=== PATIENT | female | born 1935 | race Caucasian/White ===

== ENCOUNTER 2022-10-08 07:22 | Outpatient (OUT) | payer MEDICARE, BC, SELFPAY ==
[2022-10-08 07:54] LABS: Basophils Percent Auto 0.4 % (0.2-2.0); Eosinophils Absolute Auto 0.5 10^3/uL (0.0-0.7); Eosinophils Percent Auto 7.1 % (0.9-7.0); Hematocrit 40.1 % (36.0-48.0); Hemoglobin 12.8 g/dL (12.0-16.0); Immature Granulocytes Abs Auto 0.02 10^3/uL (0.00-0.03); Immature Granulocytes Pct Auto 0.3 % (0.0-0.5); Lymphocytes Absolute Auto 2.4 10^3/uL (1.2-3.8); Lymphocytes Percent Auto 33.1 % (20.5-60.0); Mean Corpuscular HGB Conc 31.9 g/dL (29.9-35.2); Mean Corpuscular Hemoglobin 30.2 pg (26.7-34.0); Mean Corpuscular Volume 94.6 fL (81.0-99.0); Mean Platelet Volume 9.8 fL (9.5-13.5); Monocytes Absolute Auto 0.8 10^3/uL (0.3-0.8); Monocytes Percent Auto 11.6 % (1.7-12.0); Neutrophils Absolute Auto 3.4 10^3/uL (1.4-6.5); Neutrophils Percent Auto 47.5 % (43.0-75.0); Platelet Count 267 10^3/uL (150-450); Red Blood Count 4.24 10^6/uL (4.20-5.40); Red Cell Distribution Width 12.6 % (11.0-15.0); White Blood Count 7.2 10^3/uL (4.0-11.0)
[2022-10-08 14:42] LABS: Alanine Aminotransferase 30 U/L (14-59); Anion Gap 10.7; BUN Creatinine Ratio 19.5; Carbon Dioxide 27.3 mmol/L (21.0-32.0); Chloride 108 mmol/L (98-107); Chol HDL Ratio 2.3; Cholesterol 125 mg/dL (<=200); Estimated GFR (African America >60 (>=60); Estimated GFR (Non-African Ame >60 (>=60); Glucose 92 mg/dL (74-106); HDL Cholesterol 55 mg/dL (40-60); Sodium 142 mmol/L (136-145); Thyroid Stimulating Hormone 1.617 uIU/mL (0.358-3.740); Triglycerides 80 mg/dL (<=150)
== END 2022-10-08 07:23 | disposition home or self-care (01) ==
LOC: LAB 07:29
PROVIDERS: Family Provider Internal Medicine; PCP Internal Medicine; Visit Provider Internal Medicine
DX: E78.00 Pure hypercholesterolemia, unspecified (principal); I10 Essential (primary) hypertension; Z79.899 Other long term (current) drug therapy; E55.9 Vitamin D deficiency, unspecified; R53.83 Other fatigue
CPT/HCPCS: 36415; 80048; 80061; 82306; 84443; 84460; 85025

== ENCOUNTER 2023-03-22 09:54 | Outpatient (OUT) | payer MEDICARE, BC, SELFPAY ==
--- NOTE | 2023-03-22 10:03 | XR_ITS ---
The [address] [address] Patient Name: FRANSISCO CONTE MRN: [id number] date: 1935 Sex: F Assigned Patient Location: RAD Current Patient Location: RAD Accession/Order Number: [id number] Exam Date: 03/22/2023 10:10 Report Date: 03/22/2023 10:35 At the request of: DUSTY VELASQUEZ Procedure: XR chest 2V EXAM: XR chest 2V HISTORY: Acute Cough R05.1 COMPARISON: Chest study dated 02/28/2019 TECHNIQUE: PA and lateral views of the chest were obtained. FINDINGS: Heart and mediastinal contours are unremarkable in appearance. Mild to moderate patchy density in the right mid and lower lung field regions compatible with infiltrate. Mild prominence of the right hilar region most likely vascular, mild adenopathy or mass not entirely excluded. Artifact versus soft tissue mass in the right mid/lower lung field laterally on PA view measuring 1.2 cm. There may be a small right pleural effusion inferiorly. Small calcified granuloma in the right upper lung field similar to the prior exam. Small linear density left lower lung field on PA view likely representing atelectatic change. Mild degenerative change in the dorsal spine with slight convexity of the mid dorsal spine to the right and lower dorsal spine to the left. Moderate kyphosis. No obvious pneumothorax. XR/XR chest 2V IMPRESSION: Infiltrative changes on the right. Mild prominence of the right hilar region may be vascular in nature, mild adenopathy or mass not entirely excluded. Faint round density in the right mid/lower lung field laterally on PA view may be artifactually created, small mass is not excluded. Follow-up as needed. Electronically authenticated by: NADIR ANDREW Date: 03/22/2023 10:35
== END 2023-03-22 09:55 | disposition home or self-care (01) ==
LOC: RAD 09:57
PROVIDERS: Family Provider Internal Medicine; PCP Internal Medicine; Visit Provider Internal Medicine
DX: R05.1 Acute cough (principal)
CPT/HCPCS: 71046

== ENCOUNTER 2025-02-27 09:25 | Outpatient (OUT) | payer MEDICARE, BC, SELFPAY ==
--- OUTSIDE RECORDS SUMMARY | 2025-02-26 12:05 | XMS_ITS | Continuity of Care Document ---
Author Organization [facility] Address [address] [place] [address] Phone Care Team Providers Care Line Builder Name Role Phone Rj Lowery DO Primary Care Provider [phone] Pawan Herrera DO Attending Provider Rj Lowery DO Attending Provider Care Teams Patient Care Team Team Status: Active Member Role/Relationship Status Dates Rj Lowery DO Primary Care Provider Active Visit Care Team Team Status: Inactive Member Role/Relationship Status Dates Rj Lowery DO Primary Care Provider Active Start: February 05, 2025 End: February 05robert Herrera DOAttkellee ProviderActiveStart: February 05, 2025 End: February 05, 2025 Patient Care Team Team Status: Inactive Member Role/Relationship Status Dates Rj Lowery DO Primary Care Provider Active Start: February 26, 2025 End: February 26enBrittney Linares ProviderActiveStart: February 26, 2025 End: February 26, 2025 Chief Complaint and Reason for Visit Chief Complaint Admit Date SB BASIM February 05, 2025 1 :29pm wellness, 6 mo f/u February 26, 2025 3:21pm Reason for Visit Admit Date Myasthenia gravis February 05, 2025 1 :29pm Cerebral atherosclerosis February 26, 2025 3:21pm GERD (gastroesophageal reflux disease) N ovember 2024 3:21pm Hypercholesterolemia February 26, 2025 3:21pm Lung nodule February 26, 2025 3:21pm Medicare annual wellness visit, subseque nt February 26, 2025 3:21pm Myasthenia gravis February 26, 2025 3:21pm Paroxysmal atrial fibrillation February 26, 2025 3:21pm Primary hypertension February 26, 2025 3:21pm Allergies, Adverse Reactions, Alerts Allergen Type Severity Reaction Last Updated Verified Status No Known Allergies Allergy Unknown February 26, 2025 3:43pmYesActive Social History Smoking Status Unknown if ever smoked Observation Status Observation Response Date of Response Legal Sex Female (finding) Sex Assigned At BirthFemaleFebruary 1935 Problems Active Problems Problem Diagnosis/Recorded Date Onset Date Status C omments Medicare annual wellness vis it, subsequent January 30, 2024 6:39am Unknown Active Swelling of right lower extremityJune 2024 10:17amUnknownActiveTraumatic hematoma of right kneeJune 2024 10:17amUnknownActiveCerebral atherosclerosisMay 2023 9:29amUnknownActiveHypercholesterolemiaJune 2023 1:35pmUnknownActiveMyasthenia gravisJune 2023 1:34pmUnknownActiveLung noduleJune 2023 1:34pmUnknownActiveCXR: 2cm right hilar and 8mm RUL nodule - 09/2023,CT chest: granulomatous disease, emphysema, RUL, RLL granuloma and scarring, LLL scarring - 10/2023,CT chest w/ granulomas, scarring RUL, RLL, LLL - 10/2024 (consider repeat in year)Restless leg syndromeMay 2023 9:29am UnknownActivePrimary hypertensionMay 2023 9:29amUnknownActiveMuscle weaknessMay 2023 12:17pmUnknownActiveParoxysmal atrial fibrillationMay 2023 9:29amUnknownActiveGERD (gastroesophageal reflux disease)August 26, 2023 10:10amUnknownActiveAllergic rhinitisMay 2023 10:10amUnknownActive Contusion of right kneeJune 2024 10:16amUnknownActivePrepatellar bursitis of right kneeJuly 2024 8:55amUnknownActive Medications Medication Status Dose Units Route Directions Qty Days Refills S tart Date Stop Date End Date Reason(s) Instructions Adherence Ropinirole 1 mg tablet Discontinued 0 .ROUTE.QMIWFVE308Gutmr 2023 1:09pmJanuary 2024 7:14amTAKE 1 TABLET BY MOUTH ONCE DAILY IN THE EVENINGAtenolol 25 mg tabletDiscontinued0.ROUTE.COMPLEX 90pril 2023 2:54pmMar2024 4:04pmTAKE 1 TABLET BY MOUTH DAILY Lisinopril 30 mg tabletDiscontinued0.ROUTE.DOGKZTJ399Nsgla 2023 2:54pm June 23, 2024 4:04pmTAKE 1 TABLET BY MOUTH DAILYAmlodipine 5 mg tablet Discontinued0.ROUTE.PAHHHES866Hajfe 2023 2:54pmMarch 2024 4:04pmTAKE 1 TABLET BY MOUTH DAILYApixaban (Eliquis) 5 mg ardbqjCxglxbhhyuqr2NAISCxnlm dailyJun2023 11:00pmDecember 2023 6:48amAspirin (Adult Aspirin Regimen) 81 mg tablet,delayed release (DR/EC)Qxyebr64VWOKBrlorBrqa 2023 11:00pmComplies with drug therapyCitalopram 20 mg cmwsbtHmdbztfegvwc14SPLQIskhk October 12, 2023 11:00pmJun2023 4:53pmCitalopram 20 mg tabletDiscontinued 0.ROUTE.SHYPXIE432Vkrg 27th, 2024 4:52pmNov2023 7:29amTAKE 1 TABLET BY MOUTH ONCE DAILYPyridostigmine Greene (Mestinon) 60 mg lbvawpEvtdxqewpnvw40 MGPOThree times dailyJun2023 11:00pmJune 2023 12:16pm Pyridostigmine Greene (Mestinon) 60 mg hxnfzaVaqycsyiieto28HPEXKpvut times tkmix55627Ivvb 2023 12:16pmJuly 2023 9:59amBuspirone 5 mg tablet Vjvdkticsefe6YJUGVefpc efbvk706407Ympp 2023 10:15amOctober 2023 2:18pmOmeprazole 40 mg capsule,delayed release(DR/EC)Discontinued0.ROUTE.COMPLEX 301ly 2023 6:21amApril 2024 2:01pmTAKE 1 CAPSULE BY MOUTH EVERY DAYPyridostigmine Greene (Mestinon) 60 mg txikqdMvpdjbegobtl03QGTKIwsek times ddysi576901Kadb 2023 9:58amMarch 2024 6:47amCitalopram 20 mg tablet Active0.ROUTE.PHIIFWD924Shkzhcbr 20th, 2024 7:29amTAKE 1 TABLET BY MOUTH ONCE DAILYComplies with drug therapyAtorvastatin 40 mg tabletActive0.ROUTE.SSOHTUU408 March 30, 2024 6:48amTAKE 1 TABLET BY MOUTH DAILY IN THE EVENINGComplies with drug therapyApixaban (Eliquis) 5 mg tabletActive0.ROUTE.OPCLZOF4716Vdkhdcae 2023 6:48amTAKE 1 TABLET BY MOUTH TWICE DAILYComplies with drug therapy Ropinirole 1 mg tabletActive0.ROUTE.BTSMCRI767Ppsabll 9th, 2025 7:14amTAKE 1 TABLET BY MOUTH ONCE DAILY IN THE EVENINGComplies with drug therapyAmlodipine 5 mg tabletActive0.ROUTE.QTASAAC556Pzbap 2024 4:04pmTAKE 1 TABLET BY MOUTH DAILYComplies with drug therapyLisinopril 30 mg tabletActive0.ROUTE.NTXRLRK603 June 23, 2024 4:04pmTAKE 1 TABLET BY MOUTH DAILYComplies with drug therapy Atenolol 25 mg tabletActive0.ROUTE.QUXWRID064Zddic 2024 4:04pmTAKE 1 TABLET BY MOUTH DAILYComplies with drug therapyPyridostigmine Greene 60 mg tablet Active0.ROUTE.IYDNTLE5164Uvjyy 2024 6:47amTAKE 1 TABLET BY MOUTH 3 TIMES DAILYComplies with drug therapyRopinirole 1 mg weugfqUntszrgnhvjg5BVUGJcfyvQefpl 2023 12:00amMarch 2023 1:09pmAtenolol 25 mg ilharjImkpxytlvdry61XHSS DailyApril 2023 11:00pmApril 2023 2:55pmLisinopril 30 mg tablet Yjmqjvnbooui02GSAVUapsxVpbmk 2023 11:00pmApril 2023 2:55pmAmlodipine 5 mg pukvqnJjavumchbzds8MYJIKoligSbzdt 2023 11:00pmApril 2023 2:55pm Atorvastatin 40 mg sgtynpXruhamdvzocz36COQRWicmwQqp 2023 11:00pmDecember 2023 6:48amBuspirone 5 mg yoxqbgOspoggvbhihn2GCLRVzsdw dailyAugust 25, 2023 11:00pmJuly 2023 10:16amBenzonatate 100 mg bewtzdrDzpcuzmvqriw822AQHAOicer times dailyAugust 25, 2023 11:00pmJune 2023 3:31pmCitalopram 20 mg tablet Ckgdtrbnwhgb00PYVOSynzaZnz 9th, 2024 11:00pmJune 2023 3:31pmOmeprazole 40 mg capsule,delayed release(DR/EC)Pwfllpqixjen78YDMPPkybr90363Zvp 9th, 2024 11:00pmJuly 2023 6:21amFluticasone Propionate 50 mcg/actuation spray,wfoellkhlzPdvtisdsvsbc7FLLCPGDMBMBLVRXMwfzp03314Pct 9th, 2024 11:00pmApril 2024 2:00pmadminister into each nostrilFexofenadine (Allergy Relief (Fexofenadine)) 180 mg nvczieCjdnydhvrbxv025CBWPBfmwf42967Uyu 9th, 2024 11:00pm March 08, 2024 9:09amCephalexin 500 mg kmxqzawJpocskjmpodl149IIKDUiyyu jcycd69143Jeas 2024 11:00pmJuly 2024 11:08amMupirocin 2 % ointment Osvamd2DJKHZMGIPNHUGKhtuo jcywv60045Xner2024 11:00pmComplies with drug therapyCiprofloxacin Hcl 500 mg coaerkAbebbfnkcnms392UPDCXvlcb whtqw88364Ihih2024 11:00pmOctober 2024 12:49pmPrednisone 5 mg pidjtlUxqfof5GQGF Esyyr857Dofdrnm2024 11:00pmComplies with drug therapy Immunizations Immunization Event Date Not Given Reason Dose Number Slab Lifting Engineer Lot Number Reason(s) Given Vaccine Information Statement (VIS) Detail Administration Location COVID-19 mRNA-1273 ([facility]) June 05, 2020 COVID-19 mRNA-1273 (Moderna)July 01OVID-19 mRNA-1273 (Moderna)February 19Tap, unspecifiedMay 2016Fluzone TIV High-Dose 65YR+February 01, [address] [facility] CenterFluzone QIV High-Dose 65YR+February 18, 2025 influenza, unspecified formulationFebruary 25, 2023 Vital Signs Vital Reading Result Reference Range Collection Date/Time Weight 66.45 kg February 05, 2025 12:44pmHeart Rate70 /bsq26-615Ukapipr 2024 12:44pm Oxygen saturation by Pulse emqlrwxz35 %95-100[facility] 2024 12:44pmBP Uwiboeee416 mm[Hg]100-140October 2024 12:44pmBP Jtbetrxos91 mm[Hg]60-100 February 05, 2025 12:78mrLjtmmp95 [in_i]February 26, 2025 3:89ppNuwkwd30.77 [facility] 2024 3:43pmHeart Rate58 /num24-521Vrjahqtu 2024 3:43pm Respiratory rate12 /dmt40-05Jmugqryr 2024 3:43pmOxygen saturation by Pulse eezuzvcd31 %95-100[facility] 2024 3:43pmBP Zualxuwv325 mm[Hg]100-140 February 26, 2025 3:43pmBP Mhhcihsyv99 mm[Hg]60-100Noven[facility] 2024 3:43pm BMI (Body Mass Index)26.5 kg/r4Zzpzjjee 2024 3:43pm Advance Directives Advance Directive Response Recorded Date/ Time Advance Directives No August 15 025 3:04pm Insurance Providers Guarantor Genesis Olguin Address [address] [facility] [address]Thmybfo Info.Home Phone: Payer Group Member ID Coverage Type Subscriber Relationship to Subscriber Effective Date Expiration Date Patricia ANTHONY Retired Id: [id number] Ann Hay Id: [id number] [address] [facility] [address] Home Phone: SelfMedicare [id number] Ann Hay Id: [id number] [address] [place] [address] Home Phone: selb Encounters Encounter Location(s) Arrival/Admit Date Discharge/Departure Date Discharge/Departure Disposition Provider(s) Departed Physician/ Provider Office Visit -Counts Include [facility] Neurology February 05, 2025 1:29pm February 05, 2025 2:23pm Discharged to home care or self care (routine discharge) Mack Tolliver DO Departed Physician/ Provider Office Visit -[facility] February 26, 2025 3:21pm February 26, 2025 5:04pm Discharged to home care or self care (routine discharge) Rj Lowery DO Recent Diagnosis Onset Date Admit Date Myasthenia gravis Unknown February 05, 2025 1:29pm Cerebral atherosclerosis Unknown Novembe r 2024 3:21pm GERD (gastroesophageal reflux disease) Unknown February 26, 2025 3:21pm Hypercholesterolemia Unknown February 262024 3:21pm Lung nodule Unknown February 26, 2 025 3:21pm Medicare annual wellness visit, subsequent Unkno wn February 26, 2025 3:21pm Myasthenia gravis Unknown February 26, 2025 3:21pm Paroxysmal atrial fibrillation Unknown N ovember 2024 3:21pm Primary hypertension Unknown February 262024 3:21pm Assessments Diagnosis Onset Date Resolution Status Admit Date Myasthenia gravis acuteOctober 2024 1:29pmCerebral atherosclerosisacuteNovember 2024 3:21pmGERD (gastroesophageal reflux disease)acuteNovember 2024 3:21pm HypercholesterolemiaacuteNovember 2024 3:21pmLung noduleacuteNovember 2024 3:21pmMedicare annual wellness visit, subsequentacuteNov2024 3:21pmMyasthenia gravisacuteNovember 2024 3:21pmParoxysmal atrial fibrillationacuteNovember 2024 3:21pmPrimary hypertensionacuteNovember 2024 3:21pm Plan of Treatment Author Rj Lowery [facility] ShawAuthoredNovember 2024 5:34pmNo s/s of acute, focal neurologic deficits. I have reviewed stroke symptoms and instructed them to go to the ER for any suspicious symptoms. They have been instructed to continue secondary preventive measures. Continue ASA and Eliquis without interruption. Monitor for any bleeding complications: she denies epistaxis, hematemesis, melena, hematochezia or hematuria. This patient is rhythm controlled. I instructed them to continue anticoagulation to prevent thromboembolic events. I instructed them to monitor their BP, HR and daily weights. I also instructed them to monitor for bleeding complications, including epistaxis, hematuria, melena and hematochezia. Continue Eliquis and Atenolol without interruption I have instructed this patient to consume a healthy, low-fat, low-salt diet. I have also encouraged them to continue exercise with weight loss to achieve/maintain a BMI < 30. I have instructed this patient on the correct procedure for obtaining home BP measurements:? - rest for 5 minutes w/o talking. - positioned w/ feet on floor and arms supported. - average best 2/3 readings w/ goal < 135/85. - update office w/ home readings in 2 weeks. Continue Lisinopril, Amlodipine and Atenolol without interruption Incidental finding on evaluation during her hospital stay. - CXR: 2cm right hilar and 8mm RUL nodule - 09/2023 - CT chest: granulomatous disease, emphysema, RUL, RLL granuloma and scarring, LLL scarring - 10/2023 - CT chest w/ granulomas, scarring RUL, RLL, LLL - 10/2024 (consider repeat in year) Continue Mestinon and f/u with Neurology. PEG can be removed and she has been instructed to contact the trauma surgeon for removal. Her ptosis and oral secretions have improved. She denies choking or dysphagia. Continue Mestinon without interruption I have instructed this patient on a low fat, high fiber diet and exercise. I have discussed the primary and secondary prevention benefits attributed to lowering LDL cholesterol. I have also discussed the medical treatment of elevated cholesterol, which is based on the 10 year ASCVD risk. Continue Atorvastatin without interruption I have instructed this patient to avoid lying flat after eating.?? I have also recommended to avoid eating 2 hours prior to bedtime.?? They were also informed that smaller, frequent meals may be better tolerated. I have discussed additional treatment options for persistent symptoms, which includes: weight loss, H2 blockers and PPI. I have also instructed them to notify the office with any pain or difficulty swallowing. I have instructed this patient on the recommended lifestyle changes, which includes a low fat, high fiber diet along with a regular exercise routine. I have also reviewed the recommended age-appropriate preventive testing for this patient. I have also reviewed the recommended vaccines for their age and risk factors. Author Pawan Herrera [facility] ShawAuthoredPromedica [facility] 2024 1:20pmPatient was seen at [facility] 09/06/2023 with symptoms of slurred speech, left sided facial droop, dysarthria, and shortness of breath. Brain MRI was nonacute. She was found to have positive labs for myasthenia gravis with positive antibody testing. CT of the chest is negative for thymoma.. She received IVIG September 08, 2023. She is doing well on mestinon. The patient states that she has been noticing some worsening of ptosis especially in the evening. She is concerned that her disease is becoming somewhat less well-controlled indicating a worsening of a chronic condition. PLAN: Start prednisone 5 mg p.o. daily for disease-modifying therapy for myasthenia gravis Continue Mestinon 60mg PO TID for Myasthenia Gravis. Continue with fall precautions Red flag signs and symptoms discussed. She understands to proceed to the emergency department right away with any evidence of shortness of breath, severe ptosis or proximal extremity weakness. The patient was accompanied by her daughter today who provided additional history and was understanding and agreeable to the plan. Future Tests Future scheduled test information is unavailable Pending Tests Pending diagnostic test information is unavailable Future Visits Future appointment information is unavailable Future Procedures Future procedure information is unavailable Future Medications Future medication information is unavailable Patient Instructions Patient instructions are unavailable
--- OUTSIDE RECORDS SUMMARY | 2025-02-27 09:32 | XMS_ITS | Clinical Summary ---
Author Organization [facility] Address [address] [place] [address] Care Team Providers Care Financial Professional Name Role Phone Rj Lowery DO Primary Care Provider [phone] Misti Berger Unavailable Allergies No known active allergies Medications MedicationSigDispense QuantityRefillsLast FilledStart DateEnd DateStatus amLODIPine (Norvasc) 5 MG tablet Take 5 mg by mouth DailyActive aspirin 81 MG EC tablet Take 81 mg by mouth DailyActive atenolol (Tenormin) 25 MG tablet Take 25 mg by mouth DailyActive atorvastatin (Lipitor) 40 MG tablet Take 40 mg by mouth DailyActive busPIRone (Buspar) 5 MG tablet Take 5 mg by mouth in the morning and 5 mg before bedtime.Active citalopram (CeleXA) 20 MG tablet Take 20 mg by mouth DailyActive apixaban (Eliquis) 5 MG tablet Take 5 mg by mouth in the morning and 5 mg before bedtime.Active famotidine (Pepcid) 40 MG/5ML suspension Take 40 mg by mouth DailyActive fexofenadine (Ame) 180 MG tablet Take 180 mg by mouth DailyActive fluticasone (Flonase) 50 MCG/ACT nasal spray Administer 1 spray into each nostril Daily Shake gently. Before first use, prime pump. After use, clean tip and replace cap.Active lisinopril 30 MG tablet Take 30 mg by mouth DailyActive pyridostigmine (Mestinon) 60 MG tablet Take 60 mg by mouth in the morning and 60 mg in the evening and 60 mg before bedtime.Active rOPINIRole (Requip) 1 MG tablet Take 1 mg by mouth at bedtimeActive tuberculin (Aplisol) 5 UNIT/0.1ML injection Inject 5 Units into the skin 1 (one) timeActive omeprazole (PriLOSEC) [address] capsule Take 40 mg by mouth in the morning. Take before meals. Do not crush or chew.. Active Social History Tobacco UseTypesPacks/DayYears UsedDateSmoking Tobacco: Never Assessed CommentsUnknownSex and Gender InformationValueDate RecordedSex Assigned at Not on fileLegal EdbZssobw52/15/2023 7:21 PM EDTGender IdentityNot on fileSexual OrientationNot on file Last Filed Vital Signs Vital SignReadingTime TakenCommentsBlood Jkdwqgwf440/70007/05/2024 12:55 PM EDT Yjqee3161/20/2025 12:55 PM EDTTemperature--Respiratory Ssay752507/05/2024 12:55 PM EDTOxygen Ijunahjxqo97%07/05/2024 12:55 PM EDTInhaled Oxygen Concentration-- Slqmhd68.1 kg (148 lb)07/05/2024 12:55 PM XZQDwmexy770.5 cm (5' 2 )07/05/2024 12:55 PM EDTBody Mass Index27.0707/05/2024 12:55 PM EDT Plan of Treatment Not on file Insurance Care Teams Team MemberRelationshipSpecialtyStart DateEnd Date Rj Lowery DO PCP - GeneralInternal Medicine10/06/23 Misti Berger PA Physician AssistantNeurology07/05/24
--- OUTSIDE RECORDS SUMMARY | 2025-02-27 09:32 | XMS_ITS | Clinical Summary ---
Author Organization [facility] Address [address] [place] [address] Care Team Providers Care Hog Cooler Name Role Phone Unavailable Primary Care Provider Unavailabl e Social History Tobacco UseTypesPacks/DayYears UsedDateSmoking Tobacco: Never Assessed CommentsUnknownSex and Gender InformationValueDate RecordedSex Assigned at Not on fileLegal YqfPgfxcy41/30/2022 12:14 AM EDTGender IdentityNot on file Sexual OrientationNot on file Plan of Treatment Not on file
--- OUTSIDE RECORDS SUMMARY | 2025-02-27 09:52 | XMS_ITS | CCD ---
Author Organization [facility] Care Team Providers Care Floor Assembler Name Role Phone PHYSICIAN, DEFAULT Admitting Unavailable PHYSICIAN, DEFAULT Attending Unavailable Gordy Aldana Unavailable Jose Cleveland Unavailable Rj Velasquez Unavailable VIMAL ., WALDO Admitting Unavailable VIMAL ., WALDO Attending Unavailable RON, DR DE LA ROSA Primary Care Unavailable VIMAL ., WALDO Consulting Unavailable VIMAL ., WALDO Admitting Unavailable VIMAL ., WALDO Attending Unavailable RON, DR DE LA ROSA Primary Care Unavailable VIMAL ., WALDO Consulting Unavailable VIMAL ., WALDO Admitting Unavailable VIMAL ., WALDO Attending Unavailable RON, DR DE LA ROSA Primary Care Unavailable VIMAL ., WALDO Consulting Unavailable LITTLE ., DR NO Rust Admitting Unavailable LITTLE ., DR NO Rust Attending Unavailable RON, DR DE LA ROSA Primary Care Unavailable LITTLE ., DR NO Rust Consulting Unavailable LITTLE ., DR NO Rust Admitting Unavailable LITTLE ., DR NO Rust Attending Unavailable RON, DR DE LA ROSA Primary Care Unavailable LITTLE ., DR NO Rust Consulting Unavailable LITTLE ., DR NO Rust Admitting Unavailable LITTLE ., DR NO Ruts Attending Unavailable RON, DR DE LA ROSA Primary Care Unavailable URIBE ., FARIHA Consulting Unavailable LITTLE ., DR NO Rust Admitting Unavailable LITTLE ., DR NO Rust Attending Unavailable RON, DR DE LA ROSA Primary Care Unavailable URIBE ., FARIHA Consulting Unavailable RON, DR DE LA ROSA Primary Care Unavailable RON, DR DE LA ROSA Consulting Unavailable LAKSHMIPATHY ., NARENDRANATH Admitting Zeina vailable LAKSHMIPATHY ., NARENDIKEATH Attending Zeina vailable Chnio [place] Attending Unavailable DO Jass Amaya Attending Unavailable Billy BRAVO Admitting Unavailable Billy BRAVO Attending Unavailable Billy BRAVO Admitting Unavailable Carl Mariee Consulting Unavailable MarieeCarl Consulting Unavailable Carl Mariee Consulting Unavailable Rickey Moore Consulting Unavailable MD Rickey Moore Consulting Unavailable [place], Rickey Consulting Unavailable [place], Rickey Consulting Unavailable [place], Rickey Consulting Unavailable [place], Rickey Consulting Unavailable [place], Rickey Consulting Unavailable [place], Rickey Consulting Unavailable [place], Rickey Consulting Unavailable [place], Rickey Consulting Unavailable MD Carl Mariee Consulting Breanne Spring Consulting UnavailMD Breanne Denson Consulting Breanne Pulliam Consulting Breanne Gusman Consulting RJ Ortiz Primary Care Physician DO Rj Velasquez Primary Care Provider DO Rj Velasquez Attending Provider Rj Velasquez Admitting Unavailable Rj Velasquez Attending Unavailable Rj Velasquez Primary Care Unavailable Breanne Zuleta Attending UnavailBreanne Denson Referring UnavailRJ Casiano Admitting Unavailable RJ VELASQUEZ Attending Unavailable RJ VELASQUEZ Referring Unavailable Billy BRAVO Admitting Unavailable [place], Rickey Consulting Unavailable Eliel Carvajal Attending Unavailable MD Rickey Moore Consulting Unavailable [place], Rickey Consulting Unavailable [place], Rickey Consulting Unavailable [place], Rickey Consulting Unavailable [place], Rickey Consulting Unavailable [place], Rickey Consulting Unavailable [place], Rickey Consulting Unavailable [place], Rickey Consulting Unavailable Rj Velasquez MD Primary Care Provider Misti De Luna Unavailable MISTI BERGER Attending Unavailable MISTI BERGER Attending Unavailable MISTI BERGER Attending Unavailable MISTI BERGER Attending Rj Jasso DO Primary Care Provider Rj Velasquez DO Attending Provider [phone] Rj Velasquez DO Primary Care Provider Pawan Herrera DO Attending Provider [phone] Allergies Allergy ClassificationReported Allergen(s)Allergy TypeDate of OnsetReaction(s) FacilityCephalosporins (antibiotic) (1 source)cefTRIAXone; Translations: [cefTRIAXone][facility] ([facility] source)patient allergy list reviewed by nurse or physiciaPropensity to adverse tvetnzaoa92-05-1625Htcsfax:[employer] Other (12 sources)No Known Medication Allergies; Translations: [No Known Medication Allergies]Propensity to adverse reactions (disorder)[facility] Repository (14 sources)cefTRIAXone; Translations: [cefTRIAXone]Drug AllergyPharyngeal swelling (finding)[facility] Repository Medications Current Medications MedicationDrug Class(es)DatesSig (Normalized)Sig (Original)amLODIPine 5 mg oral tablet (20 sources)Dihydropyridine Calcium Channel BlockerStart: 96-02-0677Pwytdlf 5 mg Tab 5 mg = 1 tab(s), PEG, Daily, Refills(s) 0 Start Date: 09/06/23 Status: OrderedStart: 08-11-2023 End: 26-06-9733fxyx 1 tablet by mouth once dailyAmlodipine 5 mg tablet Active 0 .ROUTE .COMPLEX 90 3 June 23, 2024 5:04pm TAKE 1 TABLET BY MOUTH DAILY Complies with drug therapyStart: 58-96-7656xbsj 1 tablet by mouth once daily Amlodipine Active 0 .ROUTE .COMPLEX 90 August 11, 2023 3:54pm TAKE 1 TABLET BY MOUTH DAILYStart: 08-11-2023 End: 71-49-6846hsts 1 tablet by mouth once dailyAmlodipine 5 mg tablet Discontinued 5 MG PO Daily August 11, 2023 12:00am August 11, 2023 3:55pm apixaban 5 mg oral tablet (20 sources)Factor Xa InhibitorStart: 05-97-2743zpmk 1 tablet by mouth twice dailyApixaban (Eliquis) 5 mg tablet Active 0 .ROUTE .COMPLEX 180 March 30, 2024 7:48am TAKE 1 TABLET BY MOUTH TWICE DAILY Complies with drug therapy Start: 09-06-2023 End: 08-49-2102hpwd 1 tablet by mouth twice dailyApixaban (Eliquis) 5 mg tablet Discontinued 5 MG PO Twice daily September 22, 2023 12:00am March 30, 2024 7:48amaspirin 81 mg delayed release oral tablet (19 sources)Platelet Aggregation Inhibitor, Nonsteroidal Anti-inflammatory Drug Start: 14-71-5582nkoq 1 tablet by mouth once dailyAspirin (Adult Aspirin Regimen) 81 mg tablet,delayed release (DR/EC) Active 81 MG PO Daily September 22, 2023 12:00am Complies with drug therapyStart: 00-83-9344hxtf 1 capsule by mouth once dailyaspirin 81 mg oral capsule 81 mg = 1 cap(s), PEG, Daily, Refills(s) 0 Start Date: 09/07/23 Status: Orderedatenolol 25 mg oral tablet (20 sources)beta-Adrenergic BlockerStart: 00-47-7411aruncqri 25 mg Tab 25 mg = 1 tab(s), PEG, Daily, Refills(s) 0 Start Date: 09/06/23 Status: OrderedStart: 08-11-2023 End: 88-28-9269amax 1 tablet by mouth once dailyAtenolol 25 mg tablet Active 0 .ROUTE .COMPLEX 90 3 June 23, 2024 5:04pm TAKE 1 TABLET BY MOUTH DAILY Complies with drug therapyStart: 08-11-2023 End: 04-97-8029fxka 1 tablet by mouth once dailyAtenolol 25 mg tablet Discontinued 25 MG PO Daily August 11, 2023 12:00am August 11, 2023 3:55pm atorvastatin 40 mg oral tablet (20 sources)HMG-CoA Reductase InhibitorStart: 42-80-9276wwpv 1 tablet by mouth once daily in the eveningAtorvastatin 40 mg tablet Active 0 .ROUTE .COMPLEX 90 3 March 30, 2024 7:48am TAKE 1 TABLET BYMOUTH DAILY IN THE EVENING Complies with drug therapyStart: 08-26-2023 End: 27-89-6435dlqv 1 tablet by mouth once dailyAtorvastatin 40 mg tablet Discontinued 40 MG PO Daily August 26, 2023 12:00am March 30, 2024 7:48am citalopram 20 mg oral tablet (20 sources)Serotonin Reuptake InhibitorStart: 10-13-2023 End: 07-97-9418irzr 1 tablet by mouth once dailyCitalopram 20 mg tablet Active 0 .ROUTE .COMPLEX 90 3 March 07, 2024 8:29am TAKE 1 TABLET BY MOUTH ONCE DAILY Complies with drug therapyStart: 10-13-2023 End: 47-17-7753rkrk 1 tablet by mouth once dailyCitalopram 20 mg tablet Discontinued 20 MG PO Daily October 13, 2023 12:00am October 13, 2023 5:53pmStart: 08-26-2023 End: 95-54-1445emej 1 tablet by mouth once dailyCitalopram 20 mg tablet Discontinued 20 MG PO Daily August 26, 2023 12:00am September 22, 2023 4:31pm famotidine 8 mg/ml oral suspension (8 sources)Histamine-2 Receptor Antagonisttake 40 mg by mouth once daily famotidine (Pepcid) 40 MG/5ML suspension Take 40 mg by mouth Daily Active fluticasone (20 sources)CorticosteroidStart: 78-62-5548ghya 50 ug by inhalation once daily fluticasone propionate 50 mcg, Inhalation, Daily, Refills(s) 0 Start Date: 09/06/23 Status: OrderedStart: 08-26-2023 End: 81-39-2804fbmd 1 spray(s) nasal route once dailyFluticasone Propionate 50 mcg/actuation spray,suspension Discontinued 1 SPRAY INTRANASAL Daily August 26, 2023 12:00am August 15, 2024 3:00pm administer into each nostriltake 1 spray(s) nasal route once dailyfluticasone (Flonase) 50 MCG/ACT nasal spray Administer 1 spray into each nostril Daily Shake gently. Before first use, prime pump. After use, clean tip and replace cap. ActiveJevity 1.5 [place] (Continuous) (4 sources)Start: 30-99-0733Jrtapx 1.5 [place] (Continuous) See Instructions, 1 EA, 0, other reason (Rx), 45 mL/hour via PEG with 25 cc water flushes every hour Start Date: 09/16/23 Status: OrderedlevoFLOXacin 750 mg oral tablet (1 source)Quinolone AntimicrobialStart: 64-83-7195xqhf 1 tablet by mouth every twenty-four hourslevoFLOXacin 750 MG 1 tablet Orally Once a day for 5 days Mar, Activelisinopril 30 mg oral tablet (20 sources)Angiotensin Converting Enzyme InhibitorStart: 70-58-9838kbkoiuyoxc 30 mg Tab 30 mg = 1 tab(s), PEG, Daily, Refills(s) 0 Start Date: 09/06/23 Status: OrderedStart: 08-11-2023 End: 06-57-7388oacd 1 tablet by mouth once dailyLisinopril 30 mg tablet Active 0 .ROUTE .COMPLEX 90 3 June 23, 2024 5:04pm TAKE 1 TABLET BY MOUTHDAILY Complies with drug therapyStart: 08-11-2023 End: 19-90-4941ieux 1 tablet by mouth once dailyLisinopril 30 mg tablet Discontinued 30 MG PO Daily August 11, 2023 12:00am August 11, 2023 3:55pm mupirocin 0.02 mg/mg topical ointment (3 sources)RNA Synthetase Inhibitor AntibacterialStart: 89-78-6909Jlyrlbqnm 2 % ointment Active 1 APPLIC TOPICAL Twice daily 22 10 0 October 18, 2024 12:00am Complies with drug therapypredniSONE 5 mg oral tablet (5 sources)Start: 07-79-2286carz 1 tablet by mouth once dailyPrednisone 5 mg tablet Active 5 MG PO Daily 90 February 05, 2025 12:00am Complies with drug therapyStart: 99-55-2632zazlvgst protein derivative of tuberculin 50 unt/ml injectable solution (8 sources)Tuberculosis Skin Test, Skin Test Antigentuberculin (Aplisol) 5 UNIT/0.1ML injection Inject 5 Units into the skin 1 (one) time Active pyridostigmine bromide 60 mg oral tablet (20 sources)Start: 35-31-6324fhzq 1 tablet by mouth three times daily Pyridostigmine [place] 60 mg tablet Active 0 .ROUTE .COMPLEX 300 3 July 06, 2024 7:47am TAKE 1 TABLET BY MOUTH 3 TIMES DAILY Complies with drug therapy Start: 10-14-2023 End: 13-25-1695idtb 1 tablet by mouth three times dailyPyridostigmine [place] (Mestinon) 60 mg tablet Discontinued 60 MG PO Three times daily 270 90 November 07, 2023 10:58am July 06, 2024 7:47amStart: 86-75-1901aofchivrotjixe 60 mg Tab 30 mg = 0.5 tab(s), PEG, TID, Refills(s) 0 Start Date: 09/16/23 Status: Orde redrOPINIRole 1 mg oral tablet (20 sources)Nonergot Dopamine AgonistStart: 29-60-1889Wzhojo 1 mg, PEG, Daily, Refills(s) 0 Start Date: 09/07/23 Status: OrderedStart: 06-20-2023 End: 47-78-2427wcpr 1 tablet by mouth once daily in the eveningRopinirole 1 mg tablet Active 0 .ROUTE .COMPLEX 90 April 26, 2024 8:14am TAKE 1 TABLET BY MOUTH ONCE DAILY IN THE EVENING Complies with drug therapyStart: 06-20-2023 End: 35-04-6589xyvp 1 tablet by mouth once dailyRopinirole 1 mg tablet Discontinued 1 MG PO Daily June 20, 2023 1:00am June 20, 2023 2:09pm Completed/Discontinued Medications MedicationDrug Class(es)DatesSig (Normalized)Sig (Original)azithromycin 250 mg oral tablet (4 sources)Macrolide AntimicrobialStart: 26-37-3762Lmnnoazdyfwm 250 MG as directed Orally daily for 5 days Mar, Not-Taking/PRNbenzonatate 100 mg oral capsule (12 sources)Non-narcotic AntitussiveStart: 08-26-2023 End: 43-36-5432cynn 1 capsule by mouth three times dailyBenzonatate 100 mg capsule Discontinued 100 MG PO Three times daily August 26, 2023 12:00am September 22, 2023 4:31pmStart: 20-50-4737witn 1 capsule by mouth every eight hours Benzonatate 100 MG 1 capsule as needed Orally Three times a day Mar, ActivebusPIRone hydrochloride 5 mg oral tablet (20 sources)Start: 08-26-2023 End: 69-77-7252ekye 1 tablet by mouth twice dailyBuspirone 5 mg tablet Discontinued 5 MG PO Twice daily 180 90 October 31, 2023 11:15am February 01, 2024 3:18pmcephalexin 500 mg oral capsule (5 sources)Cephalosporin AntibacterialStart: 10-12-2024 End: 80-76-4927rimk 1 capsule by mouth twice dailyCephalexin 500 mg capsule Discontinued 500 MG PO Twice daily 20 10 0 October 12, 2024 12:00am October 18, 2024 12:08pmciprofloxacin 500 mg oral tablet (3 sources)Quinolone AntimicrobialStart: 10-18-2024 End: 47-92-0298imqm 1 tablet by mouth twice dailyCiprofloxacin Hcl 500 mg tablet Discontinued 500 MG PO Twice daily 10 October 18, 2024 12:00am February 05, 2025 1:49pmfexofenadine hydrochloride 180 mg oral tablet (20 sources)Histamine-1 Receptor AntagonistStart: 08-26-2023 End: 26-35-5991hlrw 1 tablet by mouth once dailyFexofenadine (Allergy Relief (Fexofenadine)) 180 mg tablet Discontinued 180 MG PO Daily 2023 12:00am March 08, 2024 10:09amomeprazole 40 mg delayed release oral capsule (20 sources)Proton Pump InhibitorStart: 11-07-2023 End: 15-17-1682ajqn 1 capsule by mouth once dailyOmeprazole 40 mg capsule,delayed release(DR/EC) Discontinued 0 .ROUTE .COMPLEX 30 November 07, 2023 7:21am August 15, 2024 3:01pm TAKE 1 CAPSULE BY MOUTH EVERY DAYStart: 08-26-2023 End: 78-08-4184sjlh 1 capsule by mouth once dailyOmeprazole 40 mg capsule,delayed release(DR/EC) Discontinued 40 MG PO Daily August 26, 2023 12:00am November 07, 2023 7:21am Problems Active Problems Problem ClassificationProblemDateDocumented DateEpisodic/ChronicAcute bronchitis (2 sources)Acute bronchitis due to other specified organismsEpisodicAcute cerebrovascular disease (1 source)Cerebral infarction due to embolism of cerebral arteries; Translations: [Cerebral infarction due toembolism of left middle cerebral artery]Onset: 44-50-8246MzcgwruLogkewx disorders (11 sources)Generalized anxiety disorder; Translations: [Generalized anxiety disorder]ChronicCardiac dysrhythmias (20 sources)Paroxysmal supraventricular tachycardia; Translations: [Supraventricular tachycardia]Onset: 03-28-2015 Resolved: 16-89-4923BupnfhfCmezvmghv of lipid metabolism (20 sources)Pure hypercholesterolemia; Translations: [Pure hypercholesterolemia, unspecified]Onset: 09-07-2018 Resolved: 08-86-3529VnhzxqfScruirmpxy disorders (20 sources)Gastroesophageal reflux disease; Translations: [Gastro-esophageal reflux disease without esophagitis]Onset: 698607-72-6188YskqezvZgwihnnec hypertension (20 sources)Essential hypertension; Translations: [Essential (primary) hypertension]Onset: 65-62-5548DeuduenCyibkngiqur (1 source)Residual hemorrhoidal skin tags; Translations: [Residual hemorrhoidal skin tags]EpisodicLate effects of cerebrovascular disease (11 sources)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; Translations: [Hemiplegia and hemiparesis following cerebral infarction affecting right dominant side]Onset: 08-07-2018 Resolved: 45-87-4042SkaidhtAdtk disorders (5 sources)Depressive disorder; Translations: [Depression, unspecified]Onset: 64-91-7292ZtmwluxGawurhltmnw deficiencies (9 sources)Vitamin D deficiency; Translations: [Vitamin D deficiency, unspecified]ChronicOther aftercare (1 source)Other correction (current) drug therapyEpisodicOther aftercare (1 source)Long-term current use of drug therapy; Translations: [Other correction (current) drug therapy]EpisodicOther and ill-defined cerebrovascular disease (18 sources)Cerebral atherosclerosis; Translations: [Cerebral atherosclerosis] 49-51-2134QeyvsxhMcsfr and ill-defined cerebrovascular disease (4 sources)Cerebral atherosclerosis; Translations: [Cerebral atherosclerosis] ChronicOther bone disease and musculoskeletal deformities (1 source)Other specified disorders of bone density and structure, other site EpisodicOther bone disease and musculoskeletal deformities (1 source)Bone density finding; Translations: [Other specified disorders of bone density and structure, unspecified site]EpisodicOther circulatory disease (1 source)History of cerebrovascular accident without residual deficits; Translations: [Personal history of transient ischemic attack (TIA), and cerebral infarction without residual deficits]EpisodicOther circulatory disease (1 source)History of transient ischemic attack; Translations: [Personal history of transient ischemic attack (TIA), and cerebral infarction without residual deficits]Onset: 06-15-8724ChyfqrwhTzkjp circulatory disease (4 sources)History of cerebrovascular jmlztnox45-40-2655UqfewgocDqbkr congenital anomalies (1 source)Congenital laryngomalacia; 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] Onset: 16-90-0884AtelyexVazkj connective tissue disease (1 source)Other muscle spasm; Translations: [OTHER MUSCLE SPASM]Onset: 66-69-1304SfjvpjcyDipjt connective tissue disease (1 source)Enthesopathy of knee; Translations: [Other bursitis of knee, unspecified knee]EpisodicOther connective tissue disease (7 sources)Muscle weakness; Translations: [Muscle weakness (generalized)] 46-64-3548RlpoifctBpzkz connective tissue disease (11 sources)Swelling of right lower limb; Translations: [Other specified soft tissue disorders]33-38-2800XboqocyzJwvzg connective tissue disease (4 sources)Prepatellar bursitis of right knee; Translations: [Prepatellar bursitis, right knee]32-64-4555MsgpbrnaJesgn hereditary and degenerative nervous system conditions (2 sources)Restless legs syndrome; Translations: [RESTLESS LEGS SYNDROME]Onset: 37-07-8514TekyzlbDdanr hereditary and degenerative nervous system conditions (18 sources)Restless legs; Translations: [Restless legs syndrome]Onset: 90-49-7152DhhvlqkYabic inflammatory condition of skin (1 source)Seborrheic dermatitis; Translations: [Seborrheic dermatitis, unspecified]EpisodicOther injuries and conditions due to external causes (1 source)History of fall; Translations: [History of falling]EpisodicOther injuries and conditions due to external causes (1 source)Food in respiratory tract, part unspecified causing other injury, initial encounter; Translations: [Food in respiratory tract, part unspecified causing other injury, initial encounter]Onset: 94-16-0247MrhufyfiXvdpi lower respiratory disease (1 source)Solitary nodule of lung; Translations: [Solitary pulmonary nodule] Onset: 02-55-1117XtkflcomFpmeq lower respiratory disease (11 sources)Nodule of lung; Translations: [Solitary pulmonary nodule]09-19-2023 EpisodicComment on above:CXR: 2cm right hilum density, 8mm RUL nodule - 08/2023Needs CT or PET/CTOther lower respiratory disease (1 source)Solitary pulmonary nodule; Translations: [Solitary pulmonary nodule] 27-75-9124BepannmnNdyls nervous system disorders (4 sources)Other chronic pain; Translations: [OTHER CHRONIC PAIN]Onset: 96-29-7093ElqvrpjHbbkv nervous system disorders (5 sources)Hereditary disorder of nervous system; Translations: [Hereditary and idiopathic neuropathy, unspecified] Resolved: 89-62-8908VrbhagoOxair nervous system disorders (1 source)Myasthenia gravis with exacerbation; Translations: [Myasthenia gravis with (acute) exacerbation]Onset: 57-95-7303VspkxsfPphdw nervous system disorders (18 sources)Myasthenia gravis; Translations: [Myasthenia gravis without (acute) exacerbation]40-30-3992UnhswvjYwrmf nervous system disorders (2 sources)Myasthenia gravis without (acute) exacerbation; Translations: [Myasthenia gravis without (acute) exacerbation]Onset: ChronicOther nervous system disorders (1 source)Dyslexia AND/OR speech dysfunction; Translations: [Dysarthria and anarthria]Onset: 14-92-7398EaxijjjuBrcgp nutritional; endocrine; and metabolic disorders (4 sources)Dlbkjxe40-01-0300IgdieofBaefs upper respiratory disease (8 sources)Allergic rhinitis; Translations: [Allergic rhinitis, unspecified] 07-02-6493UlnkobiQlkaj upper respiratory disease (2 sources)Allergic rhinitis, unspecified; Translations: [Allergic rhinitis, cause unspecified]91-70-1376YjjtrhkNekaendrv; thrombophlebitis and thromboembolism (5 sources)History of thromboembolism of vein; Translations: [Personal history of other venous thrombosis and embolism]Onset: 96-45-2234EakuivafRhvwbevjj (except that caused by tuberculosis or sexually transmitted disease) (2 sources)Pneumonia, unspecified organismEpisodicResidual codes; unclassified (1 source)Procedure and treatment not carried out because of patient's decision for unspecified reasonsEpisodicResidual codes; unclassified (1 source)Procedure not done; Translations: [Procedure and treatment not carried out because of patient's decision for unspecified reasons]EpisodicRespiratory failure; insufficiency; arrest (adult) (1 source)Acute respiratory failure; Translations: [Acute respiratory failure with hypoxia]Onset: 59-93-0493ShdjdslkJtrnzxpzflb; intervertebral disc disorders; other back problems (17 sources)Other spondylosis with radiculopathy, lumbar region; Translations: [Other intervertebral disc displacement, lumbar region]Onset: 16-35-5885Sbrwsns Spondylosis; intervertebral disc disorders; other back problems (13 sources)Spinal stenosis, lumbar region without neurogenic claudication; Translations: [Radiculopathy, lumbar region]Onset: 08-06-2021 Resolved: 06-94-2649RazsdpxfEusniup and strains (1 source)Strain of muscle and/or tendon of thigh; Translations: [Strain of muscle, fascia and tendon of the posterior muscle group at thigh level, left thigh, initial encounter]EpisodicSuperficial injury; contusion (20 sources)Hematoma of right knee region; Translations: [Contusion of right knee, initial encounter]59-31-3603AzrypzbwAygompjzoiwu (4 sources)LOW BACK PAIN, UNSPECIFIED; Translations: [LOW BACK PAIN, UNSPECIFIED]Onset: 00-73-9455Rykbickxalth (1 source)Food entering into or through a natural orifice, initial encounter; Translations: [Food entering into or through a natural orifice, initial encounter]Onset: 09-29-2023 Past or Other Problems Problem ClassificationProblemDateDocumented DateEpisodic/ChronicMalaise and fatigue (2 sources)Other fatigue; Translations: [Malaise and fatigue]Onset: 06-01-2018 Resolved: 16-92-0023JxctrzzbUtdrv aftercare (1 source)senior care (current) use of anticoagulants; Translations: [LABORER VINEYARD CURRNT USE ANTICOAGULANTS]Onset: 35-80-7934HphvkbqyLsysm aftercare (1 source)Long-term current use of anticoagulant; Translations: [Long-term (current) use of anticoagulants]Onset: 08-13-2018 Resolved: 26-51-4362UboveynqIxoqk circulatory disease (1 source)Elevated blood-pressure reading without diagnosis of hypertension; Translations: [Elevated blood-pressure reading, without diagnosis of hypertension]Onset: 07-17-2018 Resolved: 84-13-1710IvyihdosSfwis connective tissue disease (4 sources)Pain in left leg; Translations: [PAIN IN LEFT LEG]Onset: 01-12-2022 EpisodicOther ear and sense organ disorders (1 source)Impacted cerumen; Translations: [Impacted cerumen]Onset: 08-26-2015 Resolved: 82-69-7954LmhbrlbxNcwqi nervous system disorders (1 source)Paresthesia; Translations: [Paresthesia of skin]Onset: 06-01-2018 Resolved: 63-93-1541LqsnxuksGxoeq nutritional; endocrine; and metabolic disorders (1 source)Overweight; Translations: [Overweight]Onset: 86-90-2307Rcnxkepw Unclassified (1 source)LOW BACK PAIN, UNSPECIFIED; Translations: [LOW BACK PAIN, UNSPECIFIED] Onset: 00-48-2741Qiuhjlqjjksu (1 source)Suspected COVID-19 virus infection Z20.822Unclassified (1 source)Acute cough R05.1 Results Test NameValueInterpretationReference RangeFacilityTrauma Office/Clinic Noteon 63-95-1331Zrthof Office/Clinic NoteTrauma Office/Clinic Note Chief Complaint PEG tube removal discussion HPI Staff Genesis is an 88 y.o. female here for Peg tube discussion Patient admitted to [facility] 09/06/23 for Myasthenia gravis in crisis, dysarthria, laryngeal stridor, potential stroke Hx of CVA and DVT in adulthood. She had a failed swallow eval during admission. s/p PEG tube placement done 09/15/23 She is accompanied by daughter today She states she has passed a recent swallow study and no longer is using the PEG tube Denies having complications with tubing Today patient is doing well. She is anticoagulated with Eliquis. She has not held the Eliquis priorto today's appointment History of Present Illness 88 y/o female with PEG tube placed on 09/15/2023. She states it was used for about 2 weeks post placement while she was at the SNF, then she was able to eat and swallow by mouth again. She had an additional swallow eval and passed, and no longer has to go to speech therapy. She has been home since the beginning of October. She states she flushes and cleans the tube twice a day and has had no issues with it. Was seen and evaluated by neurology and speech therapy and it was deemed that she no longer requires gastric tube feedings and is able to swallow without issue. Patient is here today for G-tube removal. Patient states that this is the same G tube that was placed in August of this year. Review of Systems All organ systems are reviewed. Pertinent positive and negative findings as mentioned in the HPI. Physical Exam Vitals & Measurements HR: 74(Peripheral) BP: 131/65 HT: 62 in HT: 157 cm WT: 65.9 kg WT: 144.98 lb BMI: 26.74 GENERAL: alert, pleasant, conversational. HEENT: normocephalic. oral mucosa moist. CARDIOVASCULAR: RRR. PULMONARY: CTAB. breathing comfortably on room air ABDOMINAL: abdomen is nontender., nondistended. G tube RUQ healed appropriately, no skin erythema, no discharge. EXTREMITIES: moves all extremities with equal strength NEUROLOGICAL: AxO x3 Assessment/Plan 88 yo F here for G tube removal - G tube was removed at bedside, pt tolerated well. Pressure was held at the site for 5 minutes as there was a small amount of bleeding and the patient does take eliquis for hx of CVA - Dressing was placed and the patient was given instructions for wound care and strict return precautions including BRBPR, melena, dizziness or sign of persistent bleeding - overall patient tolerated procedure well - follow with EGS clinic on a prn basis Yesi Rodriguez PA-C Trauma Surgery/Surgical Critical Care/Emergency General Surgery Problem List/Past Medical History Ongoing Chronic GERD Depression History of CVA in adulthood History of DVT in adulthood Hyperlipidemia Hypertension Obesity Restless leg syndrome Historical No qualifying data Procedure/Surgical History PEG - Percutaneous endoscopic gastrostomy (09/15/2023). Medications aspirin 81 mg oral capsule, 81 mg= 1 cap(s), PEG, Daily atenolol 25 mg Tab, 25 mg= 1 tab(s), PEG, Daily busPIRone 5 mg Tab, 5 mg= 1 tab(s), PEG, BID CeleXA 20 mg Tab, 20 mg= 1 tab(s), PEG, Daily Eliquis 5 mg oral tablet, 5 mg= 1 tab(s), PEG, BID fexofenadine 180 mg Tab, 180 mg= 1 tab(s), PEG, Daily fluticasone propionate, 50 mcg, Inhalation, Daily Jevity 1.5 Landon (Continuous), See Instructions Lipitor 40 mg Tab, 40 mg= 1 tab(s), PEG, Daily lisinopril 30 mg Tab, 30 mg= 1 tab(s), PEG, Daily Norvasc 5 mg Tab, 5 mg= 1 tab(s), PEG, Daily omeprazole 40 mg Cap-DR, 40 mg= 1 cap(s), PEG, Daily pyridostigmine 60 mg Tab, 30 mg= 0.5 tab(s), PEG, TID Requip, 1 mg, PEG, Daily Allergies cefTRIAXone (Throat swelling) Social History Tobacco Never (less than 100 in lifetime) Tobacco Use:. Ready to change: No. Household tobacco concerns: No. Yes, 12/28/2023 Immunizations Vaccine Date Status Comments SARS-CoV-2 (COVID-19) mRNA-1273 vaccine 02/19/2021 Recorded 2023-10-31: [id number] SARS-CoV-2 (COVID-19) mRNA-1273 vaccine 07/01/2020 Recorded SARS-CoV-2 (COVID-19) mRNA-1273 vaccine 06/05/[address] RecordedSt[facility] HospitalComment on above:Result Comment: Electronically Signed By: Yesi Rodriguez PA-C\.br\Date and Time Signed: 12/28/23 11:02 EDT\.br\Electronically Co-Signed By: Armen YOU, Og Kraft\.br\Date and Time Co-Signed: 12/29/23 09:31 EDTTrauma Office/Clinic Noteon [id number] Office/Clinic NoteTrauma Office/Clinic Note Chief Complaint Surgical consult HPI Staff Genesis is an 88 y.o. female here for PEG tub removal discussion Patient admitted to [facility] 09/06/23 for Myasthenia gravis in crisis, dysarthria, laryngeal stridor, potential stroke Hx of CVA and DVT in adulthood. She had a failed swallow eval during admission. s/p PEG tube placement done 09/15/23 She is accompanied by daughter today She states she has passed a recent swallow study and no longer is using the PEG tube Denies having complications with tubing History of Present Illness 88 y/o female with PEG tube placed on 09/15/2023. She states it was used for about 2 weeks post placement while she was at the SNF, then she was able to eat and swallow by mouth again. She had an additional swallow eval and passed, and no longer has to go to speech therapy. She has been home since the beginning of October. She states she flushes and cleans the tube twice a day and has had no issues with it. She and her daughter who is present with her state that she has been stable on her current medication regimen. No choking, dysarthria, new admissions, cough, or shortness of breath. Denies abdominal pain or rash around the tube. Review of Systems PHQ Score Initial Depression Screen Score: 0 SCORE Constitutional: no fever, no chills, no sweats, no weakness Respiratory: no shortness of breath, no cough, no orthopnea, no wheezing Cardiovascular: no chest pain, no palpitations, no edema Additional ROS info: Except as noted in the above Review of Systems and in the History of Present Illness all other systems have been reviewed and are negative or noncontributory. Physical Exam Vitals & Measurements HR: 70(Peripheral) BP: 133/73 HT: 62 in HT: 157 cm WT: 66.8 kg WT: 146.96 lb BMI: 27.1 Gen: Awake, alert, interactive Pulm: respirations even and unlabored on room air Abdomen: soft, nondistended, nontender, PEG tube in place at around 6 cm, spins easily. no drainageor erythema surrounding the tube, no skin maceration or breakdown Neuro: A&O x 3 Assessment/Plan 88 y/o female who presents with existing PEG tube. - Discussed that given her original reason for placement had been related to her myasthenia crisis,there is no guarantee that it may not need replaced if removed. Discussed that at 6 weeks, it is reasonable to safely remove the tube from a healing perspective, but it has been a rather short time since she was discharged from the hospital and nursing facility - We discussed that if a tube is placed because of a condition like a surgery or facial injury and that heals, that is a more concrete recovery than a chronic neurologic illness in a patient who alsohas a history of stroke - She has a neurology appointment for follow up in early december - discussed that she and her daughter should ask about prognosis (if known, if it is not known, that is also information to have) and if she is currently stable on her medication regimen - If she remains stable through december and doing well at her follow up neurology appointment, itmay be reasonable to remove her PEG at the end of december. Scheduled for clinic on 01/10 - she will also need to hold her eliquis for at least 24 hours prior - Patient and her daughter are also not eager to immediately remove tube - they state the pressure had primarily been from the detention, but she is home now. She states she is not having problemstaking care of it, and the skin around her tube looks very healthy. She states it does not inhibit her quality of life. She and her daughter are also nervous that it might be too soon to remove Follow-up No qualifying data available Problem List/Past Medical History Ongoing Chronic GERD Depression History of CVA in adulthood History of DVT in adulthood Hyperlipidemia Hypertension Obesity Restless leg syndrome Historical No qualifying data Procedure/Surgical History PEG - Percutaneous endoscopic gastrostomy (09/15/2023). Medications aspirin 81 mg oral capsule, 81 mg= 1 cap(s), PEG, Daily atenolol 25 mg Tab, 25 mg= 1 tab(s), PEG, Daily busPIRone 5 mg Tab, 5 mg= 1 tab(s), PEG, BID CeleXA 20 mg Tab, 20 mg= 1 tab(s), PEG, Daily Eliquis 5 mg oral tablet, 5 mg= 1 tab(s), PEG, BID fexofenadine 180 mg Tab, 180 mg= 1 tab(s), PEG, Daily fluticasone propionate, 50 mcg, Inhalation, Daily Jevity 1.5 Landon (Continuous), See Instructions Lipitor 40 mg Tab, 40 mg= 1 tab(s), PEG, Daily lisinopril 30 mg Tab, 30 mg= 1 tab(s), PEG, Daily Norvasc 5 mg Tab, 5 mg= 1 tab(s), PEG, Daily omeprazole 40 mg Cap-DR, 40 mg= 1 cap(s), PEG, Daily pyridostigmine 60 mg Tab, 30 mg= 0.5 tab(s), PEG, TID Requip, 1 mg, PEG, Daily Allergies cefTRIAXone (Throat swelling) Social History Tobacco Never (less than 100 in lifetime) Tobacco Use:. Ready to change: No. Household tobacco concerns: No. Yes, 11/02/2023 Immunizations Vaccine Date Status Comments SARS-CoV-2 (COVID-19) mRNA-1273 vaccine (more content not included)... [facility] HospitalComment on above:Result Comment: Electronically Signed By: Merlyn YOU, Breanne Galan\.rafia\Date and Time Signed: 11/02/23 12:34 EDTCT Chest w/o Contraston [id number] Chest w/o ContrastExam Date/Time: 10/19/2023 13:33 EDT Reason for Exam: R91.1 Report IMPRESSION: OLD GRANULOMATOUS DISEASE. EMPHYSEMA. SINCE EMPHYSEMA IS AN INDEPENDENT RISK FACTOR FOR LUNG CANCER, RECOMMEND PATIENT BE EVALUATED FOR CT LUNG SURVEILLANCE PROGRAM . CT IMAGING OF THE CHEST WITHOUT INTRAVENOUS CONTRAST MEDIUM. HISTORY: Lung nodule TECHNICAL FACTORS: CT imaging of the chest was obtained and formatted as 2 mm contiguous axial images from the thoracic inlet through the adrenal glands. Sagittal and coronal reconstructions obtained during postprocessing. Intravenous contrast medium: None. Comparison: Chest radiographs, September 06, 2023, September 13, 2023 FINDINGS: Right lung: Calcified granuloma right upper lobe. No consolidation, pleural effusion, pneumothorax. Scarring, right upper lobe and right lung base. Emphysema. Left lung: No nodules, masses, consolidation, pleural effusion, pneumothorax. Scarring left lower lobe. Emphysema Lymph nodes: No hilar, mediastinal, or axillary lymph node enlargement. Calcified lymph nodes right hilar, and precarinal regions. Thoracic aorta: Normal in course and caliber. Cardiac: Size normal. No pericardial effusion. Coronary artery calcification identified. Upper abdomen:Limited imaging upper abdomen shows multiple punctate calcifications in spleen. Nasogastric tube with tip in proximal gastric body. Musculoskeletal:No osteoblastic, and no osteolytic lesions. All CT scans at this facility use dose modulation, iterative reconstruction, and/or weight based dosing when appropriate to reduce radiation dose to as low as reasonably achievable. Report Ordering Provider: RJ VELASQUEZ FINAL REPORT Dictated: 10/21/2023 11:25 am Rj Toro MD Signed (Electronic Signature): 10/21/2023 11:25 am Signed by: Rj Toro MD Transcribed by: JOVNAI Technologist: LouiseElyria Memorial HospitalPhysician Orderon [id number] Order [id number]#1.00TIFFTeaParkview Health Bryan HospitalMedication Listson [id number] Lists [id number]#1.00TIFFTeaParkview Health Bryan HospitalConsent for Blood Transfusionon [id number] for Blood Transfusion [id number]#1.00DonnaNovant Health, Encompass Healthyahaira Mercy Medical CenterDischarge Instructionson [id number] Instructions [id number]#1.00[facility] HOSPITALAdryanNovant Health, Encompass Healthyahaira Mercy Medical CenterIntraOperative Documentson [id number] Documents [id number]#1.00[facility] ONTARIO HOSPITALYueAtrium Health Mercyyahaira Mercy Medical CenterMedication Listson [id number] Lists [id number]#1.00TIFGeraldineParkview Health Bryan HospitalTransfer Documentson [id number] Documents [id number]#1.00Memorial HospitalTransfer [id number]#1.00TAYLORSVILLETeanatalia Elyria Memorial HospitalEMS Documentationon [id number] DocumentationPlease click on link to see reportSt. Vincent HospitalComment on above: Result Comment: Missing Attachment - total size limit for all attachments exceeded ekgattachments.pdf Can be viewed in source systemConsultation Noteon [id number] Note ACUTE CARE SURGERY CONSULT / H&P Patient Name: GENESIS CONTE Admission Date: 09/06/2023 16:59:12 Chief Complaint: PEG Placement Patient seen and examined on 09/13/2023 18:05:58 HISTORY OF PRESENT ILLNESS GENESIS CONTE is a 88 Years-old Female with a PMHx of CVA, HTN, HLD, Afib (eliquis), GERD who presented to the ED with chief complaint of shortness of breath, slurring and dysphasia. Pt was admitted [facility] on medicine service for further work up. Pt was diagnosed with Myasthenia Gravis. EGS was consulted for possible PEG placement due to dysphagia. Pt reports she has been having difficulty with swallowing for the past few months. She has been having unintentional weight loss. Pt reports she had a MBS earlier in her admission that showed she wasaspirating. She was placed on PPN. She had another MBS today that continued to show silent aspiration. Pt denies being in any pain. Past surgical history includes open appy and cholecystectomy. Pt does not think she has ever had an EGD before. PAST MEDICAL HISTORY: CVA, HTN, HLD, Afib (eliquis), GERD PAST SURGICAL HISTORY: Open Cholecystectomy and appendectomy PRE-ADMISSION MEDICATIONS: amlodipine: 5 mg = 1 tab(s), Oral, Daily apixaban: 5 mg = 1 tab(s), Oral, BID aspirin: 81 mg = 1 cap(s), Oral, Daily atenolol: 25 mg = 1 tab(s), Oral, Daily atorvastatin: 40 mg = 1 tab(s), Oral, Daily busPIRone: 5 mg = 1 tab(s), Oral, BID citalopram: 20 mg = 1 tab(s), Oral, Daily fexofenadine: 180 mg = 1 tab(s), Oral, Daily fluticasone: 50 mcg, Inhalation, Daily lisinopril: 30 mg = 1 tab(s), Oral, Daily omeprazole: 40 mg = 1 cap(s), Oral, Daily ropinirole: 1 mg, Oral, Daily ALLERGIES: Allergies (1) Active Severity Reaction cefTRIAXone Throat swelling SOCIAL HISTORY: Denies tobacco, alcohol and drug use FAMILY HISTORY: No family history recorded. REVIEW OF SYSTEMS Constitutional: no? fever, no? chills, no? sweats, no? weakness. Skin: no? Jaundice, no? rash, no? lesions, no? petechiae. ENMT: no? ear pain, no? sore throat, no? congestion, no? hoarseness. Respiratory: no? shortness of breath, no? cough, no? orthopnea, no? wheezing. Cardiovascular: no? chest pain, no? palpitations, no? edema. Gastrointestinal: no? nausea, no? vomiting, no? diarrhea, no? GI bleeding. +dysphagia Genitourinary: no? dysuria, no? hematuria, no? discharge, no? pain. Musculoskeletal: no? back pain, no? trauma. Neurologic: no? headache, no? dizziness, no? numbness, no? weakness. Psychiatric: no? sleeping problems, no? irritability, no? mood swings/depression. Heme/Lymph: no? bleeding tendency, no? bruising tendency, no? petechiae, no? swollen lymph nodes Allergy/Immunologic: Seasonal allergies, no? food allergies, no? recurrent infections, no? impairedimmunity PHYSICAL EXAM Constitutional: Sitting up in bedside chair. No acute distress. HEENT: Atraumatic, normocephalic Cardiovascular: RRR Pulmonary/Chest: Breathing comfortably on RA ABD: Soft, non distended, non tender. Well healed scar to RUQ Musculoskeletal: Moves all extremities spontaneously. No lower extremity edema Neurological: Pt is alert and oriented to person, place, and time. Motor and sensory grossly intact Skin: Warm, dry BASIC LABS WBC: 5.4 E9/L (09/13/23 06:18:00) RBC: 4 E12/L Low (09/13/23 06:18:00) HGB: 11.7 gm/dL Low (09/13/23 06:18:00) Hct: 35 % (09/13/23 06:18:00) MCV: 86.9 fL (09/13/23 06:18:00) MCH: 29 pg (09/13/23 06:18:00) MCHC: 33.4 gm/dL (09/13/23 06:18:00) RDW: 13.1 % (09/13/23 06:18:00) Platelet: 220 E9/L (09/13/23 06:18:00) MPV: 8.3 fL (09/13/23 06:18:00) RBC Morph: NORMAL (09/13/23 06:18:00) Glucose Lvl: 97 mg/dL (09/13/23 06:18:00) BUN: 20 mg/dL (09/13/23 06:18:00) Creatinine: 0.7 mg/dL (09/13/23 06:18:00) eGFR: 83 mL/min/1.73 m2 (09/13/23 06:18:00) BUN/Creat Ratio: 29 High (09/13/23 06:18:00) Sodium Lvl: 137 mmol/L (09/13/23 06:18:00) Potassium Lvl: 3.5 mmol/L (09/13/23 06:18:00) Chloride: 105 mmol/L (09/13/23 06:18:00) CO2: 27 mmol/L (09/13/23 06:18:00) AGAP: 9 mEq/L (09/13/23 06:18:00) Calcium Lvl: 8.6 mg/dL Low (09/13/23 06:18:00) Magnesium: 2.1 mg/dL (09/13/23 06:18:00) Glucose Cap: 103 mg/dL High (09/13/23 17:47:00) POC Device SN: [id number] (09/13/23 17:47:00) POC User ID: [id number] (09/13/23 17:47:00) POC Username: CORKY SOLARES (09/13/23 17:47:00) RADIOLOGY -- CT Head or Brain w/o Contrast 09/06/23 17:13:07 ADD TEXT: CT Brain: NO evidence of Acute Hemorrhage or cortical infarct. (more content not included)...[facility] HospitalComment on above:Result Comment: Electronically Signed By: Lorenzo BAIRD, Michael Blackwood\.br\Date and Time Signed: 09/13/23 18:18 EDT\.br\Electronically Co-Signed By: Merlyn YOU, Breanne Galan\.br\Date and Time Co-Signed: 09/18/23 13:18 EDTProgress Note-Physicianon [id number] Note-Physician GENERAL INFORMATION ACUTE CARE SURGERY - STAFF PROGRESS NOTE Patient Name: GENESIS CONTE Admission Date: 09/06/2023 16:59:12 Chief Complaint: Peg Placement Patient seen and examined on 09/14/2023 12:56:21 INTERVAL HISTORY/EVENTS Background: GENESIS CONTE is a 88 Years-old Female with a PMHx of CVA, HTN, HLD, Afib (eliquis), GERD who presented to the ED with chief complaint of shortness of breath, slurring and dysphasia. Pt was admitted [facility] medicine service for further work up. Pt was diagnosed with Myasthenia Gravis. EGS was consulted for possible PEG placement due to dysphagia. 24 Hour Events: No acute events overnight per patient or nursing. Lengthy discussion with patient, her daughter, and Dr. Zuleta regarding risks and benefits of PEG placement. Patient and daughter would like to move forward with PEG placement tomorrow. This visit (24 hour periods starting at 07:00 EDT) 09/14/23 * 09/13/23 09/12/23 Total Summary Intake mL 10 677.72 839.38 Output mL -- -- -- Fluid Balance 10 677.72 839.38 Intake (3) Amino Acids 4.25% with 5% Dextrose and Electrolytes (Clinimix E Sulfite-Free) 1,000 mL mL -- 588.34 824.36 Generic Diluent, fat emulsion, intravenous mL -- 79.38 5.02 pantoprazole mL 10 10 10 Total 10 677.72 839.38 Output (0) Counts (2) Stool Count -- -- 1 Urine Count -- -- 2 * This column has not completed the indicated time period. PHYSICAL EXAM Vital Signs: Vital Signs (last 24 hrs) Last Charted Temp Oral 36.7 DegC (SEPTEMBER 13:) Heart Rate Monitored 73 bpm (SEPTEMBER 13:) SBP H 150 mmHg (SEPTEMBER 13:) DBP 71 mmHg (SEPTEMBER 13:) Weight 61.4 kg (SEPTEMBER 13:) GENERAL: Sitting up in bed, no acute distress HEENT: Atraumatic, corpak in place CARDIOVASCULAR: RRR PULMONARY: Breathing comfortably on RA ABDOMINAL: Soft, non distended, non tender EXTREMITIES: Moves all extremities spontaneously NEUROLOGICAL: A&O x 3. No focal neuro deficits. LABORATORY RESULTS (LAST 24 HOURS) Glucose Cap: 112 mg/dL High (09/14/23 11:33:00) POC Device SN: [id number] (09/14/23 11:33:00) POC User ID: [id number] (09/14/23 11:33:00) POC Username: POC Username (09/14/23 11:33:00) IMAGING RESULTS (PERSONALLY REVIEWED) All admit imaging and follow up imaging reviewed. No new imaging ASSESSMENT & PLAN Diagnoses: 1. Myasthenia Gravis 2. Dysphagia PMHx: CVA, HTN, HLD, Afib (eliquis), GERD Plan: - Discussion held with patient and daughter regarding options for enteral nutrition. Discussed risks and benefits of PEG placement. - Start tube feeds JOANNA to make sure patient tolerates tube feeds prior to PEG placement - Pt consented for PEG placement today at bedside. Start to wean PPN today. - Plan for PEG placement tomorrow afternoon. - Surgery will continue to follow. Michael Ventura PA-C Trauma Surgery/Surgical Critical Care/Acute Care Surgery This patient was examined with and plan of care discussed with attending ACS/Trauma surgeon, Dr. Zuleta.[facility] HospitalComment on above:Result Comment: Electronically Signed By: Lorenzo BAIRD, Michael Blackwood\.br\Date and Time Signed: 09/14/23 13:02 EDT\.br\Electronically Co-Signed By: Breanne Zuleta MD\.br\Date and Time Co-Signed: 09/18/23 13:18 EDT Progress Note-PhysicianBasic Information GENESIS CONTE is a 88 Years-old Female with a PMHx of CVA, HTN, HLD, Afib (eliquis), GERD who presented to the ED with chief complaint of shortness of breath, slurring and dysphasia. [facility]. Pt was diagnosed with Myasthenia Gravis. EGS was consulted for possible PEG placement due to dysphagia. Subjective No acute events overnight. PEG easily rotates and sitting appropriately in the skin. Functioning appropriately, tube feed actually running. Review of Systems All organ systems are reviewed. Pertinent positive and negative findings as mentioned in the HPI. Objective Vitals & Measurements T: 36.6 ?C(Axillary) TMIN: 36.2 ?C(Temporal Artery) TMAX: 37 ?C(Axillary) HR: 101(Monitored) RR: 20BP: 126/72 SpO2: 98% HT: 157 cm WT: 65.6 kg Intake & Output This visit (24 hour periods starting at 07:00 EDT) 09/16/23 * 09/15/23 09/14/23 Total Summary Intake mL 10 260 10 Output mL -- -- -- Fluid Balance 10 260 10 Intake (4) Dextrose 5% in Water, clindamycin mL -- 50 -- Enteral Tube Intake mL -- -- -- Lactated Ringers Injection 1,000 mL mL -- 200 -- pantoprazole mL 10 10 10 Total 10 260 10 Output (0) Counts (1) Urine Count -- 1 5 * This column has not completed the indicated time period. Physical Exam GENERAL: alert, pleasant, conversational. HEENT: normocephalic. oral mucosa moist. CARDIOVASCULAR: RRR. PULMONARY: CTAB. breathing comfortably on room air ABDOMINAL: abdomen is nontender, nondistended. PEG tube in appropriate placement, for the skin 5 atthe flange, easily rotates. EXTREMITIES: moves all extremities with equal strength NEUROLOGICAL: AxO x3 Lab Results Glucose Cap: 86 mg/dL (09/15/23 17:23:00) POC Device SN: [id number] (09/15/23 17:23:00) POC User ID: [id number] (09/15/23 17:23:00) POC Username: KATHY GEORGES (09/15/23 17:23:00) Assessment/Plan 1. Myasthenia gravis in crisis (G70.01: Myasthenia gravis with (acute) exacerbation) 2. Dysarthria (R47.1: Dysarthria and anarthria) 3. 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 Acute hypoxic respiratory failure (J96.01: Acute respiratory failure with hypoxia) 5. Lung nodule (R91.1: Solitary pulmonary nodule) 6. Hypertension (I10: Essential (primary) hypertension) 7. Hyperlipidemia (E78.5: Hyperlipidemia, unspecified) 8. Chronic GERD (K21.9: Gastro-esophageal reflux disease without esophagitis) 9. History of CVA in adulthood (Z86.73: Personal history of transient ischemic attack (TIA), and cerebral infarction without residual deficits) 10. History of DVT in adulthood (Z86.718: Personal history of other venous thrombosis and embolism) 11. Depression (F32.A: Depression, unspecified) 12. Restless leg syndrome (G25.81: Restless legs syndrome) 88-year-old female postop day 1 PEG placement -PEG functioning appropriately -Patient educated on PEG care and wound care prevention. Rotate flange daily, tubing for the skin 5at the flange, check numbers daily -No further surgical intervention needed, surgery to sign off Yesi Rodriguez PA-C Trauma Surgery/Surgical Critical Care/Emergency General Surgery *For urgent issues arising after 4PM during the week or on weekends/holiday, please page the trauma/EGS attending rental salesperson. This patient's plan of care was discussed with Trauma/Emergency General Surgery attending, Dr. Zuleta Physician Note: I have personally performed a face to face diagnostic evaluation on this patient. I have reviewed and agree with the care plan. Instructed patient on cleaning around tube and rotating daily. Tube is at 4 cm at the skin, 5 cm visible at top of flange. Breanne Zuleta MD Trauma Sludge Filtration Operator /[facility] Trauma and Emergency General Surgery Problem List/Past Medical History Ongoing Chronic GERD Depression History of CVA in adulthood History of DVT in adulthood Hyperlipidemia Hypertension Obesity Restless leg syndrome Historical No qualifying data Medications Inpatient hydrALAZINE 20 mg/mL Inj, 10 mg= 0.5 mL, IV Push, q6hr, PRN Jevity 1 Landon with Fiber Continuous 1,000 mL, 1000 mL, NG-Tube Lactated Ringers IV Mary Ann 1000 mL 1,000 mL, 1000 mL, IV Lovenox 60 mg/0.6 mL SC Mary Ann, 60 mg= 0.6 mL, SubCutaneous, BID Mestinon 60 mg Tab, 30 mg= 0.5 tab(s), Oral, TID pantoprazole 40 mg IV Inj, 40 mg= 10 mL, IV Push, Daily Sodium Chloride 0.9% IV Mary Ann 500 mL 500 mL, 500 mL, IV Home aspirin 81 mg oral capsule, 81 mg= 1 cap(s), PEG, Daily atenolol 25 mg Tab, 25 mg= 1 tab(s), PEG, Daily busPIRone 5 mg Tab, 5 mg= 1 tab(s), PEG, BID CeleXA 20 mg Tab, 20 mg= 1 tab(s), PEG, Daily Eliquis 5 mg oral tablet, 5 mg= 1 tab(s), PEG, BID fexofenadine 180 mg Tab, 180 mg= 1 tab(s), PEG, Daily fluticasone propionate, 50 mcg, Inhalation, Daily Lipitor 40 mg Tab, 40 mg= 1 tab(s), PEG, Daily lisinopril 30 mg Tab, 30 mg= 1 tab(s (more content not included)...[facility] HospitalComment on above:Result Comment: Electronically Signed By: Yesi Rodriguez PA-C\.br\Date and Time Signed: 09/16/23 11:48 EDT\.br\Electronically Co-Signed By: Merlyn YOU, Breanne Galan\.br\Date and Time Co-Signed: 09/18/23 12:17 EDTCHEMISTRYOrdered By: Lizbeth Gilliland on 09-16-2023 Glucose [Mass/Vol]130 mg/pVXhiz17 - 99 mg/dLNORMAN SPECIALTY H[facility] POC SubsectionComment on above: Result Comment: Notified RN/DENA Device [id number] 1Invalid Interpretation CodeNORMAN [facility]TY [facility] POC SubsectionPOC User [id number] 1Invalid Interpretation CodeNORMAN SPECIALTY H[facility] POC SubsectionPOC UsernameESerenity FARR Interpretation CodeNORMAN [facility]TY [facility] POC SubsectionCapillary Glucose POCon [id number] [Mass/Vol]130 mg/lBNfby41-92 [facility] HospitalComment on above:Result Comment: Notified RN/MD Performed By: #### [id number] ####[facility] [address] [place], [place] [address]Xdljrpj for Anesthesiaon [id number] for [id number]#1.00Memorial HospitalDischarge Note-Nursingon [id number] Note-NursingPt d/[facility]'d [facility] GENESIS CONTE :1935 Visit Date:09/06/2023 Inpatient Discharge Instructions Your Care Team Admitting Physician - Billy BRAVO DO Consulting Physician - Oscar YOU, Rickey Zuleta MD, Breanne Galan Reason for Your Visit pt states that she has had an increase in slurred speech in the past couple of days. family member states left sided facial droop is baseline. pt states that she does have post nasal drip and has a cough. Your Diagnosis Myasthenia gravis in crisis Dysarthria Laryngeal stridor Acute hypoxic respiratory failure Lung nodule Hypertension Hyperlipidemia Chronic GERD History of CVA in adulthood History of DVT in adulthood Depression Restless leg syndrome Cough Facial droop Potential stroke Tests Performed CT Head or Brain w/o Contrast MRI Brain w/ + w/o Contrast XR Abdomen 1 View XR Adult Swallowing Function w/ Video: Evaluate Pt, Develop a Plan of Care & Implement Plan XR Chest Single View This Is Your Medications List amlodipine (Norvasc 5 mg Tab) apixaban (Eliquis 5 mg oral tablet) aspirin (aspirin 81 mg oral capsule) atenolol (atenolol 25 mg Tab) atorvastatin (Lipitor 40 mg Tab) busPIRone (busPIRone 5 mg Tab) citalopram (CeleXA 20 mg Tab) fexofenadine (fexofenadine 180 mg Tab) fluticasone (fluticasone propionate) lisinopril (lisinopril 30 mg Tab) omeprazole (omeprazole 40 mg Cap-DR) pyridostigmine (pyridostigmine 60 mg Tab) ropinirole (Requip) Procedure History PEG - Percutaneous endoscopic gastrostomy (09/15/2023). Discharge Vitals Temperature (Axillary) 36.8 ?C Heart Rate (Monitored) 94 Respiratory Rate 20 Blood Pressure 127/69 Height 157 cm Weight 65.6 kg What to do next Instructions From Your Doctor Event Name Event Result Discharge Activity Ambulate as tolerated Discharge Restrictions No restrictions Discharge Diet(s) Other: Jevity 1.0 goal rate 60 ml/hr. Would require an additional 600 cc free water to meet estimated needs. Provide 25 cc hourly rate New Follow Up Appointments after Discharge Follow Up with RJ VELASQUEZ When: In 3 days 09/19/2023 EDT Comments: Appointment has already been scheduled Keep scheduled appointment Where: [address] [place] [address]- Business (1) Follow Up with trauma clinic When: Only if needed Comments: Please call to make follow up appointment if you have questions or concerns regarding your PEG tube. Please rotate/splint the PEG tube daily to ensure no wounds develop. Check the location of the PEG tube daily, the PEG tube should be around #4 at the skin and #5 at the cusp of the flange. Where: [address] [place], [place] [address] second floor, [address] [place] [address]- [phone] Follow Up with Oscar YOU, CLARI Lang When: Within 2 to 4 weeks Comments: This office is closed on Fridays. Please call on Tuesday for a follow up appointment. Thank you. Where: [facility] [address] [place] [address]- Medications What How Much When Instructions Next Dose New pyridostigmine (pyridostigmine 60 mg Tab) 0.5 Tablets PEG Tube 3 times a day Changed amlodipine (Norvasc 5 mg Tab) 1 Tablets PEG Tube Every day Changed apixaban (Eliquis 5 mg oral tablet) 1 Tablets PEG Tube 2 times a day Changed aspirin (aspirin 81 mg oral capsule) 1 Capsules PEG Tube Every day Changed atenolol (atenolol 25 mg Tab) 1 Tablets PEG Tube Every day Changed atorvastatin (Lipitor 40 mg Tab) 1 Tablets PEG Tube Every day Changed busPIRone (busPIRone 5 mg Tab) 1 Tablets PEG Tube 2 times a day Changed citalopram (CeleXA 20 mg Tab) 1 Tablets PEG Tube Every day Changed fexofenadine (fexofenadine 180 mg Tab) 1 Tablets PEG Tube Every day Changed lisinopril (lisinopril 30 mg Tab) 1 Tablets PEG Tube Every day Changed omeprazole (omeprazole 40 mg Cap-DR) 1 Capsules PEG Tube Every day Changed ropinirole (Requip) 1 Milligram PEG Tube Every day Unchanged fluticasone (fluticasone propionate) 50 Microgram Inhalation Every day Test Results CBC BMP WBC: 5.4 E9/L (09/13/23 06:18:00) Glucose Lvl: 97 mg/dL (09/13/23 06:18:00) RBC: 4 E12/L Low (09/13/23 06:18:00) BUN: 20 mg/dL (09/13/23 06:18:00) HGB: 11.7 gm/dL Low (09/13/23 06:18:00) Creatinine: 0.7 mg/dL (09/13/23 06:18:00) Hct: 35 % (09/13/23 06:18:00) BUN/Creat Ratio: 29 High (09/13/23 06:18:00) MCV: 86.9 fL (09/13/23 06:18:00) Sodium Lvl: 137 mmol/L (09/13/23 06:18:00) MCH: 29 pg (09/13/23 06:18:00) Potassium Lvl: 3.5 mmol/L (09/13/23 06:18:00) MCHC: 33.4 gm/dL (09/13/23 06:18:00) Chloride: 105 mmol/L (09/13/23 06:18:00) RDW: 13.1 % (09/13/23 06:18:00) CO2: 27 mmol/L (09/13/23 06:18:00) Platelet: 220 E9/L (09/13/23 06:18:00) AGAP: 9 mEq/L (09/13/23 06:18:00) MPV: 8.3 fL (09/13/23 06:18:00) Calcium Lvl: 8.6 mg/dL Low (09/13/23 06:18:00) Allergies cefTRIAXone (Throat swelling) Problems (more content not included)...[facility] Inpatient Clinical Summaryon 09-05-0097Wwiehyade Clinical Summary [address] [address] Clinical Summary Person Information: Name: GENESIS CONTE Age: 88 Years : 1935 Sex: Female PCP: RJ VELASQUEZ DO Marital Status: Phone: Race: White Ethnicity: Non- or Language: Venezuelan Visit Id: Visit Reason: Cough; Facial droop; Potential stroke; RR STROKE Speciality: Acuity: Enc Type: Inpatient Med Service: Medical Arrival: 09/06/2023 16:59:12 Discharge: Dispo Type: Admitted as IP to this Hosp Address: [address] [place] [phone] Provider Notes: Addendum by Eliel Carvajal DO on September 16, 2023 12:02:13 EDT Diagnosis: 1:Myasthenia gravis in crisis; 2:Dysarthria; 3:Laryngeal stridor; 4:Acute hypoxic respiratory failure; 5:Lung nodule; 6:Hypertension; 7:Hyperlipidemia; 8:Chronic GERD; 9:History of CVA in adulthood; 10:History of DVT in adulthood; 11:Depression; 12:Restless leg syndrome Problems Active Obesity Restless leg syndrome Depression History of DVT in adulthood History of CVA in adulthood Hyperlipidemia Hypertension Chronic GERD Smoking Status: Never Smoker Functional Status: Sensory Deficits: History of Falls: Within last three months Mobility Assistance Prior to Admission: Partial assistance ADLs: Minimal assistance Current Level of Assistance for Self-Care/Mobility: Cognitive Status: Oriented x 3 Allergies cefTRIAXone (Throat swelling) Measurements: Height: 157 cm Weight: 65.6 kg Blood Pressure: 123 mmHg / 71 mmHg BMI: 27.14 kg/m2 Procedures PEG - Percutaneous endoscopic gastrostomy (09/15/2023) Immunizations No Immunizations Documented This Visit Final Med List: amlodipine (Norvasc 5 mg Tab) 1 Tablets PEG Tube every day. apixaban (Eliquis 5 mg oral tablet) 1 Tablets PEG Tube 2 times a day. aspirin (aspirin 81 mg oral capsule) 1 Capsules PEG Tube every day. atenolol (atenolol 25 mg Tab) 1 Tablets PEG Tube every day. atorvastatin (Lipitor 40 mg Tab) 1 Tablets PEG Tube every day. busPIRone (busPIRone 5 mg Tab) 1 Tablets PEG Tube 2 times a day. citalopram (CeleXA 20 mg Tab) 1 Tablets PEG Tube every day. fexofenadine (fexofenadine 180 mg Tab) 1 Tablets PEG Tube every day. fluticasone (fluticasone propionate) 50 Microgram Inhalation every day. Jevity 1.5 Landon (Jevity 1.5 Landon (Continuous)) 45 mL/hour via PEG with 25 cc water flushes every hour. Refills: 0. lisinopril (lisinopril 30 mg Tab) 1 Tablets PEG Tube every day. omeprazole (omeprazole 40 mg Cap-DR) 1 Capsules PEG Tube every day. pyridostigmine (pyridostigmine 60 mg Tab) 0.5 Tablets PEG Tube 3 times a day. ropinirole (Requip) 1 Milligram PEG Tube every day. Care Team Members: Attending Physician: Billy BRAVO DO Consulting Physician: Rickey Moore MD Referring Physician: Follow up: With: Address: When: trauma clinic [address] [place] [address] 3, second floor, [address] [place] [address] , only if needed Comments: Please call to make follow up appointment if you have questions or concerns regarding your PEG tube. Please rotate/splint the PEG tube daily to ensure no wounds develop. Check the location of the PEG tube daily, the PEG tube should be around #4 at the skin and #5 at the cusp of the flange. With: Address: When: RJ VELASQUEZ [address] [place] [address] [facility] (1) In 3 days 09/19/2023 Comments: Appointment has already been scheduled Keep scheduled appointment With: Address: When: Oscar YOU, Rickey [facility] [address] [place] [address] Within 2 to 4 weeks Comments: This office is closed on Fridays. Please call on Tuesday for a follow up appointment. Thank you. Patient Education Information: Salam - Post Op PEG Tube Care(CUSTOM); How to Care for a Feeding Tube; PEG Tube Home Guide; Core Measures: Stroke (Cerebrovascular Accident) [facility], (Custom) [facility] [address] [address] Clinical Summary Person Information: Name: GENESIS CONTE Age: 88 Years : 1935 Sex: Female PCP: RJ VELASQUEZ DO Marital Status: Phone: Race: White Ethnicity: Non- or Language: Venezuelan Visit Id: Visit Reason: Cough; Facial droop; Potential stroke; RR STROKE Speciality: Acuity: Enc Type: Inpatient Med Service: Medical Arrival: 09/06/2023 16:59:12 Discharge: Dispo Type: Admitted as IP to this Hosp Address: [address] [place] [phone] Provider Notes: Diagnosis: 1:Myasthenia gravis in crisis; 2:Dysarthria; 3:Laryngeal stridor; 4:Acute hypoxic respiratory failure; 5:Lung nodule; 6:Hypertension; 7:Hyperlipidemia; 8:Chronic GERD; 9:History of CVA in adulthood; 10:History of DVT in adulthood; 11:Depression; 12:Restless leg syndrome Problems Active Obesity Restless leg syndrome Depression History of DVT in adulthood History of CVA in adulthood Hyperlipidemia Hypertension Chronic GERD Smoking Status: Never Smoker Functional Status: Sensory Deficits: History of Falls: Within last three months Mobility Assistance Prior to Admission: Partial assistance ADLs: Minimal assistance Current Level of Assistance for Self-Care/Mobility: Cognitive Status: Oriented x 3 Allergies cefTRIAXone (Throat swelling) Measurements: Height: 157 cm Weight: 65.6 kg Blood Pressure: 126 mmHg / 72 mmHg BMI: 27.14 kg/m2 Procedures PEG - Percutaneous endoscopic gastrostomy (09/15/2023) Immunizations No Immunizations Documented This Visit Final Med List: amlodipine (Norvasc 5 mg Tab) 1 Tablets PEG Tube every day. apixaban (Eliquis 5 mg oral tablet) 1 Tablets PEG Tube 2 times a day. aspirin (aspirin 81 mg oral capsule) 1 Capsules PEG Tube every day. atenolol (atenolol 25 mg Tab) 1 Tablets PEG Tube every day. atorvastatin (Lipitor 40 mg Tab) 1 Tablets PEG Tube every day. busPIRone (busPIRone 5 mg Tab) 1 Tablets PEG Tube 2 times a day. citalopram (CeleXA 20 mg Tab) 1 Tablets PEG Tube every day. fexofenadine (fexofenadine 180 mg Tab) 1 Tablets PEG Tube every day. fluticasone (fluticasone propionate) 50 Microgram Inhalation every day. lisinopril (lisinopril 30 mg Tab) 1 Tablets PEG Tube every day. omeprazole (omeprazole 40 mg Cap-DR) 1 Capsules PEG Tube every day. pyridostigmine (pyridostigmine 60 mg Tab) 0.5 Tablets PEG Tube 3 times a day. ropinirole (Requip) 1 Milligram PEG Tube every day. Care Team Members: Attending Physician: Billy BRAVO DO Consulting Physician: Breanne Zuleta MD; Rickey Moore MD Referring Physician: Follow up: With: Address: When: RJ VELASQUEZ [address] [place] [address] [facility] (1) In 3 days 09/19/2023 Comments: Appointment has already been scheduled Keep scheduled appointment With: Address: When: Rickey Moore MD[address] [address] Within 2 to 4 weeks Comments: This office is closed on Fridays. Please call on Tuesday for a follow up appointment. Thank you. Patient Education Information: Core Measures: Stroke (Cerebrovascular Accident) [facility], (Custom)[facility] Patient Summaryon [id number] Patient Summary [address] [address] Patient Discharge Instructions PERSON INFORMATION Name: GENESIS CONTE Date of : 1935 Current Date: 09/16/2023 16:30:17 PHYSICIANS Admitting Physician: Billy BRAVO DO Primary Care Physician: RJ VELASQUEZ DO PCP Comment: Discharge Diagnosis: 1:Myasthenia gravis in crisis; 2:Dysarthria; 3:Laryngeal stridor; 4:Acute hypoxic respiratory failure; 5:Lung nodule; 6:Hypertension; 7:Hyperlipidemia; 8:Chronic GERD; 9:History of CVA in adulthood; 10:History of DVT in adulthood; 11:Depression; 12:Restless leg syndrome Condition at Discharge: Stable GENESIS CONTE has been given the following list of follow-up instructions, prescriptions, and patienteducation materials: PATIENT FOLLOW-UP INFORMATION Diet: Other: Jevity 1.5 at 45 mL/hour with free water flushes at 25 cc an hour Discharge Activity: Ambulate as tolerated Discharge Restrictions: No restrictions Wound Care Instructions: Remove Your Dressing In Days Call Your Doctor For: IF UNABLE TO CONTACT YOUR PHYSICIAN AND YOU FEEL IT IS AN EMERGENCY, GO TO THE NEAREST EMERGENCY ROOM OR CALL 911 Home Treatment: Devices/Equipment: None Special Services: Additional Instructions: Need dietitian follow-up at [facility] Primary Care Physician to provide the following pending test results: Follow up: With: Address: When: trauma clinic [address] [facility] 3, second floor, [address] [place] [id number] , only if needed Comments: Please call to make follow up appointment if you have questions or concerns regarding your PEG tube. Please rotate/splint the PEG tube daily to ensure no wounds develop. Check the location of the PEG tube daily, the PEG tube should be around #4 at the skin and #5 at the cusp of the flange. With: Address: When: RJ VELASQUEZ [address] [place] [address] [facility] (1) In 3 days 09/19/2023 Comments: Appointment has already been scheduled Keep scheduled appointment With: Address: When: [facility] MD[facility] [address] [place] [address] Within 2 to 4 weeks Comments: This office is closed on Fridays. Please call on Tuesday for a follow up appointment. Thank you. In the event that this physician does not participate in your insurance network, please consult with your insurance company to find a nearby participating provider. Comment: DG Day RUTH A, have received the attached patient education materials/instructions and have verbalized understanding: Patient Signature Date Clinican/Nurse Signature Date HERE ARE THE MEDICATION CHANGES THAT OCCURRED DURING YOUR HOSPITAL STAY New Medications Other Medications Jevity 1.5 Landon (Jevity 1.5 Landon (Continuous)) 45 mL/hour via PEG with 25 cc water flushes every hour. Refills: 0. Last Dose: Next Dose: pyridostigmine (pyridostigmine 60 mg Tab) 0.5 Tablets PEG Tube 3 times a day. Last Dose: Next Dose: Medications to Continue Taking That Have Changed Other Medications START: amlodipine (Norvasc 5 mg Tab) 1 Tablets PEG Tube every day. Last Dose: Next Dose: STOP: amlodipine (Norvasc 5 mg Tab) 1 Tablets By Mouth every day. START: apixaban (Eliquis 5 mg oral tablet) 1 Tablets PEG Tube 2 times a day. Last Dose: Next Dose: STOP: apixaban (Eliquis 5 mg oral tablet) 1 Tablets By Mouth 2 times a day. START: aspirin (aspirin 81 mg oral capsule) 1 Capsules PEG Tube every day. Last Dose: Next Dose: STOP: aspirin (aspirin 81 mg oral capsule) 1 Capsules By Mouth every day. START: atenolol (atenolol 25 mg Tab) 1 Tablets PEG Tube every day. Last Dose: Next Dose: STOP: atenolol (atenolol 25 mg Tab) 1 Tablets By Mouth every day. START: atorvastatin (Lipitor 40 mg Tab) 1 Tablets PEG Tube every day. Last Dose: Next Dose: STOP: atorvastatin (Lipitor 40 mg Tab) 1 Tablets By Mouth every day. START: busPIRone (busPIRone 5 mg Tab) 1 Tablets PEG Tube 2 times a day. Last Dose: Next Dose: STOP: busPIRone (busPIRone 5 mg Tab) 1 Tablets By Mouth 2 times a day. START: citalopram (CeleXA 20 mg Tab) 1 Tablets PEG Tube every day. Last Dose: Next Dose: STOP: citalopram (CeleXA 20 mg Tab) 1 Tablets By Mouth every day. START: fexofenadine (fexofenadine 180 mg Tab) 1 Tablets PEG Tube every day. Last Dose: Next Dose: STOP: fexofenadine (fexofenadine 1 (more content not included)...[facility] HospitalIn[facility] Patient Summary [address] [address] Patient Discharge Instructions PERSON INFORMATION Name: GENESIS CONTE Date of : 1935 Current Date: 09/16/2023 10:58:58 PHYSICIANS Admitting Physician: Billy BRAVO DO Primary Care Physician: RJ VELASQUEZ DO PCP Comment: Discharge Diagnosis: 1:Myasthenia gravis in crisis; 2:Dysarthria; 3:Laryngeal stridor; 4:Acute hypoxic respiratory failure; 5:Lung nodule; 6:Hypertension; 7:Hyperlipidemia; 8:Chronic GERD; 9:History of CVA in adulthood; 10:History of DVT in adulthood; 11:Depression; 12:Restless leg syndrome Condition at Discharge: Stable GENESIS CONTE has been given the following list of follow-up instructions, prescriptions, and patienteducation materials: PATIENT FOLLOW-UP INFORMATION Diet: Other: Jevity 1.0 goal rate 60 ml/hr. Would require an additional 600 cc free water to meet estimated needs. Provide 25 cc hourly rate Discharge Activity: Ambulate as tolerated Discharge Restrictions: No restrictions Wound Care Instructions: Remove Your Dressing In Days Call Your Doctor For: IF UNABLE TO CONTACT YOUR PHYSICIAN AND YOU FEEL IT IS AN EMERGENCY, GO TO THE NEAREST EMERGENCY ROOM OR CALL 911 Home Treatment: Devices/Equipment: None Special Services: Additional Instructions: Primary Care Physician to provide the following pending test results: Follow up: With: Address: When: RJ VELASQUEZ [address] [place] [address] Business (1) In 3 days 09/19/2023 Comments: Appointment has already been scheduled Keep scheduled appointment With: Address: When: Rickey Moore MD, NEU [address] [address] Within 2 to 4 weeks Comments: This office is closed on Fridays. Please call on Tuesday for a follow up appointment. Thank you. In the event that this physician does not participate in your insurance network, please consult with your insurance company to find a nearby participating provider. Comment: DG Day RUTH A, have received the attached patient education materials/instructions and have verbalized understanding: Patient Signature Date Clinican/Nurse Signature Date HERE ARE THE MEDICATION CHANGES THAT OCCURRED DURING YOUR HOSPITAL STAY New Medications Other Medications pyridostigmine (pyridostigmine 60 mg Tab) 0.5 Tablets PEG Tube 3 times a day. Last Dose: Next Dose: Medications to Continue Taking That Have Changed Other Medications START: amlodipine (Norvasc 5 mg Tab) 1 Tablets PEG Tube every day. Last Dose: Next Dose: STOP: amlodipine (Norvasc 5 mg Tab) 1 Tablets By Mouth every day. START: apixaban (Eliquis 5 mg oral tablet) 1 Tablets PEG Tube 2 times a day. Last Dose: Next Dose: STOP: apixaban (Eliquis 5 mg oral tablet) 1 Tablets By Mouth 2 times a day. START: aspirin (aspirin 81 mg oral capsule) 1 Capsules PEG Tube every day. Last Dose: Next Dose: STOP: aspirin (aspirin 81 mg oral capsule) 1 Capsules By Mouth every day. START: atenolol (atenolol 25 mg Tab) 1 Tablets PEG Tube every day. Last Dose: Next Dose: STOP: atenolol (atenolol 25 mg Tab) 1 Tablets By Mouth every day. START: atorvastatin (Lipitor 40 mg Tab) 1 Tablets PEG Tube every day. Last Dose: Next Dose: STOP: atorvastatin (Lipitor 40 mg Tab) 1 Tablets By Mouth every day. START: busPIRone (busPIRone 5 mg Tab) 1 Tablets PEG Tube 2 times a day. Last Dose: Next Dose: STOP: busPIRone (busPIRone 5 mg Tab) 1 Tablets By Mouth 2 times a day. START: citalopram (CeleXA 20 mg Tab) 1 Tablets PEG Tube every day. Last Dose: Next Dose: STOP: citalopram (CeleXA 20 mg Tab) 1 Tablets By Mouth every day. START: fexofenadine (fexofenadine 180 mg Tab) 1 Tablets PEG Tube every day. Last Dose: Next Dose: STOP: fexofenadine (fexofenadine 180 mg Tab) 1 Tablets By Mouth every day. START: lisinopril (lisinopril 30 mg Tab) 1 Tablets PEG Tube every day. Last Dose: Next Dose: STOP: lisinopril (lisinopril 30 mg Tab) 1 Tablets By Mouth every day. START: omeprazole (omeprazole 40 mg Cap-DR) 1 Capsules PEG Tube every day. Last Dose: Next Dose: STOP: omeprazole (omeprazole 40 mg Cap-DR) 1 Capsules By Mouth every day. START: ropinirole (Requip) 1 Milligram PEG Tube every day. Last Dose: Next Dose: STOP: ropini (more content not included)...[facility] Interdisciplinary Note - Case Manageron [id number] Note - Case ManagerCRM spoke with patient in room. Patient is alert and oriented and participates in discharge planning. No family in room. Patient white board updated, and CRM contact information provided. Patient states Dr Carvajal saw patient earlier today and she can dc to [facility] today. Daughter will transport. Patient is tolerating tube feed via PEG tube. Patient denies any other questions or needs. Reviewed Medicare rights, she denies any questions. Gave her a copy of signed form.[facility] HospitalComment on above:Result Comment: Electronically Signed By: Patel VAN, Barbara\.br\Date and Time Signed: 09/16/23 09:43 EDTIntraOperative Documentson [id number] Documents [id number]#1.00TIFFSt. Vincent HospitalMonitor Recordon [id number] Record [id number]#1.00TIFFirelands Regional Medical Centeritor [id number] Lady of Mercy HospitalMonitor Record [id number]#1.00TIFKnox Community HospitalMonitor [id number]#1.00TIFNoSouthview Medical CenterCHEMISTRYOrdered By: Lizbeth DILLARDUser on [id number] [Mass/Vol]86 mg/vPRomsoy83 - 99 mg/dLNORMAN [facility]TY [facility] POC SubsectionComment on above:Result Comment: Notified RN/VIVIANOC Device [id number] 1Invalid Interpretation Code FT POC SubsectionPOC User [id number] 1Invalid Interpretation CodeFT POC SubsectionPOC UsernameKIRBY, KIRANInvalid Interpretation CodeNOR[facility]TY [facility] POC Subsection Glucose [Mass/Vol]125 mg/dTWhto94 - 99 mg/dLNORMAN SPECIALTY H[facility] POC SubsectionComment on above: Result Comment: Notified RN/DENA Device [id number] 1Invalid Interpretation CodeFT POC SubsectionPOC User [id number] 1Invalid Interpretation CodeNOR[facility] – [facility] POC SubsectionPOC UsernamLUIS RamirezTLINInvalid Interpretation CodeNORMAN SPECIALTY HOSPITAL – [facility] POC SubsectionCapillary Glucose POCon [id number] [Mass/Vol]86 mg/dLNormal 55-99[facility] HospitalComment on above:Result Comment: Notified RN/ Performed By: #### [id number] #### [facility] [address] [place], [place] [address]Nsmseex [Mass/Vol]125 mg/sJHvqi75-56MjsgnaElyria Memorial Hospital Comment on above:Result Comment: Notified RN/VIVIANerformed By: #### [id number] #### [facility] [address] [place], [place] [address]Eobbvki for Procedure/Surgeryon [id number] for Procedure/[id number]#1.00Memorial HospitalInterdisciplinary Note - Case Manageron 09-15-2023 Interdisciplinary Note - Case ManagerPatient off unit for Peg Tube placement. No family ion room. CRM did talk to Dr Carvajal who saw her earlier today. Anticipated if tolerated PEG tube and tube feed to dc tomorrow to [facility]. 1250- Patient back in room and had Peg tube placed. Discussed anticipated to dc tomorrow to [facility]. She denies any questions.[facility] Comment on above:Result Comment: Electronically Signed By: Patel VAN, Barbara\.br\Date and Time Signed: 09/15/23 13:30 EDTMain OR Intraoperative Record on [id number] OR Intraoperative RecordIntraOp Document Type FT Summary Primary Physician: Breanne Zuleta MD Finalized Date/Time: 09/15/23 14:03:38 Pt. Name: GENESIS CONTE/Sex: 1935 Female Med Rec #: [id number] Physician: Billy BRAVO DO Financial #: [id number] Pt. Type: I Room/Bed: [place] [address] Admit/Disch: 09/06/23 16:59:12 - Institution: Case Times FT Entry 1 Patient Times In Room 09/15/23 10:43:00 Out Room 09/15/23 11:42:00 Procedure Times Start 09/15/23 11:10:00 Stop 09/15/23 11:38:00 Anesthesia Times Start 09/15/23 10:43:00 Stop 09/15/23 11:42:00 Last Modified By: Paige Palomo RN 09/15/23 11:42:14 General Comments: 09/15/23 Chart opened to review and send charges LRoth CSFA Case Attendance FT Entry 1 Entry 2 Entry 3 Case Attendee Merlyn YOU, Breanne Gilbert DNP, CONTROLS PROJECT ENGINEER, Queen Dewey VAN, Paige Brown CFrancisco NFrancisco Role Performed Surgeon - Primary CONTROLS PROJECT ENGINEER Try Out Person - Primary Time In 09/15/23 10:58:00 09/15/23 10:43:00 09/15/23 10:43:00 Time Out 09/15/23 11:42:00 09/15/23 11:42:00 09/15/23 11:42:00 Procedure PEG TUBE INSERTION(.) PEG TUBE INSERTION(.) PEG TUBE INSERTION(.) Comments dr garland supervising Last Modified By: Dewey VAN, Paige Palomo RN, Paige Palomo RN, Paige Brown 09/15/23 11:42:14 09/15/23 11:42:14 09/15/23 11:42:14 Entry 4 Entry 5 Entry 6 Case Attendee Olivia Dean PA-C, Kristen N Dent CST, Beau Role Performed Scrub - Primary PA/ASSEMBLER TRACTOR Scrub - Relief Time In 09/15/23 10:43:00 09/15/23 10:58:00 09/15/23 11:00:00 Time Out 09/15/23 11:05:00 09/15/23 11:42:00 09/15/23 11:42:00 Procedure PEG TUBE INSERTION(.) PEG TUBE INSERTION(.) PEG TUBE INSERTION(.) Comments Last Modified By: Dewey VAN, Paige Palomo RN, Paige Palomo RN, Paige Brown 09/15/23 11:42:14 09/15/23 11:42:14 09/15/23 11:42:14 Perioperative Protocols FT Pre-Care Text: Implements protective measures prior to operative or invasive procedure, confirms identity before the operative or invasive procedure, verifies operative procedure, surgical site, and laterality Entry 1 Procedure(s) PEG TUBE INSERTION(.) Patient Identity Birthday, ID Band Verified (select at Check, Patient least 2): Participation Consents / H and P Anesthesia Consent, Operative Site N/A Verified HandP, Surgery/Procedure Marking Verified Consent Surgical Site Yes Laterality Verified n/a Verified Procedure Verified Yes Correct Patient Yes Position Verified Availability Equipment, Implant, Prep Dry n/a Verified (If Medication Applicable) PreOp Antibiotic Yes Time Out Breanne Zuleta MD, Vladimir HONEYCUTT, CONTROLS PROJECT ENGINEER, Dorsey NFrancisco, Dewey VAN, Aleksandra Hogan CST, Beau, Yesi Rodriguez PA-C Time Out Complete 09/15/23 11:09:00 Outcomes Met? Yes Last Modified By: Paige Palomo RN 09/15/23 11:30:22 Post-Care Text: The patient is free from signs and symptoms of injury caused by extraneous objects Allergy Information FT Pre-Care Text: Verifies allergies Entry 1 Allergies Reviewed? Yes Allergies Reviewed Self/Patient With Outcomes Met? Yes Last Modified By: Paige Palomo RN 09/15/23 10:55:27 Post-Care Text: The patient received appropriate medication(s) safely administered during the perioperative period Surgical Procedures FT Entry 1 Procedure Description Procedure PEG TUBE INSERTION Modifiers . Surgeon Description PERCUTANEOUS FEEDING TUBE PLACEMENT Primary Procedure Yes Primary Surgeon Breanne Zuleta MD Start 09/15/23 11:10:00 Stop 09/15/23 11:38:00 Anesthesia Type General Surgical Service General Wound Class 2 - Clean-Contaminated Last Modified By: Paige Palomo RN 09/15/23 12:57:51 General Case Data FT Pre-Care Text: Classifies surgical wound, implements aseptic technique, initiates traffic control Entry 1 Case Information OR OR 6 FT Case Level Level 2 Wound Class 2 - Clean-Contaminated Specialty General ASA Class 3 Preop Diagnosis MYASTHENIA GRAVIS, Postop Same As Preop Yes DYSPHAGIA Postop Diagnosis MYASTHENIA GRAVIS, Outcomes Met? Yes DYSPHAGIA Last Modified By: Paige Palomo RN 09/15/23 11:28:51 Post-Care Text: The patient is free from signs and symptoms of infection Skin Assessment (Pre Procedure) FT Pre-Care Text: Implements protective measures to prevent skin/ tissue injury due to thermal or mechanical sources Evaluates for signs and symptoms of physical injury to skin and tissue Entry 1 Skin Integrity Intact, Russell, Warm, and Skin Abnormality Yes Dry, Bruised Abnormality Location bruising, bilateral arms Outcomes Met? Yes Last Modified By: Paige Palomo RN 09/15/23 11:25:29 Post-Care Text: The patient is free from signs and symptoms of injury caused by extraneous objects Patient Positioning FT Pre-Care Text: Identifies physical alterations that require additional precautions for procedure-specific positioning, verifies presence of prosthetics or corrective devices, positions the patient, evaluates the patient for signs (more content not included)...[facility] Recordon [id number] OR PACU I RecordPACU Phase I Document Type FT Summary Primary Physician: Breanne Zuleta MD Finalized Date/Time: 09/15/23 13:06:48 Pt. Name: GENESIS CONTE D.O.B./Sex: 1935 Female Med Rec #: [id number] Physician: Billy BRAVO DO Financial #: [id number] Pt. Type: I Room/Bed: N213[facility] Admit/Disch: 09/06/23 16:59:12 - Institution: Case Times PACU I FT Pre-Care Text: Identifies barriers to communication and implements measures to provide psychological support Develops individualized plan of care, and ensures continuity of care Maintains patient's dignity and privacy, and maintains patient confidentiality Identifies and reports philosophical, cultural, and spiritual beliefs and values Identifies individual values and wishes concerning care Implements aseptic technique, and administers prescribed antibiotic therapy and immunizing agents as ordered Evaluates postoperative tissue perfusion Implements thermoregulation measures, and monitors body temperature Evaluates postoperative respiratory status Evaluates postoperative cardiac status Evaluates postoperative neurological status Assesses pain control, collaborated in initiating patient-controlled analgesia and implements alternative methods of pain control Verifies allergies, administers prescribed medications and solutions, evaluates response to medications Entry 1 In PACU I 09/15/23 11:43:00 Discharge from PACU 09/15/23 12:25:00 I Outcomes Met? Yes Last Modified By: Lizeth Rose RN 09/15/23 13:06:10 Post-Care Text: The patient demonstrates knowledge of the expected response to the operative or invasive procedure The patient's care is consistent with the individualized perioperative plan of care The patient's rightto privacy is maintained The patient's value system, lifestyle, ethnicity, and culture are considered, respected, and incorporated into the perioperative plan of care The patient participates in decisions affecting his or her perioperative plan of care The patient is free from signs and symptoms of infection The patient has wound/tissue perfusion consistent with or improved from baseline levels established preoperatively The patient is at or returning to normothermia at the conclusion of the immediate postoperative period The patient's respiratory function is consistent with or improved from baseline levels established preoperativelyThe patient's cardiovascular status is consistent with or improved from baseline levels established preoperatively The patient's cardiovascular status is consistent with or improved from baseline levels established preoperatively The patient demonstrates and/or reports adequate pain control throughout the perioperative period The patient received appropriate medication(s), safely administered during the perioperativeperiod Acuity Level PACU I FT Entry 1 Start Time 09/15/23 11:43:00 Stop Time 09/15/23 12:25:00 Acuity Level Acuity Level I Last Modified By: Lizeth Rose RN 09/15/23 13:06:44 Finalized By: Lizeth Rose RN Document Signatures Signed By: Lizeth Rose RN 09/15/23 13:06NormalNov[facility] Health, [facility] Recordon [id number] [id number]#1.00TIFF [facility] Record [id number]#1.00TIFFNormalOhio State [facility] Hospital [id number]#1.00TIFFNormal [place] [facility] Record [id number]#1.00TIFFNormnataliaNovant Health, [facility]compass Healthyahaira [facility] [id number]#1.00TIFFNoal [facility] HospitalProgress Note-Physicianon [id number] Note-PhysicianSubjective Patient seen and examined this morning. Tolerating Corpak feeds. No complaints overnight or this morning. Review of Systems Constitutional: no fever, no chills, no sweats, no weakness Respiratory: no shortness of breath, no cough, no orthopnea, no wheezing Cardiovascular: no chest pain, no palpitations, no edema Additional ROS info: Except as noted in the above Review of Systems and in the History of Present Illness all other systems have been reviewed and are negative or noncontributory. Objective Vitals & Measurements T: 36.2 ?C(Temporal Artery) TMIN: 36.2 ?C(Temporal Artery) TMAX: 36.7 ?C(Axillary) HR: 61(Monitored) RR: 10 BP: 129/66 SpO2: 99% HT: 157 cm WT: 63.3 kg Intake & Output This visit (24 hour periods starting at 07:00 EDT) 09/15/23 * 09/14/23 09/13/23 Total Summary Intake mL 260 10 677.72 Output mL -- -- -- Fluid Balance 260 10 677.72 Intake (5) Amino Acids 4.25% with 5% Dextrose and Electrolytes (Clinimix E Sulfite-Free) 1,000 mL mL -- -- 588.34 Dextrose 5% in Water, clindamycin mL 50 -- -- Generic Diluent, fat emulsion, intravenous mL -- -- 79.38 Lactated Ringers Injection 1,000 mL mL 200 -- -- pantoprazole mL 10 10 10 Total 260 10 677.72 Output (0) Counts (1) Urine Count 1 5 -- * This column has not completed the indicated time period. Physical Exam Constitutional: Awake and alert; oriented x 3 with no apparent distress or respiratory distress Head/neck: Neck supple with no palpable lymphadenopathy, bruits or masses; trachea midline Chest/lungs: Clear to auscultation bilaterally no wheezes or rhonchi noted bilaterally Cardiovascular: Regular rate and rhythm; normal S1-S2 with no murmur; no pitting edema and 2+ pulses bilaterally Gastrointestinal: Soft, nontender, nondistended, positive bowel sounds Neurological: Nonfocal; cranial nerves II through XII appear intact Psychological: Pleasant affect Lab Results Glucose Cap: 125 mg/dL High (09/15/23 06:04:00) POC Device SN: [id number] (09/15/23 06:04:00) POC User ID: [id number] (09/15/23 06:04:00) POC Username: POC Username (09/15/23 06:04:00) Assessment/Plan 88-year-old female admitted for myasthenia gravis exacerbation. She was having dysarthria and left laryngeal stridor secondary to the myasthenia. Comorbidities include myasthenia gravis, hypertension, hyperlipidemia, CVA in the past, history of DVT on Eliquis, GERD, restless leg syndrome and depression. 1. Myasthenia gravis in crisis (G70.01: Myasthenia gravis with (acute) exacerbation) - Patient is seropositive for myasthenia gravis; acetylcholine receptor binding antibodies at 12.6;blocking antibody 79%; modulating antibody 75%; muscle specific kinase negative; PQ type voltage-gated calcium channel antibodies negative -Maintain Mestinon 30 mg 3 times daily started on September 06 - Corpak placed due to aspiration noted on modified barium swallow tolerating tube feeds - PEG tube scheduled for placement today by surgery - She did receive 3 days of IVIG September 07 stopping on May 26 2. Dysarthria (R47.1: Dysarthria and anarthria) Stable/resolved 3. 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 Acute hypoxic respiratory failure (J96.01: Acute respiratory failure with hypoxia) On room air 5. Lung nodule (R91.1: Solitary pulmonary nodule) Stable; follow-up in the outpatient setting 6. Hypertension (I10: Essential (primary) hypertension) No antihypertensives; IV hydralazine with BP parameters 7. Hyperlipidemia (E78.5: Hyperlipidemia, unspecified) Stable 8. Chronic GERD (K21.9: Gastro-esophageal reflux disease without esophagitis) Continue IV Protonix 40 mg daily 9. History of CVA in adulthood (Z86.73: Personal history of transient ischemic attack (TIA), and cerebral infarction without residual deficits) Currently on Lovenox subcu twice daily; at discharge monitor to see if her baseline can be placed through the PEG 10. History of DVT in adulthood (Z86.718: Personal history of other venous thrombosis and embolism) Continue Lovenox and SCDs 11. Depression (F32.A: Depression, unspecified) stable 12. Restless leg syndrome (G25.81: Restless legs syndrome) stable Orders: Communication Order Physician to Nursing PLAN: 1. Getting a PEG tube placed this afternoon per trauma surgery 2. Continue Mestinon Will adjust feeds once the PEG tube is in place 3. Continue PT and OT 4. DVT prophylaxis with SCDs and subcu enoxaparin 5. Full CODE STATUS 6. IV PPI for ulcer prophylaxis 7. Discharge planning to the [facility] Problem List/Past Medical History Ongoing Chronic GERD Depression History of CVA in adulthood History of DVT in adulthood Hyperlipidemia Hypertension Obesity Restless leg syndrome Historical No qualifying data Medications Inpatient hydrALAZINE 20 mg/mL Inj, 10 mg= 0.5 mL, IV Push, q6hr, PRN Jevit (more content not included)...[facility] on above:Result Comment: Electronically Signed By: Eliel Carvajal DO\.br\Date and Time Signed: 09/15/23 14:23 EDTProgress Note-PhysicianPatient: DGGENESIS [place] Age: 88 years Sex: Female : 1935 Associated Diagnoses: None Author: Tk Garland Jr., DO Postoperative Information Postoperative disposition: Postoperative disposition: Home. Optimetrix number: Optimetrix number [id number]. Anesthetic utilized: General. Physical Examination Vital Signs 09/15/2023 12:20 EDT Temperature Temporal Artery 36.2 DegC LOW Heart Rate Monitored 61 bpm Respiratory Rate Monitored 10 br/min Systolic Blood Pressure 129 mmHg Diastolic Blood Pressure 66 mmHg Blood Pressure Location Right arm Mean Arterial Pressure, Cuff 87 mmHg SpO2 99 % Pain Assessment: Controlled. General: Awake, Alert, Appropriate. Respiratory: Adequate air exchange, Non-labored. Cardiovascular: Stable, Normal peripheral perfusion. Neurological: Neurologic exam at baseline. No changes.. Assessment Anesthetic outcome No anesthetic complications noted. No nausea/vomiting. Review / Management Condition: Stable. Plan Transfer/Discharge: Transfer/Discharge Discharge when meets criteria ( From PACU to Ambulatory Surgery Unit, and To home ).[facility] Comment on above:Result Comment: Electronically Signed By: Tk Garland Jr., DO\.br\Date and Time Signed: 09/15/23 13:15 EDTProgress Note-PhysicianPatient: GENESIS CONTE Age: 88 years Sex: Female : 1935 Associated Diagnoses: None Author: Tk Garland Jr., DO Preoperative Information Anesthesia history: Patient history: No prior anesthetic problems. Informed consent: Signed by patient. Re-evaluation prior to induction: Initial evaluation reviewed: No significant change. Review of Systems Respiratory: Negative except as documented in history of present illness. Cardiovascular: Negative except as documented in history of present illness. Health Status Allergies: Allergic Reactions (Selected) Severity Not Documented CefTRIAXone- Throat swelling., Allergies (1) Active Severity Reaction cefTRIAXone Throat swelling Current medications: (Selected) Inpatient Medications Ordered Jevity 1 Landon with Fiber Continuous 1,000 mL: 1,000 mL, NG-Tube, 30 mL/hr, Routine, Start date 09/14/23 9:47:00 EDT, 33.3 hour(s), Total volume (mL): 1,000, 66.9 kg, 1.71, m2 Lactated Ringers IV Mary Ann 1000 mL 1,000 mL: 1,000 mL, IV, 100 mL/hr, Routine, Start date 09/15/23 10:16:00 EDT, 10 hour(s), Total volume (mL): 1,000, 66.9 kg, 1.71, m2 Lactated Ringers IV Mary Ann 1000 mL 1,000 mL: 1,000 mL, IV, 150 mL/hr, Routine, Start date 09/15/23 7:54:00 EDT, 6.7 hour(s), Total volume (mL): 1,000, 66.9 kg, 1.71, m2 Lovenox 60 mg/0.6 mL SC Mary Ann: 60 mg = 0.6 mL, Injection, SubCutaneous, BID for 30 day(s), Stop date 10/08/23 20:59:00 EDT, Routine, Start date 09/08/23 21:00:00 EDT Mestinon 60 mg Tab: 30 mg = 0.5 tab(s), Tab, Oral, TID, Routine, Start date 09/07/23 14:15:00 EDT, crush with small amount of puree Sodium Chloride 0.9% IV Mary Ann 500 mL 500 mL: 500 mL, IV, 20 mL/hr, STAT, Start date 09/06/23 19:30:00EDT, 25 hour(s), Total volume (mL): 500, 66.9 kg, 1.71, m2 hydrALAZINE 20 mg/mL Inj: 10 mg = 0.5 mL, Injection, IV Push, q6hr PRN Other (see comment), Routine, Start date 09/09/23 8:03:00 EDT, for SBP greater than 180 pantoprazole 40 mg IV Inj: 40 mg = 10 mL, Injection, IV Push, Daily, Routine, Start date 09/07/23 9:00:00 EDT Documented Medications Documented CeleXA 20 mg Tab: 20 mg = 1 tab(s), Oral, Daily, Refills(s) 0 Eliquis 5 mg oral tablet: 5 mg = 1 tab(s), Oral, BID, Refills(s) 0 Lipitor 40 mg Tab: 40 mg = 1 tab(s), Oral, Daily, Refills(s) 0 Norvasc 5 mg Tab: 5 mg = 1 tab(s), Oral, Daily, Refills(s) 0 Requip: 1 mg, Oral, Daily, Refills(s) 0 aspirin 81 mg oral capsule: 81 mg = 1 cap(s), Oral, Daily, Refills(s) 0 atenolol 25 mg Tab: 25 mg = 1 tab(s), Oral, Daily, Refills(s) 0 busPIRone 5 mg Tab: 5 mg = 1 tab(s), Oral, BID, Refills(s) 0 fexofenadine 180 mg Tab: 180 mg = 1 tab(s), Oral, Daily, Refills(s) 0 fluticasone propionate: 50 mcg, Inhalation, Daily, Refills(s) 0 lisinopril 30 mg Tab: 30 mg = 1 tab(s), Oral, Daily, Refills(s) 0 omeprazole 40 mg Cap-DR: 40 mg = 1 cap(s), Oral, Daily, Refills(s) 0, Home Medications (12) Active aspirin 81 mg oral capsule 81 mg = 1 cap(s), Oral, Daily atenolol 25 mg Tab 25 mg = 1 tab(s), Oral, Daily busPIRone 5 mg Tab 5 mg = 1 tab(s), Oral, BID CeleXA 20 mg Tab 20 mg = 1 tab(s), Oral, Daily Eliquis 5 mg oral tablet 5 mg = 1 tab(s), Oral, BID fexofenadine 180 mg Tab 180 mg = 1 tab(s), Oral, Daily fluticasone propionate 50 mcg, Inhalation, Daily Lipitor 40 mg Tab 40 mg = 1 tab(s), Oral, Daily lisinopril 30 mg Tab 30 mg = 1 tab(s), Oral, Daily Norvasc 5 mg Tab 5 mg = 1 tab(s), Oral, Daily omeprazole 40 mg Cap-DR 40 mg = 1 cap(s), Oral, Daily Requip 1 mg, Oral, Daily , Medications (8) Active Scheduled: (3) enoxaparin 60 mg/0.6 mL SC Mary Ann [F] 60 mg 0.6 mL, SubCutaneous, BID pantoprazole 40 mg IV Inj [F] 40 mg 10 mL, IV Push, Daily pyRIDostigmine 60 mg Tab [F] 30 mg 0.5 tab(s), Oral, TID Continuous: (4) Jevity 1,000 mL 1,000 mL, NG-Tube, 30 mL/hr Lactated Ringers 1,000 mL 1,000 mL, IV, 150 mL/hr Lactated Ringers 1,000 mL 1,000 mL, IV, 100 mL/hr Sodium Chloride 0.9% 500 mL 500 mL, IV, 20 mL/hr PRN: (1) hydrALAZINE 20 mg/mL Inj [F] 10 mg 0.5 mL, IV Push, q6hr Problem list: All Problems At risk for falls / SNOMED CT 889477021 / Possible Problem added when Risk for Falls Careplan was initiated. Chronic GERD / SNOMED CT 549644314 / Confirmed Depression / SNOMED CT 00446527 / Confirmed History of CVA in adulthood / SNOMED CT 4345774222 / Confirmed History of DVT in adulthood / SNOMED CT 4535562936 / Confirmed Hyperlipidemia / SNOMED CT 73151645 / Confirmed Hypertension / SNOMED CT 1346349542 / Confirmed Obesity / SNOMED CT 5378611928 / Confirmed Restless leg syndrome / SNOMED CT 28717795 / Confirmed Histories Past Medical History: No active or resolved past medical history items have been selected or recorded. Procedure history: No active procedure history items have been selected or recorded. Social History Social & Psychosocial Habits Tobacco 09/07/2023 Tobacco Use: Never (less than 100 in l . Physical Examination Vital Signs 09/15/2023 10:06 (more content not included)...[facility] Comment on above:Result Comment: Electronically Signed By: Tk Garland Jr., DO.rafia\Date and Time Signed: 09/15/23 10:18 EDTProgress Note-Physician Assessment/Plan ASSESSMENT: Seropositive myasthenia gravis. Acetylcholine receptor binding antibodies 12.6, blocking antibodies 39%, modulating antibody 75%. Muscle specific kinase negative. P/Q type voltage-gated calcium channel antibody negative. Has persistent dysarthria that is currently requiring nasogastric tube and will require PEG. Her respiratory status has been stable. Status post 1.2 g/kg of IVIG total. PLAN: Continue the pyridostigmine 30 mg 3 times daily, which she is tolerating without sialorrhea. In heroutpatient follow-up this dosage can likely be doubled. I no longer think repetitive nerve stimulation and single-fiber EMG will be necessary, given the antibody positivity and confirm diagnosis. No other recommendation at this time. Outpatient neurology follow-up. 1. Myasthenia gravis in crisis (G70.01: Myasthenia gravis with (acute) exacerbation) 2. Dysarthria (R47.1: Dysarthria and anarthria) 3. 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 Acute hypoxic respiratory failure (J96.01: Acute respiratory failure with hypoxia) 5. Lung nodule (R91.1: Solitary pulmonary nodule) 6. Hypertension (I10: Essential (primary) hypertension) 7. Hyperlipidemia (E78.5: Hyperlipidemia, unspecified) 8. Chronic GERD (K21.9: Gastro-esophageal reflux disease without esophagitis) 9. History of CVA in adulthood (Z86.73: Personal history of transient ischemic attack (TIA), and cerebral infarction without residual deficits) 10. History of DVT in adulthood (Z86.718: Personal history of other venous thrombosis and embolism) 11. Depression (F32.A: Depression, unspecified) 12. Restless leg syndrome (G25.81: Restless legs syndrome) Subjective She has the nasogastric tube and she feels it more in her throat and her nose but it is only mildlyirritating or bothersome or annoying. No eyelid drooping. No diplopia. Breathing okay. Feeling likeshe has less saliva production. Review of Systems GEN: No fevers or chills. CV/PULM: No chest pain. No current shortness of breath. No palpitations. NEURO: No headaches. No loss of vision. No current double vision. Objective Vitals & Measurements T: 36.5 ?C(Oral) TMIN: 36.4 ?C(Oral) TMAX: 36.7 ?C(Oral) HR: 86(Peripheral) RR: 17 BP: 134/66 SpO2:98% WT: 63.3 kg Intake & Output This visit (24 hour periods starting at 07:00 EDT) 09/15/23 * 09/14/23 09/13/23 Total Summary Intake mL -- 10 677.72 Output mL -- -- -- Fluid Balance -- 10 677.72 Intake (3) Amino Acids 4.25% with 5% Dextrose and Electrolytes (Clinimix E Sulfite-Free) 1,000 mL mL -- -- 588.34 Generic Diluent, fat emulsion, intravenous mL -- -- 79.38 pantoprazole mL -- 10 10 Total -- 10 677.72 Output (0) Counts (1) Urine Count -- 5 -- * This column has not completed the indicated time period. Physical Exam GEN: General appearance normal. Well-kempt. No distress. No visualized deformities or trauma. CARDIO/VASC: Limbs without significant edema and appear well-perfused. PULM: Normal work of breathing. SKIN: Visualized skin is intact and without lesions aside from age-related findings. MS: Affect is normal. Patient is alert and generally oriented. Normal attention. LANG: Speech is fluent and at times mildly dysarthric. No aphasia. EYES: Pupils equal/reactive/consensual. Gaze appears conjugate. Ocular motility full. No pathologicnystagmus. CN: Facial sensation normal. Hearing acuity normal. No significant facial weakness. MOTOR: Muscle bulk normal. Muscle tone normal. Muscle strength normal. No tremors. REFLEXES: No pathologic reflexes. SENSORY: Light touch normal. CEREBELLAR: No limb ataxia. Lab Results Glucose Cap: 125 mg/dL High (09/15/23 06:04:00) POC Device SN: [id number] (09/15/23 06:04:00) POC User ID: [id number] (09/15/23 06:04:00) POC Username: POC Username (09/15/23 06:04:00) Diagnostic Results (09/06/2023 17:[address] Head or Brain w/o Contrast) * Final Report * Reason For Exam Slurred speech POWERSCRIBE REPORT IMPRESSION: NO ACUTE INTRACRANIAL HEMORRHAGE OR CORTICAL INFARCT IDENTIFIED. SMALL AGE INDETERMINATE LEFT BASAL GANGLIA LACUNAR INFARCTS, AGE-RELATED ATROPHIC AND INVOLUTIONAL CHANGES. EXAM: CT Head or Brain w/o Contrast DATE: 09/06/2023 5:05 PM CLINICAL HISTORY: Slurred speech. COMPARISON: None available. TECHNIQUE: Routine. All CT scans at this facility use dose modulation, iterative reconstruction, and/or weight based dosing when appropriate to reduce radiation dose to as low as reasonably achievable. FINDINGS: There is no intracranial hemorrhage, mass effect, midline shift, extra-axial collection, evidence of hydrocephalus, skull fracture, or a recent ischemic cortical infarct identified. Small hypodensities within the left basal ganglia are probably lacunar infarcts. Mild generalized cerebral volume loss is present, with mild patchy supratentorial w (more content not included)...NormalElyria Memorial HospitalComment on above: Result Comment: Electronically Signed By: Mago Ennis RN\.br\Date and Time Signed: 09/15/23 09:11 EDT\.br\Electronically Co-Signed By: Shon Blackwell DO\.br\Date and Time Co-Signed: 09/15/23 10:09 EDTCapillary Glucose POCon 38-11-4521Bddoaga [Mass/Vol]111 mg/cXVclq18-55ZxseamElyria Memorial HospitalComment on above:Result Comment: Notified RN/MDPerformed By: #### [id number] #### [facility] [address] [place], [place] [address]Lbqzrnv [Mass/Vol]112 mg/cHKyjh33-17FroosxElyria Memorial Hospital Comment on above:Result Comment: Notified RN/MDPerformed By: #### [id number] #### [facility] [address] [facility], [place] [address]Vrdilyh [Mass/Vol]88 mg/eQTqfvyj20-46EcclxoElyria Memorial HospitalComment on above:Result Comment: Notified RN/MDPerformed By: #### [id number] #### [facility] [address] [place], [place] [address]Pjfuokx [Mass/Vol]101 mg/uLInpk40-10HpartsElyria Memorial Hospital Comment on above:Result Comment: Notified RN/MDPerformed By: #### [id number] #### [facility] [address] [place], [place] [address]Vzxtclj [Mass/Vol]96 mg/tBOxbvqi26-12IjuebeElyria Memorial HospitalComment on above:Result Comment: Notified RN/MDPerformed By: #### [id number] #### [facility] [address] [place], [place] [address]Kiiquuhuaolvedfbi Note - Case Manageron 09-14-2023 Interdisciplinary Note - Case ManagerCRM spoke with patient and daughter Cayla in room. Patient is alert and oriented and participates in discharge planning. Patient white board updated, and CRM contact information provided. Discussed Dr Carvajal saw patient earlier today. Patient has a corepak in and getting tube feeding at this time.Patient and daughter confirm plan is to have PEG tube placed. They are asking when surgery will be for PRG tube placement, will need to wait gen sx to round today for that answer. Patient will dc to [facility] when medically ready, anticipated to be ready by weekend. Daughter wants to talk to Dr Carvajal, has questions on max dosage on Mestinon and to discuss home meds if unable to swallow pills. Daughter wants to know who will be following Dr at [facility] and who will be managing tube feeding goals at SNF. Reviewed Medicare rights, patient and daughter denies any questions.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 Discussed with Dr. Carvajal briefly. Pt had corepak placed 5-28 and ready to have feeding initiated. Recommend use of Jevity 1.0 with goalrate 60 ml/hr. This provides 1573 kcal with 63 gm protein and 1200 cc free water and meets 100% estimated calorie and protein needs. Would require an additional 600 cc free water to meet estimated needs. Will provide 25 cc hourly rate. Once feeding initiated, can d/c PPN. Continue POC.[facility] HospitalComment on above:Result Comment: Electronically Signed By: Taye JERONIMO, ROXANNA.Yady\.br\Date and Time Signed: 09/14/23 09:45 EDTLab Miscellaneous-LCon 70-54-7782Obv MiscellaneousCOMMENT Invalid Interpretation [facility] CenterComment on above:Order Comment: myasthenia gravis profileResult Comment: Test Ordered: [id number] Myasthenia Gravis Profile AChR Binding Abs, Serum 12.60 [H ] nmol/L BN Reference Range: 0.00-0.24 Results verified by repeat testing Negative: 0.00 - 0.24 Borderline: 0.25 - 0.40 Positive: >0.40 AChR Blocking Abs, Serum 39 [H ] % BN Reference Range: 0-25 This test was developed and its performance characteristics determined by [employer]. It has not been cleared or approved by the Food and Drug Administration. Negative: 0 - 25 Borderline: 26 - 30 Positive: >30 AChR-modulating Ab 75 [H ] % BN Reference Range: 0-45 This test was developed and its performance characteristics determined by [employer]. It has not been cleared or approved by the Food and Drug Administration. Interpretive Information: Negative: 0 - 45% Positive: > 45% No single value for AChR-modulating antibody should be used as a sole basis for diagnosis or response to therapy. Striation Abs, Serum 1:1000 [H ] BN Reference Range: Neg:<1:100 This test was developed and its performance characteristics determined by [employer]. It has not been cleared or approved by the Food and Drug Administration. Reflex Information Comment BN Reflex test not indicated. Performed at: [address] [id number] PhD Malik RichardsonPerformed By: #### [id number] #### [facility] [address] [place], [place] [address]Fus MiscellaneousCOMMENTInvalid Interpretation CodeElyria Memorial HospitalComment on above:Result Comment: Test Ordered: [id number] MuSK Abs, Serum MuSK Abs, Serum <1.0 U/mL ES Reference Range: Negative: <1.0 Positive: 1.0 or higher A positive result, in the context of congruent clinical findings, confirms the diagnosis of autoimmune MuSK myasthenia gravis. COMMENTS: - Myasthenia gravis (MG) is caused by auto-antibodies against proteins of the neuromuscular junction. Most cases (about 90%) of generalized MG are anti- acetylcholine receptor (AChR) antibody-positive.(1) - Of generalized MG patients who lack anti-AChR antibodies (AChR-seronegative), about 40% are positive for Muscle- Specific Kinase (MuSK) antibody.(1,2) - Though a positive MuSK result is specific for the diagnosis of MuSK MG, a negative MuSK result does not rule out a MG diagnosis. - MuSK antibody levels have been shown to correlate with disease severity.(3) Serial measurements may be useful to follow treatment. References: 1. Jessicaih-Tramainen S et al. J Autoimmunity 2014;52:90-100. 2. Ramez MG et al. PNAS 2013;110(20);16422-97608. 3. Golden Licea al. Neurology 2006;67:505-507. This test was developed and its performance characteristics determined by [employer]. It has not been cleared or approved by the Food and Drug Administration. Performed at: [address] [id number] PhD Malik RichardsonPerformed By: #### [id number] #### [facility] [address] [place] [address]Otwmdpi Recordon 69-86-9235Ckjzskt Record [id number] Memorial HospitalMonitor [id number] Elyria Memorial HospitalProgress Note-Physicianon 54-41-9236Mrrocvmg Note-PhysicianSubjective Patient seen and examined this morning with daughter at the bedside. She is doing fine voicing no complaints overnight. Objective Vitals & Measurements T: 36.3 ?C(Oral) TMIN: 36.3 ?C(Oral) TMAX: 36.8 ?C(Axillary) HR: 72(Peripheral) RR: 19 BP: 153/69 SpO2: 97% WT: 61.4 kg Intake & Output This visit (24 hour periods starting at 07:00 EDT) 09/14/23 * 09/13/23 09/12/23 Total Summary Intake mL 10 677.72 839.38 Output mL -- -- -- Fluid Balance 10 677.72 839.38 Intake (3) Amino Acids 4.25% with 5% Dextrose and Electrolytes (Clinimix E Sulfite-Free) 1,000 mL mL -- 588.34 824.36 Generic Diluent, fat emulsion, intravenous mL -- 79.38 5.02 pantoprazole mL 10 10 10 Total 10 677.72 839.38 Output (0) Counts (2) Stool Count -- -- 1 Urine Count -- -- 2 * This column has not completed the indicated time period. Physical Exam Constitutional: Awake and alert; oriented x 3 with no apparent distress or respiratory distress Head/neck: Neck supple with no palpable lymphadenopathy, bruits or masses; trachea midline Chest/lungs: Clear to auscultation bilaterally no wheezes or rhonchi noted bilaterally Cardiovascular: Regular rate and rhythm; normal S1-S2 with no murmur; no pitting edema and 2+ pulses bilaterally Gastrointestinal: Soft, nontender, nondistended, positive bowel sounds Neurological: Nonfocal; cranial nerves II through XII appear intact Psychological: Pleasant affect Lab Results Glucose Cap: 112 mg/dL High (09/14/23 11:33:00) POC Device SN: [id number] (09/14/23 11:33:00) POC User ID: [id number] (09/14/23 11:33:00) POC Username: POC Username (09/14/23 11:33:00) Assessment/Plan 88-year-old female admitted for myasthenia gravis exacerbation. She was having dysarthria and left laryngeal stridor secondary to the myasthenia. Comorbidities include myasthenia gravis, hypertension, hyperlipidemia, CVA in the past, history of DVT on Eliquis, GERD, restless leg syndrome and depression. 1. Myasthenia gravis in crisis (G70.01: Myasthenia gravis with (acute) exacerbation) Maintain Mestinon 30 mg 3 times daily started September 06 She did have aspiration on modified barium swallow Corpak placed and will start tube feeds; if she tolerates the tube feeds surgery will place a PEG tube She did receive 3 days of IVIG September 07 stopping on September 10 Ordered: [facility] Hospital Care/Day Moderate 35 Minutes 04190 2. Dysarthria (R47.1: Dysarthria and anarthria) Stable/resolved Ordered: [facility] Hospital Care/Day Moderate 35 Minutes 10180 3. 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 Acute hypoxic respiratory failure (J96.01: Acute respiratory failure with hypoxia) Ordered: [facility] Hospital Care/Day Moderate 35 Minutes 13850 5. Lung nodule (R91.1: Solitary pulmonary nodule) Stable; followed in the outpatient setting Ordered: [facility] Hospital Care/Day Moderate 35 Minutes 51822 6. Hypertension (I10: Essential (primary) hypertension) No p.o. antihypertensives at this time; she does have a hydralazine with BP parameters Ordered: [facility] Hospital Care/Day Moderate 35 Minutes 41430 7. Hyperlipidemia (E78.5: Hyperlipidemia, unspecified) On appearance but stable Ordered: [facility] Hospital Care/Day Moderate 35 Minutes 31145 8. Chronic GERD (K21.9: Gastro-esophageal reflux disease without esophagitis) IV PPI with Protonix milligrams daily Ordered: [facility] Hospital Care/Day Moderate 35 Minutes 02350 9. History of CVA in adulthood (Z86.73: Personal history of transient ischemic attack (TIA), and cerebral infarction without residual deficits) Continue Lovenox subcu twice daily Ordered: [facility] Hospital Care/Day Moderate 35 Minutes 95593 10. History of DVT in adulthood (Z86.718: Personal history of other venous thrombosis and embolism) Continue Lovenox subcu twice daily; SCDs as well Ordered: [facility] Hospital Care/Day Moderate 35 Minutes 13073 11. Depression (F32.A: Depression, unspecified) Stable Ordered: [facility] Hospital Care/Day Moderate 35 Minutes 43823 12. Restless leg syndrome (G25.81: Restless legs syndrome) Stable Ordered: [facility] Hospital Care/Day Moderate 35 Minutes 42235 Orders: Jevity 1,000 mL, 1,000 mL, NG-Tube, 30 mL/hr, Routine, Start date 09/14/23 9:47:00 EDT, 33.3 hour(s), Total volume (mL): 1,000, 66.9 kg, 1.71, m2 Communication Order Physician to Nursing Communication Order Physician to Nursing Communication Order Physician to Nursing Communication Order Physician to Nursing Free Water via NGT/OGT/GT/Feeding Tube Precautions XR Chest Single View PLAN: 1. Maintain Mestinon 2. Tube feeds through Corpak 3. If she tolerates the tube feeds for 24 hours we will plan for PEG tube placement per surgery 4. Maintain PT and OT 5. DVT prophylax (more content not included)...[facility] Comment on above:Result Comment: Electronically Signed By: Eliel Carvajal DO\.br\Date and Time Signed: 09/14/23 12:32 EDTProgress Note-PhysicianAfter discussion with surgery, the plan was to try Corpak first and if she tolerates tube feeds for24 hours they [address] place a PEG tube. I did talk with the daughter and the patient and with their permission we placed a Corpak without incident. Placement confirmed by portable chest x-ray and KUB. Dietary notified.[facility] HospitalComment on above:Result Comment: Electronically Signed By: Eliel Carvajal DO\.br\Date and Time Signed: 09/14/23 10:57 EDTBMPon 41-99-9284Mfhnl gap [Moles/Vol]9 mmol/LNormal 6-16E[facility]ria Memorial HospitalComment on above:Performed By: #### [id number] #### [facility] [address] [place], [place] [address]Yptrtba [Mass/Vol]8.6 mg/dLLow8.9-11.1FKettering Health MiamisburgComment on above:Performed By: #### [id number] #### [facility] [address], [place] [address]Hbacikks [Moles/Vol]105 mmol/HHewies275-499QmwzkxElyria Memorial HospitalComment on above:Performed By: #### [id number] #### [facility] [address], [place] [address]FW6 [Moles/Vol]27 mmol/SSphayy44-88OqaswhElyria Memorial Hospital Comment on above:Performed By: #### [id number] #### [facility] [address] [place], [place] [address]Qnezvvcxmy [Mass/Vol]0.7 mg/dLNormal0.5-1.3FKettering Health MiamisburgComment on above:Performed By: #### [id number] #### [facility] [address], [place] [address]Hmtbyja [Mass/Vol]97 mg/tJEusqzv79-687HogwplElyria Memorial HospitalComment on above:Performed By: #### [id number] #### [facility] [address], [place] [address]Tbafvvymf [Moles/Vol]3.5 mmol/LNormal3.5-5.3FKettering Health MiamisburgComment on above:Performed By: #### [id number] #### [facility] [address], [place] [address]Eojkdu [Moles/Vol]137 mmol/ROjsdoi691-088OlhxhdElyria Memorial HospitalComment on above:Performed By: #### [id number] #### [facility] [address], [place] [address]Lepf nitrogen [Mass/Vol]20 mg/dLNormal5-21E[facility] Memorial HospitalComment on above:Performed By: #### [id number] #### [facility] [address], [place] [address]Dilw nitrogen/Creatinine [Mass ratio]29 No TiirrAngw81-09RspytoElyria Memorial HospitalComment on above:Performed By: #### [id number] #### [facility] [address], [place] [address]PTB w/Indiceson 74-37-4845Ksqcslshbzq distribution width (RBC) [Ratio]13.1 %Eecipw40.9-14.2FKettering Health MiamisburgComment on above: Performed By: #### [id number] #### [facility] [address], [place] [address]Rnjfzeqawk (Bld) [Volume fraction]35.0 %Ksqfor93.0-46.0E[facility] Memorial HospitalComment on above:Performed By: #### [id number] #### [facility] [address], [place] [address]Epxcyurhqb (Bld) [Mass/Vol]11.7 g/dLLow12.0-16.0E[facility]ria Memorial HospitalComment on above:Performed By: #### [id number] #### [facility] [address], [place] [address]EGE (RBC) [Entitic mass]29.0 jlKwjbcy80.0-34.0E[facility] Memorial HospitalComment on above:Performed By: #### [id number] #### [facility] [address] [place] [address]UABS (RBC) [Mass/Vol]33.4 g/uHCebogv08.4-36.0E[facility] HospitalComment on above:Performed By: #### [id number] #### [facility] [address] [place] [address]ZQN (RBC) [Entitic vol]86.9 vWGvslku48.0-100.0E[facility] Memorial HospitalComment on above:Performed By: #### [id number] #### [facility] [address] [place] [address]Ltifckrj mean volume (Bld) [Entitic vol]8.3 fLNormal6.4-10.8 [facility] HospitalComment on above:Performed By: #### [id number] #### [facility] [address] [place] [address]Diqejackl (Bld) [#/Vol]220.0 E9/IFsxtns672.0-500.0E[facility] Memorial HospitalComment on above:Performed By: #### [id number] #### [facility] [address] [place] [address]IMX (Bld) [#/Vol]4.0 E12/LLow4.3-5.9[facility] Comment on above:Performed By: #### [id number] #### [facility] [address] [place] [address]LAF size Nom (Bld)NORMALInvalid Interpretation CodeElyria Memorial HospitalComment on above:Performed By: #### [id number] #### [facility] [address] [place] [address]GHJ corrected for nucl RBC Auto (Bld) [#/Vol]5.4 E9/LNormal 4.0-11.0[facility] HospitalComment on above:Performed By: #### [id number] #### [facility] [address], [place] [address]ZEPLSOGEETdrrhtz By: SYSTEM SYSTEM on 04-16-5341Osasv gap [Moles/Vol]9 mmol/LNormal6 - 16 mEq/LRemisol ChemCalcium [Mass/Vol]8.6 mg/dLLow 8.9 - 11.1 mg/dLRemisol ChemChloride [Moles/Vol]105 mmol/APzkyrw965 - 111 mmol/L Remisol ChemCO2 [Moles/Vol]27 mmol/QRvypdu80 - 31 mmol/LRemisol ChemCreatinine [Mass/Vol]0.7 mg/dLNormal0.5 - 1.3 mg/dLRemisol MaydsIFI88 mL/min/1.73 h2Vojpnt >=59mL/min/1.73 j7Pppcvjz ChemGlucose [Mass/Vol]97 mg/xKPswnnr20 - 199 mg/dL Remisol ChemMagnesium [Mass/Vol]2.1 mg/dLNormal1.3 - 2.4 mg/dLRemisol Chem Potassium [Moles/Vol]3.5 mmol/LNormal3.5 - 5.3 mmol/LRemisol ChemSodium [Moles/Vol]137 mmol/JXzxwpi753 - 145 mmol/LRemisol ChemUrea nitrogen [Mass/Vol] 20 mg/dLNormal5 - 21 mg/dLRemisol ChemUrea nitrogen/Creatinine [Mass ratio]29 mg/jfMyqv33 - 20Remisol ChemCapillary Glucose POCon 87-77-4082Cydhnim [Mass/Vol] 103 mg/kGBqcr96-15FvjhelElyria Memorial HospitalComment on above:Result Comment: Notified RN/MDPerformed By: #### [id number] #### [facility] [address], [place] [address]Qxtmfcp [Mass/Vol]106 mg/nDIygl51-21JanxuuElyria Memorial Hospital Comment on above:Performed By: #### [id number] #### [facility] [address], [place] [address]Jwajmpr [Mass/Vol]94 mg/cIAldrzv25-89AktilvElyria Memorial HospitalComment on above:Result Comment: Notified RN/MDPerformed By: #### [id number] #### [facility] [address], [place] [address]Kxhezyt [Mass/Vol]110 mg/zUUfow38-83VfjmueElyria Memorial Hospital Comment on above:Result Comment: Notified RN/MDPerformed By: #### [id number] #### [facility] [address], [place] [address]VFHOKVUCTSBblkkcl By: SYSTEM SYSTEM on 97-98-9897Duxpexzjmth distribution width (RBC) [Ratio]13.1 %Egziea86.9 - 14.2 %Remisol HemeHematocrit (Bld) [Volume fraction]35.0 %Sdwlhz91.0 - 46.0 %Remisol HemeHemoglobin (Bld) [Mass/Vol]11.7 g/dLLow12.0 - 16.0 gm/dLRemisol HemeMCH (RBC) [Entitic mass]29.0 gqBkxist43.0 - 34.0 pgRemisol HemeMCHC (RBC) [Mass/Vol]33.4 g/fAYtdlsy94.4 - 36.0 gm/dLRemisol HemeMCV (RBC) [Entitic vol]86.9 vFPihiwb49.0 - 100.0 fLRemisol HemePlatelet mean volume (Bld) [Entitic vol]8.3 fLNormal6.4 - 10.8 fLRemisol HemePlatelets (Bld) [#/Vol]220.0 E9/EPfblvo070.0 - 500.0 E9/LRemisol HemeRBC (Bld) [#/Vol]4.0 E12/LLow4.3 - 5.9 E12/LRemisol HemeRBC size Nom (Bld)NORMAL *NA* (09/13/23 6:18 AM)Invalid Interpretation CodeRemisol HemeWBC corrected for nucl RBC Auto (Bld) [#/Vol]5.4 E9/LNormal4.0 - 11.0 E9/LRemisol HemeInterdisciplinary Note - Case Manageron 07-97-4251Haeeanwfjfbnchcad Note - Case ManagerPatient is off unit for MBS at this time. No family in room. Patient has been accepted to [facility] at [place]. Anticipated dc in a few days. patient is on PPN at this time yet per Dr Carvajal. CRM spoke with patient in room. Patient is alert and oriented and participates in discharge planning. No family in room. Patient white board updated, and CRM contact information provided. Discussed CRM spoke with Dr Carvajal who saw patient earlier today ans was waiting MBS results. Patient states itdid not go well and she and family will have to decide on an NG tube or Peg tube for nutrition. Patient states she will have a decision tomorrow. Plan to dc to [facility] when ready. She deniesany other needs. Reviewed Medicare rights, she denies any questions.[facility] HospitalComment on above:Result Comment: Electronically Signed By: Barbara Sweeney RN\.br\Date and Time Signed: 09/13/23 13:08 EDTInterdisciplinary Note - Case ManagerPatient is off unit for MBS at this time. No family in room. Patient has been accepted to [facility] at [place]. Anticipated dc in a few days. patient is on PPN at this time yet per Dr Carvajal.[facility]. [facility] HospitalComment on above:Result Comment: Electronically Signed By: Barbara Sweeney RN\.br\Date and Time Signed: 09/13/23 10:28 EDTInterdisciplinary Note - Speech Languageon 02-45-4492Ygzjzjtiwzjekjatq Note - Speech LanguageST 09/13/23 1352pm: A repeat MBS was completed this date. Pt was recently admitted to [facility] due to slurred speech, myasthenia gravis diagnosis. Previous BSSE, pt stated that she has been coughing at home with solids and liquids for about a month. Prior MBS (09/07/23) showed pt had mild oral dysphagia and severe pharyngeal dysphagia. Repeat MBS was ordered to see if pt has had any improvement after starting medication and completing therapy. Pt noted to have improved vocal quality this date. Per oral motor exam, pt has left sided facial droop that tends to get worse as the day goes on at baseline, decreased labial retraction, and decreased labial seal. All other structures and functions appeared to be WFL. Pt agreeable to trials of puree, soft solid, thin, and mildly thick liquids. Pt continues to have mild oral dysphagia and severe pharyngeal dysphagia. Pt consumed 1/2 tsp x1 of puree, 1/2 tsp x4 of soft and bit sized, 2oz of thin by cup sip/drink, and one sip of mildly thick liquid. Across all consistencies pt notedto have mild BOT residue, adequate oral clearance, and no anterior loss. Pharyngeally pt with minimal decreased laryngeal elevation and excursion, minimal epiglottic inversion, moderate to severe vallecular residue, and moderate pharyngeal residue which required multiple additional swallows to clear majority of substance. One instance of penetration noted with liquid from fruit. Pt initially did well with small sips of thin liquid by cup, however as the evaluation progressed she began to silently aspirate as muscles fatigued. Pt with silent aspiration episodes, instructed to cough but unable to clear substance from airway. Mildly thick liquids were also trialed but increased vallecular residuals were noted which would increase risk for aspiration. ST recommending continued NPO diet at this time, pertinent oral medications only can be given crushed in minimal amount of puree. Also discussed free water protocol with pt/dtr/nursing. Recommending correction alternative means of nutrition and hydration at this time - discussed with pt/dtr/physician/nursing. ST also recommending daily therapy services to address dysphagia.NormalElyria Memorial HospitalLab Miscellaneous-LCon 11-41-0790Wft MiscellaneousCOMMENT Invalid Interpretation [facility] CenterComment on above:Result Comment: Test Ordered: [id number] VGCC Antibody VGCC Antibody <1.0 pmol/L BN Reference Range: 0.0-30.0 Performed at: [facility] [address] [id number] PhD Malik RichardsonPerformed By: #### [id number] #### [facility] [address] [place] [address]Eoanmgluamh 75-77-1776Qmkxhrrwu [Mass/Vol]2.1 mg/dLNormal 1.3-2.4Fisher [facility]cy Medical CenterComment on above:Performed By: #### [id number] #### [facility] [address] [place], [place] [address]Trimdjt Recordon 90-07-1321Fsiyrcp Record [id number]#1.00TIFNonataliaNovant Health, Encompass Healthyahaira Mercy Medical CenterMonitor [id number]#1.00TIFFNormal [facility] HospitalMonitor Record [id number]#1.00Memorial HospitalProgress Note-Physicianon 97-46-5903Ozyxqqjn Note-PhysicianSubjective Patient seen and examined earlier this morning voicing no complaints overnight. She is scheduled for modified barium swallow today. Review of Systems Constitutional: no fever, no chills, no sweats, no weakness Respiratory: no shortness of breath, no cough, no orthopnea, no wheezing Cardiovascular: no chest pain, no palpitations, no edema Additional ROS info: Except as noted in the above Review of Systems and in the History of Present Illness all other systems have been reviewed and are negative or noncontributory. Objective Vitals & Measurements T: 36.3 ?C(Axillary) TMIN: 36.3 ?C(Axillary) TMAX: 36.7 ?C(Oral) HR: 104(Monitored) RR: 18 BP: 145/76 SpO2: 97% WT: 64.4 kg Intake & Output This visit (24 hour periods starting at 07:00 EDT) 09/13/23 * 09/12/23 09/11/23 Total Summary Intake mL 10 839.38 950.11 Output mL -- -- -- Fluid Balance 10 839.38 950.11 Intake (3) Amino Acids 4.25% with 5% Dextrose and Electrolytes (Clinimix E Sulfite-Free) 1,000 mL mL -- 824.36 889.36 Generic Diluent, fat emulsion, intravenous mL -- 5.02 50.75 pantoprazole mL 10 10 10 Total 10 839.38 950.11 Output (0) Counts (2) Stool Count -- 1 -- Urine Count -- 2 1 * This column has not completed the indicated time period. Physical Exam Constitutional: Awake and alert; oriented x 3 with no apparent distress or respiratory distress Head/neck: Neck supple with no palpable lymphadenopathy, bruits or masses; trachea midline Chest/lungs: Clear to auscultation bilaterally no wheezes or rhonchi noted bilaterally Cardiovascular: Regular rate and rhythm; normal S1-S2 with no murmur; no pitting edema and 2+ pulses bilaterally Gastrointestinal: Soft, nontender, nondistended, positive bowel sounds Neurological: Nonfocal; cranial nerves II through XII appear intact Psychological: Pleasant affect Lab Results WBC: 5.4 E9/L (09/13/23 06:18:00) RBC: 4 E12/L Low (09/13/23 06:18:00) HGB: 11.7 gm/dL Low (09/13/23 06:18:00) Hct: 35 % (09/13/23 06:18:00) MCV: 86.9 fL (09/13/23 06:18:00) MCH: 29 pg (09/13/23 06:18:00) MCHC: 33.4 gm/dL (09/13/23 06:18:00) RDW: 13.1 % (09/13/23 06:18:00) Platelet: 220 E9/L (09/13/23 06:18:00) MPV: 8.3 fL (09/13/23 06:18:00) RBC Morph: NORMAL (09/13/23 06:18:00) Glucose Lvl: 97 mg/dL (09/13/23 06:18:00) BUN: 20 mg/dL (09/13/23 06:18:00) Creatinine: 0.7 mg/dL (09/13/23 06:18:00) eGFR: 83 mL/min/1.73 m2 (09/13/23 06:18:00) BUN/Creat Ratio: 29 High (09/13/23 06:18:00) Sodium Lvl: 137 mmol/L (09/13/23 06:18:00) Potassium Lvl: 3.5 mmol/L (09/13/23 06:18:00) Chloride: 105 mmol/L (09/13/23 06:18:00) CO2: 27 mmol/L (09/13/23 06:18:00) AGAP: 9 mEq/L (09/13/23 06:18:00) Calcium Lvl: 8.6 mg/dL Low (09/13/23 06:18:00) Magnesium: 2.1 mg/dL (09/13/23 06:18:00) Glucose Cap: 106 mg/dL High (09/13/23 11:37:00) POC Device SN: [id number] (09/13/23 11:37:00) POC User ID: [id number] (09/13/23 11:37:00) POC Username: CORKY SOLARES (09/13/23 11:37:00) Assessment/Plan 88-year-old female admitted for myasthenia gravis exacerbation. She was having dysarthria and left laryngeal stridor secondary to the myasthenia. Comorbidities include myasthenia gravis, hypertension, hyperlipidemia, CVA in the past, history of DVT on Eliquis, GERD, restless leg syndrome and depression. 1. Myasthenia gravis in crisis (G70.01: Myasthenia gravis with (acute) exacerbation) Continue the Mestinon 30 g 3 times daily; started on September 06 She did have some aspiration on modified barium swallow; I did consult trauma surgery regarding possible PEG tube or Corpak Patient did receive 3 days of IVIG September 07 topping on September 10 Will continue PPN for nutrition 2. Dysarthria (R47.1: Dysarthria and anarthria) Stable/resolved 3. 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 Acute hypoxic respiratory failure (J96.01: Acute respiratory failure with hypoxia) Secondary to her myasthenia gravis crisis On room air satting well 5. Lung nodule (R91.1: Solitary pulmonary nodule) Stable; being seen in the outpatient setting 6. Hypertension (I10: Essential (primary) hypertension) On no p.o. antihypertensives; she does have IV hydralazine with BP parameters 7. Hyperlipidemia (E78.5: Hyperlipidemia, unspecified) Stable on no meds p.o. right now 8. Chronic GERD (K21.9: Gastro-esophageal reflux disease without esophagitis) IV PPI with Protonix 40 mg every 24 hours 9. History of CVA in adulthood (Z86.73: Personal history of transient ischemic attack (TIA), and cerebral infarction without residual deficits) Continue Lovenox SQ twice daily 10. History of DVT in adulthood (Z86.718: Personal history of other venous thrombosis and embolism) Lovenox SQ twice daily phylaxis and SCDs 11. Depression (F32.A: Depression, unspecified) Able 12. Restless leg syndrome (G25.81: Restless legs syndrome) Stable on no meds Orders: Basic Metabolic Panel (more content not included)...[facility] HospitalComment on above:Result Comment: Electronically Signed By: Eliel Carvajal DO.br\Date and Time Signed: 09/13/23 13:27 EDTXR Abdomen 1 Viewon [id number] Abdomen 1 ViewExam Date/Time: 09/13/2023 15:24 EDT Reason for Exam: Other (please specify) Report IMPRESSION: CORPAK TERMINATES WITHIN THE MID/DISTAL STOMACH EXAMINATION: XR Abdomen 1 View HISTORY: Corpak placement TECHNIQUE: Frontal view of the abdomen COMPARISON: Chest radiograph performed earlier on the same date FINDINGS: Corpak has been progressed and now terminates over the midline of the abdomen estimated within the mid/distal stomach. Nonobstructive bowel gas pattern. No evidence of free air. Contrast is present within the colon from recent modified swallow study. No acute osseous abnormality. Ordering Provider: Freddie Valles FINAL REPORT Dictated: 09/13/2023 3:38 pm Cristhian Malloy DO Signed (Electronic Signature): 09/13/2023 3:38 pm Signed by: Cristhian Malloy DO Transcribed by: JOVANI Technologist: ESTEPHANIA Technical Comments Radiation Dose: Ka,r in mGy = na [facility]XR Adult Swallowing Function w/ Videoon [id number] Adult Swallowing Function w/ VideoExam Date/Time: 09/13/2023 10:45 EDT Reason for Exam: Dysphagia Report IMPRESSION: Modified barium swallow performed by Speech Pathology. Please refer to the report by the Speech Pathologist in the medical record. XR Adult Swallowing Function w/ Video HISTORY: Dysphagia TECHNIQUE: Fluoroscopy was provided for an oropharyngeal phase swallowing examination performed by Speech Pathology with the patient swallowing multiple consistencies. Air Kerma (Ka,r): 10.3 mGy Comparison: 09/07/2023. RESULT: Oral phase: Grossly unremarkable mastication and bolus formation with early spillage prior to transfer to the oropharynx. Pharyngeal phase: Decreased pharyngeal elevation and epiglottic excursion with aspiration with thin liquids. Esophageal phase: No diverticulum, stricture, or fistula in the visualized upper esophagus. Residual: Moderate vallecular and piriform sinus residue. Ordering Provider: Brian Gonzalez FINAL REPORT Dictated: 09/13/2023 11:46 am Darrell Ceballos MD Signed (Electronic Signature): 09/13/2023 11:46 am Signed by: Darrell Ceballos MD Transcribed by: JOVANI Technologist: MARIMAR Technical Comments Radiation Dose: Ka,r in mGy = 10.30 DAP = 240.83NoParkview Health Bryan HospitalXR Chest Single Viewon [id number] Chest Single ViewExam Date/Time: 09/13/2023 15:24 EDT Reason for Exam: Other (please specify) Report IMPRESSION: NO RADIOGRAPHIC EVIDENCE OF ACUTE INTRATHORACIC PROCESS. EXAM: XR Chest Single View History: Corpak placement Technique: Portable AP view of the chest. Comparison: Chest radiograph 09/06/2023 Findings: Corpak is present and traverses the diaphragm coiling within the proximal aspect of the stomach to terminate near the gastroesophageal junction. Atherosclerotic calcification of the thoracic aorta. The cardiomediastinal silhouette is within normal limits. No pneumothorax, pleural effusion, or consolidation. No acute osseous abnormality. Ordering Provider: Eliel Carvajal FINAL REPORT Dictated: 09/13/2023 3:37 pm Cristhian Malloy DO Signed (Electronic Signature): 09/13/2023 3:37 pm Signed by: Cristhian Malloy DO Transcribed by: JOVANI Technologist: ESTEPHANIA Technical Comments Radiation Dose: Ka,r in mGy = na DAP = naNorSycamore Medical CentereGFRon 44-03-2425cGSL90 mL/min/1.73 m2 Normal>=[address] [place], [place] [address]Comment on above:Order Comment: Order added by Discern Expert.Performed By: #### [id number] #### [facility] [address] [place], [place] [address]GFWSnejadi By: SYSTEM SYSTEM on 74-04-3031Zkytp gap [Moles/Vol] 9 mmol/LNormal6 - 16 mEq/LRemisol ChemComment on above:Performed By: #### [id number] #### [facility] [address], [place] [address]Pkbatxh [Mass/Vol]8.5 mg/dLLow8.9 - 11.1 mg/dLRemisol Chem Comment on above:Performed By: #### [id number] #### [facility] [address], [place] [address]Hdavnhev [Moles/Vol]106 mmol/LTqcccx508 - 111 mmol/LRemisol ChemComment on above:Performed By: #### [id number] #### [facility] [address], [place] [address]IZ9 [Moles/Vol]26 mmol/VDjwrkk57 - 31 mmol/LRemisol ChemComment on above:Performed By: #### [id number] #### [facility] [address], [place] [address]Goaglapgox [Mass/Vol]0.6 mg/dLNormal0.5 - 1.3 mg/dLRemisol Chem Comment on above:Performed By: #### [id number] #### [facility] [address], [place] [address]Aridxxi [Mass/Vol]100 mg/bWHeikvx24 - 199 mg/dLRemisol Chem Comment on above:Performed By: #### [id number] #### [facility] [address], [place] [address]Bkvbqgxys [Moles/Vol]3.3 mmol/LLow3.5 - 5.3 mmol/LRemisol Chem Comment on above:Performed By: #### [id number] #### [facility] [address], [place] [address]Ikmela [Moles/Vol]138 mmol/EPlunes320 - 145 mmol/LRemisol Chem Comment on above:Performed By: #### [id number] #### [facility] [address] [place], [place] [address]Owum nitrogen [Mass/Vol]16 mg/dLNormal5 - 21 mg/dLRemisol Chem Comment on above:Performed By: #### [id number] #### [facility] [address] [place], [place] [address]EXLgr 51-97-5957Olir nitrogen/Creatinine [Mass ratio]27 No LsxvnXmen53-99UxpksbElyria Memorial HospitalComment on above:Performed By: #### [id number] #### [facility] [address] [place], [place] [address]PLZGANFAIEqidlmt By: SYSTEM SYSTEM on 36-25-6216Jmeu nitrogen/Creatinine [Mass ratio]27 mg/liRvmj10 - 20Remisol ChemCapillary Glucose POCon 23-38-6127Elvejnv [Mass/Vol]86 mg/vSJocjbj16-71IkrpxwElyria Memorial Hospital Comment on above:Result Comment: Notified RN/MDPerformed By: #### [id number] #### [facility] [address] [place], [place] [address]Oxqpaum [Mass/Vol]104 mg/nEJwyh67-25NvephhElyria Memorial Hospital Comment on above:Performed By: #### [id number] #### [facility] [address] [place], [place] [address]Yqtfbts [Mass/Vol]119 mg/gDFclb53-63YcqkmaElyria Memorial Hospital Comment on above:Result Comment: Notified RN/MDPerformed By: #### [id number] #### [facility] [address], [place] [address]Mlivbscvl Clinical Summaryon 76-67-3154Jujhgswxy Clinical Summary [address] [address] Clinical Summary Person Information: Name: GENESIS CONTE Age: 88 Years : 1935 Sex: Female PCP: RJ VELASQUEZ DO Marital Status: Phone: Race: White Ethnicity: Non- or Language: Venezuelan Visit Id: Visit Reason: Cough; Facial droop; Potential stroke; RR STROKE Speciality: Acuity: Enc Type: Inpatient Med Service: Medical Arrival: 09/06/2023 16:59:12 Discharge: Dispo Type: Admitted as IP to this Hosp Address: [facility] [id number] Provider Notes: Diagnosis: 1:Myasthenia gravis in crisis; 2:Dysarthria; 3:Laryngeal stridor; 4:Acute hypoxic respiratory failure; 5:Lung nodule; 6:Hypertension; 7:Hyperlipidemia; 8:Chronic GERD; 9:History of CVA in adulthood; 10:History of DVT in adulthood; 11:Depression; 12:Restless leg syndrome; 13:Obesity Problems Active Obesity Restless leg syndrome Depression History of DVT in adulthood History of CVA in adulthood Hyperlipidemia Hypertension Chronic GERD Smoking Status: Never Smoker Functional Status: Sensory Deficits: History of Falls: Within last three months Mobility Assistance Prior to Admission: Partial assistance ADLs: Minimal assistance Current Level of Assistance for Self-Care/Mobility: Cognitive Status: Oriented x 3 Allergies cefTRIAXone (Throat swelling) Measurements: Height: 157 cm Weight: 62.5 kg Blood Pressure: 181 mmHg / 77 mmHg BMI: 27.14 kg/m2 Procedures No Procedures Documented Immunizations No Immunizations Documented This Visit Final Med List: amlodipine (Norvasc 5 mg Tab) 1 Tablets By Mouth every day. apixaban (Eliquis 5 mg oral tablet) 1 Tablets By Mouth 2 times a day. aspirin (aspirin 81 mg oral capsule) 1 Capsules By Mouth every day. atenolol (atenolol 25 mg Tab) 1 Tablets By Mouth every day. atorvastatin (Lipitor 40 mg Tab) 1 Tablets By Mouth every day. busPIRone (busPIRone 5 mg Tab) 1 Tablets By Mouth 2 times a day. citalopram (CeleXA 20 mg Tab) 1 Tablets By Mouth every day. fexofenadine (fexofenadine 180 mg Tab) 1 Tablets By Mouth every day. fluticasone (fluticasone propionate) 50 Microgram Inhalation every day. lisinopril (lisinopril 30 mg Tab) 1 Tablets By Mouth every day. omeprazole (omeprazole 40 mg Cap-DR) 1 Capsules By Mouth every day. ropinirole (Requip) 1 Milligram By Mouth every day. Care Team Members: Attending Physician: Billy BRAVO DO Consulting Physician: Carl Mariee MD; Rickey Moore MD Referring Physician: Follow up: With: Address: When: Rickey Moore MD, NEU [address] [address] Within 2 to 4 weeks Patient Education Information: Core Measures: Stroke (Cerebrovascular Accident) [facility] [place], (Custom)[facility] HospitalInpatient Patient Summaryon [id number] Patient Summary [address] [address] Patient Discharge Instructions PERSON INFORMATION Name: GENESIS CONTE Date of : 1935 Current Date: 09/12/2023 00:51:44 PHYSICIANS Admitting Physician: Billy BRAVO DO Primary Care Physician: RJ VELASQUEZ DO PCP Comment: Discharge Diagnosis: 1:Myasthenia gravis in crisis; 2:Dysarthria; 3:Laryngeal stridor; 4:Acute hypoxic respiratory failure; 5:Lung nodule; 6:Hypertension; 7:Hyperlipidemia; 8:Chronic GERD; 9:History of CVA in adulthood; 10:History of DVT in adulthood; 11:Depression; 12:Restless leg syndrome; 13:Obesity Condition at Discharge: GENESIS CONTE has been given the following list of follow-up instructions, prescriptions, and patienteducation materials: PATIENT FOLLOW-UP INFORMATION Diet: Discharge Activity: Discharge Restrictions: Wound Care Instructions: Remove Your Dressing In Days Call Your Doctor For: IF UNABLE TO CONTACT YOUR PHYSICIAN AND YOU FEEL IT IS AN EMERGENCY, GO TO THE NEAREST EMERGENCY ROOM OR CALL 911 Home Treatment: Devices/Equipment: None Special Services: Additional Instructions: Primary Care Physician to provide the following pending test results: Follow up: With: Address: When: Rickey Moore MD, NEU [address] [address] Within 2 to 4 weeks In the event that this physician does not participate in your insurance network, please consult with your insurance company to find a nearby participating provider. Comment: DG Day RUTH A, have received the attached patient education materials/instructions and have verbalized understanding: Patient Signature Date Clinican/Nurse Signature Date HERE ARE THE MEDICATION CHANGES THAT OCCURRED DURING YOUR HOSPITAL STAY Medications to Continue with No Changes Other Medications amlodipine (Norvasc 5 mg Tab) 1 Tablets By Mouth every day. Last Dose: Next Dose: apixaban (Eliquis 5 mg oral tablet) 1 Tablets By Mouth 2 times a day. Last Dose: Next Dose: aspirin (aspirin 81 mg oral capsule) 1 Capsules By Mouth every day. Last Dose: Next Dose: atenolol (atenolol 25 mg Tab) 1 Tablets By Mouth every day. Last Dose: Next Dose: atorvastatin (Lipitor 40 mg Tab) 1 Tablets By Mouth every day. Last Dose: Next Dose: busPIRone (busPIRone 5 mg Tab) 1 Tablets By Mouth 2 times a day. Last Dose: Next Dose: citalopram (CeleXA 20 mg Tab) 1 Tablets By Mouth every day. Last Dose: Next Dose: fexofenadine (fexofenadine 180 mg Tab) 1 Tablets By Mouth every day. Last Dose: Next Dose: fluticasone (fluticasone propionate) 50 Microgram Inhalation every day. Last Dose: Next Dose: lisinopril (lisinopril 30 mg Tab) 1 Tablets By Mouth every day. Last Dose: Next Dose: omeprazole (omeprazole 40 mg Cap-DR) 1 Capsules By Mouth every day. Last Dose: Next Dose: ropinirole (Requip) 1 Milligram By Mouth every day. Last Dose: Next Dose: Comment: MEDICATION LIST PROVIDED FOR YOU IS A LIST OF YOUR CURRENT MEDICATIONS. PLEASE CARRY THIS WITH YOU AT ALL TIMES. amlodipine (Norvasc 5 mg Tab) 1 Tablets By Mouth every day. apixaban (Eliquis 5 mg oral tablet) 1 Tablets By Mouth 2 times a day. aspirin (aspirin 81 mg oral capsule) 1 Capsules By Mouth every day. atenolol (atenolol 25 mg Tab) 1 Tablets By Mouth every day. atorvastatin (Lipitor 40 mg Tab) 1 Tablets By Mouth every day. busPIRone (busPIRone 5 mg Tab) 1 Tablets By Mouth 2 times a day. citalopram (CeleXA 20 mg Tab) 1 Tablets By Mouth every day. fexofenadine (fexofenadine 180 mg Tab) 1 Tablets By Mouth every day. fluticasone (fluticasone propionate) 50 Microgram Inhalation every day. lisinopril (lisinopril 30 mg Tab) 1 Tablets By Mouth every day. omeprazole (omeprazole 40 mg Cap-DR) 1 Capsules By Mouth every day. ropinirole (Requip) 1 Milligram By Mouth every day. Pharmacy Information: Comment: PATIENT EDUCATION INFORMATION Instructions: Stroke (Cerebrovascular Accident) A stroke is acute of brain tissue, and it is a neurologicemergency. A stroke can cause permanent loss of function of the central nervous system (brain). If the symptoms of a stroke end without complications in 24 hours, it is diagnosed as a transient ischemic attack (TIA). If th (more content not included)...NormalFisher [facility] Recordon 29-80-2023Luisnyv Record [id number]#1.00TIFFNormalOhio State Harding Hospital [id number]#1.00TIFFNoal [facility] Record [id number]#1.00TIFFNoMarion Hospital [id number]#1.00TIFFNoSouthview Medical CenterProgress Note-Physicianon 23-31-8824Mkfkaaty Note-PhysicianSubjective Patient seen and examined this morning. She voices no complaints overnight or this morning. Review of Systems Constitutional: no fever, no chills, no sweats, no weakness Respiratory: no shortness of breath, no cough, no orthopnea, no wheezing Cardiovascular: no chest pain, no palpitations, no edema Additional ROS info: Except as noted in the above Review of Systems and in the History of Present Illness all other systems have been reviewed and are negative or noncontributory. Objective Vitals & Measurements T: 36.5 ?C(Axillary) TMIN: 36.4 ?C(Axillary) TMAX: 36.7 ?C(Oral) HR: 72(Monitored) RR: 16 BP: 162/69 SpO2: 96% WT: 65.2 kg Intake & Output This visit (24 hour periods starting at 07:00 EDT) 09/12/23 * 09/11/23 09/10/23 Total Summary Intake mL 10 950.11 10 Output mL -- -- -- Fluid Balance 10 950.11 10 Intake (3) Amino Acids 4.25% with 5% Dextrose and Electrolytes (Clinimix E Sulfite-Free) 1,000 mL mL -- 889.36 -- Generic Diluent, fat emulsion, intravenous mL -- 50.75 -- pantoprazole mL 10 10 10 Total 10 950.11 10 Output (0) Counts (1) Urine Count -- 1 3 * This column has not completed the indicated time period. Physical Exam Constitutional: Awake and alert; oriented x 3 with no apparent distress or respiratory distress Head/neck: Neck supple with no palpable lymphadenopathy, bruits or masses; trachea midline Chest/lungs: Clear to auscultation bilaterally no wheezes or rhonchi noted bilaterally Cardiovascular: Regular rate and rhythm; normal S1-S2 with no murmur; no pitting edema and 2+ pulses bilaterally Gastrointestinal: Soft, nontender, nondistended, positive bowel sounds Neurological: Nonfocal; cranial nerves II through XII appear intact Psychological: Pleasant affect Lab Results Glucose Lvl: 100 mg/dL (09/12/23 06:00:00) BUN: 16 mg/dL (09/12/23 06:00:00) Creatinine: 0.6 mg/dL (09/12/23 06:00:00) eGFR: 87 mL/min/1.73 m2 (09/12/23 06:00:00) BUN/Creat Ratio: 27 High (09/12/23 06:00:00) Sodium Lvl: 138 mmol/L (09/12/23 06:00:00) Potassium Lvl: 3.3 mmol/L Low (09/12/23 06:00:00) Chloride: 106 mmol/L (09/12/23 06:00:00) CO2: 26 mmol/L (09/12/23 06:00:00) AGAP: 9 mEq/L (09/12/23 06:00:00) Calcium Lvl: 8.5 mg/dL Low (09/12/23 06:00:00) Glucose Cap: 104 mg/dL High (09/12/23 05:06:00) POC Device SN: [id number] (09/12/23 05:06:00) POC User ID: [id number] (09/12/23 05:06:00) POC Username: JOSE SIERRA (09/12/23 05:06:00) Assessment/Plan 88-year-old female admitted for myasthenia gravis exacerbation. She was having dysarthria and left laryngeal stridor secondary to the myasthenia. Comorbidities include myasthenia gravis, hypertension, hyperlipidemia, CVA in the past, history of DVT on Eliquis, GERD, restless leg syndrome and depression. 1. Myasthenia gravis in crisis (G70.01: Myasthenia gravis with (acute) exacerbation) Maintain Mestinon 30 mg 3 times daily started on September 06 NIF every 8 hours She failed barium swallow and she is scheduled for speech and repeat barium swallow tomorrow Tuesday, September 12 She received a dose of IVIG September 07 and stopped after 3 doses on the She was started on PPN September 06 for nutrition 2. Dysarthria (R47.1: Dysarthria and anarthria) Stable/resolved 3. 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 Acute hypoxic respiratory failure (J96.01: Acute respiratory failure with hypoxia) Secondary to myasthenia gravis crisis On room air satting well Continue watching NIFs 5. Lung nodule (R91.1: Solitary pulmonary nodule) Stable; can follow in the outpatient setting 6. Hypertension (I10: Essential (primary) hypertension) On no p.o. meds IV hydralazine as needed 7. Hyperlipidemia (E78.5: Hyperlipidemia, unspecified) Stable 8. Chronic GERD (K21.9: Gastro-esophageal reflux disease without esophagitis) IV PPI 9. History of CVA in adulthood (Z86.73: Personal history of transient ischemic attack (TIA), and cerebral infarction without residual deficits) Is on Lovenox twice daily subcu 10. History of DVT in adulthood (Z86.718: Personal history of other venous thrombosis and embolism) Is on Lovenox twice daily subcu currently while inpatient She does have Eliquis in the outpatient setting 11. Depression (F32.A: Depression, unspecified) Stable 12. Restless leg syndrome (G25.81: Restless legs syndrome) Stable 13. Obesity (E66.9: Obesity, unspecified) PLAN: 1. Continue Mestinon 30 mg p.o. twice daily 2. Continue PT and OT 3. Speech therapy to see tomorrow with repeat barium swallow 4. Continue PPN 5. Continue IV PPI for ulcer prophylaxis 6. DVT prophylaxis with SCDs and subcu enoxaparin; she also history of DVT and CVA in the past 7. Full CODE STATUS 8. Labs for a.m. 9. Discharge planning Problem List/Past Medical History Ongoing Chronic GERD Depression History of CVA in adulthood History of DVT in adulthood Hyperlipid (more content not included)...[facility] Comment on above:Result Comment: Electronically Signed By: Eliel Carvajal DO\.br\Date and Time Signed: 09/12/23 11:19 EDTProgress Note-Physician Assessment/Plan ASSESSMENT: Fatigable and fluctuating weakness involving the eyelids and the cervical musculature, and the dysarthria, dysphagia, and some of the respiratory issues are probably also related. 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 Cannot completely rule out Lambert-Eaton myasthenic syndrome; she does have a (stable) lung nodule. She presented with myasthenic crisis. Her respiratory status seems stable at this time - no increased work of breathing and respiratory parameters look stroke. The severe dysphagia remains her biggest issue. Pyridostigmine has been marginally helpful. PLAN: 1. Lab work pending: Serum P/Q type voltage-gated calcium channel antibody, acetylcholine receptor antibodies, muscle specific kinase antibodies 2. Status post IVIG 0.4g/kg x 3 days (1.2g/kg total) 3. Continue the pyridostigmine 30 mg 3 times daily; she is tolerating it without sialorrhea 4. Outpatient repetitive nerve stim and single-fiber EMG 5. Continue checking respiratory parameters 6. Dysphagia does not seem to be improving in a timely manner. Consider alternate means of gastric access. Ongoing speech therapy evaluation. [1] 1. Myasthenia gravis in crisis (G70.01: Myasthenia gravis with (acute) exacerbation) 2. Dysarthria (R47.1: Dysarthria and anarthria) 3. 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 Acute hypoxic respiratory failure (J96.01: Acute respiratory failure with hypoxia) 5. Lung nodule (R91.1: Solitary pulmonary nodule) 6. Hypertension (I10: Essential (primary) hypertension) 7. Hyperlipidemia (E78.5: Hyperlipidemia, unspecified) 8. Chronic GERD (K21.9: Gastro-esophageal reflux disease without esophagitis) 9. History of CVA in adulthood (Z86.73: Personal history of transient ischemic attack (TIA), and cerebral infarction without residual deficits) 10. History of DVT in adulthood (Z86.718: Personal history of other venous thrombosis and embolism) 11. Depression (F32.A: Depression, unspecified) 12. Restless leg syndrome (G25.81: Restless legs syndrome) 13. Obesity (E66.9: Obesity, unspecified) Subjective She feels well and wishes she could swallow better. Has not been having double vision or droopy eyelids or droopy neck. Arms and legs feel good. Speech is pretty much normal, still a bit nasal. No dyspnea. [2] Review of Systems GEN: No fevers or chills. CV/PULM: No chest pain. No current shortness of breath. No palpitations. NEURO: No headaches. No loss of vision. No current double vision. Yes severe dysphagia. Fluctuatingdysarthric speech changes. No focal weakness in arms or legs. [3] Objective Vitals & Measurements T: 36.4 ?C(Axillary) TMIN: 36.4 ?C(Axillary) TMAX: 36.7 ?C(Axillary) HR: 71(Peripheral) RR: 16 BP: 158/78 SpO2: 95% WT: 65.2 kg Intake & Output This visit (24 hour periods starting at 07:00 EDT) 09/12/23 * 09/11/23 09/10/23 Total Summary Intake mL -- 950.11 10 Output mL -- -- -- Fluid Balance -- 950.11 10 Intake (3) Amino Acids 4.25% with 5% Dextrose and Electrolytes (Clinimix E Sulfite-Free) 1,000 mL mL -- 889.36 -- Generic Diluent, fat emulsion, intravenous mL -- 50.75 -- pantoprazole mL -- 10 10 Total -- 950.11 10 Output (0) Counts (1) Urine Count -- 1 3 * This column has not completed the indicated time period. Physical Exam GEN: General appearance normal. Well-kempt. No distress. No visualized deformities or trauma. CARDIO/VASC: Limbs without significant edema and appear well-perfused. PULM: Normal work of breathing. SKIN: Visualized skin is intact and without lesions aside from age-related findings. MS: Affect is normal. Patient is alert and generally oriented. Normal attention. LANG: Speech is fluent and at times mildly dysarthric. No aphasia. EYES: Pupils equal/reactive/consensual. Gaze appears conjugate. Ocular motility full. No pathologicnystagmus. CN: Facial sensation normal. Hearing acuity normal. No significant facial weakness. MOTOR: Muscle bulk normal. Muscle tone normal. Muscle strength normal. No tremors. REFLEXES: No pathologic reflexes. SENSORY: Light touch normal. CEREBELLAR: No limb ataxia. [4] Lab Results Glucose Cap: 119 mg/dL High (09/12/23 00:16:00) POC Device SN: [id number] (09/12/23 00:16:00) POC User ID: [id number] (09/12/23 00:16:00) POC Username: [email or web address] TEJAS (09/12/23 00:16:00) Diagnostic Results (09/06/2023 17:[address] Head or Brain w/o Contrast) * Final Report * Reason For Exam Slurred speech POWERSCRIBE REPORT IMPRESSION: NO ACUTE INTRACRANIAL HEMORRHAGE OR CORTICAL INFARCT IDENTIFIED. SMALL AGE INDETERMINATE LEFT BASAL GANGLIA LACUNAR INFARCTS, AGE-RELATED ATROPHIC AND INVOLUTIONAL CHANGES. EXAM: CT Head or Brain w/o Contrast DATE: 09/06/2023 5:05 PM CLINICAL HISTORY: Slurred speech. COMPARISON: None available. TECHNIQUE: Routine. All CT scans at this facility (more content not included)...NormalElyria Memorial HospitalComment on above:Result Comment: Electronically Signed By: Mikey VAN, Martha Golden\.br\Date and Time Signed: 09/12/23 07:13 EDT\.br\Electronically Co-Signed By: Rishi GODFREY, Shon MOther Comment: did not see pt todayeGFROrdered By: SYSTEM SYSTEM on [id number] mL/min/1.73 m9Xubfyj >=59mL/min/1.73 i7Ummxxun ChemComment on above:Order Comment: Order added by Discern Expert.Performed By: #### [id number] #### [facility] [address], [place] [address]QPWmv 13-35-8577Ikteo gap [Moles/Vol]9 mmol/LNormal6-16E[facility] HospitalComment on above:Performed By: #### [id number] #### [facility] [address], [place] [address]Stimgrf [Mass/Vol]8.8 mg/dLLow8.9-11.1FKettering Health MiamisburgComment on above:Performed By: #### [id number] #### [facility] [address], [place] [address]Jfyfzuag [Moles/Vol]105 mmol/RAjgjst070-602NpbmplElyria Memorial HospitalComment on above:Performed By: #### [id number] #### [facility] [address], [place] [address]CK6 [Moles/Vol]26 mmol/SWevppz02-66GvepskElyria Memorial Hospital Comment on above:Performed By: #### [id number] #### [facility] [address], [place] [address]Vrxnqukbmo [Mass/Vol]0.5 mg/dLNormal0.5-1.3FKettering Health MiamisburgComment on above:Performed By: #### [id number] #### [facility] [address], [place] [address]Czlmcoi [Mass/Vol]115 mg/zZAvzxfb71-390WmrgdrElyria Memorial HospitalComment on above:Performed By: #### [id number] #### [facility] [address], [place] [address]Djrepzyrw [Moles/Vol]3.5 mmol/LNormal3.5-5.3FKettering Health MiamisburgComment on above:Performed By: #### [id number] #### [facility] [address], [place] [address]Wnvpbd [Moles/Vol]136 mmol/YZkqfxz320-723EtbgqwElyria Memorial HospitalComment on above:Performed By: #### [id number] #### [facility] [address], [place] [address]Jcei nitrogen [Mass/Vol]12 mg/dLNormal5-21E[facility] HospitalComment on above:Performed By: #### [id number] #### [facility] [address], [place] [address]Oiqu nitrogen/Creatinine [Mass ratio]24 No VirvgDgec68-42XucgsxElyria Memorial HospitalComment on above:Performed By: #### [id number] #### [facility] [address], [place] [address]JDEKHISGMIngjrek By: SYSTEM SYSTEM on 19-71-8008Tqxdk gap [Moles/Vol]9 mmol/LNormal6 - 16 mEq/LRemisol ChemCalcium [Mass/Vol]8.8 mg/dLLow 8.9 - 11.1 mg/dLRemisol ChemChloride [Moles/Vol]105 mmol/UTwkhlb147 - 111 mmol/L Remisol ChemCO2 [Moles/Vol]26 mmol/OZsgras05 - 31 mmol/LRemisol ChemCreatinine [Mass/Vol]0.5 mg/dLNormal0.5 - 1.3 mg/dLRemisol HcjixJHY17 mL/min/1.73 v7Ypfoxp >=59mL/min/1.73 u9Zdmltpb ChemGlucose [Mass/Vol]115 mg/hQHzukmu87 - 199 mg/dL Remisol ChemMagnesium [Mass/Vol]2.0 mg/dLNormal1.3 - 2.4 mg/dLRemisol Chem Phosphate [Mass/Vol]3.9 mg/dLNormal1.9 - 4.6 mg/dLRemisol ChemPotassium [Moles/Vol]3.5 mmol/LNormal3.5 - 5.3 mmol/LRemisol ChemSodium [Moles/Vol]136 mmol/JKwtyzs891 - 145 mmol/LRemisol ChemUrea nitrogen [Mass/Vol]12 mg/dLNormal5 - 21 mg/dLRemisol ChemUrea nitrogen/Creatinine [Mass ratio]24 mg/ouEdex77 - 20 Remisol ChemCapillary Glucose POCon 97-76-9465Usymize [Mass/Vol]122 mg/dLHigh 55-99E[facility] HospitalComment on above:Result Comment: Notified RN/ Performed By: #### [id number] #### [facility] [address], [place] [address]Pjjostt [Mass/Vol]145 mg/bRLtps19-54OvzxvuElyria Memorial Hospital Comment on above:Result Comment: Notified RN/MDPerformed By: #### [id number] #### [facility] [address], [place] [address]Qtwabwi [Mass/Vol]115 mg/mXZpgr39-18ZphkdrElyria Memorial Hospital Comment on above:Result Comment: Notified RN/MDPerformed By: #### [id number] #### [facility] [address], [place] [address]Awbzthvnstl 44-23-4517Kgavszadk [Mass/Vol]2.0 mg/dLNormal 1.3-2.4FKettering Health MiamisburgComment on above:Performed By: #### [id number] #### [facility] [address], [place] [address]Vouuiul Recordon 60-53-2887Xfgbyym Record [id number]#1.00TIFFNoParkview Health Bryan HospitalMonitor [id number]#1.00TIFFNormal [facility] Medical Centeritor Record [id number]#1.00TIFFirelands Regional Medical Centeritor [id number]#1.00TIFFNormal [facility] HospitalMonitor Record [id number]#1.00Memorial HospitalPhosphoruson 65-33-7469Hcgceyfjh [Mass/Vol]3.9 mg/dLNormal1.9-4.6[facility] Medical CenterComment on above:Performed By: #### [id number] #### [facility] [address], [place] [address]Tuharpxb Note-Physicianon 35-31-1935Drjrwryy Note-Physician Assessment/Plan 1. Myasthenia gravis in crisis (G70.01: Myasthenia gravis with (acute) exacerbation) Mestinon 30mg TID started 09/06 MRI negative Neurology consulted and following NIF every 8 hours, appear stable Failed barium swallow, daily speech therapy and monitor swallowing If swallowing does not improve will need to discuss secondary options -IVIG started 09/07 decision was made with neurology due to patient's severe dysphagia as well as high quality of life prior to symptoms and attempt to prevent patient from needing prolonged enteral nutrition -IVIG stopped, did complete 3 days -Speech saw patient and recommended repeat barium swallow on Tuesday ? Patient started on PPN 09/09 for nutrition, monitor electrolytes, nutrition consult Or[facility]: [facility]Day High 50 Minutes [address]30 2. Dysarthria (R47.1: Dysarthria and anarthria) 2/2 above 3. 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 Acute hypoxic respiratory failure (J96.01: Acute respiratory failure with hypoxia) improved 2/2 MG crisis will continue to watch NIFs 5. Lung nodule (R91.1: Solitary pulmonary nodule) stable f/u outpatient 6. Hypertension (I10: Essential (primary) hypertension) monitor no PO meds IV hydralazine if needed 7. Hyperlipidemia (E78.5: Hyperlipidemia, unspecified) holding statin due to august myasthenia crisis 8. Chronic GERD (K21.9: Gastro-esophageal reflux disease without esophagitis) PPI IV 9. History of CVA in adulthood (Z86.73: Personal history of transient ischemic attack (TIA), and cerebral infarction without residual deficits) lovenox BID due to pt NPO and can not take eliquis 10. History of DVT in adulthood (Z86.718: Personal history of other venous thrombosis and embolism) lovenox BID due to pt NPO and can not take eliquis 11. Depression (F32.A: Depression, unspecified) Normally on Celexa 20 mg daily, buspirone twice daily Holding at this time 12. Restless leg syndrome (G25.81: Restless legs syndrome) Normally on ropinirole Holding at this time 13. Obesity (E66.9: Obesity, unspecified) Due to comorbidities patient would benefit from weight loss Orders: Basic Metabolic Panel Basic Metabolic Panel eGFR Extra Lav Tube Magnesium Level Phosphorus Level Subjective Patient seen and examined. Resting in chair. Afebrile. Still unable to take nutrition by mouth. Patient was started on PPN yesterday. Objective Vitals & Measurements T: 36.7 ?C(Axillary) TMIN: 36.4 ?C(Axillary) TMAX: 36.8 ?C(Axillary) HR: 72(Monitored) RR: 19 BP: 177/77 SpO2: 98% WT: 62.5 kg Intake & Output This visit (24 hour periods starting at 07:00 EDT) 09/11/23 * 09/10/23 09/09/23 Total Summary Intake mL 10 10 10 Output mL -- -- -- Fluid Balance 10 10 10 Intake (1) pantoprazole mL 10 10 10 Total 10 10 10 Output (0) Counts (2) Stool Count -- -- 1 Urine Count -- 3 5 * This column has not completed the indicated time period. Physical Exam General: No acute distress, resting in chair Skin: Warm, dry Head: No trauma, normocephalic Neck: Trachea midline, supple, negative for JVD Eye: Conjunctive are clear, clear sclera , EOMI ENMT: oral mucosa moist, no lesions or edema nose or external ears Cardiovascular: Regular rate and rhythm, S1-S2 present, negative for murmurs rubs or gallops Respiratory: Clear to auscultate bilaterally, nonlabored breathing, no wheezes rales or rhonchi Chest wall: no deformity. Gastrointestinal: Abdomen soft, nontender to palpation, bowel sounds present Back: No tenderness Extremities: Range of motion intact, no edema Neurological: awake, alert, speech normal, cranial nerves II through XII intact, no sensory defects, alert and oriented x3 Psychiatric: cooperative, affect appropriate for age, pleasant Lab Results Glucose Lvl: 115 mg/dL (09/11/23 06::00) BUN: 12 mg/dL (09/11/23::00) Creatinine: 0.5 mg/dL (09/11/23::00) eGFR: 91 mL/min/1.73 m2 (09/11/23::00) BUN/Creat Ratio: 24 High (09/11/23::00) Sodium Lvl: 136 mmol/L (09/11/23 06::00) Potassium Lvl: 3.5 mmol/L (09/11/23 06::00) Chloride: 105 mmol/L (09/11/23::00) CO2: 26 mmol/L (09/11/23 06::00) AGAP: 9 mEq/L (09/11/23 06:01:00) Calcium Lvl: 8.8 mg/dL Low (09/11/23 06::00) Phosphorus: 3.9 mg/dL (09/11/23 06::00) Magnesium: 2 mg/dL (09/11/23 06:01:00) Glucose Cap: 115 mg/dL High (09/11/23:35:00) POC Device SN: [id number] (09/11/23:35:00) POC User ID: [id number] (09/11/23:35:00) POC Username: POC Username (09/11/23:35:00) Problem List/Past Medical History Ongoing Chronic GERD Depression History of CVA in adulthood History of DVT in adulthood Hyperlipidemia Hypertension Obesity Restless leg syndrome Historical No qualifying data Medications Inpatient Amino Acids 4.25% with 5% Dextrose and Electrolyt (more content not included)... [facility]Result Comment: Electronically Signed By: Brian Gonzalez DO\Date and Time Signed: 09/11/23 11:43 EDT Progress Note-PhysicianAssessment/Plan ASSESSMENT: Fatigable and fluctuating weakness involving the eyelids and the cervical musculature, and the dysarthria, dysphagia, and some of the respiratory issues are probably also related. 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 Cannot completely rule out Lambert-Eaton myasthenic syndrome; she does have a stable lung nodule. Presumed myasthenic crisis. Her fatigable motorsymptoms have been going on to a lesser extent for several months but had been unrecognized as such. Symptoms continue to fluctuate. Pyridostigmine has been marginally helpful but she still has severedysphagia. Respiratory status has been stable in the past 24 hours. Dysarthria fluctuates. Eyelid ptosis fluctuating. Weak neck extension at times. PLAN: 1. Checking serum P/Q type voltage-gated calcium channel antibody 2. Start IVIG 0.4 g/kg daily for 4 to 5 days 3. Continue the pyridostigmine 30 mg 3 times daily; she is tolerating it without sialorrhea 4. Outpatient repetitive nerve stim and single-fiber EMG 5. Continue checking respiratory parameters 6. I called and discussed everything with her daughter, Cayla 7. Ongoing speech pathology evaluations; might need to consider alternate means of access 1. Myasthenia gravis in crisis (G70.01: Myasthenia gravis with (acute) exacerbation) 2. Dysarthria (R47.1: Dysarthria and anarthria) 3. 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 Acute hypoxic respiratory failure (J96.01: Acute respiratory failure with hypoxia) 5. Lung nodule (R91.1: Solitary pulmonary nodule) 6. Hypertension (I10: Essential (primary) hypertension) 7. Hyperlipidemia (E78.5: Hyperlipidemia, unspecified) 8. Chronic GERD (K21.9: Gastro-esophageal reflux disease without esophagitis) 9. History of CVA in adulthood (Z86.73: Personal history of transient ischemic attack (TIA), and cerebral infarction without residual deficits) 10. History of DVT in adulthood (Z86.718: Personal history of other venous thrombosis and embolism) 11. Depression (F32.A: Depression, unspecified) 12. Restless leg syndrome (G25.81: Restless legs syndrome) 13. Obesity (E66.9: Obesity, unspecified) Subjective She still thinks her voice sounds nasal. Still having very significant issues with swallowing. Eyelids can be weak. Neck can be droopy. Respiratory status seems better. She wants to go home as soonas is safe. Respiratory parameters have generally checked out okay. She remains in the ICU. Review of Systems GEN: No fevers or chills. CV/PULM: No chest pain. No current shortness of breath. No palpitations. NEURO: No headaches. No loss of vision. No double vision. Yes severe dysphagia. Fluctuating dysarthric speech changes. No focal weakness in arms or legs. Objective Vitals & Measurements T: 36.4 ?C(Oral) TMIN: 36.4 ?C(Oral) TMAX: 36.7 ?C(Oral) HR: 54(Monitored) RR: 18 BP: 149/61 SpO2: 100% WT: 62.9 kg Intake & Output This visit (24 hour periods starting at 07:00 EDT) 09/08/23 * 09/07/23 09/06/23 Total Summary Intake mL -- 1,483.3 824.45 Output mL -- 200 200 Fluid Balance -- 1,283.3 624.45 Intake (9) Oral Intake mL -- -- -- Sodium Chloride 0.45% intravenous solution 1,000 mL mL -- 1,473.3 238.85 Sodium Chloride 0.9% intravenous solution 500 mL mL -- -- 21.1 Sodium Chloride 0.9%, azithromycin mL -- -- 500 Sodium Chloride 0.9%, ceftriaxone mL -- -- 50 diphenhydrAMINE mL -- -- 0.5 famotidine mL -- -- 2 methylPREDNISolone mL -- -- 2 pantoprazole mL -- 10 10 Total -- 1,483.3 824.45 Output (1) Urine Voided mL -- 200 200 Total -- 200 200 Counts (2) Stool Count -- 1 -- Urine Count -- 9 -- * This column has not completed the indicated time period. Physical Exam GEN: General appearance normal. Well-kempt. No distress. No visualized deformities or trauma. CARDIO/VASC: Limbs without significant edema and appear well-perfused. PULM: Normal work of breathing. SKIN: Visualized skin is intact and without lesions aside from age-related findings. MS: Affect is normal. Patient is alert and generally oriented. Normal attention. LANG: Speech is fluent and at times mildly dysarthric. No aphasia. EYES: Pupils equal/reactive/consensual. Gaze appears conjugate. Ocular motility full. No pathologicnystagmus. Upper eyelids partially cover pupillary aperture with upgaze. CN: Facial sensation normal. Hearing acuity normal. No significant or overt focal facial weakness aside from the eyelids. MOTOR: Muscle bulk normal. Muscle tone normal. Muscle strength normal. No tremors. REFLEXES: No pathologic reflexes. SENSORY: Light touch normal. CEREBELLAR: No limb ataxia. Lab Results WBC: 11.8 E9/L High (09/08/23 06:06:00) RBC: 4.1 E12/L Low (09/08/23 06:06:00) HGB: 11.8 gm/dL Low (09/08/23 06:06:00) Hct: 35.9 % (09/08/23 06:06:00) MCV: 87.1 fL (09/08/23 06:06:0 (more content not included)...[facility]Comment [facility]:Result Comment: Electronically Signed By: Shon Blackwell DO\.br\Date and Time Signed: 09/11/23 09:28 EDT\.br\Electronically Co- Signed By: Martha Jensen RN AProgress Note-PhysicianAssessment/Plan ASSESSMENT: Fatigable and fluctuating weakness involving the eyelids and the cervical musculature, and the dysarthria, dysphagia, and some of the respiratory issues are probably also related. 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 Cannot completely rule out Lambert-Eaton myasthenic syndrome; she does have a (stable) lung nodule. She presented with myasthenic crisis. Her respiratory status seems stable at this time - no increased work of breathing and respiratory parameters look stroke. The severe dysphagia is her biggest issue. Pyridostigmine has been marginally helpful. Ongoing fatigable and fluctuating but mild dysarthria, bilateral upper eyelid ptosis, neck extension weakness. PLAN: 1. Lab work pending: Serum P/Q type voltage-gated calcium channel antibody, acetylcholine receptor antibodies, muscle specific kinase antibodies 2. Continue the IVIG 0.4 g/kg daily. Today will be day 2. If her respiratory status remains as stable as it has been the past few days, we might discontinue the IVIG after day 3 unless it is felt to be medically improving her dysphagia by then. 3. Continue the pyridostigmine 30 mg 3 times daily; she is tolerating it without sialorrhea 4. Outpatient repetitive nerve stim and single-fiber EMG 5. Continue checking respiratory parameters 6. Dysphagia does not seem to be improving in a timely manner. Consider alternate means of gastric access. Ongoing speech therapy evaluation. 1. Myasthenia gravis in crisis (G70.01: Myasthenia gravis with (acute) exacerbation) 2. Dysarthria (R47.1: Dysarthria and anarthria) 3. 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 Acute hypoxic respiratory failure (J96.01: Acute respiratory failure with hypoxia) 5. Lung nodule (R91.1: Solitary pulmonary nodule) 6. Hypertension (I10: Essential (primary) hypertension) 7. Hyperlipidemia (E78.5: Hyperlipidemia, unspecified) 8. Chronic GERD (K21.9: Gastro-esophageal reflux disease without esophagitis) 9. History of CVA in adulthood (Z86.73: Personal history of transient ischemic attack (TIA), and cerebral infarction without residual deficits) 10. History of DVT in adulthood (Z86.718: Personal history of other venous thrombosis and embolism) 11. Depression (F32.A: Depression, unspecified) 12. Restless leg syndrome (G25.81: Restless legs syndrome) 13. Obesity (E66.9: Obesity, unspecified) Subjective Does not feel like she has current increased work of breathing. Her swallowing is still poor. She does not feel like she is salivating excessively. Not drooling. Her daughter is in the room and has concerns about her lack of fluid intake and oral intake. Eyelids are more open at the moment. She hasexperienced diplopia at times but not here recently. Review of Systems GEN: No fevers or chills. CV/PULM: No chest pain. No current shortness of breath. No palpitations. NEURO: No headaches. No loss of vision. No current double vision. Yes severe dysphagia. Fluctuatingdysarthric speech changes. No focal weakness in arms or legs. Objective Vitals & Measurements T: 36.1 ?C(Axillary) TMIN: 36.1 ?C(Axillary) TMAX: 36.7 ?C(Oral) HR: 71(Monitored) RR: 16 RR: 16 BP: 169/70 SpO2: 98% WT: 62.1 kg Intake & Output This visit (24 hour periods starting at 07:00 EDT) 09/09/23 * 09/08/23 09/07/23 Total Summary Intake mL -- 1,640.37 1,483.3 Output mL -- -- 200 Fluid Balance -- 1,640.37 1,283.3 Intake (2) Sodium Chloride 0.45% intravenous solution 1,000 mL mL -- 1,630.37 1,473.3 pantoprazole mL -- 10 10 Total -- 1,640.37 1,483.3 Output (1) Urine Voided mL -- -- 200 Total -- -- 200 Counts (2) Stool Count 1 4 1 Urine Count 1 11 9 * This column has not completed the indicated time period. Physical Exam GEN: General appearance normal. Well-kempt. No distress. No visualized deformities or trauma. CARDIO/VASC: Limbs without significant edema and appear well-perfused. PULM: Normal work of breathing. SKIN: Visualized skin is intact and without lesions aside from age-related findings. MS: Affect is normal. Patient is alert and generally oriented. Normal attention. LANG: Speech is fluent and at times mildly dysarthric. No aphasia. EYES: Pupils equal/reactive/consensual. Gaze appears conjugate. Ocular motility full. No pathologicnystagmus. CN: Facial sensation normal. Hearing acuity normal. No significant or overt focal facial weakness aside from the eyelids. MOTOR: Muscle bulk normal. Muscle tone normal. Muscle strength normal. No tremors. REFLEXES: No pathologic reflexes. SENSORY: Light touch normal. CEREBELLAR: No limb ataxia. Lab Results WBC: 8.8 E9/L (09/09/23 04:55:00) RBC: 4.1 E12/L Low (09/09/23 04:55:00) HGB: 12 gm/dL (09/09/23 04:55:00) Hct: 35.4 % (09/09/23 04:55:00) MCV: 86.8 fL (09/09/23 04:55:00) MCH: 29.5 pg (09/09/23 04:55:00) MCHC: 33.9 gm/dL (09/09/23 04:55:00) R (more content not included)...[facility] HospitalComment on above:Result Comment: Electronically Signed By: Shon Blackwell DO\Date and Time Signed: 09/11/23 09:28 EDTProgress Note-PhysicianAssessment/Plan ASSESSMENT: Fatigable and fluctuating weakness involving the eyelids and the cervical musculature, and the dysarthria, dysphagia, and some of the respiratory issues are probably also related. 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 Cannot completely rule out Lambert-Eaton myasthenic syndrome; she does have a (stable) lung nodule. She presented with myasthenic crisis. Her respiratory status seems stable at this time - no increased work of breathing and respiratory parameters look stroke. The severe dysphagia is her biggest issue. Pyridostigmine has been marginally helpful. Ongoing fatigable and fluctuating but mild dysarthria, bilateral upper eyelid ptosis, neck extension weakness. PLAN: 1. Lab work pending: Serum P/Q type voltage-gated calcium channel antibody, acetylcholine receptor antibodies, muscle specific kinase antibodies 2. Regarding the IVIG 0.4 g/kg daily, today will be day 3. Since it looks like her respiratory status has been good, we will discontinue the IVIG after today. 3. Continue the pyridostigmine 30 mg 3 times daily; she is tolerating it without sialorrhea 4. Outpatient repetitive nerve stim and single-fiber EMG 5. Continue checking respiratory parameters 6. Dysphagia does not seem to be improving in a timely manner. Consider alternate means of gastric access. Ongoing speech therapy evaluation. 1. Myasthenia gravis in crisis (G70.01: Myasthenia gravis with (acute) exacerbation) 2. Dysarthria (R47.1: Dysarthria and anarthria) 3. 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 Acute hypoxic respiratory failure (J96.01: Acute respiratory failure with hypoxia) 5. Lung nodule (R91.1: Solitary pulmonary nodule) 6. Hypertension (I10: Essential (primary) hypertension) 7. Hyperlipidemia (E78.5: Hyperlipidemia, unspecified) 8. Chronic GERD (K21.9: Gastro-esophageal reflux disease without esophagitis) 9. History of CVA in adulthood (Z86.73: Personal history of transient ischemic attack (TIA), and cerebral infarction without residual deficits) 10. History of DVT in adulthood (Z86.718: Personal history of other venous thrombosis and embolism) 11. Depression (F32.A: Depression, unspecified) 12. Restless leg syndrome (G25.81: Restless legs syndrome) 13. Obesity (E66.9: Obesity, unspecified) Subjective She is breathing okay. Negative inspiratory force was 40 and then dropped to 33 on her most recent 1. Swallow is still the issue. She has been ambulatory without significant issues. Has not had any major eyelid drooping. No diplopia. Review of Systems GEN: No fevers or chills. CV/PULM: No chest pain. No current shortness of breath. No palpitations. NEURO: No headaches. No loss of vision. No current double vision. Yes severe dysphagia. Fluctuatingdysarthric speech changes. No focal weakness in arms or legs. Objective Vitals & Measurements T: 36.3 ?C(Axillary) TMIN: 36.3 ?C(Axillary) TMAX: 36.8 ?C(Oral) HR: 74(Monitored) RR: 19 BP: 168/76 SpO2: 98% WT: 62.3 kg Intake & Output This visit (24 hour periods starting at 07:00 EDT) 09/10/23 * 09/09/23 09/08/23 Total Summary Intake mL -- 10 ,640.37 Output mL -- -- -- Fluid Balance -- 10 ,640.37 Intake (2) Sodium Chloride 0.45% intravenous solution 1,000 mL mL -- -- 1,630.37 pantoprazole mL -- 10 10 Total -- 10 ,640.37 Output (0) Counts (2) Stool Count -- 1 4 Urine Count -- 5 11 * This column has not completed the indicated time period. Physical Exam GEN: General appearance normal. Well-kempt. No distress. No visualized deformities or trauma. CARDIO/VASC: Limbs without significant edema and appear well-perfused. PULM: Normal work of breathing. SKIN: Visualized skin is intact and without lesions aside from age-related findings. MS: Affect is normal. Patient is alert and generally oriented. Normal attention. LANG: Speech is fluent and at times mildly dysarthric. No aphasia. EYES: Pupils equal/reactive/consensual. Gaze appears conjugate. Ocular motility full. No pathologicnystagmus. CN: Facial sensation normal. Hearing acuity normal. No significant or overt focal facial weakness aside from the eyelids. MOTOR: Muscle bulk normal. Muscle tone normal. Muscle strength normal. No tremors. REFLEXES: No pathologic reflexes. SENSORY: Light touch normal. CEREBELLAR: No limb ataxia. Lab Results WBC: 5.6 E9/L (09/10/23 05:17:00) RBC: 4.1 E12/L Low (09/10/23 05:17:00) HGB: 11.8 gm/dL Low (09/10/23 05:17:00) Hct: 35.2 % (09/10/23 05:17:00) MCV: 86.9 fL (09/10/23 05:17:00) MCH: 29.1 pg (09/10/23 05:17:00) MCHC: 33.5 gm/dL (09/10/23 05:17:00) RDW: 13.4 % (09/10/23 05:17:00) Platelet: 248 E9/L (09/10/23 05:17:00) MPV: 8.5 fL (09/10/23 05:17:00) Neutro Auto: 52.9 % (09/10/23 05:17:00) Lymph Auto: 29.5 % (09/10/23 05:17:00) Mclennan Auto: 15.7 % High (09/10/23 05:17:00) Eos Auto: 1.3 % (09/10/23 05:17:00) Basophil (more content not included)...[facility] HospitalComment on above:Result Comment: Electronically Signed By: Shon Blackwell DO\Date and Time Signed: 09/11/23 09:28 EDTProgress Note-PhysicianAssessment/Plan ASSESSMENT: Fatigable and fluctuating weakness involving the eyelids and the cervical musculature, and the dysarthria, dysphagia, and some of the respiratory issues are probably also related. 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 Cannot completely rule out Lambert-Eaton myasthenic syndrome; she does have a (stable) lung nodule. She presented with myasthenic crisis. Her respiratory status seems stable at this time - no increased work of breathing and respiratory parameters look stroke. The severe dysphagia remains her biggest issue. Pyridostigmine has been marginally helpful. PLAN: 1. Lab work pending: Serum P/Q type voltage-gated calcium channel antibody, acetylcholine receptor antibodies, muscle specific kinase antibodies 2. Status post IVIG 0.4g/kg x 3 days (1.2g/kg total) 3. Continue the pyridostigmine 30 mg 3 times daily; she is tolerating it without sialorrhea 4. Outpatient repetitive nerve stim and single-fiber EMG 5. Continue checking respiratory parameters 6. Dysphagia does not seem to be improving in a timely manner. Consider alternate means of gastric access. Ongoing speech therapy evaluation. 1. Myasthenia gravis in crisis (G70.01: Myasthenia gravis with (acute) exacerbation) 2. Dysarthria (R47.1: Dysarthria and anarthria) 3. 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 Acute hypoxic respiratory failure (J96.01: Acute respiratory failure with hypoxia) 5. Lung nodule (R91.1: Solitary pulmonary nodule) 6. Hypertension (I10: Essential (primary) hypertension) 7. Hyperlipidemia (E78.5: Hyperlipidemia, unspecified) 8. Chronic GERD (K21.9: Gastro-esophageal reflux disease without esophagitis) 9. History of CVA in adulthood (Z86.73: Personal history of transient ischemic attack (TIA), and cerebral infarction without residual deficits) 10. History of DVT in adulthood (Z86.718: Personal history of other venous thrombosis and embolism) 11. Depression (F32.A: Depression, unspecified) 12. Restless leg syndrome (G25.81: Restless legs syndrome) 13. Obesity (E66.9: Obesity, unspecified) Subjective She feels well and wishes she could swallow better. Has not been having double vision or droopy eyelids or droopy neck. Arms and legs feel good. Speech is pretty much normal, still a bit nasal. No dyspnea. Review of Systems GEN: No fevers or chills. CV/PULM: No chest pain. No current shortness of breath. No palpitations. NEURO: No headaches. No loss of vision. No current double vision. Yes severe dysphagia. Fluctuatingdysarthric speech changes. No focal weakness in arms or legs. [1] Objective Vitals & Measurements T: 36.7 ?C(Axillary) TMIN: 36.4 ?C(Axillary) TMAX: 36.8 ?C(Axillary) HR: 103(Monitored) RR: 19 BP: 163/84 SpO2: 97% WT: 62.5 kg Intake & Output This visit (24 hour periods starting at 07:00 EDT) 09/11/23 * 09/10/23 09/09/23 Total Summary Intake mL -- 10 10 Output mL -- -- -- Fluid Balance -- 10 10 Intake (1) pantoprazole mL -- 10 10 Total -- 10 10 Output (0) Counts (2) Stool Count -- -- 1 Urine Count -- 3 5 * This column has not completed the indicated time period. Physical Exam GEN: General appearance normal. Well-kempt. No distress. No visualized deformities or trauma. CARDIO/VASC: Limbs without significant edema and appear well-perfused. PULM: Normal work of breathing. SKIN: Visualized skin is intact and without lesions aside from age-related findings. MS: Affect is normal. Patient is alert and generally oriented. Normal attention. LANG: Speech is fluent and at times mildly dysarthric. No aphasia. EYES: Pupils equal/reactive/consensual. Gaze appears conjugate. Ocular motility full. No pathologicnystagmus. CN: Facial sensation normal. Hearing acuity normal. No significant facial weakness. MOTOR: Muscle bulk normal. Muscle tone normal. Muscle strength normal. No tremors. REFLEXES: No pathologic reflexes. SENSORY: Light touch normal. CEREBELLAR: No limb ataxia. Lab Results Glucose Lvl: 115 mg/dL (09/11/23 06:01:00) BUN: 12 mg/dL (09/11/23 06:01:00) Creatinine: 0.5 mg/dL (09/11/23 06:01:00) eGFR: 91 mL/min/1.73 m2 (09/11/23 06:01:00) BUN/Creat Ratio: 24 High (09/11/23 06:01:00) Sodium Lvl: 136 mmol/L (09/11/23 06:01:00) Potassium Lvl: 3.5 mmol/L (09/11/23 06:01:00) Chloride: 105 mmol/L (09/11/23 06:01:00) CO2: 26 mmol/L (09/11/23 06:01:00) AGAP: 9 mEq/L (09/11/23 06:01:00) Calcium Lvl: 8.8 mg/dL Low (09/11/23 06:01:00) Phosphorus: 3.9 mg/dL (09/11/23 06:01:00) Magnesium: 2 mg/dL (09/11/23 06:01:00) Glucose Cap: 115 mg/dL High (09/11/23 06:35:00) POC Device SN: [id number] (09/11/23 06:35:00) POC User ID: [id number] (09/11/23 06:35:00) POC Username: POC Username (09/11/23 06:35:00) Diagnostic Results (09/06/2023 17:[address] Head or Brain w/o Contrast) * Final Report * Reason For Exam Slurred speech POWERSCRIBE REPORT (more content not included)...[facility] HospitalComment on above: Result Comment: Electronically Signed By: Mago Ennis RN\.br\Date and Time Signed: 09/11/23 08:55 EDT\.br\Electronically Co-Signed By: Shon Blackwell DO\.br\Date and Time Co-Signed: 09/11/23 09:25 EDTProgress Note-Physician Assessment/Plan ASSESSMENT: Fatigable and fluctuating weakness involving the eyelids and the cervical musculature, and the dysarthria, dysphagia, and some of the respiratory issues are probably also related. 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 Cannot completely rule out Lambert-Eaton myasthenic syndrome; she does have a stable lung nodule. Presumed myasthenic crisis. Her fatigable motorsymptoms have been going on to a lesser extent for several months but had been unrecognized as such. Symptoms continue to fluctuate. Pyridostigmine has been marginally helpful but she still has severedysphagia. Respiratory status has been stable in the past 24 hours. Dysarthria fluctuates. Eyelid ptosis fluctuating. Weak neck extension at times. PLAN: 1. Checking serum P/Q type voltage-gated calcium channel antibody 2. Start IVIG 0.4 g/kg daily for 4 to 5 days 3. Continue the pyridostigmine 30 mg 3 times daily; she is tolerating it without sialorrhea 4. Outpatient repetitive nerve stim and single-fiber EMG 5. Continue checking respiratory parameters 6. I called and discussed everything with her daughter, Cayla 7. Ongoing speech pathology evaluations; might need to consider alternate means of access 1. Myasthenia gravis in crisis (G70.01: Myasthenia gravis with (acute) exacerbation) 2. Dysarthria (R47.1: Dysarthria and anarthria) 3. 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 Acute hypoxic respiratory failure (J96.01: Acute respiratory failure with hypoxia) 5. Lung nodule (R91.1: Solitary pulmonary nodule) 6. Hypertension (I10: Essential (primary) hypertension) 7. Hyperlipidemia (E78.5: Hyperlipidemia, unspecified) 8. Chronic GERD (K21.9: Gastro-esophageal reflux disease without esophagitis) 9. History of CVA in adulthood (Z86.73: Personal history of transient ischemic attack (TIA), and cerebral infarction without residual deficits) 10. History of DVT in adulthood (Z86.718: Personal history of other venous thrombosis and embolism) 11. Depression (F32.A: Depression, unspecified) 12. Restless leg syndrome (G25.81: Restless legs syndrome) 13. Obesity (E66.9: Obesity, unspecified) Subjective She still thinks her voice sounds nasal. Still having very significant issues with swallowing. Eyelids can be weak. Neck can be droopy. Respiratory status seems better. She wants to go home as soonas is safe. Respiratory parameters have generally checked out okay. She remains in the ICU. Review of Systems GEN: No fevers or chills. CV/PULM: No chest pain. No current shortness of breath. No palpitations. NEURO: No headaches. No loss of vision. No double vision. Yes severe dysphagia. Fluctuating dysarthric speech changes. No focal weakness in arms or legs. Objective Vitals & Measurements T: 36.4 ?C(Oral) TMIN: 36.4 ?C(Oral) TMAX: 36.7 ?C(Oral) HR: 54(Monitored) RR: 18 BP: 149/61 SpO2: 100% WT: 62.9 kg Intake & Output This visit (24 hour periods starting at 07:00 EDT) 09/08/23 * 09/07/23 09/06/23 Total Summary Intake mL -- 1,483.3 824.45 Output mL -- 200 200 Fluid Balance -- 1,283.3 624.45 Intake (9) Oral Intake mL -- -- -- Sodium Chloride 0.45% intravenous solution 1,000 mL mL -- 1,473.3 238.85 Sodium Chloride 0.9% intravenous solution 500 mL mL -- -- 21.1 Sodium Chloride 0.9%, azithromycin mL -- -- 500 Sodium Chloride 0.9%, ceftriaxone mL -- -- 50 diphenhydrAMINE mL -- -- 0.5 famotidine mL -- -- 2 methylPREDNISolone mL -- -- 2 pantoprazole mL -- 10 10 Total -- 1,483.3 824.45 Output (1) Urine Voided mL -- 200 200 Total -- 200 200 Counts (2) Stool Count -- 1 -- Urine Count -- 9 -- * This column has not completed the indicated time period. Physical Exam GEN: General appearance normal. Well-kempt. No distress. No visualized deformities or trauma. CARDIO/VASC: Limbs without significant edema and appear well-perfused. PULM: Normal work of breathing. SKIN: Visualized skin is intact and without lesions aside from age-related findings. MS: Affect is normal. Patient is alert and generally oriented. Normal attention. LANG: Speech is fluent and at times mildly dysarthric. No aphasia. EYES: Pupils equal/reactive/consensual. Gaze appears conjugate. Ocular motility full. No pathologicnystagmus. Upper eyelids partially cover pupillary aperture with upgaze. CN: Facial sensation normal. Hearing acuity normal. No significant or overt focal facial weakness aside from the eyelids. MOTOR: Muscle bulk normal. Muscle tone normal. Muscle strength normal. No tremors. REFLEXES: No pathologic reflexes. SENSORY: Light touch normal. CEREBELLAR: No limb ataxia. Lab Results WBC: 11.8 E9/L High (09/08/23 06:06:00) RBC: 4.1 E12/L Low (09/08/23 06:06:00) HGB: 11.8 gm/dL Low (09/08/23 06:06:00) Hct: 35.9 % (09/08/23 06:06:00) MCV: 87.1 fL (09/08/23 06:06:0 (more content not included)...NormalElyria Memorial HospitalComment on above:Result Comment: Electronically Signed By: Martha Jensen RN\.br\Date and Time Signed: 09/08/23 07:32 EDT\.br\Electronically Co-Signed By: Shon Blackwell DO\.br\Date and Time Co- Signed: 09/08/23 10:38 EDT\.br\Electronically Co-Signed By: Shon Blackwell DO\.br\Date and Time Co-Signed: 09/11/23 09:28 EDTeGFRon 15-81-5379qPYT59 mL/min/1.73 a8Lrjyzj>=59E[facility] HospitalComment on above:Order Comment: Order added by Discern Expert.Performed By: #### [id number] #### [facility] [address], [place] [address]KEDog 71-84-7948Dzium gap [Moles/Vol]9 mmol/LNormal6-16[facility] HospitalComment on above:Performed By: #### [id number] #### [facility] [address], [place] [address]Hxrpoyo [Mass/Vol]8.5 mg/dLLow8.9-11.1[facility] CenterComment on above:Performed By: #### [id number] #### [facility] [address], [place] [address]Zkaylobr [Moles/Vol]107 mmol/LWjjbwk846-085SumelvElyria Memorial HospitalComment on above:Performed By: #### [id number] #### [facility] [address], [place] [address]FD6 [Moles/Vol]25 mmol/JVslzcp58-53OunkhhElyria Memorial Hospital Comment on above:Performed By: #### [id number] #### [facility] [address], [place] [address]Ohujeqdiqc [Mass/Vol]0.6 mg/dLNormal0.5-1.3FKettering Health MiamisburgComment on above:Performed By: #### [id number] #### [facility] [address], [place] [address]Zvdjhxa [Mass/Vol]98 mg/qUQzrehg20-259HqeojdElyria Memorial HospitalComment on above:Performed By: #### [id number] #### [facility] [address], [place] [address]Proemwxxw [Moles/Vol]3.0 mmol/LLow3.5-5.3FKettering Health MiamisburgComment on above:Performed By: #### [id number] #### [facility] [address], [place] [address]Okxupl [Moles/Vol]138 mmol/NEngcqw620-607DebznxElyria Memorial HospitalComment on above:Performed By: #### [id number] #### [facility] [address], [place] [address]Taby nitrogen [Mass/Vol]9 mg/dLNormal5-21[facility] HospitalComment on above:Performed By: #### [id number] #### [facility] [address], [place] [address]Xthh nitrogen/Creatinine [Mass ratio]15 No MadpoSxckfr78-31 [facility] HospitalComment on above:Performed By: #### [id number] #### [facility] [address] [place] [address]VQU w/ Auto Diffon 06-44-5916Iqedczlgc/100 WBC (Bld)0.6 %Normal 0.0-2.0[facility] HospitalComment on above:Performed By: #### [id number] #### [facility] [address] [place] [address]Selhgcxmo/Leukocytes Auto (Bld) [Pure # fraction]0.0 E9/LNormal 0.0-0.2FKettering Health MiamisburgComment on above:Performed By: #### [id number] #### [facility] [address] [place] [address]Yraglmctket (Bld) [#/Vol]0.1 E9/LNormal0.0-0.5FKettering Health MiamisburgComment on above:Performed By: #### [id number] #### [facility] [address] [place] [address]Ftxubbkcamf/100 WBC (Bld)1.3 %Normal0.0-8.0[facility] HospitalComment on above:Performed By: #### [id number] #### [facility] [address] [place] [address]Rabzqlpdcxx distribution width (RBC) [Ratio]13.4 %Normal 10.9-14.2FKettering Health MiamisburgComment on above:Performed By: #### [id number] #### [facility] [address] [place] [address]Iomhiclgbl (Bld) [Volume fraction]35.2 %Mfnoao46.0-46.0[facility] HospitalComment on above:Performed By: #### [id number] #### [facility] [address] [place] [address]Fbqipclwch (Bld) [Mass/Vol]11.8 g/dLLow12.0-16.0[facility] HospitalComment on above:Performed By: #### [id number] #### [facility] [address] [place] [address]Kvrvndmgooe (Bld) [#/Vol]1.7 E9/LNormal1.0-4.0[facility] HospitalComment on above:Performed By: #### [id number] #### [facility] [address], [place] [address]Jogtdxuxghi/100 WBC (Bld)29.5 %Jqrcow94.0-50.0[facility] HospitalComment on above:Performed By: #### [id number] #### [facility] [address] [place] [address]GAV (RBC) [Entitic mass]29.1 hlVegvjv47.0-34.0[facility] HospitalComment on above:Performed By: #### [id number] #### [facility] [address] [place] [address]ASRJ (RBC) [Mass/Vol]33.5 g/gZLuqixl76.4-36.0[facility] HospitalComment on above:Performed By: #### [id number] #### [facility] [address] [place] [address]YGA (RBC) [Entitic vol]86.9 xYAizzal76.0-100.0[facility] HospitalComment on above:Performed By: #### [id number] #### [facility] [address] [place] [address]Zupciygqw (Bld) [#/Vol]0.9 E9/LNormal0.2-1.0[facility] HospitalComment on above:Performed By: #### [id number] #### [facility] [address] [place] [address]Ssmqalmakgp (Bld) [#/Vol]3.0 E9/LNormal2.0-7.5FKettering Health MiamisburgComment on above:Performed By: #### [id number] #### [facility] [address] [place] [address]Dtxwjexfhoy/100 WBC (Bld)52.9 %Lkqmfx45.0-75.0[facility] HospitalComment on above:Performed By: #### [id number] #### [facility] [address] [place] [address]Dkudczww mean volume (Bld) [Entitic vol]8.5 fLNormal6.4-10.8 [facility] HospitalComment on above:Performed By: #### [id number] #### [facility] [address] [place] [address]Ncqbrcsyq (Bld) [#/Vol]248.0 E9/RWwtetd269.0-500.0[facility] HospitalComment on above:Performed By: #### [id number] #### [facility] [address] [place] [address]GCP (Bld) [#/Vol]4.1 E12/LLow4.3-5.9[facility] Comment on above:Performed By: #### [id number] #### [facility] [address] [place] [address]BCT corrected for nucl RBC Auto (Bld) [#/Vol]5.6 E9/LNormal 4.0-11.0[facility] HospitalComment on above:Result Comment: Slide review performedPerformed By: #### [id number] #### [facility] [address] [place] [address]Ygwxxjpnh Glucose POCon 06-63-9282Swqbaxa [Mass/Vol]108 mg/dL Jgtl89-38WgyticElyria Memorial HospitalComment on above:Result Comment: Notified RN/MDPerformed By: #### [id number] #### [facility] [address] [place] [address]QNOFVPCSISYsfkxnb By: SYSTEM SYSTEM on 60-45-6007Fmwxgjuob/100 WBC (Bld)0.6 %Normal0.0 - 2.0 %Remisol HemeBasophils/Leukocytes Auto (Bld) [Pure # fraction]0.0 E9/LNormal0.0 - 0.2 E9/LRemisol HemeEosinophils (Bld) [#/Vol]0.1 E9/LNormal0.0 - 0.5 E9/LRemisol HemeEosinophils/100 WBC (Bld)1.3 %Normal0.0 - 8.0 %Remisol HemeErythrocyte distribution width (RBC) [Ratio]13.4 %Sksjvk05.9 - 14.2 %Remisol HemeHematocrit (Bld) [Volume fraction]35.2 %Cqtolc03.0 - 46.0 % Remisol HemeHemoglobin (Bld) [Mass/Vol]11.8 g/dLLow12.0 - 16.0 gm/dLRemisol Heme Lymphocytes (Bld) [#/Vol]1.7 E9/LNormal1.0 - 4.0 E9/LRemisol HemeLymphocytes/100 WBC (Bld)29.5 %Fzbkjw47.0 - 50.0 %Remisol HemeMCH (RBC) [Entitic mass]29.1 pg Eeceug93.0 - 34.0 pgRemisol HemeMCHC (RBC) [Mass/Vol]33.5 g/gEPlfnua84.4 - 36.0 gm/dLRemisol HemeMCV (RBC) [Entitic vol]86.9 nEHtsxgk10.0 - 100.0 fLRemisol Heme Monocytes (Bld) [#/Vol]0.9 E9/LNormal0.2 - 1.0 E9/LRemisol HemeMonocytes/100 WBC (Bld)15.7 %High4.0 - 14.0 %Remisol HemeNeutrophils (Bld) [#/Vol]3.0 E9/LNormal 2.0 - 7.5 E9/LRemisol HemeNeutrophils/100 WBC (Bld)52.9 %Mathwj43.0 - 75.0 % Remisol HemePlatelet mean volume (Bld) [Entitic vol]8.5 fLNormal6.4 - 10.8 fL Remisol HemePlatelets (Bld) [#/Vol]248.0 E9/NWnvvyi366.0 - 500.0 E9/LRemisol HemeRBC (Bld) [#/Vol]4.1 E12/LLow4.3 - 5.9 E12/LRemisol HemeWBC corrected for nucl RBC Auto (Bld) [#/Vol]5.6 E9/LNormal4.0 - 11.0 E9/LRemisol HemeComment on above:Result Comment: Slide review performedInterdisciplinary Note - Nutritionon 50-09-2471Apmoxfmbtwkkzinic Note - NutritionPt has been NPO for [address] recommends alternate nutrition/hydration. Discussed earlier x 2 with physician. If EN route established, recommend use of Jevity 1.0 with goal rate 60 ml/hr. This provides 1573 kcal with 63 gm protein and 1200 cc free water. Would require an additional 600 cc freewater to meet est needs. If parenteral route, recommend standard PPN at 75 cc/hr to replace currentIVF. This provides 600 kcal with 77 gm protein. Recommend daily 20% lipids to bring total kcal delivery to 1600. This would meet 100% estimated calorie and protein needs. Initial assessment in progress. Will remain NPO. Decision made to convert current IV to PPN until repeat modified on 09-12 . POC established.[facility] HospitalComment on above:Result Comment: Electronically Signed By: Taye JERONIMO, ROXANNA., Yady\.br\Date and Time Signed: 09/10/23 09:31 EDTMonitor Recordon 09-10-2023 Monitor [id number]#1.00TIFFirelands Regional Medical Centeritor Record [id number]#1.00[facility]itor [id number]#1.00[facility]ITALFC[facility] Hospitalitor Record [id number]#1.00[facility] HospitalProgress Note-Physicianon 22-50-6445Cnahzswy Note-PhysicianAssessment/Plan Acute hypoxemic respiratory failure Likely secondary to atelectasis with questionable aspiration Her hypoxia was transient and has no significant respiratory symptoms Plan: - Pt has been stable on RA - Offer supplemental O2 to maintain sats 92-96% - Her hypoxia was transient and has no significant respiratory symptoms. - Her chest x-ray was reviewed and appears unremarkable. - Her exam today also appears unremarkable. - Hold off on antibiotics or further investigation and monitor respiratory status and saturation closely. 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 - Eventually the patient will need a CT scan of the chest and perhaps a PET scan to further evaluate this pulmonary nodule. Subjective Pt is an 88y F with past medical history significant for prior CVA and hypertension, presented to the hospital with complaints of both shortness of breath as well as some slurred speech. She states over the last 2 to 3 days she has developed more dysarthria and this is unusual for her. She denies any aphasia denies any numbness or weakness into the upper or lower extremities. Also, the patient has been having some generalized weakness into the face specifically drooping eyelids on both sides and she is not sure if this is related to her chief complaint or not. Apparently the patient was having some stridor and shortness of breath on presentation and yesterday night she developed hypoxia requiring oxygen supplementation at 10 L via humidified oxygen flow and hence a pulmonary consultation was requested. Overnight apparently the patient felt better with improvement in her shortness of breath and no significant cough or sputum production. Now off oxygen and no more stridor. 09/07: Pt apparently had some apnea o/n and was placed on 2L NC. She was weaned off this AM. Pt denies any SOB or cough. NIF was -40 this AM. Pt denies any new complaints. 09/08: Feels better with improvement in her shortness of breath and cough without significant sputumproduction. 09/09: No acute events o/n. Pt has been stable on RA. She has been able to tolerate her meds in applesauce. She does report that she feels some eye drooping and some slurred speech. But otherwise, she denies any new complaints. Objective Vitals & Measurements T: 36.4 ?C(Axillary) TMIN: 36.3 ?C(Axillary) TMAX: 36.8 ?C(Oral) HR: 68(Monitored) RR: 19 BP: 170/67 SpO2: 97% WT: 62.3 kg Intake & Output This visit (24 hour periods starting at 07:00 EDT) 09/10/23 * 09/09/23 09/08/23 Total Summary Intake mL 10 10 1,640.37 Output mL -- -- -- Fluid Balance 10 10 1,640.37 Intake (2) Sodium Chloride 0.45% intravenous solution 1,000 mL mL -- -- 1,630.37 pantoprazole mL 10 10 10 Total 10 10 1,640.37 Output (0) Counts (2) Stool Count -- 1 4 Urine Count -- 5 11 * This column has not completed the indicated time period. Physical Exam General: No acute distress Skin: Warm, dry Neck: Trachea midline Eye: Sclera anicteric ENMT: Moist mucous membranes Cardiovascular: Regular rate and rhythm. No murmurs, rubs, or gallops. No BLE edema. Respiratory: CTA. No wheezing, rhonchi, or crackles. No stridor. No accessory muscle use. Gastrointestinal: Soft, non-tender, non-distended Extremities: No deformity Neurological: Awake and alert. Following commands. No focal deficit appreciated. Lab Results WBC: 5.6 E9/L (09/10/23 05:17:00) RBC: 4.1 E12/L Low (09/10/23 05:17:00) HGB: 11.8 gm/dL Low (09/10/23 05:17:00) Hct: 35.2 % (09/10/23 05:17:00) MCV: 86.9 fL (09/10/23 05:17:00) MCH: 29.1 pg (09/10/23 05:17:00) MCHC: 33.5 gm/dL (09/10/23 05:17:00) RDW: 13.4 % (09/10/23 05:17:00) Platelet: 248 E9/L (09/10/23 05:17:00) MPV: 8.5 fL (09/10/23 05:17:00) Neutro Auto: 52.9 % (09/10/23 05:17:00) Lymph Auto: 29.5 % (09/10/23 05:17:00) Mclennan Auto: 15.7 % High (09/10/23 05:17:00) Eos Auto: 1.3 % (09/10/23 05:17:00) Basophil Auto: 0.6 % (09/10/23 05:17:00) Neutro Absolute: 3 E9/L (09/10/23 05:17:00) Lymph Absolute: 1.7 E9/L (09/10/23 05:17:00) Mclennan Absolute: 0.9 E9/L (09/10/23 05:17:00) Eos Absolute: 0.1 E9/L (09/10/23 05:17:00) Basophil Absolute: 0 E9/L (09/10/23 05:17:00) Glucose Lvl: 98 mg/dL (09/10/23 05:17:00) BUN: 9 mg/dL (09/10/23 05:17:00) Creatinine: 0.6 mg/dL (09/10/23 05:17:00) eGFR: 87 mL/min/1.73 m2 (09/10/23 05:17:00) BUN/Creat Ratio: 15 (09/10/23 05:17:00) Sodium Lvl: 138 mmol/L (09/10/23 05:17:00) Potassium Lvl: 3 mmol/L Low (09/10/23 05:17:00) Chloride: 107 mmol/L (09/10/23 05:17:00) CO2: 25 mmol/L (09/10/23 05:17:00) AGAP: 9 mEq/L (09/10/23 05:17:00) Calcium Lvl: 8.5 mg/dL Low (09/10/23 05:17:00) Problem List/Past Medical History Ongoing Chronic GERD Depression History of CVA in adulthood History o (more content not included)...[facility] HospitalComment on above:Result Comment: Electronically Signed By: Noemi Church PA-C, Cristhian Rosenbaum\jose\Date and Time Signed: 09/10/23 13:26 EDTProgress Note-Physician Assessment/Plan ASSESSMENT: Fatigable and fluctuating weakness involving the eyelids and the cervical musculature, and the dysarthria, dysphagia, and some of the respiratory issues are probably also related. 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 Cannot completely rule out Lambert-Eaton myasthenic syndrome; she does have a (stable) lung nodule. She presented with myasthenic crisis. Her respiratory status seems stable at this time - no increased work of breathing and respiratory parameters look stroke. The severe dysphagia is her biggest issue. Pyridostigmine has been marginally helpful. Ongoing fatigable and fluctuating but mild dysarthria, bilateral upper eyelid ptosis, neck extension weakness. PLAN: 1. Lab work pending: Serum P/Q type voltage-gated calcium channel antibody, acetylcholine receptor antibodies, muscle specific kinase antibodies 2. Regarding the IVIG 0.4 mg/kg daily, today will be day 3. Since it looks like her respiratory status has been good, we will discontinue the IVIG after today. 3. Continue the pyridostigmine 30 mg 3 times daily; she is tolerating it without sialorrhea 4. Outpatient repetitive nerve stim and single-fiber EMG 5. Continue checking respiratory parameters 6. Dysphagia does not seem to be improving in a timely manner. Consider alternate means of gastric access. Ongoing speech therapy evaluation. 1. Myasthenia gravis in crisis (G70.01: Myasthenia gravis with (acute) exacerbation) 2. Dysarthria (R47.1: Dysarthria and anarthria) 3. 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 Acute hypoxic respiratory failure (J96.01: Acute respiratory failure with hypoxia) 5. Lung nodule (R91.1: Solitary pulmonary nodule) 6. Hypertension (I10: Essential (primary) hypertension) 7. Hyperlipidemia (E78.5: Hyperlipidemia, unspecified) 8. Chronic GERD (K21.9: Gastro-esophageal reflux disease without esophagitis) 9. History of CVA in adulthood (Z86.73: Personal history of transient ischemic attack (TIA), and cerebral infarction without residual deficits) 10. History of DVT in adulthood (Z86.718: Personal history of other venous thrombosis and embolism) 11. Depression (F32.A: Depression, unspecified) 12. Restless leg syndrome (G25.81: Restless legs syndrome) 13. Obesity (E66.9: Obesity, unspecified) Subjective She is breathing okay. Negative inspiratory force was 40 and then dropped to 33 on her most recent 1. Swallow is still the issue. She has been ambulatory without significant issues. Has not had any major eyelid drooping. No diplopia. Review of Systems GEN: No fevers or chills. CV/PULM: No chest pain. No current shortness of breath. No palpitations. NEURO: No headaches. No loss of vision. No current double vision. Yes severe dysphagia. Fluctuatingdysarthric speech changes. No focal weakness in arms or legs. Objective Vitals & Measurements T: 36.3 ?C(Axillary) TMIN: 36.3 ?C(Axillary) TMAX: 36.8 ?C(Oral) HR: 74(Monitored) RR: 19 BP: 168/76 SpO2: 98% WT: 62.3 kg Intake & Output This visit (24 hour periods starting at 07:00 EDT) 09/10/23 * 09/09/23 09/08/23 Total Summary Intake mL -- 10 1,640.37 Output mL -- -- -- Fluid Balance -- 10 1,640.37 Intake (2) Sodium Chloride 0.45% intravenous solution 1,000 mL mL -- -- 1,630.37 pantoprazole mL -- 10 10 Total -- 10 1,640.37 Output (0) Counts (2) Stool Count -- 1 4 Urine Count -- 5 11 * This column has not completed the indicated time period. Physical Exam GEN: General appearance normal. Well-kempt. No distress. No visualized deformities or trauma. CARDIO/VASC: Limbs without significant edema and appear well-perfused. PULM: Normal work of breathing. SKIN: Visualized skin is intact and without lesions aside from age-related findings. MS: Affect is normal. Patient is alert and generally oriented. Normal attention. LANG: Speech is fluent and at times mildly dysarthric. No aphasia. EYES: Pupils equal/reactive/consensual. Gaze appears conjugate. Ocular motility full. No pathologicnystagmus. CN: Facial sensation normal. Hearing acuity normal. No significant or overt focal facial weakness aside from the eyelids. MOTOR: Muscle bulk normal. Muscle tone normal. Muscle strength normal. No tremors. REFLEXES: No pathologic reflexes. SENSORY: Light touch normal. CEREBELLAR: No limb ataxia. Lab Results WBC: 5.6 E9/L (09/10/23 05:17:00) RBC: 4.1 E12/L Low (09/10/23 05:17:00) HGB: 11.8 gm/dL Low (09/10/23 05:17:00) Hct: 35.2 % (09/10/23 05:17:00) MCV: 86.9 fL (09/10/23 05:17:00) MCH: 29.1 pg (09/10/23 05:17:00) MCHC: 33.5 gm/dL (09/10/23 05:17:00) RDW: 13.4 % (09/10/23 05:17:00) Platelet: 248 E9/L (09/10/23 05:17:00) MPV: 8.5 fL (09/10/23 05:17:00) Neutro Auto: 52.9 % (09/10/23 05:17:00) Lymph Auto: 29.5 % (09/10/23 05:17:00) Mclennan Auto: 15.7 % High (09/10/23 05:17:00) Eos Auto: 1.3 % (09/10/23 05:17:00) Basophil (more content not included)...[facility] HospitalComment on above:Result Comment: Electronically Signed By: Mago Ennis RN\.br\Date and Time Signed: 09/10/23 09:19 EDT\.br\Electronically Co-Signed By: Shon Blackwell DO\.br\Date and Time Co-Signed: 09/10/23 10:07 EDTProgress Note-Physician Assessment/Plan 1. Myasthenia gravis in crisis (G70.01: Myasthenia gravis with (acute) exacerbation) Mestinon 30mg TID started 09/06 MRI negative Neurology consulted and following NIF every 8 hours Failed barium swallow, daily speech therapy and monitor swallowing If swallowing does not improve will need to discuss secondary options -IVIG started 09/07 decision was made with neurology due to patient's severe dysphagia as well as high quality of life prior to symptoms and attempt to prevent patient from needing prolonged enteral nutrition -Speech saw patient today and recommended repeat barium swallow on Tuesday Ordered: Sbsq Hospital Care/Day High 50 Minutes 12625 2. Dysarthria (R47.1: Dysarthria and anarthria) 2/2 above 3. 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 Acute hypoxic respiratory failure (J96.01: Acute respiratory failure with hypoxia) Improved Due to severity of myasthenia gravis crisis will continue to watch NIFs 5. Lung nodule (R91.1: Solitary pulmonary nodule) stable f/u outpatient 6. Hypertension (I10: Essential (primary) hypertension) monitor no PO medications IV hydralazine if needed 7. Hyperlipidemia (E78.5: Hyperlipidemia, unspecified) holding statin due to august myasthenia crisis 8. Chronic GERD (K21.9: Gastro-esophageal reflux disease without esophagitis) PPI IV 9. History of CVA in adulthood (Z86.73: Personal history of transient ischemic attack (TIA), and cerebral infarction without residual deficits) lovenox BID due to pt NPO and can not take eliquis 10. History of DVT in adulthood (Z86.718: Personal history of other venous thrombosis and embolism) lovenox BID due to pt NPO and can not take eliquis 11. Depression (F32.A: Depression, unspecified) Normally on Celexa 20 mg daily, buspirone twice daily Holding at this time 12. Restless leg syndrome (G25.81: Restless legs syndrome) Normally on ropinirole Holding at this time 13. Obesity (E66.9: Obesity, unspecified) Due to comorbidities patient would benefit from weight loss Orders: Dextrose 5% in Lactated Ringers intravenous solution 1,000 mL, 1,000 mL, IV, 75 mL/hr, Routine, Start date 09/09/23 14:42:00 EDT, 13.3 hour(s), Total volume (mL): 1,000, 66.9 kg, 1.71, m2 Basic Metabolic Panel Basic Metabolic Panel CBC w/ Auto Diff eGFR Magnesium Level Phosphorus Level XR Adult Swallowing Function w/ Video: Evaluate Pt, Develop a Plan of Care & Implement Plan Subjective Patient seen and examined. Patient sitting up in chair. No overt episodes overnight. Patient scheduled to get next round of IVIG today. Patient states coughing is improved. Objective Vitals & Measurements T: 36.3 ?C(Axillary) TMIN: 36.3 ?C(Axillary) TMAX: 36.8 ?C(Oral) HR: 74(Monitored) RR: 19 BP: 168/76 SpO2: 98% WT: 62.3 kg Intake & Output This visit (24 hour periods starting at 07:00 EDT) 09/10/23 * 09/09/23 09/08/23 Total Summary Intake mL -- 10 1,640.37 Output mL -- -- -- Fluid Balance -- 10 1,640.37 Intake (2) Sodium Chloride 0.45% intravenous solution 1,000 mL mL -- -- 1,630.37 pantoprazole mL -- 10 10 Total -- 10 1,640.37 Output (0) Counts (2) Stool Count -- 1 4 Urine Count -- 5 11 * This column has not completed the indicated time period. Physical Exam General: No acute distress, resting in chair Skin: Warm, dry Head: No trauma, normocephalic Neck: Trachea midline, supple, negative for JVD Eye: Conjunctive are clear, clear sclera , EOMI ENMT: oral mucosa moist, no lesions or edema nose or external ears Cardiovascular: Regular rate and rhythm, S1-S2 present, negative for murmurs rubs or gallops Respiratory: Clear to auscultate bilaterally, nonlabored breathing, no wheezes rales or rhonchi Chest wall: no deformity. Gastrointestinal: Abdomen soft, nontender to palpation, bowel sounds present Back: No tenderness Extremities: Range of motion intact, no edema Neurological: awake, alert, speech normal, cranial nerves II through XII intact, no sensory defects, alert and oriented x3 Psychiatric: cooperative, affect appropriate for age, pleasant Lab Results WBC: 5.6 E9/L (09/10/23 05:17:00) RBC: 4.1 E12/L Low (09/10/23 05:17:00) HGB: 11.8 gm/dL Low (09/10/23 05:17:00) Hct: 35.2 % (09/10/23 05:17:00) MCV: 86.9 fL (09/10/23 05:17:00) MCH: 29.1 pg (09/10/23 05:17:00) MCHC: 33.5 gm/dL (09/10/23 05:17:00) RDW: 13.4 % (09/10/23 05:17:00) Platelet: 248 E9/L (09/10/23 05:17:00) MPV: 8.5 fL (09/10/23 05:17:00) Neutro Auto: 52.9 % (09/10/23 05:17:00) Lymph Auto: 29.5 % (09/10/23 05:17:00) Mclennan Auto: 15.7 % High (09/10/23 05:17:00) Eos Auto: 1.3 % (09/10/23 05:17:00) Basophil Auto: 0.6 % (09/10/23 05:17:00) Neutro Absolute: 3 E9/L (09/10/23 05:17:00) Lymph Absolute: 1.7 E9/L (09/10/23 05:17:00) Mclennan Absolute: 0.9 E9/L (09/10/23 05:17:00) Eos Absolute: 0.1 E9/L ( (more content not included)...NormalElyria Memorial HospitalComment on above:Result Comment: Electronically Signed By: Brian Gonzalez DO\.br\Date and Time Signed: 09/10/23 09:00 EDTeGFRon 44-33-6631sPTU 87 mL/min/1.73 k4Gzqqgr>=59E[facility] HospitalComment on above:Order Comment: Order added by Discern Expert.Performed By: #### [id number] #### [facility] [address], [place] [address]JUTbu 11-12-5775Dgkkk gap [Moles/Vol]10 mmol/LNormal6-16[facility] HospitalComment on above:Performed By: #### [id number] #### [facility] [address], [place] [address]Mqamaos [Mass/Vol]8.6 mg/dLLow8.9-11.1FKettering Health MiamisburgComment on above:Performed By: #### [id number] #### [facility] [address], [place] [address]Sgojwelj [Moles/Vol]107 mmol/GIbhfvz720-574BfinqvElyria Memorial HospitalComment on above:Performed By: #### [id number] #### [facility] [address], [place] [address]IG3 [Moles/Vol]24 mmol/PWoavwx93-87WzpuzbElyria Memorial Hospital Comment on above:Performed By: #### [id number] #### [facility] [address], [place] [address]Cslkdfjlvz [Mass/Vol]0.6 mg/dLNormal0.5-1.3FKettering Health MiamisburgComment on above:Performed By: #### [id number] #### [facility] [address], [place] [address]Ynzrhrt [Mass/Vol]86 mg/pQJmqimn87-089WqoyrsElyria Memorial HospitalComment on above:Performed By: #### [id number] #### [facility] [address], [place] [address]Vibdbomev [Moles/Vol]3.2 mmol/LLow3.5-5.3FKettering Health MiamisburgComment on above:Performed By: #### [id number] #### [facility] [address], [place] [address]Ybrbfz [Moles/Vol]138 mmol/XPgiuvx013-204LoqzmwElyria Memorial HospitalComment on above:Performed By: #### [id number] #### [facility] [address], [place] [address]Crqo nitrogen [Mass/Vol]13 mg/dLNormal5-21[facility] HospitalComment on above:Performed By: #### [id number] #### [facility] [address], [place] [address]Nycs nitrogen/Creatinine [Mass ratio]22 No OsvgrJatc47-11SvyflwElyria Memorial HospitalComment on above:Performed By: #### [id number] #### [facility] [address], [place] [address]XIR w/ Auto Diffon 68-68-0616Kkzqwtaao/100 WBC (Bld)0.4 %Normal 0.0-2.0[facility] HospitalComment on above:Performed By: #### [id number] #### [facility] [address] [place] [address]Sllqojcsx/Leukocytes Auto (Bld) [Pure # fraction]0.0 E9/LNormal 0.0-0.2FKettering Health MiamisburgComment on above:Performed By: #### [id number] #### [facility] [address] [place] [address]Rjierlrkaum (Bld) [#/Vol]0.0 E9/LNormal0.0-0.5FKettering Health MiamisburgComment on above:Performed By: #### [id number] #### [facility] [address] [place] [address]Hponxyxaglc/100 WBC (Bld)0.5 %Normal0.0-8.0[facility] HospitalComment on above:Performed By: #### [id number] #### [facility] [address] [place] [address]Hwkfijecxzq distribution width (RBC) [Ratio]13.4 %Normal 10.9-14.2FKettering Health MiamisburgComment on above:Performed By: #### [id number] #### [facility] [address] [place] [address]Rsptbjqzsb (Bld) [Volume fraction]35.4 %Eyvtyp65.0-46.0[facility] HospitalComment on above:Performed By: #### [id number] #### [facility] [address] [place] [address]Oeetdpcfjv (Bld) [Mass/Vol]12.0 g/aRCuniqg29.0-16.0[facility] HospitalComment on above:Performed By: #### [id number] #### [facility] [address] [place] [address]Msedaihfsrl (Bld) [#/Vol]1.7 E9/LNormal1.0-4.0[facility] HospitalComment on above:Performed By: #### [id number] #### [facility] [address] [place] [address]Padoeodrced/100 WBC (Bld)19.4 %Yhayxn19.0-50.0[facility] HospitalComment on above:Performed By: #### [id number] #### [facility] [address] [place] [address]FEU (RBC) [Entitic mass]29.5 suRenvns03.0-34.0[facility] HospitalComment on above:Performed By: #### [id number] #### [facility] [address] [place] [address]OMNT (RBC) [Mass/Vol]33.9 g/vIXkaoeb73.4-36.0[facility] HospitalComment on above:Performed By: #### [id number] #### [facility] [address] [place] [address]MGZ (RBC) [Entitic vol]86.8 vVJtulbh66.0-100.0[facility] HospitalComment on above:Performed By: #### [id number] #### [facility] [address] [place] [address]Utbgfnwas (Bld) [#/Vol]1.0 E9/LNormal0.2-1.0[facility] HospitalComment on above:Performed By: #### [id number] #### [facility] [address] [place] [address]Wdakifjschb (Bld) [#/Vol]6.0 E9/LNormal2.0-7.5FKettering Health MiamisburgComment on above:Performed By: #### [id number] #### [facility] [address] [place] [address]Phtigboelbw/100 WBC (Bld)68.2 %Whpaal17.0-75.0[facility] HospitalComment on above:Performed By: #### [id number] #### [facility] [address] [place] [address]Tkoytkiq mean volume (Bld) [Entitic vol]8.2 fLNormal6.4-10.8 [facility] HospitalComment on above:Performed By: #### [id number] #### [facility] [address], [place] [address]Rttnvwnlc (Bld) [#/Vol]262.0 E9/UFrkkyw056.0-500.0[facility] HospitalComment on above:Performed By: #### [id number] #### [facility] [address], [place] [address]QFP (Bld) [#/Vol]4.1 E12/LLow4.3-5.9[facility] Comment on above:Performed By: #### [id number] #### [facility] [address] [place] [address]ZKQ corrected for nucl RBC Auto (Bld) [#/Vol]8.8 E9/LNormal 4.0-11.0[facility] HospitalComment on above:Performed By: #### [id number] #### [facility] [address], [place] [address]FCYCWXNYCFEnffyin By: SYSTEM SYSTEM on 95-14-9091Josgztgfe/100 WBC (Bld)0.4 %Normal0.0 - 2.0 %Remisol HemeBasophils/Leukocytes Auto (Bld) [Pure # fraction]0.0 E9/LNormal0.0 - 0.2 E9/LRemisol HemeEosinophils (Bld) [#/Vol]0.0 E9/LNormal0.0 - 0.5 E9/LRemisol HemeEosinophils/100 WBC (Bld)0.5 %Normal0.0 - 8.0 %Remisol HemeErythrocyte distribution width (RBC) [Ratio]13.4 %Pxlccu96.9 - 14.2 %Remisol HemeHematocrit (Bld) [Volume fraction]35.4 %Dqeanv48.0 - 46.0 % Remisol HemeHemoglobin (Bld) [Mass/Vol]12.0 g/nIKomuna20.0 - 16.0 gm/dLRemisol HemeLymphocytes (Bld) [#/Vol]1.7 E9/LNormal1.0 - 4.0 E9/LRemisol Heme Lymphocytes/100 WBC (Bld)19.4 %Vvqndy46.0 - 50.0 %Remisol HemeMCH (RBC) [Entitic mass]29.5 ahOdfzif31.0 - 34.0 pgRemisol HemeMCHC (RBC) [Mass/Vol]33.9 g/dL Otxkuh59.4 - 36.0 gm/dLRemisol HemeMCV (RBC) [Entitic vol]86.8 mLFqlpmx10.0 - 100.0 fLRemisol HemeMonocytes (Bld) [#/Vol]1.0 E9/LNormal0.2 - 1.0 E9/LRemisol HemeMonocytes/100 WBC (Bld)11.5 %Normal4.0 - 14.0 %Remisol HemeNeutrophils (Bld) [#/Vol]6.0 E9/LNormal2.0 - 7.5 E9/LRemisol HemeNeutrophils/100 WBC (Bld)68.2 % Scycev79.0 - 75.0 %Remisol HemePlatelet mean volume (Bld) [Entitic vol]8.2 fL Normal6.4 - 10.8 fLRemisol HemePlatelets (Bld) [#/Vol]262.0 E9/ARemgrz579.0 - 500.0 E9/LRemisol HemeRBC (Bld) [#/Vol]4.1 E12/LLow4.3 - 5.9 E12/LRemisol Heme WBC corrected for nucl RBC Auto (Bld) [#/Vol]8.8 E9/LNormal4.0 - 11.0 E9/L Remisol HemeInpatient Clinical Summaryon 27-40-4479Lkoegyswz Clinical Summary [address] [address] Clinical Summary Person Information: Name: GENESIS CONTE Age: 88 Years : 1935 Sex: Female PCP: RJ VELASQUEZ DO Marital Status: Phone: Race: White Ethnicity: Non- or Language: Venezuelan Visit Id: Visit Reason: Cough; Facial droop; Potential stroke; RR STROKE Speciality: Acuity: Enc Type: Inpatient Med Service: Medical Arrival: 09/06/2023 16:59:12 Discharge: Dispo Type: Admitted as IP to this Hosp Address: [facility] [id number] Provider Notes: Diagnosis: 1:Myasthenia gravis in crisis; 2:Dysarthria; 3:Laryngeal stridor; 4:Acute hypoxic respiratory failure; 5:Lung nodule; 6:Hypertension; 7:Hyperlipidemia; 8:Chronic GERD; 9:History of CVA in adulthood; 10:History of DVT in adulthood; 11:Depression; 12:Restless leg syndrome; 13:Obesity Problems Active Obesity Restless leg syndrome Depression History of DVT in adulthood History of CVA in adulthood Hyperlipidemia Hypertension Chronic GERD Smoking Status: Never Smoker Functional Status: Sensory Deficits: History of Falls: Within last three months Mobility Assistance Prior to Admission: Partial assistance ADLs: Moderate assistance Current Level of Assistance for Self-Care/Mobility: Cognitive Status: Oriented x 3 Allergies cefTRIAXone (Throat swelling) Measurements: Height: 157 cm Weight: 62.9 kg Blood Pressure: 147 mmHg / 77 mmHg BMI: 27.14 kg/m2 Procedures No Procedures Documented Immunizations No Immunizations Documented This Visit Final Med List: amlodipine (Norvasc 5 mg Tab) 1 Tablets By Mouth every day. apixaban (Eliquis 5 mg oral tablet) 1 Tablets By Mouth 2 times a day. aspirin (aspirin 81 mg oral capsule) 1 Capsules By Mouth every day. atenolol (atenolol 25 mg Tab) 1 Tablets By Mouth every day. atorvastatin (Lipitor 40 mg Tab) 1 Tablets By Mouth every day. busPIRone (busPIRone 5 mg Tab) 1 Tablets By Mouth 2 times a day. citalopram (CeleXA 20 mg Tab) 1 Tablets By Mouth every day. fexofenadine (fexofenadine 180 mg Tab) 1 Tablets By Mouth every day. fluticasone (fluticasone propionate) 50 Microgram Inhalation every day. lisinopril (lisinopril 30 mg Tab) 1 Tablets By Mouth every day. omeprazole (omeprazole 40 mg Cap-DR) 1 Capsules By Mouth every day. ropinirole (Requip) 1 Milligram By Mouth every day. Care Team Members: Attending Physician: Billy BRAVO DO Consulting Physician: Carl Mariee MD; Rickey Moore MD Referring Physician: Follow up: With: Address: When: Rickey Moore MD, NEU [address] [address] Within 2 to 4 weeks Patient Education Information: Core Measures: Stroke (Cerebrovascular Accident) [facility] [place], ([facility] Patient Summaryon [id number] Patient Summary [address] [address] Patient Discharge Instructions PERSON INFORMATION Name: GENESIS CONTE Date of : 1935 Current Date: 09/08/2023 23:16:53 PHYSICIANS Admitting Physician: Billy BRAVO DO Primary Care Physician: RJ VELASQUEZ DO PCP Comment: Discharge Diagnosis: 1:Myasthenia gravis in crisis; 2:Dysarthria; 3:Laryngeal stridor; 4:Acute hypoxic respiratory failure; 5:Lung nodule; 6:Hypertension; 7:Hyperlipidemia; 8:Chronic GERD; 9:History of CVA in adulthood; 10:History of DVT in adulthood; 11:Depression; 12:Restless leg syndrome; 13:Obesity Condition at Discharge: GENESIS CONTE has been given the following list of follow-up instructions, prescriptions, and patienteducation materials: PATIENT FOLLOW-UP INFORMATION Diet: Discharge Activity: Discharge Restrictions: Wound Care Instructions: Remove Your Dressing In Days Call Your Doctor For: IF UNABLE TO CONTACT YOUR PHYSICIAN AND YOU FEEL IT IS AN EMERGENCY, GO TO THE NEAREST EMERGENCY ROOM OR CALL 911 Home Treatment: Devices/Equipment: None Special Services: Additional Instructions: Primary Care Physician to provide the following pending test results: Follow up: With: Address: When: Rickey Moore MD, NEU [address] [address] Within 2 to 4 weeks In the event that this physician does not participate in your insurance network, please consult with your insurance company to find a nearby participating provider. Comment: DG Day RUTH A, have received the attached patient education materials/instructions and have verbalized understanding: Patient Signature Date Clinican/Nurse Signature Date HERE ARE THE MEDICATION CHANGES THAT OCCURRED DURING YOUR HOSPITAL STAY Medications to Continue with No Changes Other Medications amlodipine (Norvasc 5 mg Tab) 1 Tablets By Mouth every day. Last Dose: Next Dose: apixaban (Eliquis 5 mg oral tablet) 1 Tablets By Mouth 2 times a day. Last Dose: Next Dose: aspirin (aspirin 81 mg oral capsule) 1 Capsules By Mouth every day. Last Dose: Next Dose: atenolol (atenolol 25 mg Tab) 1 Tablets By Mouth every day. Last Dose: Next Dose: atorvastatin (Lipitor 40 mg Tab) 1 Tablets By Mouth every day. Last Dose: Next Dose: busPIRone (busPIRone 5 mg Tab) 1 Tablets By Mouth 2 times a day. Last Dose: Next Dose: citalopram (CeleXA 20 mg Tab) 1 Tablets By Mouth every day. Last Dose: Next Dose: fexofenadine (fexofenadine 180 mg Tab) 1 Tablets By Mouth every day. Last Dose: Next Dose: fluticasone (fluticasone propionate) 50 Microgram Inhalation every day. Last Dose: Next Dose: lisinopril (lisinopril 30 mg Tab) 1 Tablets By Mouth every day. Last Dose: Next Dose: omeprazole (omeprazole 40 mg Cap-DR) 1 Capsules By Mouth every day. Last Dose: Next Dose: ropinirole (Requip) 1 Milligram By Mouth every day. Last Dose: Next Dose: Comment: MEDICATION LIST PROVIDED FOR YOU IS A LIST OF YOUR CURRENT MEDICATIONS. PLEASE CARRY THIS WITH YOU AT ALL TIMES. amlodipine (Norvasc 5 mg Tab) 1 Tablets By Mouth every day. apixaban (Eliquis 5 mg oral tablet) 1 Tablets By Mouth 2 times a day. aspirin (aspirin 81 mg oral capsule) 1 Capsules By Mouth every day. atenolol (atenolol 25 mg Tab) 1 Tablets By Mouth every day. atorvastatin (Lipitor 40 mg Tab) 1 Tablets By Mouth every day. busPIRone (busPIRone 5 mg Tab) 1 Tablets By Mouth 2 times a day. citalopram (CeleXA 20 mg Tab) 1 Tablets By Mouth every day. fexofenadine (fexofenadine 180 mg Tab) 1 Tablets By Mouth every day. fluticasone (fluticasone propionate) 50 Microgram Inhalation every day. lisinopril (lisinopril 30 mg Tab) 1 Tablets By Mouth every day. omeprazole (omeprazole 40 mg Cap-DR) 1 Capsules By Mouth every day. ropinirole (Requip) 1 Milligram By Mouth every day. Pharmacy Information: Comment: PATIENT EDUCATION INFORMATION Instructions: Stroke (Cerebrovascular Accident) A stroke is acute of brain tissue, and it is a neurologicemergency. A stroke can cause permanent loss of function of the central nervous system (brain). If the symptoms of a stroke end without complications in 24 hours, it is diagnosed as a transient ischemic attack (TIA). If th (more content not included)...[facility] Interdisciplinary Note - Case Manageron [id number] Note - Case ManagerCRM to room to discuss DC planning. Patient is awake, alert and oriented. Patient is from home alone. Her Family is present in room. Patient verified PCP, DME and insurance. Patient is here with R/O CVA. Patient is assigned to Dr Gonzalez, see notes. Patient has pulm and neuro on case. Patient evaluations ST= NPO, PT= HH and OT no needs. Patient was referred to [facility] and they have accepted, she has met her 3 M stay and can DC when medically ready. Patient may need repeated MBS. She did start her IVIG treatments. DX Myasthenia Gravis. Patient had CT and MRI this stay, see results. Patient doeshave quad cane at home. Patient was provided CRM contact, white board updated. CRM following Patient is not a DC today, DC date TBD. [facility]Comment on above:Result Comment: Electronically Signed By: Meenu Reid\.br\Date and Time Signed: 09/09/23 13:35 EDTInterdisciplinary Note - Nutritionon 09-09-2023 Interdisciplinary Note - NutritionPt has been NPO for [address] recommends alternate nutrition/hydration. Discussed earlier x 2 with physician. If EN route established, recommend use of Jevity 1.0 with goal rate 60 ml/hr. This provides 1573 kcal with 63 gm protein and 1200 cc free water. Would require an additional 600 cc freewater to meet est needs. If parenteral route, recommend standard PPN at 75 cc/hr to replace currentIVF. This provides 600 kcal with 77 gm protein. Recommend daily 20% lipids to bring total kcal delivery to 1600. This would meet 100% estimated calorie and protein needs. Initial assessment in progress.[facility] HospitalComment on above:Result Comment: Electronically Signed By: LD. Kothari RD., Michelle\.br\Date and Time Signed: 09/09/23 14:10 EDTMonitor Recordon [id number] Record [id number]#1.00TIFKnox Community HospitalMonitor [id number]#1.00TIFOur Lady of Mercy HospitalMonitor Record [id number]#1.00Memorial HospitalProgress Note-Physicianon [id number] Note-PhysicianSubjective Feels better with improvement in her shortness of breath and cough without significant sputum production. Review of Systems Constitutional: no fever, no chills, no sweats Respiratory: as per HPI Cardiovascular: no chest pain, no palpitations, no edema Gastrointestinal: no nausea, no vomiting, no diarrhea, no GI bleeding Genitourinary: no dysuria, no hematuria, no discharge, no pain Musculoskeletal: no back pain, no trauma Neurologic: Improving weakness Heme/Lymph: no bleeding tendency, no bruising tendency, no petechiae, no swollen nodes Additional ROS info: Except as noted in the above Review of Systems and in the History of Present Illness all other systems have been reviewed and are negative or noncontributory. Objective Vitals & Measurements T: 36.7 ?C(Oral) TMIN: 36.1 ?C(Axillary) TMAX: 36.8 ?C(Oral) HR: 69(Monitored) RR: 18 BP: 147/76 SpO2: 97% WT: 62.1 kg Intake & Output This visit (24 hour periods starting at 07:00 EDT) 09/09/23 * 09/08/23 09/07/23 Total Summary Intake mL 10 1,640.37 1,483.3 Output mL -- -- 200 Fluid Balance 10 1,640.37 1,283.3 Intake (2) Sodium Chloride 0.45% intravenous solution 1,000 mL mL -- 1,630.37 1,473.3 pantoprazole mL 10 10 10 Total 10 1,640.37 1,483.3 Output (1) Urine Voided mL -- -- 200 Total -- -- 200 Counts (2) Stool Count 1 4 1 Urine Count 3 11 9 * This column has not completed the indicated time period. Physical Exam General: Awake and alert in no acute distress HEENT: NC, AT Neck: Supple no JVD Respiratory: Good breath sounds to both lung montero without wheezing or crackles Cardiovascular: regular rate and rhythm, no murmurs Extremities: No edema. Lab Results WBC: 8.8 E9/L (09/09/23 04:55:00) RBC: 4.1 E12/L Low (09/09/23 04:55:00) HGB: 12 gm/dL (09/09/23 04:55:00) Hct: 35.4 % (09/09/23 04:55:00) MCV: 86.8 fL (09/09/23 04:55:00) MCH: 29.5 pg (09/09/23 04:55:00) MCHC: 33.9 gm/dL (09/09/23 04:55:00) RDW: 13.4 % (09/09/23 04:55:00) Platelet: 262 E9/L (09/09/23 04:55:00) MPV: 8.2 fL (09/09/23 04:55:00) Neutro Auto: 68.2 % (09/09/23 04:55:00) Lymph Auto: 19.4 % (09/09/23 04:55:00) Mclennan Auto: 11.5 % (09/09/23 04:55:00) Eos Auto: 0.5 % (09/09/23 04:55:00) Basophil Auto: 0.4 % (09/09/23 04:55:00) Neutro Absolute: 6 E9/L (09/09/23 04:55:00) Lymph Absolute: 1.7 E9/L (09/09/23 04:55:00) Mclennan Absolute: 1 E9/L (09/09/23 04:55:00) Eos Absolute: 0 E9/L (09/09/23 04:55:00) Basophil Absolute: 0 E9/L (09/09/23 04:55:00) Glucose Lvl: 86 mg/dL (09/09/23 04:55:00) BUN: 13 mg/dL (09/09/23 04:55:00) Creatinine: 0.6 mg/dL (09/09/23 04:55:00) eGFR: 87 mL/min/1.73 m2 (09/09/23 04:55:00) BUN/Creat Ratio: 22 High (09/09/23 04:55:00) Sodium Lvl: 138 mmol/L (09/09/23 04:55:00) Potassium Lvl: 3.2 mmol/L Low (09/09/23 04:55:00) Chloride: 107 mmol/L (09/09/23 04:55:00) CO2: 24 mmol/L (09/09/23 04:55:00) AGAP: 10 mEq/L (09/09/23 04:55:00) Calcium Lvl: 8.6 mg/dL Low (09/09/23 04:55:00) Images Assessment and plan: Acute hypoxic respiratory failure: Likely secondary to atelectasis with questionable aspiration. Her hypoxia was transient and has no significant respiratory symptoms. Prior barium swallow with evidence of aspiration the patient is NPO. Now with good saturation on room air. Her chest x-ray was reviewed and appears unremarkable. I will hold off on antibiotics and monitor respiratory status and saturation closely. Lung nodule: Unclear significance and appears unchanged based on chest x-ray. Eventually the patient will need a CT scan of the chest and perhaps a PET scan to further evaluate this pulmonary nodule. Generalized weakness: Likely secondary to myasthenia gravis. Neurology is on board. Discussed with the patient and her family at bedside. Problem List/Past Medical History Ongoing Chronic GERD Depression History of CVA in adulthood History of DVT in adulthood Hyperlipidemia Hypertension Obesity Restless leg syndrome Historical No qualifying data Medications Inpatient D5LR 1000 mL Soln-IV 1,000 mL, 1000 mL, IV hydrALAZINE 20 mg/mL Inj, 10 mg= 0.5 mL, IV Push, q6hr, PRN immune globulin intravenous and subcutaneous 25,000 mg [0.8 mg/kg/min] + Generic Diluent 250 mL immune globulin intravenous and subcutaneous 25,000 mg [0.8 mg/kg/min] + Generic Diluent 250 mL immune globulin intravenous and subcutaneous 25,000 mg [0.8 mg/kg/min] + Generic Diluent 250 mL immune globulin intravenous and subcutaneous 25,000 mg [0.8 mg/kg/min] + Generic Diluent 250 mL Lovenox 60 mg/0.6 mL SC Mary Ann, 60 mg= 0.6 mL, SubCutaneous, BID Mestinon 60 mg Tab, 30 mg= 0.5 tab(s), Oral, TID pantoprazole 40 mg IV Inj, 40 mg= 10 mL, IV Push, Daily Sodium Chloride 0.9% IV Mary Ann 500 mL 500 mL, 500 mL, IV Home aspirin 81 mg oral capsule, 81 mg= 1 cap(s), Oral, Daily atenolol 25 mg Tab, 25 mg= 1 tab(s), Oral, Daily busPIRone 5 mg (more content not included)...[facility] Comment on above:Result Comment: Electronically Signed By: Jaylene YOU, Carl Rosenbaum\.br\Date and Time Signed: 09/09/23 15:17 EDTProgress Note-Physician Assessment/Plan 1. Myasthenia gravis in crisis (G70.01: Myasthenia gravis with (acute) exacerbation) Mestinon 30mg TID started 09/06 MRI negative Neurology consulted and following NIF every 6 hours Failed barium swallow, daily speech therapy and monitor swallowing If swallowing does not improve will need to discuss secondary options -IVIG started 09/07 decision was made with neurology due to patient's severe dysphagia as well as high quality of life prior to symptoms and attempt to prevent patient from needing prolonged enteral nutrition -Speech saw patient today and recommended repeat barium swallow on Tuesday Ordered: [facility] Hospital Care/Day High 50 Minutes [address] 2. Dysarthria (R47.1: Dysarthria and anarthria) Secondary to above 3. 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 Acute hypoxic respiratory failure (J96.01: Acute respiratory failure with hypoxia) Improved Due to severity of myasthenia gravis crisis will continue to watch NIFs 5. Lung nodule (R91.1: Solitary pulmonary nodule) stable f/u outpatient 6. Hypertension (I10: Essential (primary) hypertension) monitor no PO medications IV hydralazine if needed 7. Hyperlipidemia (E78.5: Hyperlipidemia, unspecified) holding statin 8. Chronic GERD (K21.9: Gastro-esophageal reflux disease without esophagitis) PPI IV 9. History of CVA in adulthood (Z86.73: Personal history of transient ischemic attack (TIA), and cerebral infarction without residual deficits) lovenox BID due to pt NPO and can not take eliquis or ASA 10. History of DVT in adulthood (Z86.718: Personal history of other venous thrombosis and embolism) lovenox BID due to pt NPO and can not take eliquis 11. Depression (F32.A: Depression, unspecified) Normally on Celexa 20 mg daily, buspirone twice daily Holding at this time 12. Restless leg syndrome (G25.81: Restless legs syndrome) Normally on ropinirole Holding at this time 13. Obesity (E66.9: Obesity, unspecified) Due to comorbidities patient would benefit from weight loss Orders: Dextrose 5% in Lactated Ringers intravenous solution 1,000 mL, 1,000 mL, IV, 75 mL/hr, Routine, Start date 09/09/23 14:42:00 EDT, 13.3 hour(s), Total volume (mL): 1,000, 66.9 kg, 1.71, m2 hydrALAZINE, 10 mg = 0.5 mL, Injection, IV Push, q6hr PRN Other (see comment), Routine, Start date 09/09/23 8:03:00 EDT, for SBP greater than 180 Basic Metabolic Panel Basic Metabolic Panel CBC w/ Auto Diff CBC w/ Auto Diff eGFR Transfer Patient to XR Adult Swallowing Function w/ Video: Evaluate Pt, Develop a Plan of Care & Implement Plan Subjective Patient seen and examined. Patient had first round of IVIG yesterday. Patient was resting in chair.Daughter was there and answered all her questions. Objective Vitals & Measurements T: 36.7 ?C(Oral) TMIN: 36.1 ?C(Axillary) TMAX: 36.8 ?C(Oral) HR: 69(Monitored) RR: 18 BP: 147/76 SpO2: 97% WT: 62.1 kg Intake & Output This visit (24 hour periods starting at 07:00 EDT) 09/09/23 * 09/08/23 09/07/23 Total Summary Intake mL 10 1,640.37 1,483.3 Output mL -- -- 200 Fluid Balance 10 1,640.37 1,283.3 Intake (2) Sodium Chloride 0.45% intravenous solution 1,000 mL mL -- 1,630.37 1,473.3 pantoprazole mL 10 10 10 Total 10 1,640.37 1,483.3 Output (1) Urine Voided mL -- -- 200 Total -- -- 200 Counts (2) Stool Count 1 4 1 Urine Count 3 11 9 * This column has not completed the indicated time period. Physical Exam General: No acute distress, resting in chair Skin: Warm, dry Head: No trauma, normocephalic Neck: Trachea midline, supple, negative for JVD Eye: Conjunctive are clear, clear sclera , EOMI ENMT: oral mucosa moist, no lesions or edema nose or external ears Cardiovascular: Regular rate and rhythm, S1-S2 present, negative for murmurs rubs or gallops Respiratory: Clear to auscultate bilaterally, nonlabored breathing, no wheezes rales or rhonchi Chest wall: no deformity. Gastrointestinal: Abdomen soft, nontender to palpation, bowel sounds present Back: No tenderness Extremities: Range of motion intact, no edema Neurological: awake, alert, speech normal, cranial nerves II through XII intact, no sensory defects, alert and oriented x3, mild weakness neck extension and flexion improved Psychiatric: cooperative, affect appropriate for age, pleasant Lab Results WBC: 8.8 E9/L (09/09/23 04:55:00) RBC: 4.1 E12/L Low (09/09/23 04:55:00) HGB: 12 gm/dL (09/09/23 04:55:00) Hct: 35.4 % (09/09/23 04:55:00) MCV: 86.8 fL (09/09/23 04:55:00) MCH: 29.5 pg (09/09/23 04:55:00) MCHC: 33.9 gm/dL (09/09/23 04:55:00) RDW: 13.4 % (09/09/23 04:55:00) Platelet: 262 E9/L (09/09/23 04:55:00) MPV: 8.2 fL (09/09/23 04:55:00) Neutro Auto: 68.2 % (09/09/23 04:55:00) Lymph Auto: 19.4 % (09/09/23 04:55:00) Mclennan Auto: 11.5 % (09/09/23 04:55:00) Eos Auto: 0. (more content not included)...[facility] Comment on above:Result Comment: Electronically Signed By: Brian Gonzalez DO\.br\Date and Time Signed: 09/09/23 14:55 EDTProgress Note-Physician Assessment/Plan ASSESSMENT: Fatigable and fluctuating weakness involving the eyelids and the cervical musculature, and the dysarthria, dysphagia, and some of the respiratory issues are probably also related. 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 Cannot completely rule out Lambert-Eaton myasthenic syndrome; she does have a (stable) lung nodule. She presented with myasthenic crisis. Her respiratory status seems stable at this time - no increased work of breathing and respiratory parameters look stroke. The severe dysphagia is her biggest issue. Pyridostigmine has been marginally helpful. Ongoing fatigable and fluctuating but mild dysarthria, bilateral upper eyelid ptosis, neck extension weakness. PLAN: 1. Lab work pending: Serum P/Q type voltage-gated calcium channel antibody, acetylcholine receptor antibodies, muscle specific kinase antibodies 2. Continue the IVIG 0.4 mg/kg daily. Today will be day 2. If her respiratory status remains as stable as it has been the past few days, we might discontinue the IVIG after day 3 unless it is felt manjeet medically improving her dysphagia by then. 3. Continue the pyridostigmine 30 mg 3 times daily; she is tolerating it without sialorrhea 4. Outpatient repetitive nerve stim and single-fiber EMG 5. Continue checking respiratory parameters 6. Dysphagia does not seem to be improving in a timely manner. Consider alternate means of gastric access. Ongoing speech therapy evaluation. 1. Myasthenia gravis in crisis (G70.01: Myasthenia gravis with (acute) exacerbation) 2. Dysarthria (R47.1: Dysarthria and anarthria) 3. 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 Acute hypoxic respiratory failure (J96.01: Acute respiratory failure with hypoxia) 5. Lung nodule (R91.1: Solitary pulmonary nodule) 6. Hypertension (I10: Essential (primary) hypertension) 7. Hyperlipidemia (E78.5: Hyperlipidemia, unspecified) 8. Chronic GERD (K21.9: Gastro-esophageal reflux disease without esophagitis) 9. History of CVA in adulthood (Z86.73: Personal history of transient ischemic attack (TIA), and cerebral infarction without residual deficits) 10. History of DVT in adulthood (Z86.718: Personal history of other venous thrombosis and embolism) 11. Depression (F32.A: Depression, unspecified) 12. Restless leg syndrome (G25.81: Restless legs syndrome) 13. Obesity (E66.9: Obesity, unspecified) Subjective Does not feel like she has current increased work of breathing. Her swallowing is still poor. She does not feel like she is salivating excessively. Not drooling. Her daughter is in the room and has concerns about her lack of fluid intake and oral intake. Eyelids are more open at the moment. She hasexperienced diplopia at times but not here recently. Review of Systems GEN: No fevers or chills. CV/PULM: No chest pain. No current shortness of breath. No palpitations. NEURO: No headaches. No loss of vision. No current double vision. Yes severe dysphagia. Fluctuatingdysarthric speech changes. No focal weakness in arms or legs. Objective Vitals & Measurements T: 36.1 ?C(Axillary) TMIN: 36.1 ?C(Axillary) TMAX: 36.7 ?C(Oral) HR: 71(Monitored) RR: 16 RR: 16 BP: 169/70 SpO2: 98% WT: 62.1 kg Intake & Output This visit (24 hour periods starting at 07:00 EDT) 09/09/23 * 09/08/23 09/07/23 Total Summary Intake mL -- 1,640.37 1,483.3 Output mL -- -- 200 Fluid Balance -- 1,640.37 1,283.3 Intake (2) Sodium Chloride 0.45% intravenous solution 1,000 mL mL -- 1,630.37 1,473.3 pantoprazole mL -- 10 10 Total -- 1,640.37 1,483.3 Output (1) Urine Voided mL -- -- 200 Total -- -- 200 Counts (2) Stool Count 1 4 1 Urine Count 1 11 9 * This column has not completed the indicated time period. Physical Exam GEN: General appearance normal. Well-kempt. No distress. No visualized deformities or trauma. CARDIO/VASC: Limbs without significant edema and appear well-perfused. PULM: Normal work of breathing. SKIN: Visualized skin is intact and without lesions aside from age-related findings. MS: Affect is normal. Patient is alert and generally oriented. Normal attention. LANG: Speech is fluent and at times mildly dysarthric. No aphasia. EYES: Pupils equal/reactive/consensual. Gaze appears conjugate. Ocular motility full. No pathologicnystagmus. CN: Facial sensation normal. Hearing acuity normal. No significant or overt focal facial weakness aside from the eyelids. MOTOR: Muscle bulk normal. Muscle tone normal. Muscle strength normal. No tremors. REFLEXES: No pathologic reflexes. SENSORY: Light touch normal. CEREBELLAR: No limb ataxia. Lab Results WBC: 8.8 E9/L (09/09/23 04:55:00) RBC: 4.1 E12/L Low (09/09/23 04:55:00) HGB: 12 gm/dL (09/09/23 04:55:00) Hct: 35.4 % (09/09/23 04:55:00) MCV: 86.8 fL (09/09/23 04:55:00) MCH: 29.5 pg (09/09/23 04:55:00) MCHC: 33.9 gm/dL (09/09/23 04:55:00) (more content not included)...NormalElyria Memorial HospitalComment on above: Result Comment: Electronically Signed By: Mago Ennis RN\.br\Date and Time Signed: 09/09/23 09:05 EDT\.br\Electronically Co-Signed By: Shon Blackwell DO\.br\Date and Time Co-Signed: 09/09/23 09:44 EDTeGFRon 06-08-4003jGVD25 mL/min/1.73 n3Rfhfdf>=59E[facility]ria [facility] HospitalComment on above:Order Comment: Order added by Discern Expert.Performed By: #### [id number] #### [facility] [address], [place] [address]QXS w/ Auto Diffon 04-18-8427Qdowmsqrw/100 WBC (Bld)0.5 %Normal 0.0-2.0E[facility] HospitalComment on above:Performed By: #### [id number] #### [facility] [address], [place] [address]Lqutiiiet/Leukocytes Auto (Bld) [Pure # fraction]0.1 E9/LNormal 0.0-0.2FKettering Health MiamisburgComment on above:Performed By: #### [id number] #### [facility] [address], [place] [address]Cqtdjiqusxw (Bld) [#/Vol]0.0 E9/LNormal0.0-0.5FKettering Health [place]burgComment on above:Performed By: #### [id number] #### [facility] [address], [place] [address]Rxtpovgktdf/100 WBC (Bld)0.2 %Normal0.0-8.0[facility] HospitalComment on above:Performed By: #### [id number] #### [facility] [address], [place] [address]Aehiweqrnhu distribution width (RBC) [Ratio]13.4 %Normal 10.9-14.2FKettering Health MiamisburgComment on above:Performed By: #### [id number] #### [facility] [address] [place] [address] 52291Zofhampkcy (Bld) [Volume fraction]35.9 %Dgmmmc02.0-46.0[facility] HospitalComment on above:Performed By: #### [id number] #### [facility] [address] [place] [address] 50739Dctxkroxma (Bld) [Mass/Vol]11.8 g/dLLow12.0-16.0[facility] HospitalComment on above:Performed By: #### [id number] #### [facility] [address] [place] [address] 62270Abfgvkbywdd (Bld) [#/Vol]2.9 E9/LNormal1.0-4.0[facility] HospitalComment on above:Performed By: #### [id number] #### [facility] [address] [place] [address] 97458Ioczdxlmyge/100 WBC (Bld)24.5 %Ajhhfz08.0-50.0[facility] HospitalComment on above:Performed By: #### [id number] #### [facility] [address] [place] [address] 03466HTZ (RBC) [Entitic mass]28.7 biWyopxr05.0-34.0[facility] HospitalComment on above:Performed By: #### [id number] #### [facility] [address] [place] [address] 77200MBRA (RBC) [Mass/Vol]33.0 g/tBIjmzaq21.4-36.0[facility] HospitalComment on above:Performed By: #### [id number] #### [facility] [address] [place] [address] 63933MLI (RBC) [Entitic vol]87.1 oSAmibvb43.0-100.0[facility] HospitalComment on above:Performed By: #### [id number] #### [facility] [address] [place] [address] 10434Shonqafkf (Bld) [#/Vol]1.6 E9/LHigh0.2-1.0[facility] HospitalComment on above:Performed By: #### [id number] #### [facility] [address] [place] [address] 26492Budnjescsxf (Bld) [#/Vol]7.2 E9/LNormal2.0-7.5FKettering Health MiamisburgComment on above:Performed By: #### [id number] #### [facility] [address] [place] [address] 09647Cvivytqcpev/100 WBC (Bld)61.3 %Bzjwwt20.0-75.0[facility] HospitalComment on above:Performed By: #### [id number] #### [facility] [address] [place] [address] 40645Jlimxajd631.0 E9/YCciojl904.0-500.0[facility] Comment on above:Performed By: #### [id number] #### [facility] [address] [place] [address] 18370Tdbhzedv mean volume (Bld) [Entitic vol]8.1 fLNormal6.4-10.8 [facility] HospitalComment on above:Performed By: #### [id number] #### [facility] [address] [place] [address] 77912KTE (Bld) [#/Vol]4.1 E12/LLow4.3-5.9[facility] Comment on above:Performed By: #### [id number] #### [facility] [address] [place] [address] 11093SRB corrected for nucl RBC Auto (Bld) [#/Vol]11.8 E9/LHigh 4.0-11.0[facility] HospitalComment on above:Performed By: #### [id number] #### [facility] [address], [place] [address]FNFPFIGIZAsceekz By: SYSTEM SYSTEM on 10-80-5204Afyntpp [Mass/Vol]3.9 g/dLNormal3.3 - 5.0 gm/dLRemisol ChemAlbumin/Globulin [Mass ratio] 1.5 {ratio}Normal1.1 - 2.2Remisol ChemALP [Catalytic activity/Vol]48 [iU]/d Ccgubn18 - 98 Int._Unit/LRemisol ChemALT No additional P-5'-P [Catalytic activity/Vol]20 [iU]/dNormal6 - 46 Int._Unit/LRemisol ChemAST [Catalytic activity/Vol]37 [iU]/dNormal5 - 43 Int._Unit/LRemisol ChemBilirubin [Mass/Vol] 0.6 mg/dLNormal0.0 - 1.1 mg/dLRemisol ChemGlobulin (S) [Mass/Vol]2.6 g/dLNormal 1.4 - 4.0 gm/dLRemisol ChemProtein [Mass/Vol]6.5 g/dLNormal6.0 - 7.8 gm/dL Remisol ChemCMPon 02-22-4754Nvqwjax [Mass/Vol]3.9 g/dLNormal3.3-5.0[facility] HospitalComment on above:Performed By: #### [id number] #### [facility] [address], [place] [address]Ozautnf/Globulin (S) [Mass conc ratio]1.9Ulhuts9.1-2.2Fisher [facility]cy Medical CenterComment on above:Performed By: #### [id number] #### [facility] [address], [place] [address]OGY [Catalytic activity/Vol]48 Int._Unit/DYffvna47-97LvgtheElyria Memorial HospitalComment on above:Performed By: #### [id number] #### [facility] [address], [place] [address]JMG No additional P-5'-P [Catalytic activity/Vol]20 Int._Unit/L Normal6-46[facility] HospitalComment on above:Performed By: #### [id number] #### [facility] [address], [place] [address]Xpadq gap [Moles/Vol]11 mmol/LNormal6-16[facility] HospitalComment on above:Performed By: #### [id number] #### [facility] [address], [place] [address]JST [Catalytic activity/Vol]37 Int._Unit/LNormal5-43[facility] HospitalComment on above:Performed By: #### [id number] #### [facility] [address], [place] [address]Zwhdiouvf [Mass/Vol]0.6 mg/dLNormal0.0-1.1FKettering Health MiamisburgComment on above:Performed By: #### [id number] #### [facility] [address], [place] [address]Jhdcyci [Mass/Vol]8.7 mg/dLLow8.9-11.1FKettering Health MiamisburgComment on above:Performed By: #### [id number] #### [facility] [address], [place] [address]Vdnihzhd [Moles/Vol]107 mmol/VXailnc355-055QbjjlgElyria Memorial HospitalComment on above:Performed By: #### [id number] #### [facility] [address], [place] [address]VD4 [Moles/Vol]26 mmol/IKvfedo79-21EvqgeeElyria Memorial Hospital Comment on above:Performed By: #### [id number] #### [facility] [address], [place] [address]Axwskrctum [Mass/Vol]0.7 mg/dLNormal0.5-1.3FKettering Health MiamisburgComment on above:Performed By: #### [id number] #### [facility] [address], [place] [address]Eutbmarw (S) [Mass/Vol]2.6 g/dLNormal1.4-4.0[facility] Isle Medical CenterComment on above:Performed By: #### [id number] #### [facility] [address], [place] [address]Gxrqmrf [Mass/Vol]84 mg/aTLwnkdp17-453NzlaypElyria Memorial HospitalComment on above:Performed By: #### [id number] #### [facility] [address], [place] [address]Fyzkexpwo [Moles/Vol]3.6 mmol/LNormal3.5-5.3FKettering Health MiamisburgComment on above:Performed By: #### [id number] #### [facility] [address] [place] [address]Giabrcd [Mass/Vol]6.5 g/dLNormal6.0-7.8[facility] HospitalComment on above:Performed By: #### [id number] #### [facility] [address], [place] [address]Zcrwin [Moles/Vol]140 mmol/STduzmb205-378TigrbhElyria Memorial HospitalComment on above:Performed By: #### [id number] #### [facility] [address] [place] [address] 315[address]Mhos nitrogen [Mass/Vol]14 mg/dLNormal5-21[facility] HospitalComment on above:Performed By: #### [id number] #### [facility] [address], [place] [address]Wchi nitrogen/Creatinine [Mass ratio]20 No VcitxRkcvka99-27 [facility] HospitalComment on above:Performed By: #### [id number] #### [facility] [address], [place] [address]Zlntzbjkx Glucose POCon 16-36-9798Nrcilun [Mass/Vol]89 mg/dL Cjvott94-35WgmtvyElyria Memorial HospitalComment on above:Result Comment: Notified RN/MDPerformed By: #### [id number] #### [facility] [address], [place] [address]Waymbjj [Mass/Vol]96 mg/lRXzuuky27-91Rtlgjs [facility] Medical CenterComment on above:Result Comment: Notified RN/MDPerformed By: #### [id number] #### [facility] [address] [place], [place] [address]EAMOBCOGJJJkgkmdr By: SYSTEM SYSTEM on 74-77-9795Ydgbwkkvx/100 WBC (Bld)0.5 %Normal0.0 - 2.0 %Remisol HemeBasophils/Leukocytes Auto (Bld) [Pure # fraction]0.1 E9/LNormal0.0 - 0.2 E9/LRemisol HemeEosinophils (Bld) [#/Vol]0.0 E9/LNormal0.0 - 0.5 E9/LRemisol HemeEosinophils/100 WBC (Bld)0.2 %Normal0.0 - 8.0 %Remisol HemeLymphocytes (Bld) [#/Vol]2.9 E9/LNormal1.0 - 4.0 E9/LRemisol HemeLymphocytes/100 WBC (Bld)24.5 %Nrbfdv35.0 - 50.0 %Remisol HemeMonocytes (Bld) [#/Vol]1.6 E9/LHigh0.2 - 1.0 E9/LRemisol HemeMonocytes/100 WBC (Bld)13.5 % Normal4.0 - 14.0 %Remisol HemeNeutrophils (Bld) [#/Vol]7.2 E9/LNormal2.0 - 7.5 E9/LRemisol HemeNeutrophils/100 WBC (Bld)61.3 %Xzhxwe82.0 - 75.0 %Remisol Heme Interdisciplinary Note - Case Manageron 08-41-4941Zrsufzltzuyooqjkb Note - Case ManagerCRM to room to discuss DC planning. Patient is awake, alert and oriented. Patient is from home alone. Her Family is not present in room. CRM asked patient and or primary nurse to let me know when they come in today. Patient verified PCP, DME and insurance. Patient is here with R/O CVA. Patient is as signed to Dr Gonzalez, see notes. Patient has pulm and neuro on case. Patient evaluations ST= NPO, PT= HH and OT no needs. Per primary nursing daughter would like her to go SNF. Patient is unsure but said we could see if [facility] has any beds. Patient had CT and MRI this stay, see results. Patient does have quad cane at home. She may need FWW. Patient was provided CRM contact, johanny board updated. CRM following CRM will get updates from Dr Gonzalez at 10 am [facility] has accepted just need to keep them updates on nutritional needs CRM did speak with her daughter on phone this date and provided updatesNormal [facility] HospitalComment on above:Result Comment: Electronically Signed By: Meenu Reid\.br\Date and Time Signed: 09/08/23 14:47 EDT Interdisciplinary Note - Speech Languageon 83-52-1031Sdotfzhyojidpehbp Note - Speech LanguageST 09/08/23 09:57am- ST treatment completed this date. Due to severity of MBS, recommending continueNPO with alternative means of nutrition and hydration as appropriate. Discussed with physicians, nursing, and dietitian [facility] Miscellaneous-LCon 79-02-5634Dtmv Iadx979392Onjkgmi Interpretation [facility] CenterComment on above:Performed By: #### [id number] #### [facility] [address], [place] [address]Agac NameVGCCA, P/Q typeInvalid Interpretation [facility] CenterComment on above:Performed By: #### [id number] #### [facility] [address], [place] [address]Rfcjvuw Recordon 46-65-5848Tpbzrbw Record [id number]#1.00TIFFSt. Vincent HospitalMonitor [id number]#1.00TIFFNormal [facility] HospitalMonitor Record [id number]#1.00TIFKnox Community HospitalProgress Note-Physicianon 21-15-8744Nwbdkysr Note-PhysicianAssessment/Plan 1. Myasthenia gravis in crisis (G70.01: Myasthenia gravis with (acute) exacerbation) Mestinon 30mg TID started 09/06 MRI negative Neurology consulted and following NIF every 6 hours Failed barium swallow, daily speech therapy and monitor swallowing If swallowing does not improve will need to discuss secondary options Ordered: [facility] Hospital Care/Day High 50 Minutes 21684 2. Dysarthria (R47.1: Dysarthria and anarthria) Secondary to above Ordered: [facility] High 50 Minutes 07201 3. 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 Acute hypoxic respiratory failure (J96.01: Acute respiratory failure with hypoxia) resolved 2/2 above pulm following 5. Lung nodule (R91.1: Solitary pulmonary nodule) stable f/u outpatient 6. Hypertension (I10: Essential (primary) hypertension) monitor holding atenolol, lisinopril IV hydralazine if needed 7. Hyperlipidemia (E78.5: Hyperlipidemia, unspecified) statin but holding due to NPO 8. Chronic GERD (K21.9: Gastro-esophageal reflux disease without esophagitis) PPI 9. History of CVA in adulthood (Z86.73: Personal history of transient ischemic attack (TIA), and cerebral infarction without residual deficits) normally on eliquis and asa holding at this time 10. History of DVT in adulthood (Z86.718: Personal history of other venous thrombosis and embolism) holding eliquis will switch to lovenox if swallowing not improved today 11. Depression (F32.A: Depression, unspecified) Normally on Celexa 20 mg daily, buspirone twice daily Holding at this time 12. Restless leg syndrome (G25.81: Restless legs syndrome) Normally on ropinirole Holding at this time 13. Obesity (E66.9: Obesity, unspecified) Due to comorbidities patient would benefit from weight loss Orders: enoxaparin, 60 mg = 0.6 mL, Injection, SubCutaneous, BID for 30 day(s), Stop date 10/08/23 8:59:00 EDT, Routine, Start date 09/08/23 9:00:00 EDT, 09/08/23 8:54:00 EDT pyridostigmine, 30 mg = 0.5 tab(s), Tab, Oral, TID, Routine, Start date 09/07/23 14:15:00 EDT, crush with small amount of puree Basic Metabolic Panel CBC w/ Auto Diff CBC w/ Auto Diff Comprehensive Metabolic Panel eGFR NPO Diet Speech Language Pathology Additional Tx XR Adult Swallowing Function w/ Video: Evaluate Pt, Develop a Plan of Care & Implement Plan Subjective Patient seen and examined. Patient did not have any acute events overnight. Patient did have MBS yesterday and did show aspiration but was cleared to take medication with small amount of pur?e. Patient denied any other symptoms at this time. Objective Vitals & Measurements T: 36.7 ?C(Oral) TMIN: 36.4 ?C(Oral) TMAX: 36.7 ?C(Oral) HR: 54(Monitored) RR: 18 BP: 149/61 SpO2: 98% WT: 62.9 kg Intake & Output This visit (24 hour periods starting at 07:00 EDT) 09/08/23 * 09/07/23 09/06/23 Total Summary Intake mL -- 1,483.3 824.45 Output mL -- 200 200 Fluid Balance -- 1,283.3 624.45 Intake (9) Oral Intake mL -- -- -- Sodium Chloride 0.45% intravenous solution 1,000 mL mL -- 1,473.3 238.85 Sodium Chloride 0.9% intravenous solution 500 mL mL -- -- 21.1 Sodium Chloride 0.9%, azithromycin mL -- -- 500 Sodium Chloride 0.9%, ceftriaxone mL -- -- 50 diphenhydrAMINE mL -- -- 0.5 famotidine mL -- -- 2 methylPREDNISolone mL -- -- 2 pantoprazole mL -- 10 10 Total -- 1,483.3 824.45 Output (1) Urine Voided mL -- 200 200 Total -- 200 200 Counts (2) Stool Count -- 1 -- Urine Count -- 9 -- * This column has not completed the indicated time period. Physical Exam General: No acute distress, resting in chair Skin: Warm, dry Head: No trauma, normocephalic Neck: Trachea midline, supple, negative for JVD Eye: Conjunctive are clear, clear sclera , EOMI ENMT: oral mucosa moist, no lesions or edema nose or external ears Cardiovascular: Regular rate and rhythm, S1-S2 present, negative for murmurs rubs or gallops Respiratory: Clear to auscultate bilaterally, nonlabored breathing, no wheezes rales or rhonchi Chest wall: no deformity. Gastrointestinal: Abdomen soft, nontender to palpation, bowel sounds present Back: No tenderness Extremities: Range of motion intact, no edema Neurological: awake, alert, speech normal, cranial nerves II through XII intact, no sensory defects, alert and oriented x3, mild weakness neck extension and flexion improved Psychiatric: cooperative, affect appropriate for age, pleasant Lab Results WBC: 11.8 E9/L High (09/08/23 06:06:00) RBC: 4.1 E12/L Low (09/08/23 06:06:00) HGB: 11.8 gm/dL Low (09/08/23 06:06:00) Hct: 35.9 % (09/08/23 06:06:00) MCV: 87.1 fL (09/08/23 06:06:00) MCH: 28.7 pg (09/08/23 06:06:00) MCHC: 33 gm/dL (09/08/23 06:06:00) RDW: 13.4 % (09/08/23 06:06:00) Platelet: 289 E9/L (09/08/23 06:06:00) MPV: (more content not included)...[facility]Comment on above:Result Comment: Electronically Signed By: Brian Gonzalez DO\.br\Date and Time Signed: 09/08/23 12:02 EDTProgress Note-PhysicianAssessment/Plan Acute hypoxemic respiratory failure Likely secondary to atelectasis with questionable aspiration Plan: - Pt has been stable on RA - Offer supplemental O2 to maintain sats 92-96% - Her hypoxia was transient and has no significant respiratory symptoms. - Her chest x-ray was reviewed and appears unremarkable. - Her exam today also appears unremarkable. - I will hold off on antibiotics or further investigation and monitor respiratory status and saturation closely. 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 - Eventually the patient will need a CT scan of the chest and perhaps a PET scan to further evaluate this pulmonary nodule. Generalized weakness - Likely secondary to myasthenia gravis. - Neurology is on board and appreciate input. - Underwent MRI of the brain which showed no acute process - Neurology ordered IVIG to start today and will continue mestinon Subjective Pt is an 88y F with past medical history significant for prior CVA and hypertension, presented to the hospital with complaints of both shortness of breath as well as some slurred speech. She states over the last 2 to 3 days she has developed more dysarthria and this is unusual for her. She denies any aphasia denies any numbness or weakness into the upper or lower extremities. Also, the patient has been having some generalized weakness into the face specifically drooping eyelids on both sides and she is not sure if this is related to her chief complaint or not. Apparently the patient was having some stridor and shortness of breath on presentation and yesterday night she developed hypoxia requiring oxygen supplementation at 10 L via humidified oxygen flow and hence a pulmonary consultation was requested. Overnight apparently the patient felt better with improvement in her shortness of breath and no significant cough or sputum production. Now off oxygen and no more stridor. 09/07: Pt apparently had some apnea o/n and was placed on 2L NC. She was weaned off this AM. Pt denies any SOB or cough. NIF was -40 this AM. Pt denies any new complaints. Objective Intake & Output This visit (24 hour periods starting at 07:00 EDT) 09/08/23 * 09/07/23 09/06/23 Total Summary Intake mL 217.61 1,483.3 824.45 Output mL -- 200 200 Fluid Balance 217.61 1,283.3 624.45 Intake (9) Oral Intake mL -- -- -- Sodium Chloride 0.45% intravenous solution 1,000 mL mL 207.61 1,473.3 238.85 Sodium Chloride 0.9% intravenous solution 500 mL mL -- -- 21.1 Sodium Chloride 0.9%, azithromycin mL -- -- 500 Sodium Chloride 0.9%, ceftriaxone mL -- -- 50 diphenhydrAMINE mL -- -- 0.5 famotidine mL -- -- 2 methylPREDNISolone mL -- -- 2 pantoprazole mL 10 10 10 Total 217.61 1,483.3 824.45 Output (1) Urine Voided mL -- 200 200 Total -- 200 200 Counts (2) Stool Count -- 1 -- Urine Count 2 9 -- * This column has not completed the indicated time period. Physical Exam General: No acute distress Skin: Warm, dry Neck: Trachea midline Eye: Sclera anicteric ENMT: Moist mucous membranes Cardiovascular: Regular rate and rhythm. No murmurs, rubs, or gallops. No BLE edema. Respiratory: CTA. No wheezing, rhonchi, or crackles. No stridor. No accessory muscle use. Gastrointestinal: Soft, non-tender, non-distended Extremities: No deformity Neurological: Awake and alert. Following commands. No focal deficit appreciated. Lab Results WBC: 11.8 E9/L High (09/08/23 06:06:00) RBC: 4.1 E12/L Low (09/08/23 06:06:00) HGB: 11.8 gm/dL Low (09/08/23 06:06:00) Hct: 35.9 % (09/08/23 06:06:00) MCV: 87.1 fL (09/08/23 06:06:00) MCH: 28.7 pg (09/08/23 06:06:00) MCHC: 33 gm/dL (09/08/23 06:06:00) RDW: 13.4 % (09/08/23 06:06:00) Platelet: 289 E9/L (09/08/23 06:06:00) MPV: 8.1 fL (09/08/23 06:06:00) Neutro Auto: 61.3 % (09/08/23 06:06:00) Lymph Auto: 24.5 % (09/08/23 06:06:00) Mclennan Auto: 13.5 % (09/08/23 06:06:00) Eos Auto: 0.2 % (09/08/23 06:06:00) Basophil Auto: 0.5 % (09/08/23 06:06:00) Neutro Absolute: 7.2 E9/L (09/08/23 06:06:00) Lymph Absolute: 2.9 E9/L (09/08/23 06:06:00) Mclennan Absolute: 1.6 E9/L High (09/08/23 06:06:00) Eos Absolute: 0 E9/L (09/08/23 06:06:00) Basophil Absolute: 0.1 E9/L (09/08/23 06:06:00) Glucose Lvl: 84 mg/dL (09/08/23 06:06:00) BUN: 14 mg/dL (09/08/23 06:06:00) Creatinine: 0.7 mg/dL (09/08/23 06:06:00) eGFR: 83 mL/min/1.73 m2 (09/08/23 06:06:00) BUN/Creat Ratio: 20 (09/08/23 06:06:00) Sodium Lvl: 140 mmol/L (09/08/23 06:06:00) Potassium Lvl: 3.6 mmol/L (09/08/23 06:06:00) Chloride: 107 mmol/L (09/08/23 06:06:00) CO2: 26 mmol/L (09/08/23 06:06:00) AGAP: 11 mEq/L (09/08/23 06:06:00) Calcium Lvl: 8.7 mg/dL Low (09/08/23 06:06:00) Alk Phos: 48 I (more content not included)...[facility] Comment on above:Result Comment: Electronically Signed By: Noemi Church PA-C, Cristhian Hernandez.br\Date and Time Signed: 09/08/23 10:53 EDTProgress Note-Physician Assessment/Plan ASSESSMENT: Fatigable and fluctuating weakness involving the eyelids and the cervical musculature, and the dysarthria, dysphagia, and some of the respiratory issues are probably also related. 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 Cannot completely rule out Lambert-Eaton myasthenic syndrome; she does have a stable lung nodule. Presumed myasthenic crisis. Her fatigable motorsymptoms have been going on to a lesser extent for several months but had been unrecognized as such. Symptoms continue to fluctuate. Pyridostigmine has been marginally helpful but she still has severedysphagia. Respiratory status has been stable in the past 24 hours. Dysarthria fluctuates. Eyelid ptosis fluctuating. Weak neck extension at times. PLAN: 1. Checking serum P/Q type voltage-gated calcium channel antibody 2. Start IVIG 0.4 mg/kg daily for 4 to 5 days 3. Continue the pyridostigmine 30 mg 3 times daily; she is tolerating it without sialorrhea 4. Outpatient repetitive nerve stim and single-fiber EMG 5. Continue checking respiratory parameters 6. I called and discussed everything with her daughter, Cayla 7. Ongoing speech pathology evaluations; might need to consider alternate means of access 1. Myasthenia gravis in crisis (G70.01: Myasthenia gravis with (acute) exacerbation) 2. Dysarthria (R47.1: Dysarthria and anarthria) 3. 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 Acute hypoxic respiratory failure (J96.01: Acute respiratory failure with hypoxia) 5. Lung nodule (R91.1: Solitary pulmonary nodule) 6. Hypertension (I10: Essential (primary) hypertension) 7. Hyperlipidemia (E78.5: Hyperlipidemia, unspecified) 8. Chronic GERD (K21.9: Gastro-esophageal reflux disease without esophagitis) 9. History of CVA in adulthood (Z86.73: Personal history of transient ischemic attack (TIA), and cerebral infarction without residual deficits) 10. History of DVT in adulthood (Z86.718: Personal history of other venous thrombosis and embolism) 11. Depression (F32.A: Depression, unspecified) 12. Restless leg syndrome (G25.81: Restless legs syndrome) 13. Obesity (E66.9: Obesity, unspecified) Subjective She still thinks her voice sounds nasal. Still having very significant issues with swallowing. Eyelids can be weak. Neck can be droopy. Respiratory status seems better. She wants to go home as soonas is safe. Respiratory parameters have generally checked out okay. She remains in the ICU. Review of Systems GEN: No fevers or chills. CV/PULM: No chest pain. No current shortness of breath. No palpitations. NEURO: No headaches. No loss of vision. No double vision. Yes severe dysphagia. Fluctuating dysarthric speech changes. No focal weakness in arms or legs. Objective Vitals & Measurements T: 36.4 ?C(Oral) TMIN: 36.4 ?C(Oral) TMAX: 36.7 ?C(Oral) HR: 54(Monitored) RR: 18 BP: 149/61 SpO2: 100% WT: 62.9 kg Intake & Output This visit (24 hour periods starting at 07:00 EDT) 09/08/23 * 09/07/23 09/06/23 Total Summary Intake mL -- 1,483.3 824.45 Output mL -- 200 200 Fluid Balance -- 1,283.3 624.45 Intake (9) Oral Intake mL -- -- -- Sodium Chloride 0.45% intravenous solution 1,000 mL mL -- 1,473.3 238.85 Sodium Chloride 0.9% intravenous solution 500 mL mL -- -- 21.1 Sodium Chloride 0.9%, azithromycin mL -- -- 500 Sodium Chloride 0.9%, ceftriaxone mL -- -- 50 diphenhydrAMINE mL -- -- 0.5 famotidine mL -- -- 2 methylPREDNISolone mL -- -- 2 pantoprazole mL -- 10 10 Total -- 1,483.3 824.45 Output (1) Urine Voided mL -- 200 200 Total -- 200 200 Counts (2) Stool Count -- 1 -- Urine Count -- 9 -- * This column has not completed the indicated time period. Physical Exam GEN: General appearance normal. Well-kempt. No distress. No visualized deformities or trauma. CARDIO/VASC: Limbs without significant edema and appear well-perfused. PULM: Normal work of breathing. SKIN: Visualized skin is intact and without lesions aside from age-related findings. MS: Affect is normal. Patient is alert and generally oriented. Normal attention. LANG: Speech is fluent and at times mildly dysarthric. No aphasia. EYES: Pupils equal/reactive/consensual. Gaze appears conjugate. Ocular motility full. No pathologicnystagmus. Upper eyelids partially cover pupillary aperture with upgaze. CN: Facial sensation normal. Hearing acuity normal. No significant or overt focal facial weakness aside from the eyelids. MOTOR: Muscle bulk normal. Muscle tone normal. Muscle strength normal. No tremors. REFLEXES: No pathologic reflexes. SENSORY: Light touch normal. CEREBELLAR: No limb ataxia. Lab Results WBC: 11.8 E9/L High (09/08/23 06:06:00) RBC: 4.1 E12/L Low (09/08/23 06:06:00) HGB: 11.8 gm/dL Low (09/08/23 06:06:00) Hct: 35.9 % (09/08/23 06:06:00) MCV: 87.1 fL (09/08/23 06:06: (more content not included)...NormalElyria Memorial HospitalComment on above:Result Comment: Electronically Signed By: Martha Jensen RN\.br\Date and Time Signed: 09/08/23 07:32 EDT\.br\Electronically Co-Signed By: Shon Blackwell DO\.br\Date and Time Co- Signed: 09/08/23 10:38 EDT\.br\Electronically Co-Signed By: Martha Jensen RN ARefercherokee regional medical center Laboratory TestingOrdered By: Generated DomainUser on [id number] MiscellaneousCOMMENTInvalid Interpretation Code[facility] SendOutsSSComment on above: Result Comment: Test Ordered: [id number] VGCC Antibody VGCC Antibody <1.0 pmol/L BN Reference Range: 0.0-30.0 Performed at: Lab[address] [id number] PhD [facility] Laboratory TestingOrdered By: Martha Jensen on 37-18-5740Tfjf [id number] 1Invalid Interpretation CodeNOR[facility] SendOutsSSTest NameVGCCA, P/Q typeInvalid Interpretation Code[facility] SendOutsSSeGFR on 24-21-5040fZTR16 mL/min/1.73 u2Kdbxhe>=59Elyria Memorial HospitalComment on above:Order Comment: Order added by Discern Expert.Performed By: #### [id number] #### [facility] [address] [place] [address]OIAwu 19-65-5778Stxvczzfop [Mass/Vol]0.7 mg/dLNormal0.5-1.3 [facility] HospitalComment on above:Performed By: #### [id number] #### [facility] [address] [place], [place] [address]Qxyh nitrogen/Creatinine [Mass ratio]21 No NzgolIwib79-80MonnyxElyria Memorial HospitalComment on above:Performed By: #### [id number] #### [facility] [address] [place], [place] [address]Udjsc gap [Moles/Vol]11 mmol/LNormal6-16E[facility] Memorial HospitalComment on above:Performed By: #### [id number] #### [facility] [address], [place] [address]Dtoazxt [Mass/Vol]8.9 mg/dLNormal8.9-11.1FKettering Health MiamisburgComment on above:Performed By: #### [id number] #### [facility] [address] [place], [place] [address]Gyeaaxel [Moles/Vol]107 mmol/OJhuety997-232ZuvoehElyria Memorial HospitalComment on above:Performed By: #### [id number] #### [facility] [address] [place], [place] [address]CB2 [Moles/Vol]25 mmol/KRmvhjq02-37XpuqzsElyria Memorial Hospital Comment on above:Performed By: #### [id number] #### [facility] [address], [place] [address]Khzeidu [Mass/Vol]139 mg/mAJzrukh03-958NladldElyria Memorial HospitalComment on above:Performed By: #### [id number] #### [facility] [address], [place] [address]Atixmtotc [Moles/Vol]4.0 mmol/LNormal3.5-5.3FKettering Health MiamisburgComment on above:Performed By: #### [id number] #### [facility] [address] [place], [place] [address]Fqovwx [Moles/Vol]139 mmol/NVnvuee127-765SctygfElyria Memorial HospitalComment on above:Performed By: #### [id number] #### [facility] [address] [place], [place] [address]Wibv nitrogen [Mass/Vol]15 mg/dLNormal5-21E[facility]ria Memorial HospitalComment on above:Performed By: #### [id number] #### [facility] [address] [place] [address]LYQ w/ Auto Diffon 70-94-5714Cpcwczult/100 WBC (Bld)0.1 %Normal 0.0-2.0E[facility]ria Memorial HospitalComment on above:Performed By: #### [id number] #### [facility] [address] [place] [address] 68[address]Ppmewxqok/Leukocytes Auto (Bld) [Pure # fraction]0.0 E9/LNormal 0.0-0.2FKettering Health MiamisburgComment on above:Performed By: #### [id number] #### [facility] [address] [place] [address]Dqcfsfapnte (Bld) [#/Vol]0.0 E9/LNormal0.0-0.5FKettering Health MiamisburgComment on above:Performed By: #### [id number] #### [facility] [address] [place] [address] 14036Llvvfbkcuox/100 WBC (Bld)0.0 %Normal0.0-8.0E[facility] Memorial HospitalComment on above:Performed By: #### [id number] #### [facility] [address] [place] [address]Gesbflnamqx distribution width (RBC) [Ratio]13.3 %Normal 10.9-14.2FKettering Health MiamisburgComment on above:Performed By: #### [id number] #### [facility] [address] [place] [address]Zcqsacnzad (Bld) [Volume fraction]34.9 %Grovmb17.0-46.0E[facility] Memorial HospitalComment on above:Performed By: #### [id number] #### [facility] [address] [place] [address]Skwjydlnpw (Bld) [Mass/Vol]11.6 g/dLLow12.0-16.0E[facility] Memorial HospitalComment on above:Performed By: #### [id number] #### [facility] [address] [place] [address]Mpfporwlfes (Bld) [#/Vol]0.8 E9/LLow1.0-4.0E[facility] Memorial HospitalComment on above:Performed By: #### [id number] #### [facility] [address] [place] [address]Oyoarwiaacz/100 WBC (Bld)9.8 %Low14.0-50.0E[facility] Memorial HospitalComment on above:Performed By: #### [id number] #### [facility] [address] [place] [address] 93521LMF (RBC) [Entitic mass]29.0 ylFacwcg46.0-34.0E[facility] Memorial HospitalComment on above:Performed By: #### [id number] #### [facility] [address] [place] [address] 095[address]ZZNM (RBC) [Mass/Vol]33.3 g/gRPavusf35.4-36.0E[facility] Memorial HospitalComment on above:Performed By: #### [id number] #### [facility] [address] [place] [address] 01218TEV (RBC) [Entitic vol]87.1 pLXmszdq51.0-100.0[facility] HospitalComment on above:Performed By: #### [id number] #### [facility] [address] [place] [address] 564[address]Inecewyeb (Bld) [#/Vol]0.1 E9/LLow0.2-1.0[facility] Memorial HospitalComment on above:Performed By: #### [id number] #### [facility] [address] [place] [address]Lhxpwhussiu (Bld) [#/Vol]7.4 E9/LNormal2.0-7.5FKettering Health MiamisburgComment on above:Performed By: #### [id number] #### [facility] [address] [place] [address]Ezqptzaegtr/100 WBC (Bld)89.4 %High36.0-75.0[facility] Memorial HospitalComment on above:Performed By: #### [id number] #### [facility] [address] [place] [address] 956[address]Llwrqmsd770.0 E9/QDgzzml969.0-500.0[facility] Comment on above:Performed By: #### [id number] #### [facility] [address] [place] [address] 270[address]Eqxndlhz mean volume (Bld) [Entitic vol]8.3 fLNormal6.4-10.8 [facility] HospitalComment on above:Performed By: #### [id number] #### [facility] [address] [place] [address] 954[address]UHJ (Bld) [#/Vol]4.0 E12/LLow4.3-5.9[facility] Comment on above:Performed By: #### [id number] #### [facility] [address] [place] [address] 718[address]TUL corrected for nucl RBC Auto (Bld) [#/Vol]8.3 E9/LNormal 4.0-11.0[facility] HospitalComment on above:Performed By: #### [id number] #### [facility] [address] [place] [address] 294[address]ZYLJAIMEWZjvjhdz By: SYSTEM SYSTEM on 46-51-8724Frqqreprxpt [Mass/Vol]132 mg/kNHbqtrk655 - 200 mg/dLRemisol ChemCholesterol in HDL [Mass/Vol]56 mg/dLInvalid Interpretation CodeRemisol ChemComment on above:Result Comment: '>= 60 LOW RISK' '<= 40 HIGH RISK'Cholesterol in LDL [Mass/Vol]67 mg/dLNormal<=129mg/dLRemisol ChemCholesterol in VLDL [Mass/Vol]9 mg/dLNormal7 - 40 mg/dLRemisol ChemCRP [Mass/Vol]mg/dLNormal<=1.9mg/dLRemisol ChemProcalcitoninng/mLNormal0.00 - 0.50 ng/mLRemisol ChemComment on above:Interpretive Data: <0.5 ng/mL Low risk of severe sepsis and/or shock >2.0 ng/mL High risk of severe sepsis and/or shock Concentrations under 0.5 ng/mL do not exclude local infections or systemic infections in their initial stages (e.g.. under six hours from onset of illness). PCT concentrations between 0.5 and 2.0 ng/mL should be interpreted with consideration of the patient's history. In this range, it is recommended to retest PCT within 6 to 24 hours.Triglyceride [Mass/Vol]47 mg/dLNormal<=149mg/dL Remisol ChemCHEMISTRYOrdered By: Meg Medrano on 53-12-2514EeM8y (Bld) [Mass fraction]5.5 %Normal<=5.9%[facility] ChemAutoSSCRPon 16-60-5802FXU [Mass/Vol]mg/L Normal<=1.9E[facility] Memorial HospitalComment on above:Performed By: #### [id number] #### [facility] [address] [place], [place] [address]Wziruwdlb Glucose POCon 74-57-4816Qcevwqb [Mass/Vol]141 mg/dL Pfnq82-26TscegkElyria Memorial HospitalComment on above:Result Comment: Notified RN/MDPerformed By: #### [id number] #### [facility] [address] [place], [place] [address]Bpbyxveybifw Noteon 08-76-5796Sgcrmvqlebyw NoteChief Complaint pt states that she has had an increase in slurred speech in the past couple of days. family member states left sided facial droop is baseline. pt states that she does have post nasal drip and has a cough. Reason for Consultation Stroke History of Present Illness Patient Is a very pleasant obese 88-year-old white female who I was asked to see in neurological consultation for stroke. Patient reportedly has had slurred speech associated with diplopia which is worsened over the past several days although the patient states that the symptoms have been occurringover the past month been getting progressively worse. She states her symptoms are worse in the afternoon. She does have difficulty with swallowing. The patient was admitted to the hospital for further evaluation and did have an episode of respiratory distress requiring admission to the hospital. The patient was treated supportively and has improved. The patient denies any numbness. She denies any extremity weakness. 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 The patient did have a CT scan of the brain which did not reveal evidence of acute infarct or hemorrhage. The patient is on anticoagulation. Review of Systems Constitutional: no fever, no chills, no sweats, no weakness Respiratory: no shortness of breath, no cough, no orthopnea, no wheezing Cardiovascular: no chest pain, no palpitations, no edema Additional ROS info: Except as noted in the above Review of Systems and in the History of Present Illness all other systems have been reviewed and are negative or noncontributory. Physical Exam Vitals & Measurements T: 36.6 ?C(Oral) TMIN: 36.4 ?C(Axillary) TMAX: 36.6 ?C(Oral) HR: 80(Peripheral) RR: 18 BP: 134/60 SpO2: 96% HT: 157 cm HT: 157 cm WT: 64.0 kg The patient is awake and alert. The patient is oriented x3. Language is intact including comprehension and fluency, fund of knowledge is intact, memory is intact. Neck is 4 out of 5 strength with flexion extension Cranial nerves: Pupils are equal round and reactive to light and accommodation, face is symmetric bilaterally, sensations intact in the face, palate elevates bilaterally, tongue protrudes midline, hearing is intact to finger rub, shoulder shrug is symmetric. Motor exam: Strength testing is 5 out of 5 MRC scale strength in all 4 extremities. Deep tendon reflexes are 1+ and symmetric. Tone is normal throughout. Plantar reflexes flexor bilaterally. Sensory exam: Sensations intact to light touch . Cerebellar exam: Qbupdh-el-wmoe reveals no ataxia. Gait is deferred Assessment/Plan The patient is an 88-year-old female with new onset of slurred speech, diplopia, ptosis, and neck weakness suspicious for possible defect in neuromuscular junction transmission. Patient is being evaluated for stroke with MRI scan of the brain which is pending. I recommend obtaining acetylcholine receptor antibody panel to assess for defect in neuromuscular junction transmission. I recommend starting Mestinon 30 mg p.o. 3 times daily for symptomatic treatment. I counseled the patient and her family on the possible diagnosis, evaluation, treatment options. I recommend the patient remain in the ICU with close monitoring of respiratory parameters to avoid exacerbation of respiratory distress. Iwill make further recommendations based upon patient's clinical course and the above evaluation. 1. Dysarthria (R47.1: Dysarthria and anarthria) 2. 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 Lung nodule (R91.1: Solitary pulmonary nodule) 4. Hypertension (I10: Essential (primary) hypertension) 5. Hyperlipidemia (E78.5: Hyperlipidemia, unspecified) 6. Chronic GERD (K21.9: Gastro-esophageal reflux disease without esophagitis) 7. History of CVA in adulthood (Z86.73: Personal history of transient ischemic attack (TIA), and cerebral infarction without residual deficits) 8. History of DVT in adulthood (Z86.718: Personal history of other venous thrombosis and embolism) 9. Obesity (E66.9: Obesity, unspecified) Problem List/Past Medical History Ongoing No qualifying data Historical No qualifying data Medications Inpatient NS 0.45% 1000 mL Soln-IV 1,000 mL, 1000 mL, IV pantoprazole 40 mg IV Inj, 40 mg= 10 mL, IV Push, Daily Sodium Chloride 0.9% IV Mary Ann 500 mL 500 mL, 500 mL, IV Home atenolol 25 mg Tab, 25 mg= 1 tab(s), Oral, Daily busPIRone 5 mg Tab, 5 mg= 1 tab(s), Oral, BID CeleXA 20 mg Tab, 20 mg= 1 tab(s), Oral, Daily Eliquis 5 mg oral tablet, 5 mg= 1 tab(s), Oral, BID fexofenadine 180 mg Tab, 180 mg= 1 tab(s), Oral, Daily fluticasone propionate, 50 mcg, Inhalation, Daily Lipitor 40 mg Tab, 40 mg= 1 tab(s), Oral, Daily lisinopril 30 mg Tab, 30 mg= 1 tab(s), Oral, Daily Norvasc 5 mg Tab, 5 mg= 1 tab(s), Oral, Daily omeprazole 40 mg Cap-DR, 40 mg= 1 cap(s), Oral, Daily Allergies cefTRIAXone (Throat swelling) Social History Tobacco Never (less than 100 in lifetime) Tobacco Use:., (more content not included)...[facility] HospitalComment on above:Result Comment: Electronically Signed By: Mago Ennis RN\.br\Date and Time Signed: 09/07/23 09:47 EDT\.br\Electronically Co-Signed By: Rickey Moore MD\.br\Date and Time Co-Signed: 09/07/23 15:24 EDTConsultation NoteChief Complaint pt states that she has had an increase in slurred speech in the past couple of days. family member states left sided facial droop is baseline. pt states that she does have post nasal drip and has a cough. History of Present Illness 88 female past medical history of prior CVA and hypertension, presented to the hospital with complaints of both shortness of breath as well as some slurred speech. She states over the last 2 to 3 days she has developed more dysarthria and this is unusual for her. She denies any aphasia denies any numbness or weakness into the upper or lower extremities. Also, the patient has been having some generalized weakness into the face specifically drooping eyelids on both sides and she is not sure if this is related to her chief complaint or not. Apparently the patient was having some stridor and shortness of breath on presentation and yesterday night she developed hypoxia requiring oxygen supplementation at 10 L via humidified oxygen flow and hence a pulmonary consultation was requested. Overnight apparently the patient felt better with improvement in her shortness of breath and no significant cough or sputum production. Now off oxygen and no more stridor. Review of Systems Constitutional: no fever, no chills, no sweats, no weakness Skin: no Jaundice, no rash, no lesions, no petechiae ENT: no ear pain, no sore throat, no congestion, no hoarseness Respiratory: as per HPI Cardiovascular: no chest pain, no palpitations, no edema Gastrointestinal: no nausea, no vomiting, no diarrhea, no GI bleeding Genitourinary: no dysuria, no hematuria, no discharge, no pain Musculoskeletal: no back pain, no trauma Neurologic: As per HPI Psychiatric: no sleeping problems, no irritability, no mood swings/depression. Heme/Lymph: no bleeding tendency, no bruising tendency, no petechiae, no swollen nodes Allergy/Immunologic: no seasonal allergies, no food allergies, no recurrent infections, no impairedimmunity Additional ROS info: Except as noted in the above Review of Systems and in the History of Present Illness all other systems have been reviewed and are negative or noncontributory. Physical Exam Vitals & Measurements T: 36.4 ?C(Oral) TMIN: 36.4 ?C(Oral) TMAX: 36.6 ?C(Oral) HR: 65(Monitored) RR: 19 BP: 144/62 SpO2: 95% HT: 157 cm HT: 157 cm WT: 64.0 kg General: Awake, alert, in no acute distress Skin: warm, dry Head: no trauma, normocephalic Neck: Trachea midline, no adenopathy, no tenderness Eye: normal conjunctiva, sclera clear ENMT: TM's clear, oral mucosa moist, no pharyngeal erythema or exudate Cardiovascular: regular rate and rhythm, normal peripheral perfusion Respiratory: Good breath sounds to both lung montero without wheezing or crackles. Gastrointestinal: soft, non distended, no tenderness, no guarding. Back: No tenderness, Normal ROM, Normal alignment. Extremities: no deformity, no trauma Neurological: oriented x 4, LOC appropriate for age, follows simple commands. Psychiatric: cooperative, affect appropriate for age, normal judgement, normal psychiatric thoughts. Images (09/06/2023 18:02 EDT XR Chest Single View) IMPRESSION: NONSPECIFIC RIGHT HILAR PROMINENCE AND RIGHT UPPER LOBE PULMONARY NODULE. FURTHER EVALUATION SUGGESTED; CLINICALLY WARRANTED. NO OTHER FINDINGS OF CONCERN IDENTIFIED. [1] Assessment and plan: Acute hypoxic respiratory failure: Likely secondary to atelectasis with questionable aspiration. Her hypoxia was transient and has no significant respiratory symptoms. Now with good saturation on room air. Her chest x-ray was reviewed and appears unremarkable. Her exam today also appears unremarkable. I will hold off on antibiotics or further investigation and monitor respiratory status and saturation closely. Lung nodule: Unclear significance and appears unchanged based on chest x-ray. Eventually the patient will need a CT scan of the chest and perhaps a PET scan to further evaluate this pulmonary nodule. Generalized weakness: Likely secondary to myasthenia gravis. Neurology is on board and appreciate input. Underwent MRI of the brain results are still pending. Discussed with the patient and her family at bedside. Problem List/Past Medical History Ongoing Chronic GERD Depression History of CVA in adulthood History of DVT in adulthood Hyperlipidemia Hypertension Obesity Restless leg syndrome Historical No qualifying data Medications Inpatient Mestinon 60 mg Tab, 30 mg= 0.5 tab(s), Oral, TID NS 0.45% 1000 mL Soln-IV 1,000 mL, 1000 mL, IV pantoprazole 40 mg IV Inj, 40 mg= 10 mL, IV Push, Daily Sodium Chloride 0.9% IV Mary Ann 500 mL 500 mL, 500 mL, IV Home aspirin 81 mg oral capsule, 81 mg= 1 cap(s), Oral, Daily atenolol 25 mg Tab, 25 mg= 1 tab(s), Oral, Daily busPIRone 5 mg Tab, 5 mg= 1 tab(s), Oral, BID CeleXA 20 mg Tab, 20 mg= 1 tab(s), Oral, Daily Eliquis 5 mg oral tablet, 5 mg= 1 tab(s), Oral, BID fexofenadine 180 mg (more content not included)...NormalElyria Memorial HospitalComment on above:Result Comment: Electronically Signed By: Jaylene YOU, Chris Robi\.br\Date and Time Signed: 09/07/23 15:23 HRRNhuY2twd 24-43-1246TdV6v (Bld) [Mass fraction]5.5 %Normal<=5.9[facility] Memorial HospitalComment on above:Performed By: #### [id number] ####[facility] [id number] [place], [place] [address]Wljaggkuvuitchwrm Note - Case Manageron 09-07-2023 Interdisciplinary Note - Case ManagerCRM to room to discuss DC planning. Patient is awake, alert and oriented. Patient is from home alone. Her Family is present in room. She will have a ride at DC. Patient verified PCP, DME and insurance. Patient is here with R/O CVA. Patient is assigned to Dr Gonzalez, see notes. Patient has pulm and neuro on case. Patient will be evaluated by ST, PT, and OT. Patient had CT, her MRI was pending this AM. CRM did assist patient to BRP and she was slightly unsteady but only requires use of FWW and stand by/ guard assist. Patient would be okay with whatever therapy recs. CRM will come back after evals completed. Patient does have quad cane at home. She may need FWW. Patient was provided CRM contact, white board updated. CRM following CRM will get updates from Dr Gonzalez at 10 am OT no need Pending PT noteSt. Vincent HospitalComment on above:Result Comment: Electronically Signed By: Meenu Reid\.br\Date and Time Signed: 09/07/23 13:11 EDTInterdisciplinary Note - Case ManagerCRM to room to discuss DC planning. Patient is awake, alert and oriented. Patient is from home alone. Her Family is present in room. She will have a ride at DC. Patient verified PCP, DME and insurance. Patient is here with R/O CVA. Patient is assigned to Dr Gonzalez, see notes. Patient has pulm and neuro on case. Patient will be evaluated by ST, PT, and OT. Patient had CT, her MRI was pending this AM. CRM did assist patient to BRP and she was slightly unsteady but only requires use of FWW and stand by/ guard assist. Patient would be okay with whatever therapy recs. CRM will come back after evals completed. Patient does have quad cane at home. She may need FWW. Patient was provided CRM contact, white board updated. CRM following CRM will get updates from Dr Gonzalez at 10 amNPro[facility] Comment on above:Result Comment: Electronically Signed By: Meenu Reid\.br\Date and Time Signed: 09/07/23 09:52 EDTInterdisciplinary Note - OTon [id number] Note - OTOT [facility] six clicks score = no further OT needs. Pt is able to complete basic adls/transfers after set-up, using FWW w/ bathroom mobility. Recommend shower chair upon return home for energy conservation if endurance issues persist. Dc inpatient OT services.Normal [facility]ria Memorial HospitalInterdisciplinary Note - Speech Languageon 09-07-2023 Interdisciplinary Note - Speech LanguageST 09/07/23: MBS completed this date. Pt was recently admitted to [facility] due to slurred speech, familyand pt report improvement overnight. Overnight pt had respiratory issues after consuming an ice chip where her oxygen levels dropped and she required oxygen to bring levels back up. She has been on room air since ST 0745 this AM. completed a BSSE earlier this date, a MBS was recommended after having s/s of aspiration/penetration with ice chip and puree trials during BSSE. Pt has a past medical history of GERD, cerebrovascular infarct, and hypertension. Per pt minimal lasting symptoms of prior CVA. Pt stated that she has been coughing at home with solids and liquids for about a month. Pt with hoarse vocal quality. Per oral motor exam completed earlier this date, per daughter pt has left sided facial droop that tends to get worse as the day goes on at baseline. During exam pt noted to have decreased labialretraction on both sides, and decreased labial seal when asked to puff up cheeks with air. All other structures and functions appeared to be WFL. Pt has adequate oral clearance and no anterior loss of consistencies. Pt agreeable to trials puree, soft solid, thin, mildly thick, and moderately thick liquids. Pt withmild oral dysphagia and severe pharyngeal dysphagia. Pt consumed 1/2 tsp x3 trials of puree, 1/2 tsp x2 trials of of soft and bite sized fruit, 1 sip by cup of thin, mildly thick, and moderately thick liquid. Thin by straw x1 was trialed as well. Across consistencies pt noted to have premature spillage and mild BOT residue. Pharyngeally pt with minimal epiglottic inversion, moderate vallecular residue, and moderate pharyngeal residue which required multiple additional swallows to clear majorityof substance. With liquids pt noted to have poor bolus control as a portion of the liquid escaped to the floor of the mouth. Deep, gross penetration was noted with nectar and honey. Aspiration noted with thin liquid by cup and straw. ST recommending NPO diet at this time, pertinent oral medications only can be given crushed in minimal amount of puree. Discussed with pt/nursing. ST also recommending daily therapy services to address dysphagia.[facility]Inter[facility] - Speech LanguageST 09/07/23 09:27am: Pt seen this date for BSSE. Pt was recently admitted to [facility] due to slurred spee ch, family and pt report improvement overnight. Overnight pt had respiratory issues after consumingan ice chip where her oxygen levels dropped and she required oxygen to bring levels back up. Pt on room air x25 minutes at time of bedside. Pt has a past medical history of GERD, cerebrovascular infarct, and hypertension. Per pt minimal lasting symptoms of prior CVA. Pt stated that she has been coughing at home with solids and liquids for about a month. Pt with hoarse vocal quality. An oral motorexam was completed, per daughter pt has left sided facial droop that tends to get worse as the day goes on at baseline. During exam pt noted to have decreased labial retraction on both sides, and decr eased labial seal when asked to puff up cheeks with air. All other structures and functions appeared to be WFL. Pt has adequate oral clearance and no anterior loss of consistencies. Pt consumed ice chips x3 where she was noted to have s/s of penetration/aspiration with an immediate cough. Pt was also given 1/2 tsp x3 bites of pureed texture where she was noted to have immediate throat clears. During PO trials pt mentioned she feels a tightness at the base of her throat and like it is not open enough, making it harder to breathe and swallow. Oxygen stats stayed between 95-97% throughout ST evaluation. ST recommending: An MBSS to rule out penetration and aspiration and determine safest diet level. Recommending NPO diet until modified can be completed. ST will plan on completing speech and language evaluation at a later date as appropriate as improvement has been noted.NormalElyria Memorial HospitalLab Miscellaneous-LCon 19-94-4721Qjix [id number] Interpretation [facility] CenterComment on above:Performed By: #### [id number] #### [facility] [address], [place] [address]Sgtg [id number] Interpretation [facility] Medical CenterComment on above:Order Comment: myasthenia gravis profilePerformed By: #### [id number] #### [facility] [address], [place] [address]Hnux NameMUSKInvalid Interpretation [facility] CenterComment on above:Performed By: #### [id number] #### [facility] [address], [place] [address]Uays Namemyasthenia gravInvalid Interpretation [facility] CenterComment on above:Order Comment: myasthenia gravis profilePerformed By: #### [id number] #### [facility] [address], [place] [address]Zpxhi Panelon 74-04-1248Vrfpaceyhzc [Mass/Vol]132 mg/dLNormal 120-200E[facility]ria Memorial HospitalComment on above:Performed By: #### [id number] #### [facility] [address], [place] [address]Tvsvktpjxio in HDL [Mass/Vol]56 mg/dLInvalid Interpretation [facility] CenterComment on above:Result Comment: '>= 60 LOW RISK' '<= 40 HIGH RISK'Performed By: #### [id number] #### [facility] [address], [place] [address]Cvaenpbgpqi in LDL [Mass/Vol]67 mg/dLNormal<=129E[facility] Memorial HospitalComment on above:Performed By: #### [id number] #### [facility] [address] [place] [address]Zutrqhjcyqw in VLDL [Mass/Vol]9 mg/dLNormal7-40E[facility] Memorial HospitalComment on above:Performed By: #### [id number] #### [facility] [address], [place] [address]Kmzkctknmuzq [Mass/Vol]47 mg/dLNormal<=149E[facility] Memorial HospitalComment on above:Performed By: #### [id number] #### [facility] [address], [place] [address]NEA Brain w/ + w/o Contraston 84-17-2424NDH Brain w/ + w/o ContrastExam Date/Time: 09/07/2023 10:51 EDT Reason for Exam: Neuro deficit, acute, stroke suspected Report IMPRESSION: NO ACUTE INTRACRANIAL PROCESS IDENTIFIED. CHRONIC, ATROPHIC, AND INVOLUTIONAL CHANGES, NOTED. EXAM: MRI Brain w/ + w/o Contrast DATE: 09/07/2023 10:00 AM CLINICAL HISTORY: Neuro deficit, acute, stroke suspected. COMPARISON: Head CT 09/06/2023. TECHNIQUE: Multiplanar MR imaging of the head was performed before and after intravenous administration of approximately 6.5 mL of Vueway gadolinium contrast. FINDINGS: Acute Change: There is no evidence of restricted diffusion to suggest an acute infarct. Hemorrhage: No evidence of intracranial hemorrhage. Mass Lesion/ Mass Effect: No evidence of an intracranial mass or extra-axial fluid collection. No significant mass effect. There is no abnormal enhancement identified. Chronic Change: Very small areas of encephalomalacia within the medial left occipital lobe and anterior right temporal lobe are consistent with chronic ischemic infarcts. Mild predominantly supratentorial white matter changes most consistent with chronic small vessel ischemic disease. Parenchyma: Moderate generalized volume loss for age. Ventricles: Normal caliber and morphology. Skull Base: Hypothalamic and pituitary region are grossly normal. Craniocervical junction is normal. No significant marrow replacement process. Vasculature: Major intracranial arterial structures, and dural venous sinuses show typical flow void, suggesting patency. Other: Paranasal sinuses and mastoid air cells are essentially clear. The orbits are unremarkable. The extracranial soft tissues are unremarkable. Report Ordering Provider: Billy BRAVO FINAL REPORT Dictated: 09/07/2023 11:45 am Gilmar Ford MD Signed (Electronic Signature): 09/07/2023 11:45 am Signed by: Gilmar Ford MD Transcribed by: JOVANI Technologist: ZUNILDA Technical Comments Vueway Contrast amount in ml's: 6.5NormalYaoThomas B. Finan Center Recordon 45-53-3014Xuhhlui [id number]#1.00TIFFNormal [facility] Record [id number]#1.00TIFFNostanNovant Health, Encompass Healthyahaira [facility] [id number]#1.00TIFFNormal [place] [facility] Record [id number]#1.00TIFMehreenNoMina [facility] Hospitalitor [id number]#1.00TIFGallo [facility] Record [id number]#1.00Ford [facility] [id number]#1.00TIFTeanatalia [facility] CenterNo Panel InformationOrdered By: [employer] DomainUser on 77-11-2512Ixy MiscellaneousCOMMENTInvalid Interpretation [facility] SendOutsSS Comment on above:Result Comment: Test Ordered: [id number] MuSK Abs, Serum MuSK Abs, Serum <1.0 U/mL ES Reference Range: Negative: <1.0 Positive: 1.0 or higher A positive result, in the context of congruent clinical findings, confirms the diagnosis of autoimmune MuSK myasthenia gravis. COMMENTS: - Myasthenia gravis (MG) is caused by auto-antibodies against proteins of the neuromuscular junction. Most cases (about 90%) of generalized MG are anti- acetylcholine receptor (AChR) antibody-positive.(1) - Of generalized MG patients who lack anti-AChR antibodies (AChR-seronegative), about 40% are positive for Muscle- Specific Kinase (MuSK) antibody.(1,2) - Though a positive MuSK result is specific for the diagnosis of MuSK MG, a negative MuSK result does not rule out a MG diagnosis. - MuSK antibody levels have been shown to correlate with disease severity.(3) Serial measurements may be useful to follow treatment. References: 1. Tashia-Nisha S et al. J Autoimmunity 2014;52:90-100. 2. Ramez PAULINO et al. PNAS 2013;110(51);86627-77889. 3. Golden E et al. Neurology 2006;67:505-507. This test was developed and its performance characteristics determined by [employer]. It has not been cleared or approved by the Food and Drug Administration. Performed at: [address] [id number] PhD Malik RamirezTrinity Health Systemsult Comment: Test Ordered: [id number] Myasthenia Gravis Profile AChR Binding Abs, Serum 12.60 [H ] nmol/L BN Reference Range: 0.00-0.24 Results verified by repeat testing Negative: 0.00 - 0.24 Borderline: 0.25 - 0.40 Positive: >0.40 AChR Blocking Abs, Serum 39 [H ] % BN Reference Range: 0-25 This test was developed and its performance characteristics determined by [employer]. It has not been cleared or approved by the Food and Drug Administration. Negative: 0 - 25 Borderline: 26 - 30 Positive: >30 AChR-modulating Ab 75 [H ] % BN Reference Range: 0-45 This test was developed and its performance characteristics determined by [employer]. It has not been cleared or approved by the Food and Drug Administration. Interpretive Information: Negative: 0 - 45% Positive: > 45% No single value for AChR-modulating antibody should be used as a sole basis for diagnosis or response to therapy. Striation Abs, Serum 1:1000 [H ] BN Reference Range: Neg:<1:100 This test was developed and its performance characteristics determined by [employer]. It has not been cleared or approved by the Food and Drug Administration. Reflex Information Comment BN Reflex test not indicated. Performed at: [address] [id number] PhD Malik Bullardcalcitoninon 19-79-1158Mpyviuvuivwtp<.05 Normal.00-.50Elyria Memorial HospitalComment on above:Result Comment: <0.5 ng/mL Low risk of severe sepsis and/or shock >2.0 ng/mL High risk of severe sepsis and/or shock Concentrations under 0.5 ng/mL do not exclude local infections or systemic infections in their initial stages (e.g.. under six hours from onset of illness). PCT concentrations between 0.5 and 2.0 ng/mL should be interpreted with consideration of the patient's history. In this range, it is recommended to retest PCT within 6 to 24 hours.Performed By: #### [id number] #### [facility] [address] [place] [address]Piclqvtn Note-Nurseon 57-05-3285Ywgtfhhf Note-NursePatient transported to MRI via Wheelchair with this nurse. Pt tolerated Imaging as expected no signs of distress observed. Patient transported back via wheelchair and tolerated well.[facility] Note-NurseIs Pt. arrive on to the floor at around 21:00 from ER. This RN was informed by the MARKETING COMMUNICATIONS LEADER about the pt. having an event of stridor, low SpO2, and respiratory distress after attempting to consume a piece of ice. At the time to the floor the pt was on RA and had no signs of respiratory distress w/ an exception to an occasional non-productive cough to attempt to clear her throat. The pt's daughter and grand-daughter where in the RM at this time and explained that over the past couple of months she has had increasing difficultly swallowing with frequent coughing fits while attempting to eat and her voice has became much more horse than normal. They also explained that she has had issues with sinus/nasal stuffiness since Thanksgiving along w/ coming and going boughts of facial drooping (specifically in the eyes). Dysphagia screen preformed in Adult Patient History Form. Pt. failed midway and was made NPO w/a speech therapy consult. Night-shift hospitalist Dr. Bravo arrived in room around 22:00 and talked with pt. and family. At 0005, this RN was in the next RM over w/a pt. when the floor POCT, Steve, alerted her that she needed to see the pt. joanna. As this RN left the RM next the pt's she could immediately hear very loud stridor from the pt. who was very SOB and anxious. SpO2 monitoring attached to the pt and it read 77% on RA. This nurse asked another floor nurse to call a rapid response while the pt. was placed on 2L NC. The pt's SpO2 came up to 98-100% but stridor was still present along w/SOB and anxiety. Dr. Bravo arrived at 0009 and ordered racepinephrine. Pt also placed on aerosol oxygen mask at 40% by DIRECTOR OF FOOD AND NUTRITION SERVICES during this time. After the med was given to the pt, their stridor went away for about 20 mins but the stridor returned. SpO2 maintained above 98% and Dr. Bravo made aware. Physician placedorders for the pt to be transferred to ICU for monitoring. Pt. moved around 0100 after report given to TAR BOILER at bedside. Due to code copper, this RN was unable to inform the pt's primary emergency contact until the code was lifted per the pt's request. The primary emergency contact was made aware of the situation/RR and the transfer of the pt to ICU. [facility] HospitalProgress Note-Physicianon 15-76-1079Sxpskjmp Note-PhysicianAssessment/Plan MRI of brain/ showed 4 foci of restricted diffusion in the left cerebral hemisphere the largest along the inferior left temporal lobe measuring 10 x 9 mm. Possible embolic phenomenon Echo with bubble 08/08/2018 showed mild LVH. No signs of intracardiac shunt. Mild LA dilation. Mild MR. Mild to moderate AR. Carotid duplex 08/07/2018 showed less than 50% stenosis in the internal carotids 1. Myasthenia gravis in crisis (G70.01: Myasthenia gravis with (acute) exacerbation) Concern for myasthenia gravis N.p.o., speech to see Neurology consulted MRI pending Will need to check antibodies Every 6 hours NIFs monitor respiratory status, concern for rapid decompensation Avoid medication that could exacerbate myasthenia gravis such as statin, antibiotics, calcium channel blockers 2. Dysarthria (R47.1: Dysarthria and anarthria) Likely secondary to above Will check MRI to rule out stroke Neurology consulted Ordered: [facility] Hospital Care/Day High 50 Minutes [id number] 3. 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 Acute hypoxic respiratory failure (J96.01: Acute respiratory failure with hypoxia) Improved Secondary to possible MG, aspiration, allergic reaction Patient was requiring as much as 10 L mask to maintain oxygen saturation overnight 5. Lung nodule (R91.1: Solitary pulmonary nodule) Findings consistent with chest x-ray done in March 2023 Will likely need outpatient follow-up Pulmonary consulted 6. Hypertension (I10: Essential (primary) hypertension) Monitor Avoid p.o. medications at this time IV medications if needed 7. Hyperlipidemia (E78.5: Hyperlipidemia, unspecified) Normally on statin, holding 8. Chronic GERD (K21.9: Gastro-esophageal reflux disease without esophagitis) PPI IV 9. History of CVA in adulthood (Z86.73: Personal history of transient ischemic attack (TIA), and cerebral infarction without residual deficits) Normally on statin Eliquis and aspirin, holding at this time 10. History of DVT in adulthood (Z86.718: Personal history of other venous thrombosis and embolism) Holding Eliquis at this time due to n.p.o. Will restart Eliquis or another type of anticoagulation within 24 hours 11. Depression (F32.A: Depression, unspecified) Normally on Celexa 20 mg daily, buspirone twice daily Holding at this time 12. Restless leg syndrome (G25.81: Restless legs syndrome) Normally on ropinirole Holding at this time 13. Obesity (E66.9: Obesity, unspecified) Due to comorbidities patient would benefit from weight loss Orders: CBC w/ Auto Diff Comprehensive Metabolic Panel Consult to Respiratory Therapy Subjective Patient seen and examined. Patient's symptoms improved. Per patient and family symptoms are always better in the morning and get worse throughout the day. Patient denies any chest pain, nausea vomiting diarrhea, or other symptoms at this time. Patient did have rapid response called on them overnight and was given racemic epi. Objective Vitals & Measurements T: 36.4 ?C(Oral) TMIN: 36.4 ?C(Oral) TMAX: 36.6 ?C(Oral) HR: 86(Monitored) RR: 16 BP: 143/69 SpO2: 99% HT: 157 cm HT: 157 cm WT: 64.0 kg Intake & Output This visit (24 hour periods starting at 07:00 EDT) 09/07/23 * 09/06/23 09/05/23 Total Summary Intake mL 235 824.45 -- Output mL 200 200 -- Fluid Balance 35 624.45 -- Intake (9) Oral Intake mL -- -- -- Sodium Chloride 0.45% intravenous solution 1,000 mL mL 225 238.85 -- Sodium Chloride 0.9% intravenous solution 500 mL mL -- 21.1 -- Sodium Chloride 0.9%, azithromycin mL -- 500 -- Sodium Chloride 0.9%, ceftriaxone mL -- 50 -- diphenhydrAMINE mL -- 0.5 -- famotidine mL -- 2 -- methylPREDNISolone mL -- 2 -- pantoprazole mL 10 10 -- Total 235 824.45 -- Output (1) Urine Voided mL 200 200 -- Total 200 200 -- Counts (0) * This column has not completed the indicated time period. Physical Exam General: No acute distress, resting in chair Skin: Warm, dry Head: No trauma, normocephalic Neck: Trachea midline, supple, negative for JVD Eye: Conjunctive are clear, clear sclera , EOMI ENMT: oral mucosa moist, no lesions or edema nose or external ears Cardiovascular: Regular rate and rhythm, S1-S2 present, negative for murmurs rubs or gallops Respiratory: Clear to auscultate bilaterally, nonlabored breathing, no wheezes rales or rhonchi Chest wall: no deformity. Gastrointestinal: Abdomen soft, nontender to palpation, bowel sounds present Back: No tenderness Extremities: Range of motion intact, no edema Neurological: awake, alert, speech normal, cranial nerves II through XII intact, no sensory defects, alert and oriented x3, mild weakness neck extension and flexion, minimal ptosis Psychiatric: cooperative, affect appropriate for age, pleasant Lab Results (more content not included)...NormalElyria Memorial Hospital Comment on above:Result Comment: Electronically Signed By: Brian Gonzalez DO\.br\Date and Time Signed: 09/07/23 12:03 EDTRAD - MRI Screening Formon [id number] - MRI Screening Form [id number]#1.00TIFFNoParkview Health Bryan HospitalReference Laboratory TestingOrdered By: Mago Ennis on 14-06-8075Ltpu [id number] 1Invalid Interpretation [facility] SendOutsSSTest [id number] 1Invalid Interpretation CodeNOR[facility] SendOutsSSTest NameMUSKInvalid Interpretation CodeNORMAN SPECIALTY [facility] SendOutsSSTest Namemyasthenia gravInvalid Interpretation CodeNORMAN SPECIALTY [facility] SendOutsSS Troponin 6 Hr.on 35-68-6255Fqndsvpz83.80 pg/jBFnaaeg88.10-27.10E[facility]ria Memorial HospitalComment on above:Result Comment: The 95% CI (Confidence Interval) PPV (Positive Predictive Value) for myocardial infarction in females is 38 pg/mL, in males 51 pg/mL. The results should be used in conjunction with cli nical conditions of myocardial infarction. (Access High Sensitivity Troponin I Instructions For Use, [employer] [place] [employer], November 2017)Performed By: #### [id number] #### [facility] [address] [place], [place] [address]DU Adult Swallowing Function w/ Videoon [id number] Adult Swallowing Function w/ VideoExam Date/Time: 09/07/2023 14:01 EDT Reason for Exam: Dysphagia Report IMPRESSION: ABNORMAL MODIFIED BARIUM SWALLOW. A FULL REPORT WILL BE MADE BY THE SPEECH PATHOLOGY TEAM. EXAM: XR Adult Swallowing Function w/ Video DATE: 09/07/2023 1:15 PM CLINICAL HISTORY: Dysphagia. COMPARISON: None available. TECHNIQUE: Lateral videofluoroscopy was provided during speech therapy evaluation during ingestion of various barium liquids and semisolids. A total of 9.30 mGy Air Kerma (Ka, r) of fluoroscopy was used with 11 fluoroscopic cine series saved. No diagnostic images were obtained. FINDINGS: Oral phase is within functional limits. Marked pharyngeal dysphagia is present, without epiglottic inversion. Deep laryngeal penetration is present with all barium liquids with aspiration with thin barium liquid that resulted in coughing. No definite aspiration with nectar or honey thickened liquids identified. Large residual collections are present within the vallecula and piriform sinuses. A full report will be made by the speech pathology team. Ordering Provider: Brian Gonzalez FINAL REPORT Dictated: 09/07/2023 3:03 pm Gilmar Ford MD Signed (Electronic Signature): 09/07/2023 3:03 pm Signed by: Gilmar Ford MD Transcribed by: JOVANI Technologist: INO Technical Comments Radiation Dose: Ka,r in mGy = 9.30 DAP = 215.19NormalFishUniversity of Maryland Rehabilitation & Orthopaedic InstituteXR Chest Single Viewon [id number] Chest Single ViewExam Date/Time: 09/06/2023 18:02 EDT Reason for Exam: Chest pain Report IMPRESSION: NONSPECIFIC RIGHT HILAR PROMINENCE AND RIGHT UPPER LOBE PULMONARY NODULE. FURTHER EVALUATION SUGGESTED; CLINICALLY WARRANTED. NO OTHER FINDINGS OF CONCERN IDENTIFIED. EXAM: XR Chest Single View DATE: 09/06/2023 5:25 PM CLINICAL HISTORY: Chest pain. COMPARISON: None available. TECHNIQUE: A portable upright AP radiograph of the chest was obtained. FINDINGS: An approximately 2 cm rounded opacity overlying the right hilum may be vascular or a pulmonary nodule. An approximately 8 mm dense for size nodule overlies the right upper lung zone near the confluence of the anterior right first and posterior right sixth ribs. There are shallow inspiratory volumes, without significant pulmonary infiltrate, other nodules, cardiomegaly, vascular congestion, sizable pleural effusion, pneumothorax, or displaced fractures identified. Ordering Provider: Chino Pennington FINAL REPORT Dictated: 09/07/2023 3:36 am Gilmar Ford MD Signed (Electronic Signature): 09/07/2023 3:36 am Signed by: Gilmar Ford MD Transcribed by: JOVANI Technologist: NANCI Technical Comments Radiation Dose: Ka,r in mGy = 0 DAP = 0NormalElyria Memorial HospitaleGFRon [id number] mL/min/1.73 m2 Normal>=59Elyria Memorial HospitalComment on above:Order Comment: Order added by Discern Expert.Performed By: #### [id number] #### [facility] [address], [place] [address]CVASROJDJScgwnvx By: SYSTEM SYSTEM on 21-23-7151Vninrlxh HS 21.80 pg/hSWopipl29.10 - 27.10 pg/mLRemisol ChemComment on above:Interpretive Data: The 95% CI (Confidence Interval) PPV (Positive Predictive Value) for myocardial infarction in females is 38 pg/mL, in males 51 pg/mL. The results should be used in conjunction withclinical conditions of myocardial infarction. (Access High Sensitivity Troponin I Instructions For Use, [employer], November 2017)Troponin HS17.50 pg/hRJalirg07.10 - 27.10 pg/mLRemisol ChemComment on above:Interpretive Data: The 95% CI (Confidence Interval) PPV (Positive Predictive Value) for myocardial infarction in females is 38 pg/mL, in males 51 pg/mL. The results should be used in conjunction withclinical conditions of myocardial infarction. (Access High Sensitivity Troponin I Instructions For Use, [employer], November 2017)Lactic Acid Lvl1.1 mmol/LNormal0.5 - 2.2 mmol/LRemisol ChemTroponin HS10.60 pg/sOPjixbw14.10 - 27.10 pg/mLRemisol ChemComment on above:Interpretive Data: The 95% CI (Confidence Interval) PPV (Positive Predictive Value) for myocardial infarction in females is 38 pg/mL, in males 51 pg/mL. The results should be used in conjunction withclinical conditions of myocardial infarction. (Access High Sensitivity Troponin I Instructions For Use, [employer] [place], November 2017)CHEMISTRYOrdered By: Tiara Maloney on 37-83-7168Quteuyqsxqp peptide B (Bld) [Mass/Vol]136 pg/mLHigh5 - 80 pg/mLNORMAN SPECIALTY HOSPITAL – [facility] HemeManSSCOAGULATIONOrdered By: Joaquina Franklin on 23-73-5142uJLY Coag (PPP) [Time]24.0 sLow25.1 - 36.5 second(s) [facility] Auto CoagComment on above:Interpretive Data: Parameter 15 days - 4 weeks 1 - 5 months 6 - 11 months 1 - 5 years 6 - 10 years 11 - 17 years PTT Mean: 35.4 (27.6-45.6) Mean: 33.5 (24.8-40.7) Mean: 32.4 (25.1-40.7) Mean: 31.6 (24.0-39.2) Mean: 31.6 (26.9-38.7) Mean: 31.0 (24.6-38.4) Pediatric Reference ranges were obtained from a study by Ross Santa et al. prepared from 1437 samples obtained at 7 different centers using the same coagulation reagent and instrumentation as [facility]. Currently there are no coagulation studies available worldwide for children to 14 days, andno normal ranges. Heparin therapeutic range (represented by Anti-Factor Xa activity of 0.2 - 0.4 U/mL) corresponds to PTT of 56.6 - 109.0 sec.INR Coag (PPP) [Relative time]1.15 {INR}Invalid Interpretation CodeNORMAN SPECIALTY [facility] Auto CoagComment on above:Interpretive Data: INR results are specifically intended to assess patients stabilized on long-term Anticoagulation therapy suggested INR s Less Intensive Anticoagulation 2.0 3.0 Conventional Range 3.0 4.5PT Coag (PPP) [Time]12.9 sHigh9.4 - 12.5 second(s)[facility] Auto CoagComment on above:Interpretive Data: 15 days - 4 weeks 1 - 5 months 6 -11 months 1 5 years 6 10 years 11 -17 years Mean: 11.2 (9.5 12.6) Mean: 11.0 (9.7 12.8) Mean: 11.0 (9.8 13.0) Mean: 11.3 (9.9 13.4) Mean: 11.7 (10.0 14.6) Mean: 11.8 (10.0 - 14.1) Pediatric Reference ranges were obtained from a study by yousuf Pham al. prepared from 1437 samples obtained at 7 different centers using the same coagulation reagent and instrumentation as [facility]. Currently there are no coagulation studies available worldwide for children to 14 days, andno normal ranges.ED Clinical Summaryon [id number] Clinical Summary [place] [id number] ED Clinical Summary Person Information Name: GENESIS CONTE [facility] Age: 88 Years : 1935 Sex: Female Language: Venezuelan PCP: RJ VELASQUEZ DO Marital Status: Phone: Visit Id: Visit Reason: Cough; Facial droop; Potential stroke; RR STROKE Speciality: Acuity: 2 Enc Type: Inpatient Med Service: Emergency Arrival: 09/06/2023 16:59:12 Discharge: LOS: 000 04:13 Checkin: 09/06/2023 16:59:12 Checkout: 09/06/2023 21:12:47 Dispo Type: Admitted as IP to this [facility] EVENTS: Event Name Event Status Request Date/Time Start Date/Time Complete Date/Time Arrive Complete 09/06/2023 16:59:12 09/06/2023 16:59:12 09/06/2023 16:59:12 Document Home Meds Request 09/06/2023 16:59:12 Triage Complete 09/06/2023 16:59:12 09/06/2023 17:15:15 09/06/2023 17:15:15 Bed Assign Complete 09/06/2023 16:59:12 09/06/2023 16:59:12 09/06/2023 16:59:12 Dr Exam Complete 09/06/2023 16:59:12 09/06/2023 17:08:22 09/06/2023 17:08:22 RN Exam Complete 09/06/2023 16:59:12 09/06/2023 18:00:21 09/06/2023 18:00:21 CT Complete 09/06/2023 17:02:25 09/06/2023 17:05:03 09/06/2023 17:08:48 Registration Complete 09/06/2023 17:08:22 09/06/2023 17:42:48 09/06/2023 17:42:48 EKG Complete 09/06/2023 17:09:30 09/06/2023 17:18:38 Pending Labs Request 09/06/2023 17:15:08 Lab Complete 09/06/2023 17:15:08 09/06/2023 17:37:35 Patient Care Request 09/06/2023 17:15:08 RT Request 09/06/2023 17:15:08 X-Ray Complete 09/06/2023 17:15:08 09/06/2023 17:25:10 09/06/2023 18:02:23 Pending Labs Complete 09/06/2023 17:19:39 09/06/2023 17:19:39 09/06/2023 17:35:23 Lab Complete 09/06/2023 17:19:39 09/06/2023 17:19:39 09/06/2023 17:35:23 Reg Complete Request 09/06/2023 17:42:48 Reg Bed Request Complete 09/06/2023 17:42:48 09/06/2023 17:42:48 09/06/2023 17:42:48 Pending Labs Complete 09/06/2023 18:00:21 09/06/2023 18:00:21 09/06/2023 18:00:22 Fall Risk Request 09/06/2023 18:00:22 Wet Read Complete 09/06/2023 18:02:23 09/06/2023 18:17:22 09/06/2023 18:17:22 RR Stroke Request 09/06/2023 18:12:53 Consult Request 09/06/2023 18:20:11 Pending Labs Inlab 09/06/2023 18:20:19 Lab Inlab 09/06/2023 18:20:19 Hospitalist Consult Request 09/06/2023 18:20:19 Meds Admin Complete 09/06/2023 18:20:19 09/06/2023 20:27:09 Meds Admin Complete 09/06/2023 19:27:37 09/06/2023 19:39:07 Meds Admin Request 09/06/2023 19:30:45 Bed Request Request 09/06/2023 19:39:06 Reg Bed Request Complete 09/06/2023 19:39:06 09/06/2023 19:41:25 09/06/2023 19:41:25 Admit Request 09/06/2023 19:39:06 Patient Care Request 09/06/2023 19:41:26 Patient Care Request 09/06/2023 19:41:26 Patient Care Request 09/06/2023 19:41:26 Patient Care Request 09/06/2023 19:41:27 Medicare Form Complete 09/06/2023 19:41:27 09/06/2023 20:09:03 Patient Care Request 09/06/2023 19:41:27 Patient Care Request 09/06/2023 19:41:27 ADDRESS: [place] [phone] [facility] DOC NOTES: Addendum by Jass Amaya DO on September 06, 2023 20:02:58 EDT MEDICAL INFORMATION: Prescriptions Given: PATIENT EDUCATION INFORMATION: Instructions: Follow up: DIAGNOSIS: Dysarthria; Lung nodule; PneumoniaNormalFisher Andrade Medical CenterED Note-Nursingon [id number] Note-NursingThis nurse entered patients room at request of patients daughter. Daughter stating pt is not able to swallow the ice she just put in her mouth and is having difficulty breathing. Patient's monitor shows a pulse ox of 72% with a good waveform. This nurse placed patient on 3L NC in hopes the ice would melt and the episode would pass. Patient trying to speak but does sound stridorous. Dr. Amaya at bedside. It is noted that patient just received a dose of Ceftriaxone IV and patient will treated for a possible allergic reaction.[facility] CenterED Note-Physicianon [id number] Note-PhysicianBasic Information Time Seen: Chino Pennington DO 09/06/2023 17:08 Chief Complaint pt states that she has had an increase in slurred speech in the past couple of days. family member states left sided facial droop is baseline. pt states that she does have post nasal drip and has a cough. History of Present Illness 88 female presents emergency department by EMS with complaints of both shortness of breath as well as some slurred speech. Regarding the slurred speech, patient does state that she had history of a stroke 4 years ago but it does sound like she almost fully recovered and was left with no speech deficits. She states over the last 2 to 3 days she has developed more dysarthria and this is unusual for her. She denies any aphasia denies any numbness or weakness into the upper or lower extremities. Also, the patient has been having some generalized weakness into the face specifically drooping eyelids on both sides and she is not sure if this is related to her chief complaint or not. Secondarily, the patient also states that she is been having a little bit of shortness of breath and therefore theneighbor called EMS today. The patient attributes this to having recent upper respiratory infectious symptoms and was started on some nasal spray and feels that now the mucus and the postnasal drip has now started to move towards her chest. She reports no chest pain with this denies any cardiac or pulmonary disease otherwise. No other aggravating or relieving factors no other associated symptoms no other prior treatments or complaints. Last known well is difficult to establish but it seems to be about 2 or 3 days ago. Family: Reviewed and noncontributory Social: lives at home Review of systems negative unless otherwise specified in the HPI. Physical Exam Vitals & Measurements T: 36.5 ?C(Oral) HR: 85(Peripheral) RR: 18 BP: 162/74 SpO2: 98% HT: 157 cm WT: 66.9 kg BMI: 27.14 General: The patient appears well and in no apparent distress. Patient is resting comfortably on cart. Skin: Warm, dry, no pallor noted. Head: Normocephalic, atraumatic Neck: No JVD Eye: PERRLA, EOMI ENT: Moist mucus membranes Cardiovascular: Regular rate normal peripheral perfusion Respiratory: No respiratory distress no accessory muscle use no obvious audible wheezing Chest Wall: no deformity Musculoskeletal: normal ROM, no deformity, no swelling GI: Soft no obvious distention. No rebound or rigidity. No guarding. No tenderness. Neurological: A&O moves all extremities equal strength and symmetry. Patient does have stroke scale score of 2 1 for slight dysarthria and then 1 for slight left-sided facial droop but it is unclear if this is chronic or perhaps slightly worsening acute on chronic. No aphasia. Psychiatric: Cooperative and appropriate Procedure Patient is not a candidate for tenecteplase given symptoms that been ongoing for several days. Medical Decision Making Workup in the ER has been reviewed and noted. CT does show some white matter changes and basal Kuehner infarct indeterminate age. Chest x-ray does show right-sided perihilar mass or infiltrate. Case was discussed with patient and family at length. Ultimately because of the new dysarthria she has elected to be admitted to the hospital I do think this is reasonable. Case discussed with the hospitalist for admission. We did add on some cultures and lactate patient was then treated with Zithromax and Rocephin for concerns for infectious etiology of that nodule in her chest may be early infiltrate. Assessment/Plan Dysarthria (R47.1: Dysarthria and anarthria) Lung nodule (R91.1: Solitary pulmonary nodule) Pneumonia (J18.9: Pneumonia, unspecified organism) Orders: azithromycin + Sodium Chloride 0.9% intravenous solution 250 mL, 500 mg = 1 EA, Injection, IV Piggyback, Once, Stop date 09/06/23 18:20:00 EDT, STAT, Start date 09/06/23 18:20:00 EDT, 250 mL/hr, Infuse over 60 minute(s) ceftriaxone + Sodium Chloride 0.9% intravenous solution 50 mL, 1,000 mg = 1 EA, IV Piggyback, Once,Stop date 09/06/23 18:20:00 EDT, STAT, Start date 09/06/23 18:20:00 EDT, 100 mL/hr, Infuse over 30 minute(s), 09/06/23 18:20:00 EDT B-Type Natriuretic Peptide Basic Metabolic Panel Blood Culture Charcoal Blood Culture Charcoal CBC w/ Auto Diff ED Cardiac Monitoring ED Physician consult Hospitalist for continued care eGFR Extra SST Tube Lactic Acid Oxygen Saturation Oxygen Therapy PT & PTT Saline Lock Insert Troponin 0 Hr. Troponin 1 Hr. Troponin 3 Hr. Troponin 6 Hr. UA with Cult Rflx XR Chest Single View Disposition Plan Discharge Prescription List Prescriptions No active prescription medications Follow-up No qualifying data available Problem List/Past Medical History Ongoing No qualifying data Historical No qualifying data Medications Inpatient No active inpatient medications Home No active home medications Allergies No Known Medication Allergies Lab Results WBC: 11 (more content not included)...[facility] HospitalComment on above:Result Comment: Electronically Signed By: Jass Amaya DO\.br\Date and Time Signed: 09/06/23 20:03 EDTED Note-PhysicianBasic Information Time Seen: Chino Pennington DO 09/06/2023 17:08 Chief Complaint pt states that she has had an increase in slurred speech in the past couple of days. family member states left sided facial droop is baseline. pt states that she does have post nasal drip and has a cough. History of Present Illness 88 female presents emergency department by EMS with complaints of both shortness of breath as well as some slurred speech. Regarding the slurred speech, patient does state that she had history of a stroke 4 years ago but it does sound like she almost fully recovered and was left with no speech deficits. She states over the last 2 to 3 days she has developed more dysarthria and this is unusual for her. She denies any aphasia denies any numbness or weakness into the upper or lower extremities. Also, the patient has been having some generalized weakness into the face specifically drooping eyelids on both sides and she is not sure if this is related to her chief complaint or not. Secondarily, the patient also states that she is been having a little bit of shortness of breath [facility] The patient attributes this to having recent upper respiratory infectious symptoms and was started on some nasal spray and feels that now the mucus and the postnasal drip has now started to move towards her chest. She reports no chest pain with this denies any cardiac or pulmonary disease otherwise. No other aggravating or relieving factors no other associated symptoms no other prior treatments or complaints. Last known well is difficult to establish but it seems to be about 2 or 3 days ago. Family: Reviewed and noncontributory Social: lives at home Review of systems negative unless otherwise specified in the HPI. Physical Exam Vitals & Measurements T: 36.5 ?C(Oral) HR: 85(Peripheral) RR: 18 BP: 162/74 SpO2: 98% HT: 157 cm WT: 66.9 kg BMI: 27.14 General: The patient appears well and in no apparent distress. Patient is resting comfortably on cart. Skin: Warm, dry, no pallor noted. Head: Normocephalic, atraumatic Neck: No JVD Eye: PERRLA, EOMI ENT: Moist mucus membranes Cardiovascular: Regular rate normal peripheral perfusion Respiratory: No respiratory distress no accessory muscle use no obvious audible wheezing Chest Wall: no deformity Musculoskeletal: normal ROM, no deformity, no swelling GI: Soft no obvious distention. No rebound or rigidity. No guarding. No tenderness. Neurological: A&O moves all extremities equal strength and symmetry. Patient does have stroke scale score of 2 1 for slight dysarthria and then 1 for slight left-sided facial droop but it is unclear if this is chronic or perhaps slightly worsening acute on chronic. No aphasia. Psychiatric: Cooperative and appropriate Procedure Patient is not a candidate for tenecteplase given symptoms that been ongoing for several days. Medical Decision Making Workup in the ER has been reviewed and noted. CT does show some white matter changes and basal Kuehner infarct indeterminate age. Chest x-ray does show right-sided perihilar mass or infiltrate. Case was discussed with patient and family at length. Ultimately because of the new dysarthria she has elected to be admitted to the hospital I do think this is reasonable. Case discussed with the hospitalist for admission. We did add on some cultures and lactate patient was then treated with Zithromax and Rocephin for concerns for infectious etiology of that nodule in her chest may be early infiltrate. Assessment/Plan Dysarthria (R47.1: Dysarthria and anarthria) Lung nodule (R91.1: Solitary pulmonary nodule) Pneumonia (J18.9: Pneumonia, unspecified organism) Orders: azithromycin + Sodium Chloride 0.9% intravenous solution 250 mL, 500 mg = 1 EA, Injection, IV Piggyback, Once, Stop date 09/06/23 18:20:00 EDT, STAT, Start date 09/06/23 18:20:00 EDT, 250 mL/hr, Infuse over 60 minute(s) ceftriaxone + Sodium Chloride 0.9% intravenous solution 50 mL, 1,000 mg = 1 EA, IV Piggyback, Once,Stop date 09/06/23 18:20:00 EDT, STAT, Start date 09/06/23 18:20:00 EDT, 100 mL/hr, Infuse over 30 minute(s), 09/06/23 18:20:00 EDT B-Type Natriuretic Peptide Basic Metabolic Panel Blood Culture Charcoal Blood Culture Charcoal CBC w/ Auto Diff ED Cardiac Monitoring ED Physician consult Hospitalist for continued care eGFR Extra SST Tube Lactic Acid Oxygen Saturation Oxygen Therapy PT & PTT Saline Lock Insert Troponin 0 Hr. Troponin 1 Hr. Troponin 3 Hr. Troponin 6 Hr. UA with Cult Rflx XR Chest Single View Disposition Plan Discharge Prescription List Prescriptions No active prescription medications Follow-up No qualifying data available Problem List/Past Medical History Ongoing No qualifying data Historical No qualifying data Medications Inpatient No active inpatient medications Home No active home medications Allergies No Known Medication Allergies Lab Results WBC: 11 (more content not included)...[facility] HospitalComment on above:Result Comment: Electronically Signed By: Chino Pennington DO\.br\Date and Time Signed: 09/06/23 18:32EDTED Patient Education Noteon [id number] Patient Education NoteNoC[facility] Patient Summaryon [id number] Patient Summary [place] [id number] Patient Discharge Instructions Person Information Name: GENESIS CONTE Age: 88 Years Arrival Date: 09/06/2023 16:59:12 Discharge Diagnosis: Dysarthria; Lung nodule; Pneumonia Primary Care Physician: RJ VELASQUEZ DO Provider Information Primary Provider: Chino Pennington DO [employer] Installer:None The exam and treatment you received in the Emergency Department were for an urgent problem and are not intended as complete care. It is important that you follow up with a doctor, nurse practitioner,or physician?s pastrycook's assistant for ongoing care. If your symptoms become worse or you do not improve as expected and you are unable to reach your usual health care provider, you should return to the Emergency Department. We are available 24 hours a day. GENESIS CONTE has been given the following list of patient education materials, prescriptions and follow-up instructions: Follow-up Instructions: In the event that this physician does not participate in your insurance network, please consult with your insurance company to find a nearby participating provider. Patient Education Materials: A MESSAGE TO ALL PATIENTS REGARDING OPIOIDS PRESCRIPTION OPIOIDS: WHAT YOU NEED TO KNOW Prescription opioids can be used to help relieve duecyuvr-rb-jviyzu pain and are often prescribed following a surgery or injury, or for certain health conditions. These medications can be an important part of the treatment but also come with serious risks. It is important to work with your healthcare provider to make sure you are getting the safest, most effective care. WHAT ARE THE RISKS AND SIDE EFFECTS OF OPIOID USE? Prescription opioids carry serious risks of addiction and overdose, especially with prolonged use. An opioid overdose, often marked by slowed breathing, can cause sudden . The use of prescription opioids can have a number of side effects as well, even when taken as directed: ? Tolerance?meaning you might need to take more of the medication for the same pain relief ? Physical dependence?meaning you have symptoms of withdrawal when a medication is stopped ? Increased sensitivity to pain ? Constipation ? Nausea, vomiting, and dry mouth ? Sleepiness and dizziness ? Confusion ? Depression ? Low levels of testosterone that can result in lower sex drive, energy, and strength ? Itching and sweating RISKS ARE GREATER WITH: ? History of drug misuse, substance use disorder, or overdose ? Mental health conditions (such as depression or anxiety) ? Sleep apnea ? Older age (65 years and older) ? Avoid alcohol while taking prescription opioids. Also, unless specifically advised by your health care provider, medications to avoid include: ? Benzodiazepines (such as Xanax or Valium) ? Muscle relaxants (such as Soma or Flexeril) ? Hypnotics (such as Ambien or Lunesta) ? Other prescription opioids KNOW YOUR OPTIONS Talk to your health care provider about ways to manage your pain that don?t involve prescription opioids. Some of these options may actually work better and have fewer risks and side effects. Optionsmay include: ? Pain relievers such as acetaminophen, ibuprofen, and naproxen ? Some medication that are also used for depression or seizures ? Physical therapy and exercise ? Cognitive behavioral therapy, a psychological, goal-directed approach, in which patients learn how to modify physical, behavioral, and emotional triggers of pain and stress. IF YOU ARE PRESCRIBED OPIOIDS FOR PAIN: ? Never take opioids in greater amounts or more often than prescribed. ? Follow up with your primary health care provider. o Work together to create a plan on how to manage your pain. o Talk about ways to help manage your pain that don?t involve prescription opioids. o Talk about any and all concerns and side effects. ? Help prevent misuse and abuse o Never sell or share prescription opioids. o Never use another person?s prescription opioids. ? Store prescription opioids in a secure place and out of reach of others (this may include visitors, children, friends, and family). ? Safely dispose of unused prescription opioids: Find your community drug take- back program or [employer] mail-back program, or flush them down the toilet, following guidance from the Food and Drug Administration (www.fda.gov/Drugs/ResourcesForYou). ? Visit www.cdc.gov/drugoverdose to learn about the risks of opioids abuse and overdose. ? If you believe you may be struggling with addiction, tell your health medication care manager and ask for guidance or call [facility]?S National Helpline at 4-870-624-QZXN. t Source: US Department of Health and Human Services/Center for Disease Control & Prevention [facility] Medications Given: Medication Dose Route ceftriaxone (more content not included)...[facility] Lactic Acidon [id number] Acid Lvl1.1 mmol/LNormal0.5-2.2[facility] Medical CenterComment on above:Performed By: #### [id number] #### [facility] [address], [place] [address]Uuwryhr from Medicareon [id number] from Medicare [id number]#1.00TIFFNormalElyria Memorial HospitalNo Panel InformationOrdered By: ANGPROCESSSERVER MICROBIOLOGY on 45-59-3827Zeguv Culture CharcoalNo growth at 7 days.[facility] CenterBlood Culture CharcoalNo growth at 7 days.[facility] Troponin 0 Hr.on 69-55-6358Ungtfaxo6.60 pg/mLLow10.10-27.10[facility] HospitalComment on above:Result Comment: The 95% CI (Confidence Interval) PPV (Positive Predictive Value) for myocardial infarction in females is 38 pg/mL, in males 51 pg/mL. The results should be used in conjunction with clinical conditions of myocardial infarction. (Access High Sensitivity Troponin I Instructions For Use, [employer], November 2017)Performed By: #### [id number] #### [facility] [address], [place] [address]Epvfhzjw 1 Hr.on 23-18-9625Fxuoesql43.60 pg/nFFdhopn26.10-27.10 [facility] HospitalComment on above:Result Comment: The 95% CI (Confidence Interval) PPV (Positive Predictive Value) for myocardial infarction in females is 38 pg/mL, in males 51 pg/mL. The results should be used in conjunction with clinical conditions of myocardial infarction. (Access High Sensitivity Troponin I Instructions For Use, [employer], November 2017)Performed By: #### [id number] #### [facility] [address], [place] [address]Jnlrslyl 3 Hr.on 12-79-0765Tnodenal00.50 pg/wOUsltja12.10-27.10 [facility] HospitalComment on above:Result Comment: The 95% CI (Confidence Interval) PPV (Positive Predictive Value) for myocardial infarction in females is 38 pg/mL, in males 51 pg/mL. The results should be used in conjunction with clinical conditions of myocardial infarction. (Access High Sensitivity Troponin I Instructions For Use, [employer], November 2017)Performed By: #### [id number] #### [facility] [address], [place] [address]BU with Cult Rflxon 39-70-5885Wdaqivupt Ql (U)NegativeNormal NegativeElyria Memorial HospitalComment on above:Performed By: #### [id number] #### [facility] [address], [place] [address]Tnzmlht (U)ClearNormalClearElyria Memorial HospitalComment on above:Performed By: #### [id number] #### [facility] [address], [place] [address]Shcgz (U)Light-YellowNormalYellowElyria Memorial Hospital Comment on above:Result Comment: Microscopic readings are only performed on those samples that meet specific criteria set forth by [facility].Performed By: #### [id number] #### [facility] [address], [place] [address]Txogwuckxk cells.squamous Auto (Urine sed) [#/Area]0-0Zhybcq4-0 [facility] HospitalComment on above:Performed By: #### [id number] #### [facility] [address], [place] [address]Kjcvhbk Ql (U)NegativeNormalNegPremier Health [facility] Center Comment on above:Performed By: #### [id number] #### [facility] [address], [place] [address]Zizzgujiwx Auto test strip (U) [Mass/Vol]1+AbnormalNegative [facility] HospitalComment on above:Performed By: #### [id number] #### [facility] [address], [place] [address]Rbcphcj Auto test strip Ql (U)NegativeNormalNegativeElyria Memorial HospitalComment on above:Performed By: #### [id number] #### [facility] [address], [place] [address]Qfmxcbggp esterase Auto test strip Ql (U)NegativeNormalNegative [facility] Memorial HospitalComment on above:Performed By: #### [id number] #### [facility] [address], [place] [address]Seato Auto Ql (U)TraceNormalNegativeE[facility] Comment on above:Performed By: #### [id number] #### [facility] [address], [place] [address]Mzavuzf Auto test strip Ql (U)NegativeNormalNegativeElyria Memorial HospitalComment on above:Performed By: #### [id number] #### [facility] [address], [place] [address]sI (U)6.5 [pH]Normal5.0-9.0[facility] HospitalComment on above:Performed By: #### [id number] #### [facility] [address] [place] [address]683Wqgnrcn Ql (U)NegativeNormalNegativeE[facility] Comment on above:Performed By: #### [id number] #### [facility] [address] [place] [address] 13541PLS Ql (U)8-79Glqtlwgn1-3HtfngzKettering Health MiamisburgComment on above:Performed By: #### [id number] #### [facility] [address] [place] [address]Lwmtdfgo gravity (U) [Rel density]1.747Tcdpxx4.005-1.030[facility] HospitalComment on above:Performed By: #### [id number] #### [facility] [address] [place] [address]34Qorhuppxqgvr (U) [Mass/Vol]NegativeNormalNegativeElyria Memorial HospitalComment on above:Performed By: #### [id number] #### [facility] [address] [place] [address]GSK Auto (Urine sed) [#/Area]2-7Btamov3-7KqzmonKettering Health MiamisburgComment on above:Performed By: #### [id number] #### [facility] [address] [place] [address] 85754Cnfx of Urine collection methodClean CatchNormalElyria Memorial HospitalComment on above:Performed By: #### [id number] #### [facility] [address] [place] [address] 37550SHIVGFWXNQAiadtjw By: Millie Lagos on 86-16-8324Rfkokcvve Ql (U)NegativeNormalNegativemg/dLFTMC UA Auto SSClarity (U)Clear (09/06/23 6:52 PM)NormalClearFSAINT FRANCIS [facility] U[facility] Auto SSColor (U)Light-Yellow 1 (09/06/23 6:52 PM)NormalYellowNORMAN SPECIALTY [facility] UA Auto SSComment on above:Interpretive Data: Microscopic readings are only performed on those samples that meet specific criteria set forth by [facility].Epithelial cells.squamous Auto (Urine sed) [#/Area]0-2 graded/HPFNormal0-2graded/HPFNORMAN SPECIALTY HOS[facility]ITAL [facility] UA Auto SSGlucose Ql (U)NegativeNormalNegativemg/dLNORMAN SPECIALTY HOSPITAL [facility] UA Auto SSHemoglobin Auto test strip (U) [Mass/Vol]1+ *ABN* (09/06/23 6:52 PM)Invalid Interpretation CodeNegativeNORMAN [facility]TY [facility] UA Auto SSKetones Auto test strip Ql (U)NegativeNormalNegativemg/dLNORMAN SPECIALTY HOSPITAL [facility] UA Auto SSLeukocyte esterase Auto test strip Ql (U)Negative (09/06/23 6:52 PM)NormalNegativeNORMAN SPECIALTY [facility] UA Auto SSMucus Auto Ql (U)TraceNormal NegativeNORMAN SPECIALTY [facility] Auto SSNitrite Auto test strip Ql (U)NegativeNormalNegativemg/dL [facility] Auto SSpH (U)6.5 (09/06/23 6:52 PM)Normal5.0 - 9.0[facility] Auto SSProtein Ql (U)NegativeNormal Negativemg/dLNORMAN SPECIALTY H[facility] UA Auto SSRBC Ql (U)4-20 graded/HPFInvalid Interpretation Code 0-3graded/HPFNORMAN SPECIALTY H[facility] UA Auto SSSpecific gravity (U) [Rel density]1.017 (09/06/23 6:52 PM)Normal1.005 - 1.030[facility]A Auto SSUrobilinogen (U) [Mass/Vol] NegativeNormalNegativemg/dLNORMAN SPECIALTY H[facility] UA Auto SSWBC Auto (Urine sed) [#/Area]0-5 graded/HPFNormal0-5graded/HPFNORMAN SPECIALTY HOS[facility]ITAL [facility] UA Auto SSURINALYSISOrdered By: Chino Pennington on 94-65-6859ML Spec DescClean Catch (09/06/23 6:52 PM)NormalNORMAN SPECIALTY HOS[facility] UA Auto SS Vital Signs Date TimeVital SignValuePerforming LofxmmfibOhahhtev77-66-8970 13:44-0400Body oizdux77.45 kgBenjamin Ball DO Work Phone: 1(702)[address] [place], [place] 9074410-21-2025 13:44-0400 Diastolic blood azskrroo44 mm[Hg]Rj Ball DO Work Phone: 1(905)[address] [place], [place] 9074410-21-2025 13:44-0400 Heart rate70 /minBenjamin Ball DO Work Phone: 1(168)[address] [place], [place] 9074410-21-2025 13:44-0400 SaO2% (BldA) [Mass fraction]98 %Rj Ball DO Work Phone: 1(123)[address] [place], [place] 9074410-21-2025 13:44-0400 Systolic blood qxxcduqx978 mm[Hg]Rj Ball DO Work Phone: 1(804)[address] [place], [place] 9074407-21-2025 15:18-0400 Body vpemwv267.48 cmBenjamin Ball DO Work Phone: 1(611)[address] [place], [place] 9074407-21-2025 15:18-0400 Body mass index (BMI) [Ratio]26.6 kg/j7Pmccyila Ball DO Work Phone: 1(951)[address] [place], [place] 9074407-21-2025 15:18-0400 Body wbujjl16.99 kgBenjamin Ball DO Work Phone: 1(905)[address] [place], [place] 9074407-21-2025 15:18-0400 Diastolic blood vqiimgxv28 mm[Hg]Rj Ball DO Work Phone: 1(557)[address] [place], [place] 9074407-21-2025 15:18-0400 Heart rate71 /minBenjamin Ball DO Work Phone: 1(308)[address] [place], [place] 9074407-21-2025 15:18-0400 Respiratory rate12 /minBenjamin Ball DO Work Phone: 1(353)[address] [place], [place] 9074407-21-2025 15:18-0400 Systolic blood kqejnicz554 mm[Hg]Rj Ball DO Work Phone: 1(337)[address] [place], [place] 9074407-09-2025 09:31-0400 Body flaluc918.48 cmBenjamin Ball DO Work Phone: 1(539)[address] [place], [place] 9074407-09-2025 09:31-0400 Body mass index (BMI) [Ratio]26.9 kg/n9Xwbrqcoi Ball DO Work Phone: 1(379)[address] [place], [place] 9074407-09-2025 09:31-0400 Body nomwxk84.73 kgBenjamin Ball DO Work Phone: [address] [place], [place] 9074407-09-2025 09:31-0400 Diastolic blood mm[Hg]Rj Ball DO Work Phone: 1(632)[address] [place], [place] 9074407-09-2025 09:31-0400 Heart rate67 /minBenjamin Ball DO Work Phone: 1(023)[address] [place], [place] 9074407-09-2025 09:31-0400 Respiratory rate12 /minBenjamin Ball DO Work Phone: 1(483)[address] [place], [place] 9074407-09-2025 09:31-0400 Systolic blood yfprfxal475 mm[Hg]Rj Ball DO Work Phone: 1(309)[address] [place], [place] 9074407-03-2025 11:37-0400 Body thwnqa308.48 cmBenjamin Ball DO Work Phone: 1(936)[address] [place], [place] 9074407-03-2025 11:37-0400 Body mass index (BMI) [Ratio]26.9 kg/q7Zynbiaya Ball DO Work Phone: 1(466)[address] [place], [place] 9074407-03-2025 11:37-0400 Body .67 kgBenjamin Ball DO Work Phone: 1(858)[address] [place], [place] 9074407-03-2025 11:37-0400 Diastolic blood ausxdeto64 mm[Hg]Rj Ball DO Work Phone: 1(585)[address] [place], [place] 9074407-03-2025 11:37-0400 Heart rate65 /minBenjamin Ball DO Work Phone: 1(943)685-[address] [place], [place] 8123607-03-2025 11:37-0400 SaO2% (BldA) [Mass fraction]98 %Rj Ball DO Work Phone: 1(959)[facility] [place], [place] 8123607-03-2025 11:37-0400 Systolic blood kjizwluq859 mm[Hg]Rj Ball DO Work Phone: 1419)[address] [place], [place] 9074406-27-2025 10:34-0400 Body vumrpr175.48 cmBenjamin Ball DO Work Phone: 1419)[address] [place], [place] 9074406-27-2025 10:34-0400 Body mass index (BMI) [Ratio]26.5 kg/d5Ozgdwtne Ball DO Work Phone: 1419)[address] [place], [place] 9074406-27-2025 10:34-0400 Body trhikb85.77 kgBenjamin Ball DO Work Phone: 1(658)[address] [place], [place] 9074406-27-2025 10:34-0400 Diastolic blood aqcojcfc22 mm[Hg]Rj Ball DO Work Phone: 1(317)[address] [place], [place] 9074406-27-2025 10:34-0400 Heart rate64 /minBenjamin Ball DO Work Phone: 1(529)[facility] [place], [place] 8123606-27-2025 10:34-0400 Respiratory rate12 /minBenjamin Ball DO Work Phone: 1(825)[address] [place], [place] 9074406-27-2025 10:34-0400 SaO2% (BldA) [Mass fraction]98 %Rj Ball DO Work Phone: 1(673)[address] [place], [place] 9074406-27-2025 10:34-0400 Systolic blood uewjsjvw740 mm[Hg]Rj Ball DO Work Phone: 1(963)[address] [place], [place] 9074404-30-2025 14:55-0400 Body yzuehi406.48 [facility]04[facility] 14:55-0400Body mass index (BMI) [Ratio]27.1 kg/f3SdkqdzmvqPeoples Hospital04-30-2025 14:55-0400Body .13 kgPe[facility] Hospital04-30-2025 14:55-0400Diastolic blood xhhrcezw12 mm[Hg][facility] 08-15-2024 14:55-0400Heart rate65 /[facility] 08-15-2024 14:55-0400Respiratory rate12 /[facility] 08-15-2024 14:55-8307TuO2% (BldA) [Mass fraction]98 %[facility]04-30-2025 14:55-0400Systolic blood tsopgurq565 mm[Hg][facility]03-20-2025 12:55-0400Body xwaceg288.5 Nory BURT Work Phone: [phone] HospitalJthpryndfp04-03-5166 12:55-0400Body mass index (BMI) [Ratio]27.07 kg/m2Misti BURT Work Phone: [phone] HospitalExzbztsmse56-67-3595 12:55-0400Body idjpoy11.13 Ashly BURT Work Phone: [phone] HospitalJtxsjsgxzt25-35-1533 12:55-0400Diastolic blood anfhleos75 mm[Hg]Misti Berger PA Work Phone: [phone] HospitalKeecmnhfvj78-49-8166 12:55-0400Heart rate60 /min Misti Berger PA Work Phone: 1([phone])709-8[facility] HospitalQkoudwrtac05-29-5027 12:55-0400Respiratory rate16 /minMisti Berger PA Work Phone: [phone]-[facility] HospitalQpybncsofa25-82-2481 12:55-1816DgC6% (BldA) [Mass fraction]97 %Misti BURT Work Phone: NOCox SouthWjzwyvkqoz78-43-0485 12:55-0400Systolic blood bxgmdyol002 mm[Hg]Misti BURT Work Phone: NOCox SouthLzbkxjvzoz08-79-7198 13:08-0400Body wtwjqu311.5 Nory Berger PA Work Phone: [facility] HospitalOcwzchopaz25-83-6293 13:08-0400Body mass index (BMI) [Ratio]26.52 kg/m2Misti Berger PA Work Phone: [facility] HospitalEvbrydlkqx39-60-8317 13:08-0400Body ixhxbd10.77 kgMisti Berger PA Work Phone: NOC[facility] SouthPmcygjpval76-04-1133 13:08-0400Diastolic blood camxsmyg23 mm[Hg]Misti BURT Work Phone: NOC[facility] SouthTmgzpbmauj04-14-3603 13:08-0400Heart rate61 /min Misti Berger PA Work Phone: [facility] HospitalKcqpommbaq75-68-7645 13:08-0400Respiratory rate16 /minMisti Berger PA Work Phone: [facility] HospitalTabthakjba27-37-1087 13:08-2478ArW0% (BldA) [Mass fraction]94 %Misti BURT Work Phone: [facility] HospitalKfjyasqwpp23-32-8897 13:08-0400Systolic blood eptzseyy635 mm[Hg]Misti Berger PA Work Phone: [facility] HospitalQfxutwbalr17-48-4826 09:09-0400Diastolic blood fjirltxx11 mm[Hg]Dot Ritter [facility]09-11-2024 09:09-0400Heart rate74 /minDot Ritter [facility]09-11-2024 09:09-0400 Systolic blood vkwedkdn638 mm[Hg]Dot Ritter [facility]09-05-2024 13:17-0400Body .5 cmAsavi Berger PA Work Phone: [facility] HospitalUxzdllvhyi07-75-5024 13:17-0400Body mass index (BMI) [Ratio]26.7 kg/m2Misti Berger PA Work Phone: [facility] HospitalCeqniqxluo84-91-4018 13:17-0400Body .22 kgMisti Berger PA Work Phone: NOC[facility] SouthXtcawuuxlv19-01-0059 13:17-0400Diastolic blood sxibiucj95 mm[Hg]Misti BURT Work Phone: [facility]OC[facility] SouthXnrowpbvjh18-69-8840 13:17-0400Heart rate64 /min Misti BURT Work Phone: [facility]OCox SouthVgpiqmebge74-70-5319 13:17-0400Respiratory rate16 /minMisti BURT Work Phone: NOC[facility] SouthJwuzvxpufu96-29-2181 13:17-1613ZbN1% (BldA) [Mass fraction]96 %Misti BURT Work Phone: NOC[facility] SouthAajccajtvn30-86-4302 13:17-0400Systolic blood lwcelvxl733 mm[Hg]Misti BURT Work Phone: [facility] HospitalTycwzmcpkf06-90-7529 10:40-0400Diastolic blood ubvjpgoi40 mm[Hg]Breanne Hopkinstine [facility]07-17-2024 10:40-0400Heart rate70 /minMansoorta Sandeeptine [facility]07-17-2024 10:40-0400 Systolic blood vbruqebw376 mm[Hg]Breanne Nealenstine [facility]05-31-2024 17:00-0400 Hourly RoundingPatrick SHELLY [facility]05-31-2024 17:00-0400 Promise to ReturnPatrick SHELLY [facility]05-31-2024 16:36-0400 Hourly RoundingPatrick SHELLY [facility]05-31-2024 16:36-0400 Promise to ReturnPatrick SHELLY [facility]05-31-2024 16:13-0400Heart wdwn187 /minPatrick SHELLY [address] [place], [place] 4562305-31-2024 16:13-6662LiR0% (BldA) [Mass fraction]96 %Billy WOODSLIN [address] [place], [place] 4562305-31-2024 16:13-0400 Diastolic blood bwhcuxqp52 mm[Hg]Billy WOODSLIN [address] [place], [place] 4562305-31-2024 16:13-0400Mean blood tddfolug34 mm[Hg]Billy WOODSLIN [address] [place], [place] 4562305-31-2024 16:13-0400 Systolic blood ykvsljxe714 mm[Hg]Billy WOODSLIN [address] [place], [place] 4562305-31-2024 15:28-0400 Hourly RoundingPatrick SHELLY [address] [place], [place] 4562305-31-2024 15:28-0400 Promise to ReturnPatrick SHELLY [address] [place], [place] 4562305-31-2024 13:05-0400 Diastolic blood yaoykmtg70 mm[Hg]Billy WOODSLIN [address] [place], [place] 4562305-31-2024 13:05-0400Heart rate94 /minPatrick SHELLY [address] [place], [place] 4562305-31-2024 13:05-0400Mean blood xoswgckw22 mm[Hg]Billy WOODSLIN [address] [place], [place] 4562305-31-2024 13:05-0400 Respiratory rate16 /minPatrick SHELLY [address] [place], [place] 4562305-31-2024 13:05-0400 Systolic blood qarkpfkp306 mm[Hg]Billy WOODSLIN [address]05-31-2024 11:56-0400Heart rate94 /minPatrick SHELLY [address] [place], [place] 4562305-31-2024 11:56-9304CgK0% (BldA) [Mass fraction]98 %Billy BRAVO [address] [place], [place] 4562305-31-2024 11:55-0400Body pqcmbytrtpk25.24 [degF]Billy BRAVO [address] [place], [place] 4562305-31-2024 11:55-0400 Diastolic blood yrztaftp39 mm[Hg]Billy BRAVO [address] [place], [place] 4562305-31-2024 11:55-0400Mean blood mm[Hg]Billy BRAVO [address] [place], [place] 4562305-31-2024 11:55-0400 Systolic blood egnspmsz019 mm[Hg]Billy BRAVO [address] [place], [place] 4562305-31-2024 08:55-0400Heart gajz961 /minPatrick SHELLY [address] [place], [place] 4562305-31-2024 08:55-0400Mean blood ivcxiqxm50 mm[Hg]Billy BRAVO [address] [place], [place] 4562305-31-2024 08:55-0400 Respiratory rate16 /minPatrick SHELLY [address] [place], [place] 4562305-31-2024 08:55-2687QyE0% (BldA) [Mass fraction]98 %Billy BRAVO [address] [place], [place] 4562305-31-2024 08:54-0400Heart pwag370 /minPatrick SHELLY [address] [place], [place] 4562305-31-2024 08:53-0400Body omvvdmlltuy06.88 [degF]Billy BRAVO [address] [place], [place] 4562305-31-2024 08:53-0400Mean blood pgiufhxh60 mm[Hg]Billy BRAVO [address] [place], [place] 4562305-31-2024 00:22-0400Blood Pressure LocationPadeepak BRAVO [address] [place], [place] 4562305-31-2024 00:22-0400Body xusrknfqtuh22.24 [degF]Billy BRAVO [address] [place], [place] 4562305-31-2024 00:22-0400Mean blood djvmyuna36 mm[Hg]Billy BRAVO [address] [place], [place] 4562305-31-2024 00:22-0400 Respiratory rate20 /minPatrick SHELLY [address] [place], [place] 4562305-30-2024 19:52-0400Body acaaysvzccx39.6 [degF]Billy BRAVO [address] [place], [place] 4562305-30-2024 12:20-0400Blood Pressure LocationWideepak BRAVO [address] [place], [place] 4562305-30-2024 12:20-0400Body tojaatarori86.16 [degF]Billy BRAVO [address]05-30-2024 12:20-0400 Respiratory rate10 /minPatrick SHELLY [address] [place], [place] 4562305-30-2024 12:15-0400Blood Pressure LocationPatriclanette BRAVO [address] [place], [place] 4562305-30-2024 12:15-0400 Respiratory rate12 /minPatrick SHELLY [address] [place], [place] 4562305-30-2024 12:05-0400 Respiratory rate9 /minPatrick SHELLY [address] [place], [place] 4562305-30-2024 11:43-0400Body edlonbweovp46.16 [degF]Billy BRAVO [address]05-30-2024 05:00-0400Heart rate86 /minPatrick SHELLY [address] [place], [place] 4562305-30-2024 00:40-0400Body nkyueatyqme77.7 [degF]Billy BRAVO [address] [place], [place] 4562305-29-2024 18:00-0400gluc 111 mg/dLPatrick SHELLY [address] [place], [place] 4562305-29-2024 15:00-0400Body glfsjleutjm04.52 [degF]Billy BRAVO [address]05-29-2024 11:00-0400gluc 112 mg/dLPatrick SHELLY [address] [place], [place] 4562305-27-2024 12:00-0400gluc 86 mg/dLPatrick SHELLY [address] [place], [place] 4562305-22-2024 07:00-5355AXA4 40 1Patrick SHELLY [address] [place], [place] 4562305-21-2024 17:45-0400gluc Billy WOODSLIN [address] [place], [place] 1091405-16-2024 10:53-0400Body sjgaaz210.48 cmDO Rj Velasquez Work Phone: [facility]05-16-2024 10:53-0400 Body mass index (BMI) [Ratio]26.7 kg/m2DO Rj Velasquez Work Phone: [facility]05-16-2024 10:53-0400 Body oxtyrb51.39 kgDO Rj Ball Work Phone: [facility]05-16-2024 10:53-0400 Diastolic blood udzrhmce65 mm[Hg]DO Rj Ball Work Phone: [facility]05-16-2024 10:53-0400 Heart rate76 /minDO Rj Ball Work Phone: [facility]05-16-2024 10:53-0400 Respiratory rate12 /minDO Rj Ball Work Phone: [facility]05-16-2024 10:53-0400 Systolic blood nkdvlrsy714 mm[Hg]DO Rj Ball Work Phone: [facility]05-10-2024 10:35-0400 Body utkodz113.48 cmPe[facility]05-10-2024 10:35-0400Body mass index (BMI) [Ratio]26.9 kg/i2IclozjiqzPeoples Hospital05-10-2024 10:35-0400Body qqcuuw54.81 kgPe[facility] Hospital05-10-2024 10:35-0400Diastolic blood bfxlzzxa87 mm[Hg][facility] 08-26-2023 10:35-0400Heart rate76 /[facility] 08-26-2023 10:35-0400Respiratory rate12 /[facility] 08-26-2023 10:35-0400Systolic blood lxnohtqz379 mm[Hg][facility]12-13-2023 09:30-0500Body ffcbyh119.48 cmBenjamin Ball Other [employer] Other 12-13-2023 09:30-0500Body mass index (BMI) [Ratio] 26.15 kg/n7Rqwvwdrc Ball Other [employer] Other 12-13-2023 09:30-0500Body znrvko78.86 kgBenjamin Ball Other [employer] Other 12-13-2023 09:30-0500Diastolic blood wkkajsvx16 mm[Hg] Rj Ball Other [employer] [employer] Other 12-13-2023 09:30-0500Respiratory rate12 /minBenjamin Ball Other [employer] Other 12-13-2023 09:30-0500Systolic blood txrwmdje130 mm[Hg] Rj Ball Other [employer] Other 12-01-2023 15:30-0500Body lahihs654.48 cmBenjamin Ball Other [employer] Other 12-01-2023 15:30-0500Body mass index (BMI) [Ratio] 27.72 kg/n6Fsuikgzq Ball Other [employer] Other 12-01-2023 15:30-0500Body evfdwv00.77 kgBenjamin Ball Other [employer] Other 12-01-2023 15:30-0500Diastolic blood zeyikajk21 mm[Hg] Rj Ball Other [facility] [employer] Other 12-01-2023 15:30-0500Respiratory rate12 /minBenjamin Ball Other [employer] Other 12-01-2023 15:30-0500Systolic blood rgackfrf206 mm[Hg] Rj Ball Other [employer] Other 06-27-2023 14:00-0400Body kajqsw494.48 cmBenjamin Ball Other [employer] Other 06-27-2023 14:00-0400Body mass index (BMI) [Ratio] 26.88 kg/m3Msjtjgyl Ball Other [employer] Other 06-27-2023 14:00-0400Body bikcar29.68 kgBenjamin Ball Other [employer] Other 06-27-2023 14:00-0400Diastolic blood kzxgzegg13 mm[Hg] Rj Ball Other [employer] Other 06-27-2023 14:00-0400Respiratory rate12 /minBenjamin Ball Other [employer] Other 06-27-2023 14:00-0400Systolic blood jodbjwqu400 mm[Hg] Rj Ball Other [employer] Other 04-21-2022 15:00-0400Body cilztj743.48 cmDale Aldana Other [employer] Other 04-21-2022 15:00-0400Body mass index (BMI) [Ratio]25.6 kg/m2Dale Aldana Other [employer] Other 04-21-2022 15:00-0400Body nrhlie88.5 kgDale Aldana Other [employer] Other Encounters Encounter DateEncounter TypeCare ProviderFacilityStart: 02-05-2025 End: 39-14-0388dewhsfrdmgGkshjejm Ball DO Work Phone: [phone]-[facility] NeurologyStart: 02-05-2025 End: 20-57-0358Hlxvyum encounter procedureChristopher Javier M [facility] Work Phone: Start: 11-05-2024 End: 70-01-7326fxnaynzvnkFgmlfuao Ball DO Work Phone: [facility] Work Phone: Start: 11-05-2024 End: 16-33-3522Daqkzkb encounter procedureBenjamin Ball DO-[facility] Work Phone: Start: 10-24-2024 End: 34-85-2401itjsrqilnzFwbrbkeb Ball DO Work Phone: [facility] Work Phone: Start: 10-24-2024 End: 93-08-0322Glbixrq encounter procedureBenjamin Ball DO-[facility] Work Phone: Start: 10-18-2024 End: 99-12-5554gabgbhogiaDlkzqrbp Ball DO Work Phone: [facility] Work Phone: Start: 10-18-2024 End: 14-79-7382Xljlkjz encounter procedureBenjamin Ball DO-[facility] Work Phone: Start: 10-12-2024 End: 44-95-6331atbcrwaoqvSmgbbqyv Ball DO Work Phone: [facility] Work Phone: Start: 10-12-2024 End: 99-70-5578Dkcboyt encounter procedureBenjamin Ball DO-[facility] Work Phone: start: 08-15-2024 End: 48-73-4168ylulpcxuqnBogxigspeMount Carmel Health System Work Phone: Start: 08-15-2024 End: 80-29-5664Ohxiyrx encounter procedureFirelands Physician Group-[facility] Work Phone: Start: 07-05-2024 End: 67-18-4734Dtcnpl outpatient visit 15 Cecilia Ab BURT Work Phone: aNA BELLEVUEComment on above:Myasthenia gravis (CMS/HCC) (Primary Dx)Start: 07-05-2024 End: 09-04-8856fspzrzvqymMGTR HILLNot AvailableStart: 12-38-7342Jmsqmcu encounter [facility]-19-2024 End: 30-54-1718Heawke Eddie Berger PA Work Phone: [facility]TEStart: 01-19-2024 End: 76-45-4656Ujsdfu Eddie Berger PA Work Phone: [facility]TEStart: 01-19-2024 End: 61-48-7454Ztoagh outpatient visit 15 minutesMisti Ab PA Work Phone: [facility] STATE ROUTEComment on above:Myasthenia gravis (CMS/HCC) (Primary Dx)Start: 01-19-2024 End: 57-39-5069pvqemvbtnrBYUV HILLNot AvailableStart: 01-11-2024 End: 42-85-0659Kbp-[facility] Healthestefany Ardon [facility] Start: 12-22-2023 End: 35-19-8732Kwurdd Eddie Berger PA Work Phone: [facility]TEStart: 12-22-2023 End: 54-13-2096Prmyqs Eddie Berger PA Work Phone: [facility]TEStart: 12-22-2023 End: 86-00-2091Qyhkxs outpatient visit 25 minutesMisti Ab PA Work Phone: [facility] STATE ROUTEComment on above:Myasthenia gravis (CMS/HCC) (Primary Dx)Start: 12-22-2023 End: 90-60-3867lkvqbxcbwfGAON HILLNot AvailableStart: 11-02-2023 End: 59-17-0391zzszvbqhetKjedunl C. RobenstineFacility:FTMCStart: 11-02-2023 End: 56-81-5762Jdrkexz encounter procedureBreanne Zuleta [facility] Start: 10-19-2023 End: 62-62-4193ewczomloewUHWIDUOZ BALLFacility:FTMCStart: 10-19-2023 End: 62-68-9564Owygvbi encounter procedureBEDELANEY RON [facility] Start: 10-06-2023 End: 29-31-3018dxquatnwhfEDFB HILLNot AvailableStart: 09-29-2023 End: 83-32-2222Rabeoql encounter procedureDO De La Rosa Ron Work Phone: [facility] Work Phone: Start: 09-29-2023 End: 89-21-4200klzmfhmdejMV Rj [place] Work Phone: [facility] Work Phone: Start: 71-74-7042Olfrmtujgg and management of inpatientDO Jass [place] MoniqueFacility:FTMCStart: 09-06-2023 End: 23-83-0269Nejijavkfw and management of inpatientPatrick A SHELLY Facility:FTMCStart: 91-76-0761Wpsunljxw department [facility]Mer[facility] Facility:FTMCStart: 09-06-2023 End: 51-95-5816Ttitfzcdlw and management of inpatientPatrick A SHELLY [facility] Start: 09-01-2023 End: 97-87-1667Pvfcncr encounter procedureDO Rj Ron Work Phone: [facility] Work Phone: Start: 08-26-2023 End: 01-32-8217mmvdwihdteZsegqrkdmMount [facility] Work Phone: Start: 08-26-2023 End: 91-31-8122Pqprlrd encounter procedureC[facility] Work Phone: Start: 36-53-5628Zza-patient / Non-visitC[facility] [employer] Work Phone: Start: 03-30-2023 End: 59-33-6954qyzmxtghesEpekmtzk Ball Other [employer] Other Start: 40-81-8149Lphblj outpatient visit 15 minutes Rj BallFPG Ball Medical ClinicStart: 03-22-2023 End: 24-18-1855adtbrfipglPdkvljbz Ball Other [employer] Other Start: 51-92-9873Mwybmzdjl encounterBenjamin BallFPG [facility] Medical ClinicStart: 03-21-2023 End: 37-18-5846qalfgevnjoLelpudqn Ball Other [employer] Other Start: 54-40-2392Dyzahyuvy encounterBenjamin BallFPG [facility] ClinicStart: 03-18-2023 End: 56-76-8917vzcyvvdmysPmyokgka Ball Other [employer] Other Start: 44-54-2816Seiaau outpatient visit 15 minutes Rj BallFP[facility] ClinicStart: 12-07-2022 End: 99-90-8657jnevbfswayLkmtmvek Ball Other [employer] Other Start: 50-18-7293Edzdxqlsw encounterBenjamin BallFP[facility] ClinicStart: 10-12-2022 End: 52-87-0337eihzyhpdiqJarazomc Ball Other [employer] Other Start: 14-96-7462Awrzduy encounter procedureBedelaney Velasquez Medical ClinicStart: 09-15-2022 End: 25-36-5921mjidjvagtuMzydbyou Ball Other [facility] [employer] Other Start: 99-34-3447Sigkmthra encounterBensharonda Velasquez Medical ClinicStart: 08-05-2022 End: 18-70-9596pmzlandhofPL RJ VELASQUEZFacility:N7Fytmc: 06-30-2022 End: 01-09-3705mqbtzlejbgOwbzwbpg Ball Other [facility] [employer] Other Start: 56-85-6383Aheitsrbk encounterBedelaney Velasquez Medical ClinicStart: 05-06-2022 End: 10-50-4613gzqldmcmadGC NO S LITTLE .Facility:V0Sndvs: 02-10-2022 End: 76-53-8760cuiyoloopoOC NO S LITTLE .Facility:P8Bbjdp: 01-19-2022 End: 15-89-7719zuzodkmhhaPE NO S LITTLE .Facility:D6Ertwm: 01-12-2022 End: 04-07-8561xtyflpfmzdFN NO S LITTLE .Facility:Z8Oemij: 10-30-2021 End: 23-31-5725eynoycdirxZOFDA VIMAL .Facility:J7Gybog: 10-09-2021 End: 41-74-5225wxwsgltyfkXTZPJ VIMAL .Facility:T6Cizzm: 93-70-2089Bxlza health examinationBedelaney Velasquez Other [facility] [employer] Other Start: 09-18-2021 End: 55-66-0371pwigqlwozfZGMEY VIMAL .Facility:J3Twecx: 08-28-2021 End: 09-96-3667jqafcocwcvBrhfho Felter Other [facility] [employer] Other Start: 48-68-8636Ctlhcqflh encounterThomas RanEstelaEvonne Referral CoordinatorStart: 08-06-2021 End: 80-84-6071nmmiznehklZmxy Jovan Other [employer] Other start: 56-76-1415Qaisol outpatient new 30 minutesDale BraunFPG [facility] NeurosurgeryStart: 08-11-2018 End: 54-60-0866Ptltibg encounter procedureDEFAULT PHYSICIANFacility:[facility] Procedures DateProcedureProcedure DetailPerforming ClinicianStart: 56-83-7973Ziobwvpidteo endoscopic gastrostomyPatrick SHELLY Start: 04-73-7338Jtohhzntzn screeningRj Velasquez Other Start: 01-08-2014 End: 77-91-9342Gkumsyp examination of patientRj Velasquez Other Plan of Treatment DateCare ActivityDetailAuthorStart: 02-05-2025 End: 88-73-5355Vketboe encounter elvfsiupr77/21/2025 1:00 PM EDT Office Visit [facility] [place] [address] [place] [phone] Misti Berger PA [address] [place] [address] [facility] CONCEPCIONEVUEStart: 05-09-2024 End: 49-05-8997Xflofmz encounter yqrehkjcc10/22/2025 1:00 PM EST Office Visit [facility] [place] [address] [place] [phone] Misti Berger PA [address] [place] [address] [facility] [place] [facility]TEStart: 01-19-2024 End: 64-25-8112Seweysh encounter procedureNOMS [place] [facility] ROUTEComment on above:ArrivedStart: 12-22-2023 End: 10-08-6533Sljeans encounter bhacifvmu68/05/2024 1:20 PM EDT Office Visit [facility] [place] [address] [place] [address] Misti Berger PA [address] [place] [address] ArrivedNOMS [place] [facility] ROUTEComment on above: ArrivedStart: 11-58-6357Zpvenzymy vaccinationInfluenza Vaccine (#1)[facility] HealthcareStart: 39-60-1536Injrbshtsehv Vaccine: 65+ Years (1 of 1 - PCV) Pneumococcal Vaccine: 65+ Years (1 of 1 - PCV)[facility] HealthcareMRA Head vessels WO [facility] Immunizations Immunization DateImmunizationNotesCare NkumqkelGieebrdo60-72-4761zmihqplld, high dose seasonal, preservative-freePe[facility] Hospital11-10-2023 influenza, high dose seasonal, preservative-freeBenjamin Ball Other [place] [employer] Other 804439-22-6568pklvvxvej virus vaccine, unspecified formulationPeoples Hospital11-04-2021COVID-19 Vaccine Moderna - Documentation Purposes OnlyBenjamin Ron Other Peoples HospitalComment on above: Result Comment: 2023-10-31: [id number] Vaccine Moderna - Documentation Purposes OnlyBenjamin Ball Other [facility]02-18-2021COVID-19 Vaccine Moderna - Documentation Purposes OnlyBenjamin Ball Other [facility]05-23-2017diphtheria, tetanus toxoids and acellular pertussis vaccine, unspecified formulation Rj Velasquez Other [facility] Payers DatePayer CategoryPayerPolicy [id number] Cross Blue ShieldBCBS Member Subscriber Plan / Payer (Effective 2011-Present) Name: Genesis Conte Ann Relation to Subscriber: Self Name: Genesis Conte Ann Payer ID: Not on file Type: Not on file Address: [address] [id number].[id number].3.670076.58989-80-9865OrkjKayenta Health [id number] 2..3.913432.964419 [id number] 2.16840.6.16453[id number] 2.0.1.873961.3.579.2.647 [id number] 2.840.1.470037.3.57[id number] 2..1.033598.3.57[id number] 2.16840.1.290560.3.57[id number] 2.16840.1.037220.3.57[id number] 2.16840.1.894846.3.57[id number] 2.16840.1.279792.3.57[id number] 2.16.840.1.767413.3.579.2.05495-38-0132Akdlukr3450986 2..840.1.761006.3.579.[id number] 2.16.840.1.500253.3.579.[id number] 2.840.1.874151.3.579.2.8[id number] 2.840.1.817174.3.579.[id number] 2.840.1.889865.3.579.2.[id number] 2.840.1.283221.3.579.[id number] 2.840.1.908435.3.579.2.[id number] 2.840.1.612591.3.579.[id number] 2.840.1.514225.3.579.2.[id number] 2.840.1.598477.3.579.2.[id number] 2.840.1.226702.3.579.[id number] 2.840.1.418204.3.579.2.89585-03-4188Igafjlo64764099 2.16840.1.850269.3.579.[id number] 2.16.840.1.379289.3.579.[id number] 2..840.1.910827.3.579.2.56561-77-5446Jmfyxhi3707992 2.16.840.1.022102.3.579.2.022323-46-2648Zwjpftm9328024 2..840.1.617089.3.579.2.454747-74-8472Sydtaiw9623471 2..840.1.148706.3.579.2.119122-45-6313Abrdopl8748767 2..840.1.913403.3.579.2.5470Szpbkef08319522 2..840.1.994575.3.579.2.531 Social History DateTypeDetailFacilitySex Assigned At [facility]ertart: 35-56-6967Cah [facility]igned At [facility]art: 09-06-2023 End: 66-44-1908Ygelsgj smoking statusNever smoked tobacco (finding)[facility] CenterTobacco smoking status NHISTobacco smoking consumption unknownAMERICAN FORK [facility] HealthcareStart: 83-22-4468Vta assigned at birthNot on fileAMERICAN FORK HOSPITAL HealthcareStart: 39-81-2920RzpCngolp (finding)[facility] Functional Status BzcvBcvqqfxbfoTpmifuRgafvijj22-06-4759Hqhnehyqvz StatusN/AFearl Kennedy Krieger InstitutePsksxz11-37-2914Ruwnkskzqy StatusBarney Children'S Medical Center Clinical Notes 08-31-2019 to 08-15-2024 Note Date & MhxjUsiqSdbeplyr39-89-9721 Evaluation note* Diagnosis Onset Date Resolution Status Admit Date Cerebral atherosclerosis acuteApril 2024 2:53pmGERD (gastroesophageal reflux disease)acuteApril 2024 2:53pmHypercholesterolemiaacuteApril 2024 2:53pmLung nodule acuteApril 2024 2:53pmMyasthenia gravisacuteApril 2024 2:53pm Paroxysmal atrial fibrillationacuteApril 2024 2:53pmPrimary hypertension acuteApril 2024 2:53pm [facility] Work Phone: 1(527) 659-286604-30-2025 Evaluation note* Diagnosis Onset Date Resolution Status Admit Date Cerebral atherosclerosis acuteApril 2024 2:53pmGERD (gastroesophageal reflux disease)acuteApril 2024 2:53pmHypercholesterolemiaacuteApril 2024 2:53pmLung nodule acuteApril 2024 2:53pmMyasthenia gravisacuteApril 2024 2:53pm Paroxysmal atrial fibrillationacuteApril 2024 2:53pmPrimary hypertension acuteApril 2024 2:53pmContusion of right kneeacuteJune 2024 10:30am Swelling of right lower extremityacuteJune 2024 10:30amTraumatic hematoma of right kneeacuteJune 2024 10:30amContusion of right kneeacuteJuly 2024 11:17amSwelling of right lower extremityacuteJuly 2024 11:17am Traumatic hematoma of right kneeacuteJuly 2024 11:17am [facility] Work Phone: 1(894) 512-263804-30-2025 Evaluation note* Diagnosis Onset Date Resolution Status Admit Date Cerebral atherosclerosis acuteApril 2024 2:53pmGERD (gastroesophageal reflux disease)acuteApril 2024 2:53pmHypercholesterolemiaacuteApril 2024 2:53pmLung nodule acuteApril 2024 2:53pmMyasthenia gravisacuteApril 2024 2:53pm Paroxysmal atrial fibrillationacuteApril 2024 2:53pmPrimary hypertension acuteApril 2024 2:53pmContusion of right kneeacuteJune 2024 10:30am Swelling of right lower extremityacuteJune 2024 10:30amTraumatic hematoma of right kneeacuteJune 2024 10:30amContusion of right kneeacuteJuly 2024 11:17amSwelling of right lower extremityacuteJuly 2024 11:17am Traumatic hematoma of right kneeacuteJuly 2024 11:17amContusion of right kneeacuteJuly 2024 9:08amSwelling of right lower extremityacuteJuly 2024 9:08amTraumatic hematoma of right kneeacuteJuly 2024 9:08am [facility] Work Phone: 1(759) 752-207904-30-2025 Evaluation note* Diagnosis Onset Date Resolution Status Admit Date Cerebral atherosclerosis acuteApril 2024 2:53pmGERD (gastroesophageal reflux disease)acuteApril 2024 2:53pmHypercholesterolemiaacuteApril 2024 2:53pmLung nodule acuteApril 2024 2:53pmMyasthenia gravisacuteApril 2024 2:53pm Paroxysmal atrial fibrillationacuteApril 2024 2:53pmPrimary hypertension acuteApril 2024 2:53pmContusion of right kneeacuteJune 2024 10:30am Swelling of right lower extremityacuteJune 2024 10:30amTraumatic hematoma of right kneeacuteJune 2024 10:30amContusion of right kneeacuteJuly 2024 11:17amSwelling of right lower extremityacuteJuly 2024 11:17am Traumatic hematoma of right kneeacuteJuly 2024 11:17amContusion of right kneeacuteJuly 2024 9:08amPrepatellar bursitis of right kneeacuteJuly 2024 9:08amTraumatic hematoma of right kneeacuteJuly 2024 9:08amContusion of right kneeacuteJuly 2024 2:17pmPrepatellar bursitis of right kneeacute [place] 2024 2:17pmTraumatic hematoma of right kneeacuteJuly 2024 2:17pm [facility] Work Phone: 1(859) 469-128405-31-2024 NoteReport given to Paige VAN @ [facility]. Discharge summary, SBAR, and med rec given faxed to facility. Original paperwork given to daughter. Patient to be transporter by daughter. Tangela VAN updated on POC.[facility]05-31-2024 Evaluation + Plan noteExtracted from:Title: Discharge NoteAuthor:Eliel Carvajal DODate:09/16/23 stable Discharge To, Anticipated II - Care Home Unit Transported by, Anticipated - Family [facility] [place] Discharge Diet(s): Other: Jevity 1.0 goal rate 60 ml/hr. Would require an additional 600 cc free water to meet estimated needs. Provide 25 cc hourly rate (09/16/23 10:44:00) Prescriptions No active prescription medications Home aspirin 81 mg oral capsule, 81 mg= 1 cap(s), PEG, Daily atenolol 25 mg Tab, 25 mg= 1 tab(s), PEG, Daily busPIRone 5 mg Tab, 5 mg= 1 tab(s), PEG, BID CeleXA 20 mg Tab, 20 mg= 1 tab(s), PEG, Daily Eliquis 5 mg oral tablet, 5 mg= 1 tab(s), PEG, BID fexofenadine 180 mg Tab, 180 mg= 1 tab(s), PEG, Daily fluticasone propionate, 50 mcg, Inhalation, Daily Lipitor 40 mg Tab, 40 mg= 1 tab(s), PEG, Daily lisinopril 30 mg Tab, 30 mg= 1 tab(s), PEG, Daily Norvasc 5 mg Tab, 5 mg= 1 tab(s), PEG, Daily omeprazole 40 mg Cap-DR, 40 mg= 1 cap(s), PEG, Daily pyridostigmine 60 mg Tab, 30 mg= 0.5 tab(s), PEG, TID Requip, 1 mg, PEG, Daily With When Contact Information RJ VELASQUEZ In 3 days 09/19/2023 EDT [address] [place] [address]- Business (1) Additional Instructions: Appointment has already been scheduled Keep scheduled appointment Oscar YOU, CLARI Lang Within 2 to [address] [address]- Additional Instructions: This office is closed on Fridays. Please call on Tuesday for a follow up appointment. Thank you. Core Measures: Stroke (Cerebrovascular Accident) [facility] [place], (Custom) Addendum by Eliel Carvajal DO on September 16, 2023 12:02:13 EDT CORRECTION -Jevity now will be Jevity 1.2 with a rate of 55 ml/hour and water at 25 cc an hour flush Extracted from:Title:Progress/SOAP NoteAuthor:Eliel Carvajal DODate: 09/15/23 88-year-old female admitted for myasthenia gravis exacerbation. She was having dysarthria and left laryngeal stridor secondary to the myasthenia. Comorbidities include myasthenia gravis, hypertension, hyperlipidemia, CVA in the past, history of DVT on Eliquis, GERD, restless leg syndrome and depression. 1. Myasthenia gravis in crisis (G70.01: Myasthenia gravis with (acute) exacerbation) - Patient is seropositive for myasthenia gravis; acetylcholine receptor binding antibodies at 12.6;blocking antibody 79%; modulating antibody 75%; muscle specific kinase negative; PQ type voltage-gated calcium channel antibodies negative -Maintain Mestinon 30 mg 3 times daily started on September 06 - Corpak placed due to aspiration noted on modified barium swallow tolerating tube feeds - PEG tube scheduled for placement today by surgery - She did receive 3 days of IVIG September 07 stopping on September 10 2. Dysarthria (R47.1: Dysarthria and anarthria) Stable/resolved 3. 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 Acute hypoxic respiratory failure (J96.01: Acute respiratory failure with hypoxia) On room air 5. Lung nodule (R91.1: Solitary pulmonary nodule) Stable; follow-up in the outpatient setting 6. Hypertension (I10: Essential (primary) hypertension) No antihypertensives; IV hydralazine with BP parameters 7. Hyperlipidemia (E78.5: Hyperlipidemia, unspecified) Stable 8. Chronic GERD (K21.9: Gastro-esophageal reflux disease without esophagitis) Continue IV Protonix 40 mg daily 9. History of CVA in adulthood (Z86.73: Personal history of transient ischemic attack (TIA), and cerebral infarction without residual deficits) Currently on Lovenox subcu twice daily; at discharge monitor to see if her baseline can be placed through the PEG 10. History of DVT in adulthood (Z86.718: Personal history of other venous thrombosis and embolism) Continue Lovenox and SCDs 11. Depression (F32.A: Depression, unspecified) stable 12. Restless leg syndrome (G25.81: Restless legs syndrome) stable Orders: Communication Order Physician to Nursing PLAN: 1. Getting a PEG tube placed this afternoon per trauma surgery 2. Continue Mestinon Will adjust feeds once the PEG tube is in place 3. Continue PT and OT 4. DVT prophylaxis with SCDs and subcu enoxaparin 5. Full CODE STATUS 6. IV PPI for ulcer prophylaxis 7. Discharge planning to the [facility] Extracted from:Title:ANEBarrera Post-operative Note - GeneralAuthor:Tk Garland Jr., DOate:09/15/23 Plan Transfer/Discharge: Transfer/Discharge Discharge when meets criteria ( From PACU to Ambulatory Surgery Unit, and To home ). Extracted from:Title:ANES Pre-operative Note - EndoAuthor:Tk Garland Jr., DOate:09/15/23 Plan [place] [employer] Anesthesiologists (ASA) physical status classification: Class III. Anesthetic Preoperative Plan: Anesthesia General, and -TIVA. Extracted from:Title:APSO Note-neurologyAuthor:Loli VAN, MagoDate:09/15/23 ASSESSMENT: Seropositive myasthenia gravis. Acetylcholine receptor binding antibodies 12.6, blocking antibodies 39%, modulating antibody 75%. Muscle specific kinase negative. P/Q type voltage-gated calcium channel antibody negative. Has persistent dysarthria that is currently requiring nasogastric tube and will require PEG. Her respiratory status has been stable. Status post 1.2 g/kg of IVIG total. PLAN: Continue the pyridostigmine 30 mg 3 times daily, which she is tolerating without sialorrhea. In heroutpatient follow-up this dosage can likely be doubled. I no longer think repetitive nerve stimulation and single-fiber EMG will be necessary, given the antibody positivity and confirm diagnosis. No other recommendation at this time. Outpatient neurology follow-up. 1. Myasthenia gravis in crisis (G70.01: Myasthenia gravis with (acute) exacerbation) 2. Dysarthria (R47.1: Dysarthria and anarthria) 3. 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 Acute hypoxic respiratory failure (J96.01: Acute respiratory failure with hypoxia) 5. Lung nodule (R91.1: Solitary pulmonary nodule) 6. Hypertension (I10: Essential (primary) hypertension) 7. Hyperlipidemia (E78.5: Hyperlipidemia, unspecified) 8. Chronic GERD (K21.9: Gastro-esophageal reflux disease without esophagitis) 9. History of CVA in adulthood (Z86.73: Personal history of transient ischemic attack (TIA), and cerebral infarction without residual deficits) 10. History of DVT in adulthood (Z86.718: Personal history of other venous thrombosis and embolism) 11. Depression (F32.A: Depression, unspecified) 12. Restless leg syndrome (G25.81: Restless legs syndrome) Extracted from:Title:Progress/SOAP NoteAuthor:Eliel Carvajal DODate: 09/14/23 88-year-old female admitted for myasthenia gravis exacerbation. She was having dysarthria and left laryngeal stridor secondary to the myasthenia. Comorbidities include myasthenia gravis, hypertension, hyperlipidemia, CVA in the past, history of DVT on Eliquis, GERD, restless leg syndrome and depression. 1. Myasthenia gravis in crisis (G70.01: Myasthenia gravis with (acute) exacerbation) Maintain Mestinon 30 mg 3 times daily started September 06 She did have aspiration on modified barium swallow Corpak placed and will start tube feeds; if she tolerates the tube feeds surgery will place a PEG tube She did receive 3 days of IVIG September 07 stopping on September 10 Ordered: [facility] Hospital Care/Day Moderate 35 Minutes 89764 2. Dysarthria (R47.1: Dysarthria and anarthria) Stable/resolved Ordered: [facility] Hospital Care/Day Moderate 35 Minutes 16679 3. 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 Acute hypoxic respiratory failure (J96.01: Acute respiratory failure with hypoxia) Ordered: [facility] Hospital Care/Day Moderate 35 Minutes 34945 5. Lung nodule (R91.1: Solitary pulmonary nodule) Stable; followed in the outpatient setting Ordered: [facility] Hospital Care/Day Moderate 35 Minutes 03324 6. Hypertension (I10: Essential (primary) hypertension) No p.o. antihypertensives at this time; she does have a hydralazine with BP parameters Ordered: [facility] Hospital Care/Day Moderate 35 Minutes 85441 7. Hyperlipidemia (E78.5: Hyperlipidemia, unspecified) On appearance but stable Ordered: [facility] Hospital Care/Day Moderate 35 Minutes 83822 8. Chronic GERD (K21.9: Gastro-esophageal reflux disease without esophagitis) IV PPI with Protonix milligrams daily Ordered: [facility] Hospital Care/Day Moderate 35 Minutes 05388 9. History of CVA in adulthood (Z86.73: Personal history of transient ischemic attack (TIA), and cerebral infarction without residual deficits) Continue Lovenox subcu twice daily Ordered: [facility] Hospital Care/Day Moderate 35 Minutes 70390 10. History of DVT in adulthood (Z86.718: Personal history of other venous thrombosis and embolism) Continue Lovenox subcu twice daily; SCDs as well Ordered: [facility] Hospital Care/Day Moderate 35 Minutes 58282 11. Depression (F32.A: Depression, unspecified) Stable Ordered: [facility] Hospital Care/Day Moderate 35 Minutes 97483 12. Restless leg syndrome (G25.81: Restless legs syndrome) Stable Ordered: [facility] Hospital Care/Day Moderate 35 Minutes 34479 Orders: Jevity 1,000 mL, 1,000 mL, NG-Tube, 30 mL/hr, Routine, Start date 09/14/23 9:47:00 EDT, 33.3 hour(s), Total volume (mL): 1,000, 66.9 kg, 1.71, m2 Communication Order Physician to Nursing Communication Order Physician to Nursing Communication Order Physician to Nursing Communication Order Physician to Nursing Free Water via NGT/OGT/GT/Feeding Tube Precautions XR Chest Single View PLAN: 1. Maintain Mestinon 2. Tube feeds through Corpak 3. If she tolerates the tube feeds for 24 hours we will plan for PEG tube placement per surgery 4. Maintain PT and OT 5. DVT prophylaxis with SCDs and subcu enoxaparin 6. IV PPI for ulcer prophylaxis 7. Full CODE STATUS Extracted from:Title:Progress/SOAP NoteAuthor:Eliel Carvajal DODate: 09/13/23 88-year-old female admitted for myasthenia gravis exacerbation. She was having dysarthria and left laryngeal stridor secondary to the myasthenia. Comorbidities include myasthenia gravis, hypertension, hyperlipidemia, CVA in the past, history of DVT on Eliquis, GERD, restless leg syndrome and depression. 1. Myasthenia gravis in crisis (G70.01: Myasthenia gravis with (acute) exacerbation) Continue the Mestinon 30 g 3 times daily; started on September 06 She did have some aspiration on modified barium swallow; I did consult trauma surgery regarding possible PEG tube or Corpak Patient did receive 3 days of IVIG September 07 topping on September 10 Will continue PPN for nutrition 2. Dysarthria (R47.1: Dysarthria and anarthria) Stable/resolved 3. 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 Acute hypoxic respiratory failure (J96.01: Acute respiratory failure with hypoxia) Secondary to her myasthenia gravis crisis On room air satting well 5. Lung nodule (R91.1: Solitary pulmonary nodule) Stable; being seen in the outpatient setting 6. Hypertension (I10: Essential (primary) hypertension) On no p.o. antihypertensives; she does have IV hydralazine with BP parameters 7. Hyperlipidemia (E78.5: Hyperlipidemia, unspecified) Stable on no meds p.o. right now 8. Chronic GERD (K21.9: Gastro-esophageal reflux disease without esophagitis) IV PPI with Protonix 40 mg every 24 hours 9. History of CVA in adulthood (Z86.73: Personal history of transient ischemic attack (TIA), and cerebral infarction without residual deficits) Continue Lovenox SQ twice daily 10. History of DVT in adulthood (Z86.718: Personal history of other venous thrombosis and embolism) Lovenox SQ twice daily phylaxis and SCDs 11. Depression (F32.A: Depression, unspecified) Able 12. Restless leg syndrome (G25.81: Restless legs syndrome) Stable on no meds Orders: Basic Metabolic Panel CBC w/ Indices Consult to Trauma eGFR Magnesium Level PLAN: 1. Continue Mestinon 2. Patient did not do well with the modified barium swallow; there is evidence of slight aspiration; I did consult trauma for possible PEG tube placement or corpak 3. Continue PT and OT 4. Continue PPN for now 5. DVT prophylaxis with SCDs and subcu enoxaparin 6. Continue IV PPI for ulcer prophylaxis 7. Full CODE STATUS 8. Discharge planning Extracted from:Title:Progress/SOAP NoteAuthor:Eliel Carvajal DOFranciscoDate: 09/12/23 88-year-old female admitted for myasthenia gravis exacerbation. She was having dysarthria and left laryngeal stridor secondary to the myasthenia. Comorbidities include myasthenia gravis, hypertension, hyperlipidemia, CVA in the past, history of DVT on Eliquis, GERD, restless leg syndrome and depression. 1. Myasthenia gravis in crisis (G70.01: Myasthenia gravis with (acute) exacerbation) Maintain Mestinon 30 mg 3 times daily started on September 06 NIF every 8 hours She failed barium swallow and she is scheduled for speech and repeat barium swallow tomorrow September 12 She received a dose of IVIG September 07 and stopped after 3 doses on the She was started on PPN September 06 for nutrition 2. Dysarthria (R47.1: Dysarthria and anarthria) Stable/resolved 3. 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 Acute hypoxic respiratory failure (J96.01: Acute respiratory failure with hypoxia) Secondary to myasthenia gravis crisis On room air satting well Continue watching NIFs 5. Lung nodule (R91.1: Solitary pulmonary nodule) Stable; can follow in the outpatient setting 6. Hypertension (I10: Essential (primary) hypertension) On no p.o. meds IV hydralazine as needed 7. Hyperlipidemia (E78.5: Hyperlipidemia, unspecified) Stable 8. Chronic GERD (K21.9: Gastro-esophageal reflux disease without esophagitis) IV PPI 9. History of CVA in adulthood (Z86.73: Personal history of transient ischemic attack (TIA), and cerebral infarction without residual deficits) Is on Lovenox twice daily subcu 10. History of DVT in adulthood (Z86.718: Personal history of other venous thrombosis and embolism) Is on Lovenox twice daily subcu currently while inpatient She does have Eliquis in the outpatient setting 11. Depression (F32.A: Depression, unspecified) Stable 12. Restless leg syndrome (G25.81: Restless legs syndrome) Stable 13. Obesity (E66.9: Obesity, unspecified) PLAN: 1. Continue Mestinon 30 mg p.o. twice daily 2. Continue PT and OT 3. Speech therapy to see tomorrow with repeat barium swallow 4. Continue PPN 5. Continue IV PPI for ulcer prophylaxis 6. DVT prophylaxis with SCDs and subcu enoxaparin; she also history of DVT and CVA in the past 7. Full CODE STATUS 8. Labs for a.m. 9. Discharge planning Extracted from:Title:APSO NoteAuthor:Brian Gonzalez DODate:09/11/23 1. Myasthenia gravis in [place] is (G70.01: Myasthenia gravis with (acute) exacerbation) Mestinon 30mg TID started 09/06 MRI negative Neurology consulted and following NIF every 8 hours, appear stable Failed barium swallow, daily speech therapy and monitor swallowing If swallowing does not improve will need to discuss secondary options -IVIG started 09/07 decision was made with neurology due to patient's severe dysphagia as well as high quality of life prior to symptoms and attempt to prevent patient from needing prolonged enteral nutrition -IVIG stopped, did complete 3 days -Speech saw patient and recommended repeat barium swallow on Tuesday Patient started on PPN 09/09 for nutrition, monitor electrolytes, nutrition consult Ordered: [facility] Hospital Care/Day High 50 Minutes [id number] 2. Dysarthria (R47.1: Dysarthria and anarthria) 2/2 above 3. 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 Acute hypoxic respiratory failure (J96.01: Acute respiratory failure with hypoxia) improved 2/2 MG crisis will continue to watch NIFs 5. Lung nodule (R91.1: Solitary pulmonary nodule) stable f/u outpatient 6. Hypertension (I10: Essential (primary) hypertension) monitor no PO meds IV hydralazine if needed 7. Hyperlipidemia (E78.5: Hyperlipidemia, unspecified) holding statin due to august survey myasthenia crisis 8. Chronic GERD (K21.9: Gastro-esophageal reflux disease without esophagitis) PPI IV 9. History of CVA in adulthood (Z86.73: Personal history of transient ischemic attack (TIA), and cerebral infarction without residual deficits) lovenox BID due to pt NPO and can not take eliquis 10. History of DVT in adulthood (Z86.718: Personal history of other venous thrombosis and embolism) lovenox BID due to pt NPO and can not take eliquis 11. Depression (F32.A: Depression, unspecified) Normally on Celexa 20 mg daily, buspirone twice daily Holding at this time 12. Restless leg syndrome (G25.81: Restless legs syndrome) Normally on ropinirole Holding at this time 13. Obesity (E66.9: Obesity, unspecified) Due to comorbidities patient would benefit from weight loss Orders: Basic Metabolic Panel Basic Metabolic Panel eGFR Extra Lav Tube Magnesium Level Phosphorus Level Extracted from:Title:APSO Note-neurologyAuthor:Loli VAN, MagoDate:09/11/23 ASSESSMENT: Fatigable and fluctuating weakness involving the eyelids and the cervical musculature, and the dysarthria, dysphagia, and some of the respiratory issues are probably also related. 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 Cannot completely rule out Lambert-Eaton myasthenic syndrome; she does have a (stable) lung nodule. She presented with myasthenic crisis. Her respiratory status seems stable at this time - no increased work of breathing and respiratory parameters look stroke. The severe dysphagia remains her biggest issue. Pyridostigmine has been marginally helpful. PLAN: 1. Lab work pending: Serum P/Q type voltage-gated calcium channel antibody, acetylcholine receptor antibodies, muscle specific kinase antibodies 2. Status post IVIG 0.4g/kg x 3 days (1.2g/kg total) 3. Continue the pyridostigmine 30 mg 3 times daily; she is tolerating it without sialorrhea 4. Outpatient repetitive nerve stim and single-fiber EMG 5. Continue checking respiratory parameters 6. Dysphagia does not seem to be improving in a timely manner. Consider alternate means of gastric access. Ongoing speech therapy evaluation. 1. Myasthenia gravis in crisis (G70.01: Myasthenia gravis with (acute) exacerbation) 2. Dysarthria (R47.1: Dysarthria and anarthria) 3. 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 Acute hypoxic respiratory failure (J96.01: Acute respiratory failure with hypoxia) 5. Lung nodule (R91.1: Solitary pulmonary nodule) 6. Hypertension (I10: Essential (primary) hypertension) 7. Hyperlipidemia (E78.5: Hyperlipidemia, unspecified) 8. Chronic GERD (K21.9: Gastro-esophageal reflux disease without esophagitis) 9. History of CVA in adulthood (Z86.73: Personal history of transient ischemic attack (TIA), and cerebral infarction without residual deficits) 10. History of DVT in adulthood (Z86.718: Personal history of other venous thrombosis and embolism) 11. Depression (F32.A: Depression, unspecified) 12. Restless leg syndrome (G25.81: Restless legs syndrome) 13. Obesity (E66.9: Obesity, unspecified) Extracted from:Title:PCCM progress noteAuthor:Cristhian Franklin Jr., PA-CDate: 09/10/23 Acute hypoxemic respiratory failure Likely secondary to atelectasis with questionable aspiration Her hypoxia was transient and has no significant respiratory symptoms Plan: - Pt has been stable on RA - Offer supplemental O2 to maintain sats 92-96% - Her hypoxia was transient and has no significant respiratory symptoms. - Her chest x-ray was reviewed and appears unremarkable. - Her exam today also appears unremarkable. - Hold off on antibiotics or further investigation and monitor respiratory status and saturation closely. 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 - Eventually the patient will need a CT scan of the chest and perhaps a PET scan to further evaluate this pulmonary nodule. Extracted from:Title:APSO NoteAuthor:Brian Gonzalez DODate:09/10/23 1. Myasthenia gravis in [place] is (G70.01: Myasthenia gravis with (acute) exacerbation) Mestinon 30mg TID started 09/06 MRI negative Neurology consulted and following NIF every 8 hours Failed barium swallow, daily speech therapy and monitor swallowing If swallowing does not improve will need to discuss secondary options -IVIG started 09/07 decision was made with neurology due to patient's severe dysphagia as well as high quality of life prior to symptoms and attempt to prevent patient from needing prolonged enteral nutrition -Speech saw patient today and recommended repeat barium swallow on Tuesday Ordered: [facility] Hospital Care/Day High 50 Minutes [id number] 2. Dysarthria (R47.1: Dysarthria and anarthria) 2/2 above 3. 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 Acute hypoxic respiratory failure (J96.01: Acute respiratory failure with hypoxia) Improved Due to severity of myasthenia gravis crisis will continue to watch NIFs 5. Lung nodule (R91.1: Solitary pulmonary nodule) stable f/u outpatient 6. Hypertension (I10: Essential (primary) hypertension) monitor no PO medications IV hydralazine if needed 7. Hyperlipidemia (E78.5: Hyperlipidemia, unspecified) holding statin due to august myasthenia crisis 8. Chronic GERD (K21.9: Gastro-esophageal reflux disease without esophagitis) PPI IV 9. History of CVA in adulthood (Z86.73: Personal history of transient ischemic attack (TIA), and cerebral infarction without residual deficits) lovenox BID due to pt NPO and can not take eliquis 10. History of DVT in adulthood (Z86.718: Personal history of other venous thrombosis and embolism) lovenox BID due to pt NPO and can not take eliquis 11. Depression (F32.A: Depression, unspecified) Normally on Celexa 20 mg daily, buspirone twice daily Holding at this time 12. Restless leg syndrome (G25.81: Restless legs syndrome) Normally on ropinirole Holding at this time 13. Obesity (E66.9: Obesity, unspecified) Due to comorbidities patient would benefit from weight loss Orders: Dextrose 5% in Lactated Ringers intravenous solution 1,000 mL, 1,000 mL, IV, 75 mL/hr, Routine, Start date 09/09/23 14:42:00 EDT, 13.3 hour(s), Total volume (mL): 1,000, 66.9 kg, 1.71, m2 Basic Metabolic Panel Basic Metabolic Panel CBC w/ Auto Diff eGFR Magnesium Level Phosphorus Level XR Adult Swallowing Function w/ Video: Evaluate Pt, Develop a Plan of Care & Implement Plan Extracted from:Title:APSO Note-neurologyAuthor:Loli VAN, NicholeDate:09/10/23 ASSESSMENT: Fatigable and fluctuating weakness involving the eyelids and the cervical musculature, and the dysarthria, dysphagia, and some of the respiratory issues are probably also related. 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 Cannot completely rule out Lambert-Eaton myasthenic syndrome; she does have a (stable) lung nodule. She presented with myasthenic crisis. Her respiratory status seems stable at this time - no increased work of breathing and respiratory parameters look stroke. The severe dysphagia is her biggest issue. Pyridostigmine has been marginally helpful. Ongoing fatigable and fluctuating but mild dysarthria, bilateral upper eyelid ptosis, neck extension weakness. PLAN: 1. Lab work pending: Serum P/Q type voltage-gated calcium channel antibody, acetylcholine receptor antibodies, muscle specific kinase antibodies 2. Regarding the IVIG 0.4 g/kg daily, today will be day 3. Since it looks like her respiratory status has been good, we will discontinue the IVIG after today. 3. Continue the pyridostigmine 30 mg 3 times daily; she is tolerating it without sialorrhea 4. Outpatient repetitive nerve stim and single-fiber EMG 5. Continue checking respiratory parameters 6. Dysphagia does not seem to be improving in a timely manner. Consider alternate means of gastric access. Ongoing speech therapy evaluation. 1. Myasthenia gravis in crisis (G70.01: Myasthenia gravis with (acute) exacerbation) 2. Dysarthria (R47.1: Dysarthria and anarthria) 3. 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 Acute hypoxic respiratory failure (J96.01: Acute respiratory failure with hypoxia) 5. Lung nodule (R91.1: Solitary pulmonary nodule) 6. Hypertension (I10: Essential (primary) hypertension) 7. Hyperlipidemia (E78.5: Hyperlipidemia, unspecified) 8. Chronic GERD (K21.9: Gastro-esophageal reflux disease without esophagitis) 9. History of CVA in adulthood (Z86.73: Personal history of transient ischemic attack (TIA), and cerebral infarction without residual deficits) 10. History of DVT in adulthood (Z86.718: Personal history of other venous thrombosis and embolism) 11. Depression (F32.A: Depression, unspecified) 12. Restless leg syndrome (G25.81: Restless legs syndrome) 13. Obesity (E66.9: Obesity, unspecified) Addendum by Shon Blackwell DO on September 11, 2023 09:27:33 EDT g/kg, not mg/kg Extracted from:Title:APSO NoteAuthor:Brian Gonzalez DODate:09/09/23 1. Myasthenia gravis in [place] is (G70.01: Myasthenia gravis with (acute) exacerbation) Mestinon 30mg TID started 09/06 MRI negative Neurology consulted and following NIF every 6 hours Failed barium swallow, daily speech therapy and monitor swallowing If swallowing does not improve will need to discuss secondary options -IVIG started 09/07 decision was made with neurology due to patient's severe dysphagia as well as high quality of life prior to symptoms and attempt to prevent patient from needing prolonged enteral nutrition -Speech saw patient today and recommended repeat barium swallow on Tuesday Ordered: [facility] Hospital Care/Day High 50 Minutes [id number] 2. Dysarthria (R47.1: Dysarthria and anarthria) Secondary to above 3. 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 Acute hypoxic respiratory failure (J96.01: Acute respiratory failure with hypoxia) Improved Due to severity of myasthenia gravis crisis will continue to watch NIFs 5. Lung nodule (R91.1: Solitary pulmonary nodule) stable f/u outpatient 6. Hypertension (I10: Essential (primary) hypertension) monitor no PO medications IV hydralazine if needed 7. Hyperlipidemia (E78.5: Hyperlipidemia, unspecified) holding statin 8. Chronic GERD (K21.9: Gastro-esophageal reflux disease without esophagitis) PPI IV 9. History of CVA in adulthood (Z86.73: Personal history of transient ischemic attack (TIA), and cerebral infarction without residual deficits) lovenox BID due to pt NPO and can not take eliquis or ASA 10. History of DVT in adulthood (Z86.718: Personal history of other venous thrombosis and embolism) lovenox BID due to pt NPO and can not take eliquis 11. Depression (F32.A: Depression, unspecified) Normally on Celexa 20 mg daily, buspirone twice daily Holding at this time 12. Restless leg syndrome (G25.81: Restless legs syndrome) Normally on ropinirole Holding at this time 13. Obesity (E66.9: Obesity, unspecified) Due to comorbidities patient would benefit from weight loss Orders: Dextrose 5% in Lactated Ringers intravenous solution 1,000 mL, 1,000 mL, IV, 75 mL/hr, Routine, Start date 09/09/23 14:42:00 EDT, 13.3 hour(s), Total volume (mL): 1,000, 66.9 kg, 1.71, m2 hydrALAZINE, 10 mg = 0.5 mL, Injection, IV Push, q6hr PRN Other (see comment), Routine, Start date 09/09/23 8:03:00 EDT, for SBP greater than 180 Basic Metabolic Panel Basic Metabolic Panel CBC w/ Auto Diff CBC w/ Auto Diff eGFR Transfer Patient to Adult Swallowing Function w/ Video: Evaluate Pt, Develop a Plan of Care & Implement Plan Extracted from:Title:APSO Note-neurologyAuthor:Loli VAN, JuanoleDate:09/09/23 ASSESSMENT: Fatigable and fluctuating weakness involving the eyelids and the cervical musculature, and the dysarthria, dysphagia, and some of the respiratory issues are probably also related. 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 Cannot completely rule out Lambert-Eaton myasthenic syndrome; she does have a (stable) lung nodule. She presented with myasthenic crisis. Her respiratory status seems stable at this time - no increased work of breathing and respiratory parameters look stroke. The severe dysphagia is her biggest issue. Pyridostigmine has been marginally helpful. Ongoing fatigable and fluctuating but mild dysarthria, bilateral upper eyelid ptosis, neck extension weakness. PLAN: 1. Lab work pending: Serum P/Q type voltage-gated calcium channel antibody, acetylcholine receptor antibodies, muscle specific kinase antibodies 2. Continue the IVIG 0.4 g/kg daily. Today will be day 2. If her respiratory status remains as stable as it has been the past few days, we might discontinue the IVIG after day 3 unless it is felt to be medically improving her dysphagia by then. 3. Continue the pyridostigmine 30 mg 3 times daily; she is tolerating it without sialorrhea 4. Outpatient repetitive nerve stim and single-fiber EMG 5. Continue checking respiratory parameters 6. Dysphagia does not seem to be improving in a timely manner. Consider alternate means of gastric access. Ongoing speech therapy evaluation. 1. Myasthenia gravis in crisis (G70.01: Myasthenia gravis with (acute) exacerbation) 2. Dysarthria (R47.1: Dysarthria and anarthria) 3. 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 Acute hypoxic respiratory failure (J96.01: Acute respiratory failure with hypoxia) 5. Lung nodule (R91.1: Solitary pulmonary nodule) 6. Hypertension (I10: Essential (primary) hypertension) 7. Hyperlipidemia (E78.5: Hyperlipidemia, unspecified) 8. Chronic GERD (K21.9: Gastro-esophageal reflux disease without esophagitis) 9. History of CVA in adulthood (Z86.73: Personal history of transient ischemic attack (TIA), and cerebral infarction without residual deficits) 10. History of DVT in adulthood (Z86.718: Personal history of other venous thrombosis and embolism) 11. Depression (F32.A: Depression, unspecified) 12. Restless leg syndrome (G25.81: Restless legs syndrome) 13. Obesity (E66.9: Obesity, unspecified) Addendum by Shon Blackwell DO on September 11, 2023 09:28:14 EDT g/kg, not mg/kg Extracted [facility] noteAuthor:Noemi Church PA-C, Cristhian RosenbaumDate: 09/08/23 Acute hypoxemic respiratory failure Likely secondary to atelectasis with questionable aspiration Plan: - Pt has been stable on RA - Offer supplemental O2 to maintain sats 92-96% - Her hypoxia was transient and has no significant respiratory symptoms. - Her chest x-ray was reviewed and appears unremarkable. - Her exam today also appears unremarkable. - I will hold off on antibiotics or further investigation and monitor respiratory status and saturation closely. 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 - Eventually the patient will need a CT scan of the chest and perhaps a PET scan to further evaluate this pulmonary nodule. Generalized weakness - Likely secondary to myasthenia gravis. - Neurology is on board and appreciate input. - Underwent MRI of the brain which showed no acute process - Neurology ordered IVIG to start today and will continue mestinon Extracted from:Title:APSO NoteAuthor:Brian Gonzalez DODate:09/08/23 1. Myasthenia gravis in [place] is (G70.01: Myasthenia gravis with (acute) exacerbation) Mestinon 30mg TID started 09/06 MRI negative Neurology consulted and following NIF every 6 hours Failed barium swallow, daily speech therapy and monitor swallowing If swallowing does not improve will need to discuss secondary options Ordered: [facility] Care/Day High 50 Minutes 46123 2. Dysarthria (R47.1: Dysarthria and anarthria) Secondary to above Ordered: [facility] Care/Day High 50 Minutes 39415 3. 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 Acute hypoxic respiratory failure (J96.01: Acute respiratory failure with hypoxia) resolved 2/2 above pulm following 5. Lung nodule (R91.1: Solitary pulmonary nodule) stable f/u outpatient 6. Hypertension (I10: Essential (primary) hypertension) monitor holding atenolol, lisinopril IV hydralazine if needed 7. Hyperlipidemia (E78.5: Hyperlipidemia, unspecified) statin but holding due to NPO 8. Chronic GERD (K21.9: Gastro-esophageal reflux disease without esophagitis) PPI 9. History of CVA in adulthood (Z86.73: Personal history of transient ischemic attack (TIA), and cerebral infarction without residual deficits) normally on eliquis and asa holding at this time 10. History of DVT in adulthood (Z86.718: Personal history of other venous thrombosis and embolism) holding eliquis will switch to lovenox if swallowing not improved today 11. Depression (F32.A: Depression, unspecified) Normally on Celexa 20 mg daily, buspirone twice daily Holding at this time 12. Restless leg syndrome (G25.81: Restless legs syndrome) Normally on ropinirole Holding at this time 13. Obesity (E66.9: Obesity, unspecified) Due to comorbidities patient would benefit from weight loss Orders: enoxaparin, 60 mg = 0.6 mL, Injection, SubCutaneous, BID for 30 day(s), Stop date 10/08/23 8:59:00 EDT, Routine, Start date 09/08/23 9:00:00 EDT, 09/08/23 8:54:00 EDT pyridostigmine, 30 mg = 0.5 tab(s), Tab, Oral, TID, Routine, Start date 09/07/23 14:15:00 EDT, crush with small amount of puree Basic Metabolic Panel CBC w/ Auto Diff CBC w/ Auto Diff Comprehensive Metabolic Panel eGFR NPO Diet Speech Language Pathology Additional Tx XR Adult Swallowing Function w/ Video: Evaluate Pt, Develop a Plan of Care & Implement Plan Addendum by Brian Gonzalez DO on September 08, 2023 11:41:35 EDT Discussed in great detail with neurology about further treatment for myasthenia gravis crisis and due to patient's severe dysphagia as well as fluctuating dysarthria we believe that IVIG is warrantedin the situation. Due to patient's high quality of life prior to symptoms we feel that IVIG would help an attempt to prevent patient from needing prolonged therapy and/or placement, enteral nutrition, risks and complications of tube placement. Extracted from:Title:APSO Note- NeurologyAuthor:Martha Jensen RN ADate: 09/08/23 ASSESSMENT: Fatigable and fluctuating weakness involving the eyelids and the cervical musculature, and the dysarthria, dysphagia, and some of the respiratory issues are probably also related. 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 Cannot completely rule out Lambert-Eaton myasthenic syndrome; she does have a stable lung nodule. Presumed myasthenic crisis. Her fatigable motorsymptoms have been going on to a lesser extent for several months but had been unrecognized as such. Symptoms continue to fluctuate. Pyridostigmine has been marginally helpful but she still has severedysphagia. Respiratory status has been stable in the past 24 hours. Dysarthria fluctuates. Eyelid ptosis fluctuating. Weak neck extension at times. PLAN: 1. Checking serum P/Q type voltage-gated calcium channel antibody 2. Start IVIG 0.4 g/kg daily for 4 to 5 days 3. Continue the pyridostigmine 30 mg 3 times daily; she is tolerating it without sialorrhea 4. Outpatient repetitive nerve stim and single-fiber EMG 5. Continue checking respiratory parameters 6. I called and discussed everything with her daughter, Cayla 7. Ongoing speech pathology evaluations; might need to consider alternate means of access 1. Myasthenia gravis in crisis (G70.01: Myasthenia gravis with (acute) exacerbation) 2. Dysarthria (R47.1: Dysarthria and anarthria) 3. 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 Acute hypoxic respiratory failure (J96.01: Acute respiratory failure with hypoxia) 5. Lung nodule (R91.1: Solitary pulmonary nodule) 6. Hypertension (I10: Essential (primary) hypertension) 7. Hyperlipidemia (E78.5: Hyperlipidemia, unspecified) 8. Chronic GERD (K21.9: Gastro-esophageal reflux disease without esophagitis) 9. History of CVA in adulthood (Z86.73: Personal history of transient ischemic attack (TIA), and cerebral infarction without residual deficits) 10. History of DVT in adulthood (Z86.718: Personal history of other venous thrombosis and embolism) 11. Depression (F32.A: Depression, unspecified) 12. Restless leg syndrome (G25.81: Restless legs syndrome) 13. Obesity (E66.9: Obesity, unspecified) Addendum by Shon Blackwell DO on September 11, 2023 09:28:38 EDT g/kg, not mg/kg Extracted from:Title:Consult -neurologyAuthor:Juan Ennis RNoleDate:09/07/23 The patient is an 88-year-ol d female with new onset of slurred speech, diplopia, ptosis, and neck weakness suspicious for possible defect in neuromuscular junction transmission. Patient is being evaluated for stroke with MRI scan of the brain which is pending. I recommend obtaining acetylcholine receptor antibody panel to assess for defect in neuromuscular junction transmission. I recommend starting Mestinon 30 mg p.o. 3 times daily for symptomatic treatment. I counseled the patient and her family on the possible diagnosis, evaluation, treatment options. I recommend the patient remain in the ICU with close monitoring of respiratory parameters to avoid exacerbation of respiratory distress. I will make further recommendations based upon patient's clinical course and the above evaluation. 1. Dysarthria (R47.1: Dysarthria and anarthria) 2. 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 Lung nodule (R91.1: Solitary pulmonary nodule) 4. Hypertension (I10: Essential (primary) hypertension) 5. Hyperlipidemia (E78.5: Hyperlipidemia, unspecified) 6. Chronic GERD (K21.9: Gastro-esophageal reflux disease without esophagitis) 7. History of CVA in adulthood (Z86.73: Personal history of transient ischemic attack (TIA), and cerebral infarction without residual deficits) 8. History of DVT in adulthood (Z86.718: Personal history of other venous thrombosis and embolism) 9. Obesity (E66.9: Obesity, unspecified) Extracted from:Title:APSO NoteAuthor:Brian Gonzalez DODate:09/07/23 MRI of brain showed 4 foci of restricted diffusion in the left cerebral hemisphere the largest along the inferior left temporal lobe measuring 10 x 9 mm. Possible embolic phenomenon Echo with bubble 08/08/2018 showed mild LVH. No signs of intracardiac shunt. Mild LA dilation. Mild MR. Mild to moderate AR. Carotid duplex 08/07/2018 showed less than 50% stenosis in the internal carotids 1. Myasthenia gravis in crisis (G70.01: Myasthenia gravis with (acute) exacerbation) Concern for myasthenia gravis N.p.o., speech to see Neurology consulted MRI pending Will need to check antibodies Every 6 hours NIFs monitor respiratory status, concern for rapid decompensation Avoid medication that could exacerbate myasthenia gravis such as statin, antibiotics, calcium channel blockers 2. Dysarthria (R47.1: Dysarthria and anarthria) Likely secondary to above Will check MRI to rule out stroke Neurology consulted Ordered: [facility] Hospital Care/Day High 50 Minutes [id number] 3. 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 Acute hypoxic respiratory failure (J96.01: Acute respiratory failure with hypoxia) Improved Secondary to possible MG, aspiration, allergic reaction Patient was requiring as much as 10 L mask to maintain oxygen saturation overnight 5. Lung nodule (R91.1: Solitary pulmonary nodule) Findings consistent with chest x-ray done in March 2023 Will likely need outpatient follow-up Pulmonary consulted 6. Hypertension (I10: Essential (primary) hypertension) Monitor Avoid p.o. medications at this time IV medications if needed 7. Hyperlipidemia (E78.5: Hyperlipidemia, unspecified) Normally on statin, holding 8. Chronic GERD (K21.9: Gastro-esophageal reflux disease without esophagitis) PPI IV 9. History of CVA in adulthood (Z86.73: Personal history of transient ischemic attack (TIA), and cerebral infarction without residual deficits) Normally on statin Eliquis and aspirin, holding at this time 10. History of DVT in adulthood (Z86.718: Personal history of other venous thrombosis and embolism) Holding Eliquis at this time due to n.p.o. Will restart Eliquis or another type of anticoagulation within 24 hours 11. Depression (F32.A: Depression, unspecified) Normally on Celexa 20 mg daily, buspirone twice daily Holding at this time 12. Restless leg syndrome (G25.81: Restless legs syndrome) Normally on ropinirole Holding at this time 13. Obesity (E66.9: Obesity, unspecified) Due to comorbidities patient would benefit from weight loss Orders: CBC w/ Auto Diff Comprehensive Metabolic Panel Consult to Respiratory Therapy Extracted from:Title:Admission H & PAuthor:Billy BRAVO DO:09/06/23 1. Dysarthria (R47.1: Bandon hria and anarthria) Patient does have a prior history of CVA see below, CT scan demonstrates no acute ischemic events although as this is early, we will obtain an MRI. Note patient does have symmetrical bilateral lid lag, some weakness extending over the past several weeks differential also includes therefore neuromuscular disorder. I attempted to do a chart review for muscular disorder such as myasthenia gravis reviewing medications to be cautious of which include steroids, macrolides and beta-blockers was calledout to a rapid response this patient see the addendum I returned I cannot get on the Internet for further review after which overhead code Was called. Consult with neurology, if MRI demonstrates acute ischemic event cannot complete the workup which would include carotid Dopplers, echocardiogram etc. Will perform neuro checks throughout the evening. Will consult with neurology 2. 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 Differential includes vocal cord spasm/dysfunction ? Neuromuscular versus cerebrovascular origin see above. Will keep patient n.p.o., will get a speech therapy consult, in the event this would be triggered by atypical reflux will g garrett IV Protonix the evening and continue daily, if becomes recurrent ? Nasal spray to decreased postnasal drip. Note in the emergency department patient's saturation dropped down to 72%, she was empirically treated with Solu-Medrol, Benadryl and Pepcid in the event it was due to antimicrobials. Perdiscussion with the emergency sales department manager however patient had a very quick response was therefore not given subcu epi. Will avoid if possible steroids going forward (neuromuscular disorder) with above unless benefits are deemed to outweigh risk, will have racemic epi available, advised that the head of bed to be elevated throughout the evening. Patient's daughter is a device architecture technician w orking with arrhythmias believed that there was a short nonsustained V. tach during this event it was not reported to me but we will monitor closely on telemetry. Note serum potassium was 4 will monitor electrolytes. Ordered: Consult to Pulmonology 3. Lung nodule (R91.1: Solitary pulmonary nodule) Is a pulmonary nodule in the right perihilar region also a smaller nodular area in the right upper lung field. I did not see any infiltrate however patient did have transient rales in the left lower lung field. Patient does have shortness of breath she becomes stridorous, she does state that she has had small amounts of thick mucus ? Upper respiratory in origin, ? Aspiration. Patient was given empiric Rocephin and Zithromax in the emergency department. Until seen by neurology see above we will hold on macrolides, hold on fluoroquinolones, I have lower suspicion for anaphylactic response to ceftriaxone however will hold) for now until above evaluated. She should be covered for any potential community- acquired pneumonia for the next near 24 hours. Will consult with pulmonology to assist with his diagnosis. Check procalcitonin. Check CRP. Monitor temperature curve.? CT of the chest patientstates recently she does get short of breath when she lies flat she was stridorous. Will discuss with pulmonology Ordered: C-Reactive Protein Procalcitonin 4. Hypertension (I10: Essential (primary) hypertension) Will allow permissive hypertension until CVA is ruled out. Will hold on atenolol until neuromuscular disorders ruled out 5. Hyperlipidemia (E78.5: Hyperlipidemia, unspecified) External pharmacy reports suggest atorvastatin however patient and family were unfamiliar with thismedication but will reevaluate her medications at home 6. Chronic GERD (K21.9: Gastro-esophageal reflux disease without esophagitis) Will give IV Protonix this evening in light of above continue IV Protonix converting to p.o. when patient is no longer felt to be at risk for aspiration Ordered: pantoprazole, 40 mg = 10 mL, Injection, IV Push, Once, Stop date 09/07/23 1:00:00 EDT, Routine, Start date 09/07/23 1:00:00 EDT, 09/07/23 0:53:00 EDT pantoprazole, 40 mg = 10 mL, Injection, IV Push, Daily, Routine, Start date 09/07/23 9:00:00 EDT, 09/07/23 0:53:00 EDT 7. History of CVA in adulthood (Z86.73: Personal history of transient ischemic attack (TIA), and cerebral infarction without residual deficits) Patient states that occurred in 2019 only deficit she can recall was dizziness. CT in the emergencydepartment suggest a remote left basal ganglia lacunar infarct. 8. History of DVT in adulthood (Z86.718: Personal history of other venous thrombosis and embolism) Patient is n.p.o. for now if her n.p.o. status becomes prolonged can consider phylactic dosing subcutaneously 9. Obesity (E66.9: Obesity, unspecified) Comorbidities patient would benefit from weight loss Orders: racepinephrine, 1 amp, Soln-Inh, Inhalation, Once, Stop date 09/07/23 0:16:00 EDT, Routine, Start date 09/07/23 0:16:00 EDT Sodium Chloride 0.45% intravenous solution 1,000 mL, 1,000 mL, IV, 75 mL/hr, Routine, Start date 09/07/23 0:57:00 EDT, 13.3 hour(s), Total volume (mL): 1,000, 66.9 kg, 1.71, m2 Basic Metabolic Panel Below the Knee Intermittent Pneumatic Compression Device Capillary Glucose POC Cardiac Monitoring CBC w/ Auto Diff Communication Order Physician to Nursing Consult to Neurology Continuous Pulse Oximetry Dysphagia Screen Education Fall Risk Elevate Head of Bed Elevate Head of Bed Evaluate Need For Continued Telemetry HgbA1c Lipid Panel MRI Brain w/ + w/o Contrast Neurological Assessment Notify Provider Vital Signs Notify Provider Vital Signs NPO Diet Occupational Therapy Evaluate Patient, Develop a Plan of Care and Implement Plan Oxygen Protocol Physical Therapy Evaluate Patient, Develop a Plan of Care and Implement Plan Place in Status Precautions Precautions Resuscitation Status - Full Speech Language Pathology Evaluate Patient, Develop a Plan of Care and Implement Plan Speech Language Pathology Swallow Eval; Evaluate Pt, Develop a Plan of Care & Implement Plan Stroke Education Stroke Quality Measures Vital Signs Weight Patient is admitted as a general inpatient with anticipation she will require greater than 2 midnight stay Addendum by Billy BRAVO DO on September 07, 2023 01:03:12 EDT Note while in the process of constructing above I was called to a rapid response to this patient's room for time just prior to midnight. She had recurrent event very similar to what was described in the emergency department she became acutely stridorous dropped down to 78% there was no report of any arrhythmia. When I entered into the room patient did have increased work of breathing understandably was anxious was audibly stridorous. Patient denied having had any postnasal drip denied any reflux and did not have any chest pain. I ordered racemic epinephrine creatinine wait for it had to be overridden and it was in the intensive care unit she was administered racemic epi and improved but was still mildly stridorous. I had advised because of recurrent events associated with hypoxia that should this become recurrent especially with questionable ventricular arrhythmia in the emergency department see above then would move to the intensive care unit. I returned to complete construction above patient's RN came into the office advised me that she did have recurrent stridor though not as distressed therefore decision was made to transfer patient back to the intensive care unit. Should patient have recurrent events overnight discussed with neurology appropriate timing of an MRI of her patient states she has had difficulty shortness of breath when she lies back and if she is having any re flux would potentially exacerbate these events. Will hold on CT imaging until speak with pulmonology with same concerns. Should patient have no recurrent events tolerated the MRI if recommended by etiology or pulmonology at that time can consider CT imaging. Note when she had the event in the emergency department where she was treated empirically with Solu-Medrol, Benadryl and Pepcid family at the bedside advised there is strongly suspicious that this was due to aspiration for she has been tolerating the Rocephin until near completion and her symptoms occurred immediately after ice chips in her mouth melted and she attempted to swallow and will consult with speech therapy. Head of bed remain elevated. Will give a one-time dose of Protonix and consult with pulmonary medicine Addendum by Billy BRAVO DO on September 07, 2023 08:00:06 EDT Clarification of above under dysarthria when referencing attempt to on the Internet to review up to date what was transcribed was overhead code was called what I attempted to dictate was overheadcode copper was called Extracted from:Title:ED NoteAuthor:Aditi GODFREYChinoDate:09/06/23 Dysarthria (R47.1: Dysarthri a and anarthria) Lung nodule (R91.1: Solitary pulmonary nodule) Pneumonia (J18.9: Pneumonia, unspecified organism) Orders: azithromycin + Sodium Chloride 0.9% intravenous solution 250 mL, 500 mg = 1 EA, Injection, IV Piggyback, Once, Stop date 09/06/23 18:20:00 EDT, STAT, Start date 09/06/23 18:20:00 EDT, 250 mL/hr, Infuse over 60 minute(s) ceftriaxone + Sodium Chloride 0.9% intravenous solution 50 mL, 1,000 mg = 1 EA, IV Piggyback, Once,Stop date 09/06/23 18:20:00 EDT, STAT, Start date 09/06/23 18:20:00 EDT, 100 mL/hr, Infuse over 30 minute(s), 09/06/23 18:20:00 EDT B-Type Natriuretic Peptide Basic Metabolic Panel Blood Culture Charcoal Blood Culture Charcoal CBC w/ Auto Diff ED Cardiac Monitoring ED Physician consult Hospitalist for continued care eGFR Extra SST Tube Lactic Acid Oxygen Saturation Oxygen Therapy PT & PTT Saline Lock Insert Troponin 0 Hr. Troponin 1 Hr. Troponin 3 Hr. Troponin 6 Hr. UA with Cult Rflx XR Chest Single View Addendum by Jass Amaya DO on September 06, 2023 20:02:58 EDT Patient signed out pending admission to the hospital. Shortly after the Rocephin finished patient started complaining of shortness of breath was noted to be 72% on room air has stridor on examination. No rash patient's chart treated like anaphylaxis however epinephrine is not given as her symptoms really resolved after several minutes. Patient is given Pepcid, Benadryl, Solu-Medrol. Discussed thecase with the hospitalist accept the patient for admission. Patient reportedly has been having swallowing issues for the last several days which is what prompted him come to the ED. DO DONNY Prieto [facility]05-31-2024 Hospital Discharge instructions Patient Education 09/16/2023 11:41:22 Salam - Post Op PEG Tube Care(CUSTOM) PEG tube care Tube Care ? Flush the tube with water (clean, drinkable tap water is fine) before and after each feeding as well as between medications if you choose to use your tube to instill medications ? If you are not using your tube, it needs to be flushed with 20-30 cc of clean tap water daily. ? Inspect the insertion site daily for redness, drainage, or pain. The new site should heal within 1-2 weeks and minimal redness is expected after this time. Call us if you are noticing new or worsening redness, drainage or pain. Medications ? Liquid medications are the safest for your g-tube and many medications can be switched to the liquid form. Ask the doctor that prescribed the medication or your pharmacist if the medication in question can be changed to liquid form. ? If you have a pill that you need give yourself, it must be fully dissolved in warm water before injecting into the tube. Even small clumps can clog your tube which requires a complete exchange, so be very careful. ? DO NOT dissolve time release medications. Doing so could cause you to get too much medication at one time. This includes Oxycontin, Oxycodone ER, or any medication with one of the following suffixes: CD, CR, ER, LA, SR, XL, XR. If there is any question, please ask the provider that wrote the prescription or your pharmacist. Bathing ? You may shower 24 hours after placement ? Remove the dressing before showering and reapply after you ve finished. ? DO NOT submerge in water of any kind for 6 weeks after placement. Once the site has healed, whichis around 6 weeks for most patients, you may go in bathtubs, spas, and swimming pools where the water is clean or chlorinated. Do not swim in lakes, oceans, or non-chlorinated public [place] for the duration of your tube being in place. Your doctor may allow submersion in clean water earlier. ? When swimming or any activity where the tube could be inadvertently pulled, wearing a t-shirt or one piece bathing suit (for women) decreases this risk. Dressing Changes ? A dressing should be kept on the insertion site for 1 week after placement, changing it daily. ? After one week, a dressing is not required but many patients choose to keep their tube covered. If you choose to keep the site covered, the dressing should be changed at least every two days or after every shower ? How to change your dressing: o Wash hands thoroughly with soap and water o Take off the old dressing and discard o Inspect the site for redness, swelling, tenderness or foul/bloody drainage o Clean the insertion area (where the tube goes into the skin) with soap and water (may be done in the shower). Dry gently and thoroughly. o Cover the site with gauze and tape to skin ? Do not use hydrogen peroxide to cleanse your tube site. Mild soap and water is all that is needed ? Antibacterial ointment is not necessary, unless you have been told otherwise Activity ? You may resume your normal activities as tolerated, however most patients have site pain for about a week following placement. Minimal use of your abdominal muscles will decrease the pain. ? Keep the tube secure at all times (you may tape it to your skin) and avoid tugging on it. 09/16/2023 11:41:13 How to Care for a Feeding Tube How to Care for a Feeding Tube A feeding tube is a soft, flexible tube through which medicine, water, and liquid food can be given. A person may have a feeding tube if she or he has trouble swallowing or cannot have food or medicine by mouth. Supplies needed to care for the tube site: Clean gloves. Clean washcloth, gauze pads, or soft paper towel. Cotton swabs. Skin barrier ointment or cream, such as petroleum jelly. Soap and water. Pre-cut foam pads or gauze for around the tube. Tube tape. Anchoring device (optional). How to care for the tube site 1.Have all supplies ready and available. 2.Wash your hands with soap and water for at least 20 seconds. 3.Put on clean gloves. 4.If there is a foam pad or gauze under the tube stabilizing disc and it is soiled or moist or has been there for more than one day, replace it. 5.Check the skin around the tube site for redness, a rash, swelling, drainage, or extra tissue growth. If you notice any of these, call your health care provider. 6.Use water and soap to moisten gauze pads and cotton swabs. 7.Use the moistened cotton swabs to wipe the area closest to the tube, right near the opening in the abdomen (stoma). 8.Use the moistened gauze pads to wipe the surrounding skin. 9.Rinse with water. 10.Use a washcloth, dry gauze pad, or soft paper towel to dry the skin and stoma site. 11.If the skin is red, use a cotton swab to apply a skin barrier cream or ointment in a circular motion. The cream or ointment will help the wound heal. Do not apply antibiotic ointments at the tube site. 12.Apply a new pre-cut foam pad or gauze around the tube. If there is no drainage, you can leave off the foam pads or gauze. 13.Secure the pre-cut foam pad or gauze with tape around the edges. 14.Use tape or an anchoring device to fasten the feeding tube to the skin for comfort or as directed. Alternate where you put the tape to avoid damaging the skin. 15.Position the person in a semi-upright position, at about a 30- to 45-degree angle. 16.Throw away used supplies. 17.Remove your gloves. 18.Wash your hand with soap and water for at least 20 seconds. Supplies needed to flush a feeding tube: Clean gloves. A clean 60 mL syringe that connects to the feeding tube. Towel. Sterile or purified water. Follow these guidelines: ?Use sterile water if: ?You have a weak immune system and have difficulty fighting off infections (are immunocompromised). ?You are unsure about the amount of chemical contaminants in purified or drinking water. ?Do not use fresh water found in lakes, [place], reservoirs, or aquifers without treating or filtering first. ?To purify drinking water by boiling: ?Boil water for at least 1 minute. Keep a lid over the water while it boils. ?Allow the water to cool to room temperature before using. How to flush a feeding tube 1.Have all supplies ready and available. 2.Wash your hands with soap and water for at least 20 seconds. 3.Put on clean gloves. 4.Draw up 30 mL of water into the syringe. 5.Before flushing, place the towel under the tube to catch any fluid leaks. 6.Kink the feeding tube while disconnecting it from the feeding-bag tubing or while removing the cap at the end of the tube. Kinking closes the tube and prevents fluid in the tube from spilling out. 7.Insert the tip of the syringe into the end of the feeding tube. 8.Release the kink. 9.Slowly inject the water. If you are unable to inject the water, the tip of the tube may be against the person's stomach, blocking fluid flow. To fix this problem, have the person with the feeding tube lie on his or her left side. Then, try injecting the water again. If there is resistance, do notuse a lot of force to overcome it because this could cause the tube to tear. 10.Remove the syringe and replace the cap. 11.Throw away used supplies. 12.Remove your gloves. 13.Wash your hands with soap and water for at least 20 seconds. General tips and recommendations Caring for the tube If there is a foam pad or gauze under the tube stabilizing disc, change it every day and when it issoiled or moist. Do not apply antibiotic ointments at the tube site. Flushing the tube Do not use a syringe that is smaller than 60 mL. To prevent medicine from clogging the tube, flush the tube at all of these times: ?Before the person is given the first medicine. ?Between medicines. ?After the person is given the final medicine before starting a feeding. Do not mix medicines with formula or with other medicines. Thoroughly flush medicines through the tube so they do not mix with formula. Contact a health care provider if: The tube becomes blocked or clogged. You find any of these on the skin around the tube site: ?Redness. ?A rash. ?Swelling. ?Drainage. ?Extra tissue growth. Summary A feeding tube is a soft, flexible tube through which medicine, water, and liquid food can be given. A person may have a feeding tube if she or he has trouble swallowing or cannot have food or medicine by mouth. Follow instructions from your health care provider about daily care and flushing of the tube. Contact your health care provider if the tube becomes blocked or clogged, or if you notice swelling, drainage, or changes in skin around the tube site. This information is not intended to replace advice given to you by your health care provider. Make sure you discuss any questions you have with your health care provider. Document Revised: 07/31/2020 Document Reviewed: 07/31/2020 [employer] Patient Education 2022 [employer] 09/16/2023 11:41:11 PEG Tube Home Guide PEG Tube Home Guide A percutaneous endoscopic gastrostomy (PEG) tube is used to deliver food, medicine, and fluids directly into the stomach. The tube has a clamp, a cap, and two anchors (bolsters). One bolster keeps the tube from coming out of the stomach. The other bolster holds the tube against the abdomen. You will be taught how to use and adjust your PEG tube before you leave the hospital. You will alsobe taught how to care for the opening (stoma) in your abdomen. Make sure that you understand: How to care for your PEG tube. How to care for your stoma. How to give yourself feedings and medicines. When to call your health care provider for help. Supplies needed: Soapy water. Clean, plain water. Clean washcloth. Bandage (dressing). This is optional. Syringe. How to care for a PEG tube Check your PEG tube every day. Make sure: It is not too tight. The bolster should rest gently over the stoma. It is in the correct position. There is a denis on the tube that shows when it is in the correct position. Adjust the tube if you need to. Cleaning your stoma Clean your stoma every day. Follow these steps: 1.Wash your hands with soap and water for at least 20 seconds. If soap and water are not available,use hand real estate inspector. 2.Check the skin around the stoma for redness, rash, swelling, drainage, or extra tissue growth. Ifyou notice any of these, call your health care provider. 3.Wash the stoma and the skin around it using a clean, soft washcloth. Clean using a circular motion, and wipe away from the stoma opening, not toward it. Use warm, soapy water, and only use cleansers recommended by your health care provider. Rinse the stoma area with plain water. Pat the stoma area dry. 4.Place a dressing over the stoma if your health care provider told you to do that. Giving yourself a feeding Your health care provider will give you instructions about: How much nutrition and fluid you will need for each feeding. How often to have a feeding. Whether to take medicine in the tube by itself or with a feeding. To give yourself a feeding, follow these steps: 1.Lay out all of the equipment that you will need. 2.Make sure that the nutritional formula is at room temperature. 3.Wash your hands with soap and water for at least 20 seconds. If soap and water are not available,use hand real estate inspector. 4.Position yourself so that you are upright. You will need to stay upright throughout the feeding and for at least 30 minutes after the feeding. 5.Make sure the syringe plunger is pushed in. Place the tip of the syringe in clean water, and slowly pull the plunger to bring (draw up) the water into the syringe. 6.Remove the clamp and the cap from the PEG tube. 7.Push the water out of the syringe to clean (flush) the tube. 8.If the tube is clear, draw up the formula into the syringe. Make sure to use the right amount foreach feeding and add water if necessary. 9.Slowly push the formula from the syringe through the tube. 10.After the feeding, flush the tube with water. 11.Put the clamp and the cap on the tube. 12.Stay sitting up or standing up straight for at least 30 minutes. Use the feeding tube equipment, such as syringes and connectors, only as told by your health care provider. Giving yourself medicine To give yourself medicine, follow these steps: 1.Lay out all of the equipment that you will need. 2.If your medicine is in tablet form, crush the tablet and dissolve it in water. 3.Wash your hands with soap and water for at least 20 seconds. If soap and water are not available,use hand real estate inspector. 4.Position yourself so that you are upright. You will need to stay upright while you give yourself medicine and for at least 30 minutes afterward. 5.Make sure the syringe plunger is pushed in. Place the tip of the syringe in clean water, and slowly pull the plunger to bring (draw up) the water into the syringe. 6.Remove the clamp and the cap from the PEG tube. 7.Push the water out of the syringe to clean (flush) the tube. 8.If the tube is clear, draw up the medicine into the syringe. 9.Slowly push the medicine from the syringe through the tube. 10.Flush the tube with water. 11.Put the clamp and the cap on the tube. 12.Stay sitting up or standing up straight for at least 30 minutes. Do not take sustained release (SR) medicines through your tube. If you are unsure if your medicine is an SR medicine, ask your health care provider or pharmacist. Contact a health care provider if you have: Soreness, redness, or irritation around your stoma. Abdominal pain or bloating during or after your feedings. Nausea, constipation, or diarrhea that will not go away. A fever. Problems with your PEG tube. Get help right away if: Your tube is blocked. Your tube falls out. You have pain around your stoma. You are bleeding from your stoma. Your tube is leaking. You choke or you have trouble breathing during or after a feeding. Summary A percutaneous endoscopic gastrostomy (PEG) tube is used to deliver food and fluids directly into the stomach. You will be taught how to use and adjust your PEG tube. You will also be taught how to care for thestoma in your abdomen. Your health care provider will give you instructions on how to give yourself nutritional formula and medicines through your PEG tube. Contact your health care provider if you have a fever or soreness, redness, or irritation around your stoma. Get help right away if your tube leaks, is blocked, or falls out. Get help right away if you have pain or bleeding around your stoma. This information is not intended to replace advice given to you by your health care provider. Make sure you discuss any questions you have with your health care provider. Document Revised: 03/25/2021 Document Reviewed: 08/15/2020 [employer] Patient Education 2022 [employer]. 09/08/2023 23:16:52 Core Measures: Stroke (Cerebrovascular Accident) [facility], (Custom) Stroke (Cerebrovascular Accident) A stroke is acute of brain tissue, and it is a neurologic emergency. A stroke can cause permanent loss of function of the central nervous system (brain). If the symptoms of a stroke end withoutcomplications in 24 hours, it is diagnosed as a transient ischemic attack (TIA). If the symptoms are not resolved within 24 hours, it is defined as a stroke. CAUSES A stroke is caused by a decrease of oxygen supply to an area of your brain. It is usually the result of a small blood clot or hardening of the arteries. Blockages in, or damage to, the carotid arteries leading to the brain can also cause a stroke. Bleeding in the brain can cause, or accompany, a stroke. SYMPTOMS These symptoms usually develop suddenly (or may be newly present upon awakening from sleep): Loss of vision. Double vision. Confusion. Numbness or weakness on one side of the face or body. Inability to speak (aphasia). DIAGNOSIS Your caregiver can often determine the presence or absence of a stroke based on your symptoms, history, and examination. A CT scan of the brain is usually performed to confirm the stroke, look for causes, and determine the severity. Other tests may be done to find the cause of the stroke, including: An EKG and heart monitoring. An echocardiogram (ultrasound evaluation of the heart). An ultrasound evaluation of your carotid arteries. Determination of blood oxygen level and blood tests. PREVENTION The likelihood of a stroke can be decreased by appropriate treatment of high blood pressure, high cholesterol, diabetes, and by stopping smoking. RISK FACTORS: If you have been told by your doctor or nurse practitioner that you have any of the following risk factors for stroke, work with your health medication care manager to control them. High Blood Pressure: High blood pressure is one of the main causes of stroke. It is the most important risk factor to control. Take your blood pressure medication, lose weight, increase your activity, and limit your salt intake to help control your blood pressure.Take your your blood pressure and write it down and then take them to your next doctor's appointment. Smoking: If you smoke: QUIT! We can help. Please call [facility] at [phone] ([facility]), or [phone], ext. [phone] Diabetes: Work with your healthcare professional to keep your blood sugar under control. Check yourblood sugar and take the results to your next doctor's visit. Take your medications as directed. Eating a healthy diet and exercising will also help keep your diabetes under control. For information on [facility] please call, . Carotid or other Artery Diseases: The carotid arteries in your neck carry blood to the brain. A stroke can be caused by a blood clot blocking an artery that has been damaged by a fatty buildup insidethe artery wall. Discuss ways to manage this with your health care provider. Atrial Fibrillation (A Fib): In A fib, your heart does not have a normal beat. This may allow clotsto form and puts you at a greater risk for having a stroke. Work with your health care provider to control your A fib. Your doctor may order special medication that helps prevent clots from forming. High blood cholesterol or high blood fats: High cholesterol increases your risk of stroke. Exerciseregularly, but talk to your health care provider first. A diet low in fat and cholesterol can help.If you have any questions about a low fat, low cholesterol diet, you can call our [facility] rock room worker at [phone] Ext. [phone]. The goal for total cholesterol is less than 200, and for LDL or thebad cholesterol is less than 100. Lifestyle Management: You increase your risk of stroke if you are overweight or obese, are not veryactive, or drink too much alcohol. Enjoy a diet rich in fruits and vegetables. Exercise regularly and drink alcohol in moderation or no more than two drinks a day for men and no more than one drink aday for non- women, or don't drink at all. This will help decrease your risk of stroke. Oral Contraceptives: Taking control pills or the pill can be a risk factor for stroke especially if you smoke. Discuss using the oral contraceptives and your risk of stroke with your health medication care manager. TREATMENT TIME IS OF THE ESSENCE! Medications to dissolve a blood clot can only be used within four and a half hours of the onset of symptoms. After that time, treatment of stroke depends on duration of symptoms, severity, and cause. Medications and diet measures may be used to address diabetes, high blood pr essure, and other risk factors. Physical therapy, speech therapy, and occupational therapy specialists will assess you and work to improve any functions impaired by the stroke. Measures will be takento prevent short and correction complications, including aspiration pneumonia, blood clots in the leg s, bedsores, and falls. HOME CARE INSTRUCTIONS Care at home after a stroke can be complicated. Medications Blood thinners may be used to prevent another stroke. Blood thinners need to be used exactly as instructed. Medicines may also be used to control risk factors for a stroke. Be sure you understand all your medication instructions. It is very important to not run out of your medicine. Getmore while you still have a one-week supply. Do not stop taking your medicine without speaking to your healthcare professional. Take all of your medications or an updated list of your medications to all of your doctor's appointments. Physical, occupational, and speech therapy Ongoing therapy is often necessary to maximize recovery after a stroke. If you have been advised to use a walker or a cane, use it at all times. Be sure youkeep your therapy appointments. Diet Certain diets may be prescribed to address high blood pressure, high cholesterol, or diabetes.Foods may need to be a special consistency (soft, pureed, small bites) to avoid food going into your lungs or choking. Home safety A safe home environment is important to reduce the risk of falls. Your caregiver may arrange for specialists to evaluate your home. Grab bars in the bedroom and bathroom are often important. Your caregiver may arrange for special equipment to be used at home, such as raised toilets and a seat for the shower. It s important to know and control your risk factors, but it is also important to recognize the signs and symptoms of stroke/TIA and know what to do: Call 911 if any of these things happen: Sudden numbness or weakness of the face, arm, or leg especially on one side of the body. Sudden confusion, trouble speaking, or understanding. Sudden trouble seeing in one or both eyes. Sudden trouble walking, dizziness, loss of balance or coordination Sudden severe headache with no known cause * It is very important for you to follow-up with your Primary Care Doctor and your Neurologist after you go home. Make sure that you keep your doctor visits. Remember: TIME LOST is BRAIN LOST Resources: for more information on strokes, log onto [email or web address] or www.[email or web address].org or call the [employer] at . Revised 04/2018 Follow Up Care 09/06/2023 16:59:31 With:trauma clinic Address: [facility] [address], second floor, [address] [place] [address]- [phone] When: only if needed Comments:Please call to make follow up appointment if you have questions or concerns regarding your PEG tube.Please rotate/splint the PEG tube daily to ensure no wounds develop.Check the location of the PEG tube daily, the PEG tube should be around #4 at the skin and #5 at the cusp of the flange. With:RJ VELASQUEZ Address: [address] [place] [id number] Business (1) When:09/19/2023 Comments:Appointment has already been scheduledKeep scheduled appointment With:Oscar YOU, CLARI Lang Address: [address] [address] When:2 to 4 weeks Comments:This office is closed on Fridays. Please call on Tuesday for a follow up appointment. Thank you. [facility]05-31-2024 NoteAdmission and Discharge Information Admit Date/Time:09/06/2023 19:39 Admitting Physician - Billy BRAVO DO Consulting Physician - Oscar YOU, Rickey Zuleta MD, Breanne Galan Admitting Diagnoses: Discharge Order Date Discharge Patient - Ordered -- 09/16/23 11:00:00 EDT, [facility] Discharge Diagnoses 1. Myasthenia gravis in crisis, 09/07/2023 2. Dysarthria, 09/06/2023 3. Laryngeal stridor, 09/07/2023 4. Acute hypoxic respiratory failure, 09/07/2023 5. Lung nodule, 09/06/2023 6. Hypertension, 09/07/2023 7. Hyperlipidemia, 09/07/2023 8. Chronic GERD, 09/07/2023 9. History of CVA in adulthood, 09/07/2023 10. History of DVT in adulthood, 09/07/2023 11. Depression, 09/07/2023 12. Restless leg syndrome, 09/07/2023 Cough, 09/06/2023 Facial droop, 09/06/2023 Potential stroke, 09/06/2023 Procedure History PEG - Percutaneous endoscopic gastrostomy (09/15/2023). Hospital Course Significant Findings Please refer to history and physical for details of admission. Patient presented to the emergency room September 05 because of increased slurred speech for the last couple days. He was also noted to be left-sided facial droop. She did report postnasal drip and a cough. She also has 2 days of dysarthria with facial drooping and some shortness of breath. Symptoms havebeen going on according to the patient for about maybe a week now family thought maybe longer. She is unable a flat because of shortness of breath but denies any swelling to her legs. She has had a cough for the past 1 to 2 weeks along with weakness for the past few weeks as well but no focal deficits noted. ER was concerned for stridor plus possible pneumonia so she was given Rocephin and azithromycin in the ED. She had an 11.8 white count with no shift and her coags are unremarkable except her PTT was mildly elevated. Her BMP was unremarkable as well and her lactic acid level was 1.1 and troponin 21.8. BNP was 136. Urinalysis essentially unremarkable. CT of the head without contrast showed no acute intracranial hemorrhage or cortical infarction noted. Chest x-ray noted a right hilar area which may be a pulmonary nodule but no further abnormality noted. Patient was admitted for dysarthria along with laryngeal stridor and lung nodule. Neurology was consulted for slurred speech, diplopia, ptosis and neck weakness further identified on admission. Therewas suspicion for neuromuscular junction transmission defect. MRI of the brain with and without contrast was performed on September 06 and was nonacute. Allergy recommended starting Mestinon 30 mg p.o. 3 times daily and further workup including acetylcholine receptor antibody panel to assess for defect and neuromuscular junction transmission. Pulmonology was also consulted for acute hypoxic respiratory failure and there was possible atelectasis with may be aspiration. She was placed initially in oxygen in the emergency room but was placedon room air on the medical service. No antibiotics were given and pulmonology felt that continued treatment of her respiratory status conservatively was good. With his lung nodule it appeared stable and recommended further evaluation in the outpatient setting including a PET scan. Patient's hospital course was complicated by failed swallow eval. Speech reevaluated her after on September 12 and the modified barium swallow did show silent aspiration. She did receive IVIG September 07 and stop after 3 doses on September 10. She was also started on PPN on September 06 for nutrition. With the silent aspiration on the modified barium, I consulted trauma surgery for possible PEG tube placement. In discussion with trauma surgery and family and the patient, we started with a Corpakwhich was placed September 12 without incident and she was started on tube feeds. If she tolerated tube feeds for [address] a PEG tube. Patient placed the PEG tube yesterday September 14 without incident. Patient will be discharged to the [facility] today. I did switch her p.o. medsto PEG and tube feeds with Jevity 1.0 with a goal rate of 60 mL/hour and 25 cc free water flushes every hour. She will follow-up with neurology in 2 to 4 weeks and her PCP as well. NOTE - it took 35 minutes to evaluate and coordinate patient for discharge Procedures and Treatment Provided 1. CT of the head without contrast 09/06/2023 2. Neurology consultation 3. MRI of the brain with and without contrast 09/07/2023 4. Pulmonology consultation 5. Trauma surgery consultation 6. PEG tube placement 09/15/2023 Services Consulted Consult to Dietitian Adult - Ordered -- 09/10/23 9:35:00 EDT Consult to Neurology - Ordered -- 09/07/23 0:57:00 EDT, Stroke, Consult and Co-manage Consult to Pulmonology (Pulmonology Consult) - Ordered -- 09/07/23 0:59:00 EDT, recurrent stridor w hypoxia,abnormal CXR, Consult and Co-manage Consult to Trauma - Ordered -- 09/13/23 11:02:00 EDT, silent aspiration on MBS; myasthenia gravis cri (more content not included)...[facility]:Result Comment: Electronically Signed By: Eliel Carvajal DO\Date and Time Signed: 09/16/23 11:32 [id number] NoteAdmission and Discharge Information Admit Date/Time:09/06/2023 19:39 Admitting Physician - Billy BRAVO DO Consulting Physician - Oscar YOU, Rickey Zuleta MD, Breanne Galan Admitting Diagnoses: Discharge Order Date Discharge Patient - Ordered -- 09/16/23 11:00:00 EDT, to the [facility] Discharge Diagnoses 1. Myasthenia gravis in crisis, 09/07/2023 2. Dysarthria, 09/06/2023 3. Laryngeal stridor, 09/07/2023 4. Acute hypoxic respiratory failure, 09/07/2023 5. Lung nodule, 09/06/2023 6. Hypertension, 09/07/2023 7. Hyperlipidemia, 09/07/2023 8. Chronic GERD, 09/07/2023 9. History of CVA in adulthood, 09/07/2023 10. History of DVT in adulthood, 09/07/2023 11. Depression, 09/07/2023 12. Restless leg syndrome, 09/07/2023 Cough, 09/06/2023 Facial droop, 09/06/2023 Potential stroke, 09/06/2023 Procedure History PEG - Percutaneous endoscopic gastrostomy (09/15/2023). Hospital Course Significant Findings Please refer to history and physical for details of admission. Patient presented to the emergency room September 05 because of increased slurred speech for the last couple days. He was also noted to be left-sided facial droop. She did report postnasal drip and a cough. She also has 2 days of dysarthria with facial drooping and some shortness of breath. Symptoms havebeen going on according to the patient for about maybe a week now family thought maybe longer. She is unable a flat because of shortness of breath but denies any swelling to her legs. She has had a cough for the past 1 to 2 weeks along with weakness for the past few weeks as well but no focal deficits noted. ER was concerned for stridor plus possible pneumonia so she was given Rocephin and azithromycin in the ED. She had an 11.8 white count with no shift and her coags are unremarkable except her PTT was mildly elevated. Her BMP was unremarkable as well and her lactic acid level was 1.1 and troponin 21.8. BNP was 136. Urinalysis essentially unremarkable. CT of the head without contrast showed no acute intracranial hemorrhage or cortical infarction noted. Chest x-ray noted a right hilar area which may be a pulmonary nodule but no further abnormality noted. Patient was admitted for dysarthria along with laryngeal stridor and lung nodule. Neurology was consulted for slurred speech, diplopia, ptosis and neck weakness further identified on admission. Therewas suspicion for neuromuscular junction transmission defect. MRI of the brain with and without contrast was performed on September 06 and was nonacute. Allergy recommended starting Mestinon 30 mg p.o. 3 times daily and further workup including acetylcholine receptor antibody panel to assess for defect and neuromuscular junction transmission. Pulmonology was also consulted for acute hypoxic respiratory failure and there was possible atelectasis with may be aspiration. She was placed initially in oxygen in the emergency room but was placedon room air on the medical service. No antibiotics were given and pulmonology felt that continued treatment of her respiratory status conservatively was good. With his lung nodule it appeared stable and recommended further evaluation in the outpatient setting including a PET scan. Patient's hospital course was complicated by failed swallow eval. Speech reevaluated her after on September 12 and the modified barium swallow did show silent aspiration. She did receive IVIG September 07 and stop after 3 doses on September 10. She was also started on PPN on September 06 for nutrition. With the silent aspiration on the modified barium, I consulted trauma surgery for possible PEG tube placement. In discussion with trauma surgery and family and the patient, we started with a Corpakwhich was placed September 12 without incident and she was started on tube feeds. If she tolerated tube feeds for [address] a PEG tube. Patient placed the PEG tube yesterday September 14 without incident. Patient will be discharged to the [facility] today. I did switch her p.o. medsto PEG and tube feeds with Jevity 1.0 with a goal rate of 60 mL/hour and 25 cc free water flushes every hour. She will follow-up with neurology in 2 to 4 weeks and her PCP as well. NOTE - it took 35 minutes to evaluate and coordinate patient for discharge Procedures and Treatment Provided 1. CT of the head without contrast 09/06/2023 2. Neurology consultation 3. MRI of the brain with and without contrast 09/07/2023 4. Pulmonology consultation 5. Trauma surgery consultation 6. PEG tube placement 09/15/2023 Services Consulted Consult to Dietitian Adult - Ordered -- 09/10/23 9:35:00 EDT Consult to Neurology - Ordered -- 09/07/23 0:57:00 EDT, Stroke, Consult and Co-manage Consult to Pulmonology (Pulmonology Consult) - Ordered -- 09/07/23 0:59:00 EDT, recurrent stridor w hypoxia,abnormal CXR, Consult and Co-manage Consult to Trauma - Ordered -- 09/13/23 11:02:00 EDT, silent aspiration on MBS; myasthenia gravis cri (more content not included)...[facility]Comment [facility]:Result Comment: Electronically Signed By: Eliel Carvajal DO\.br\Date and Time Signed: 09/16/23 12:03 [id number] NoteAcute Care Surgery Operative Report Date of Procedure: 09/15/23 Preop Diagnosis: myasthenia gravis, dysphagia, need for enteral access Postop Diagnosis: same Procedure: percutaneous endoscopic gastrostomy tube placement Surgeon: Breanne Zuleta MD Director Medical Science: Yesi Rodriguez PA-C Anesthesia: General endotracheal IVF: mL crystalloid EBL: <5 mL Complications: None Intraoperative Findings: Normal-appearing gastric and duodenal bulb mucosa. G tube flange at 4 cm at the skin. Indications: GENESIS CONTE is a 88 Years woman admitted on 09/06/2023 with aspiration and hypoxia. A swallow study demonstrated aspiration. She was recommended for a PEG placement. The risks, benefits, and alternatives to PEG, possible laparoscopic assisted G tube, possible open, to patient who provided informed consent for the procedure. Operative Note: The patient was brought to the operating room and placed supine on the operating room table. SCDs were placed on both legs. Clindamycin was given prior to the procedure. A timeout was performed to confirm correct patient, site, and procedure. MAC anesthesia was induced. The gastroscope was carefully introduced into the patient's mouth and the esophagus was traversed. Once there was good visualization of the stomach, the stomach was insufflated. An appropriate site for the PEG tube was chosen on the anterior abdominal wall at least 2cm away from the costal margin. One-to-one ballotment of the anterior abdominal wall and the gastric mucosa was established with transillumination using the gastroscope. 1% lidocaine was used to anesthetize the skin, then it was advanced through the abdominal wall and into the stomach, ensuring air bubbles were seen at the same time the needle entered the stomach. An 11-blade was used to thaddeus the skin of the abdominal wall at the chosen site. The 14gauge needle and plastic cannula from the [employer] PEG kit was thrust through the skin and into the stomach under direct visualization. The blue insertion wire was passed through this, grasped with the endoscopic snare. Then the wire, snare, and endoscope were carefully pulled out of the patient's mouth. The 20Fr PEG tube was fastened to the blue wire, and then the blue wire and PEG tube were pulled back into the patient's mouth, through the stomach, and out the abdominal wall. The endoscope was reinserted into the patient's mouth and used to follow the PEG tube into the stomach and ascertain that the dome of the PEG tube was resting securely against the gastric mucosa without undue pressure or blanching. The corpak was removed. The external bumper was threaded onto the PEG tube and secured at the skin at 4 cm. The position ofthe PEG tube dome was checked once again, and then the gastroscope was withdrawn out of the patient's mouth. The tubing was cut to an appropriate length, the pinch clamp threaded onto the tubing, andthe dual port feeding adapter was placed on the end of the tube. At the end of the case, all instrument and sponge counts were correct. General anesthesia was withdrawn and the patient was transported back to the ICU in satisfactory condition. I was present for all parts of the procedure.[facility] HospitalComment on above:Result Comment: Electronically Signed By: Merlyn YOU, Breanne Marinelli.rafia\Date and Time Signed: 09/15/23 18:32 [id number] NoteMicrobiology PROCEDURE: Blood Culture Charcoal [R1] SOURCE: Blood BODY SITE: Arm L COLLECTED DATE/TIME: 09/06/2023 18:39 EDT RECEIVED DATE/TIME: 09/06/2023 19:29 EDT START DATE/TIME: 09/06/2023 19:29 EDT FREE TEXT SOURCE: Chino Pennington DO, DO, John FINAL REPORTS Final Report [] Verified Date/Time: 09/13/2023 21:00 EDT No growth at 7 days. Performing Locations R1: This test was performed at: [facility], [address] [place] [address], [id number] [place] [address], AoogxiElyria Memorial HospitalComment on above:Performed By: #### [id number] #### [facility] [address] [place] [address] [id number] NoteMicrobiology PROCEDURE: Blood Culture Charcoal [R1] SOURCE: Blood BODY SITE: Arm R COLLECTED DATE/TIME: 09/06/2023 18:31 EDT RECEIVED DATE/TIME: 09/06/2023 19:29 EDT START DATE/TIME: 09/06/2023 19:29 EDT FREE TEXT SOURCE: Chino Pennington DO, DO, John FINAL REPORTS Final Report [] Verified Date/Time: 09/13/2023 21:00 EDT No growth at 7 days. Performing Locations R1: This test was performed at: [facility], [address] [place] [address], [id number] [place] [address], [address] StreetComment on above:Performed By: #### [id number] #### [facility] [address] [place] [address] [id number] NotePt transported to radiology via wheelchair for modified barium swallow evaluation by this nurse. Evaluation completed refer to report for results. Patient transported back to ICU via wheelchair by this nurse, pt tolerated well. Modified completed at 1415 Correction 1315 on 09/07/2023[facility]05[facility] NotePT Evaluation completed with an AMPAC score of 20/24. Pt was able to perform bed mobility with Mod I and transfers with CGA. pt was able to ambulate with FWW with CGA. Would recommend pt to use a FWWfor more stability. Will follow daily. PT HH services recommended at this time, but anticipate further improvement [facility]05-22-2024 NoteBasic Information Admit Date/Time:09/06/2023 19:39 Chief Complaint pt states that she has had an increase in slurred speech in the past couple of days. family member states left sided facial droop is baseline. pt states that she does have post nasal drip and has a cough. History of Present Illness Patient Is a very pleasant obese 88-year-old white female with a past medical history significant for a cerebrovascular infarct in July 2018. Patient cannot recall her symptoms at that time other than dizziness but cannot recall if she had any other deficits. CT imaging on this presentation suggest a remote left basal ganglier lacunar infarct. Patient is also treated for hypertension, I suspect hyperlipidemia for when reviewing the external pharmacy report there was a prescription ordered on 2May 2023 however this was not the med reconciliation either the patient or to family members are familiar with this med by generic or tradename but assure me they will recheck her home medications and advise us if in fact she is on this agent. She is also treated for GERD. She did have a history ofa deep venous thrombosis she states when she had her CVA and has been on Eliquis. Patient presentedto the emergency department with below Report I received from the emergency department received information from the day team patient presented with 2-day history of dysarthria. He was concerned about bilateral facial deficits and there was concerns about pneumonia for which she was treated with Rocephin and Zithromax in the emergency department as she had presented with shortness of breath. Prior to patient arriving on the general medical floor I was advised by the emergency department physician this evening the patient did have some stridor as she had just completed her ceftriaxone. Patient sats dropped down to 72% she did not develop a rash she was treated empirically for anaphylaxis though per discussion with the emergency department physician there was some uncertainty. She was given a Medrol, Pepcid and Benadryl with a quicker than expected response and resolution of her symptoms. I had also been advised by the emergency department physician there was concern about potential aspiration and recommendation for speech therapy consultation. When I evaluated patient under general medical floor there were 2 family members present. They assisted her with the historical retrieval. Patient advises that she presented to the emergency department because I could not breathe . She estimates that this has existed for the past week. She certainly had shortness of breath when she would exert herself but she was uncertain that occurred at rest. Family members mention that a short while prior to my arrival that she was somewhat short of breath when lying down which she then recalled suggesting occurs at rest. Occasionallyduring the examination when inhaling it was transient slight increased work of breathing and no stridor. Patient advises me when she feels short of breath she usually makes this noise. She estimates her symptoms have existed for the past week the family suggest perhaps longer. Patient states she isunable to lie flat because she gets short of breath denies any swelling in her legs she does not weigh herself on a regular basis. Patient does state that she has had a cough past 1 to 2 weeks she blamed on postnasal drip. The cough is occasionally productive of thick yellow mucus. I asked if she chokes and gags when she swallows she acknowledged this and with further questioning appears to suggest that this happens on a frequent occurrence. Patient's family suggest he may have been having these problems intermittently for the last several weeks. The family suggest patient has been dealing with weakness over the past few weeks though no focal deficits were noted. He expressed concern that for the past 3 days patient's speech has been altered and for the past 2 weeks or greater she has haddifficulty with both eyes drooping. Patient denies any headache. Patient denies any fevers or chills. Patient states occasionally she will have palpitations usually occur at night but states they arevery brief. 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 She advised me when she looked up on the monitor she thought the patient had a brief run of V. tach and that this did occur when her oxygen sats dropped down referenced above. Patient has had no chest pain Review of Systems Constitutional: no fever, no chills, Skin: no Jaundice, no rash, no lesions, nopetechiae ENMT: no ear pain, no sore throat, no congestion, no hoarseness, recent postnasal drip Respiratory: mildto moderate shortness of breath, no cough, ? orthopnea, no wheezing Cardiovascular: no chest pain, no palpitations, no edema Ga (more content not included)...[facility] HospitalComment on above: Result Comment: Electronically Signed By: Billy BRAVO DO\Date and Time Signed: 09/07/23 08:03 [id number] NoteBasic Information Admit Date/Time:09/06/2023 19:39 Chief Complaint pt states that she has had an increase in slurred speech in the past couple of days. family member states left sided facial droop is baseline. pt states that she does have post nasal drip and has a cough. History of Present Illness Patient Is a very pleasant obese 88-year-old white female with a past medical history significant for a cerebrovascular infarct in July 2018. Patient cannot recall her symptoms at that time other than dizziness but cannot recall if she had any other deficits. CT imaging on this presentation suggest a remote left basal ganglier lacunar infarct. Patient is also treated for hypertension, I suspect hyperlipidemia for when reviewing the external pharmacy report there was a prescription ordered on 2May 2023 however this was not the med reconciliation either the patient or to family members are familiar with this med by generic or tradename but assure me they will recheck her home medications and advise us if in fact she is on this agent. She is also treated for GERD. She did have a history ofa deep venous thrombosis she states when she had her CVA and has been on Eliquis. Patient presentedto the emergency department with below Report I received from the emergency department received information from the day team patient presented with 2-day history of dysarthria. He was concerned about bilateral facial deficits and there was concerns about pneumonia for which she was treated with Rocephin and Zithromax in the emergency department as she had presented with shortness of breath. Prior to patient arriving on the general medical floor I was advised by the emergency department physician this evening the patient did have some stridor as she had just completed her ceftriaxone. Patient sats dropped down to 72% she did not develop a rash she was treated empirically for anaphylaxis though per discussion with the emergency department physician there was some uncertainty. She was given a Medrol, Pepcid and Benadryl with a quicker than expected response and resolution of her symptoms. I had also been advised by the emergency department physician there was concern about potential aspiration and recommendation for speech therapy consultation. When I evaluated patient under general medical floor there were 2 family members present. They assisted her with the historical retrieval. Patient advises that she presented to the emergency department because I could not breathe . She estimates that this has existed for the past week. She certainly had shortness of breath when she would exert herself but she was uncertain that occurred at rest. Family members mention that a short while prior to my arrival that she was somewhat short of breath when lying down which she then recalled suggesting occurs at rest. Occasionallyduring the examination when inhaling it was transient slight increased work of breathing and no stridor. Patient advises me when she feels short of breath she usually makes this noise. She estimates her symptoms have existed for the past week the family suggest perhaps longer. Patient states she isunable to lie flat because she gets short of breath denies any swelling in her legs she does not weigh herself on a regular basis. Patient does state that she has had a cough past 1 to 2 weeks she blamed on postnasal drip. The cough is occasionally productive of thick yellow mucus. I asked if she chokes and gags when she swallows she acknowledged this and with further questioning appears to suggest that this happens on a frequent occurrence. Patient's family suggest he may have been having these problems intermittently for the last several weeks. The family suggest patient has been dealing with weakness over the past few weeks though no focal deficits were noted. He expressed concern that for the past 3 days patient's speech has been altered and for the past 2 weeks or greater she has haddifficulty with both eyes drooping. Patient denies any headache. Patient denies any fevers or chills. Patient states occasionally she will have palpitations usually occur at night but states they arevery brief. 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 She advised me when she looked up on the monitor she thought the patient had a brief run of V. tach and that this did occur when her oxygen sats dropped down referenced above. Patient has had no chest pain Review of Systems Constitutional: no fever, no chills, Skin: no Jaundice, no rash, no lesions, nopetechiae ENMT: no ear pain, no sore throat, no congestion, no hoarseness, recent postnasal drip Respiratory: mildto moderate shortness of breath, no cough, ? orthopnea, no wheezing Cardiovascular: no chest pain, no palpitations, no edema Ga (more content not included)...[facility] HospitalComment on above: Result Comment: Electronically Signed By: Billy BRAVO DO.rafia\Date and Time Signed: 09/07/23 01:06 [id number] Evaluation note* Encounter Date Diagnosis Assessment Notes Treatment Notes Treatment Clinical Notes Mar, Pneumonia of right m iddle lobe due to infectious organism (ICD-10 - J18.9) Continue expectorants as needed. She will require repeat CXR in month Likely will have complete recovery She is able to return to normal activities w/o concern of being contageous She is to call w/ any change in cough, fever or dyspnea Mar,aroxysmal atrial fibrillation (ICD-10 - I48.0)This patient is in NSR controlled. This patient is anticoagulated to prevent thromboembolic events. They are maintaining regular scheduled appts with their account development manager. [facility] 12-05-2023 Evaluation note* Encounter Date Diagnosis Assessment Notes Treatment Notes Treatment Clinical Notes Mar, Pneumonia of right m iddle lobe due to infectious organism (ICD-10 - J18.9) [facility] 12-04-2023 Evaluation note* Encounter Date Diagnosis Assessment Notes Treatment Notes Treatment Clinical Notes Mar, Acute cough (ICD-10 - R05.1) Mar,cute bronchitis due to other specified organisms (ICD-10 - J20.8) [facility] 12-01-2023 Evaluation note* Encounter Date Diagnosis Assessment Notes Treatment Notes Treatment Clinical Notes Mar, Acute bronchitis due to other sp ecified organisms (ICD-10 - J20.8) Instructed to use Robitussin or Mucinex for cough, saline or Flonase NS for congestion, Tylenol forpain and fever. Mar,Suspected COVID-19 virus infection (ICD-10 - Z20.822)She has been ill for > 5 days and to late to initiate Paxlovid Instructed her to isolate at home: avoid scientologist or school for total of 10 days Self isolate at home. - Cannot work - avoid contact with others - avoid pets - wipe counters, door knobs if touched - if can't avoid leaving home, must wear mask to protect others - need to stay isolated for 10 days from onset of symptoms - to discontinue isolation must be 5 days AND must be without fever for 24 hours AND symptoms must be improving. Always wear a mask in public places for complete 10 days [facility] 08-22-2023 Evaluation note* Encounter Date Diagnosis Assessment Notes Treatment Notes Treatment Clinical Notes Nov, KALYN (generalized anxiety disorde r) (ICD-10 - F41.1) [facility] 06-27-2023 Evaluation note* Encounter Date Diagnosis Assessment Notes Treatment Notes Treatment Clinical Notes Sep, Medicare annual wellness visit, subsequent (ICD-10 - Z00.00) Personalized health advice was given to the beneficiary including a written plan for screenings discussed and provided. Advanced care planning reviewed and/or information given as requested. Additional counseling was provided here today in regards to, [ ]. The above visit was performed by [ ], under direct supervision of [ ]. Document reviewed and amended by provider signed below. Sep,aroxysmal atrial fibrillation (ICD-10 - I48.0)This patient is in NSR or rate controlled. This patient is anticoagulated to prevent thromboembolic events. They are maintaining regular scheduled appts with their account development manager. Sep,rimary hypertension (ICD-10 - I10)This patient is instructed to consume a healthy, low-fat, low-salt diet. They are also encouraged to continue exercise to achieve/maintain a normal BMI. Sep,erebral atherosclerosis (ICD-10 - I67.2)Continue secondary prevention measures. No additional focal neurologic deficits. Sep,ure hypercholesterolemia (ICD-10 - E78.00)Instructed on diet and exercise with continued statin therapy.Discussed the beneficial effects of lo wering cholesterol in reducing the risk for cerebrovascular and cardiovascular disease. 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 They are to use intermittent heat and ice as needed. They may schedule a massage or gentle manipulation. They may safely use Tylenol as needed. 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 HISTORY: Patient presents today complaining of 0-7/10 pain in her lower buttock upper leg area, described as sharp, toothache type pain, increased with activities such as standing and walking at times, but in general the pain seems to increase and decrease idiosyncratically. She has a difficult time triggering her pain. She feels, nevertheless, in the semi-recumbent position, when her pain does occur. Denies any change in bowel and bladder habits or new sensorimotor changes in the lower extremities. MEDICATION: Her current medication includes the Requip 0.5 mg at h.s. Her DAVI was 6 on today's visit. EXAM: Notable for patient having no clinical radiculopathy or myelopathy involving the lower extremities. Patient had no pain with lumbar facet loading maneuvers, nothing to suggest SI joint dysfunction. She had no indication of irritation of the iliohypogastric nerve on today's visit. IMPRESSION: Patient appears to have chronic pain secondary to known spinal stenosis, L3-4 disc displacement. RECOMMENDATIONS: I have recommended she consider starting Zonegran 50 mg at h.s. I have also added baclofen 5 mg pills, one-quarter pill to one-half pill in the morning; one-quarter pill to one-half pill in the afternoon. I have also given her a script for aquatic therapy. I will see the patient back in the office in approximately four weeks' time or sooner if needed. In the future, if her pain is exacerbated, she may benefit from an L3-4 lumbar epidural steroid injection. As part of providing excellent, safe, comprehensive care, the following was completed at our patient's visit: 1. A medication reconciliation and review to ensure accurate knowledge of current/active medications, including asking our patients to inform us about any pllk-hyt-fninfhr medications or herbal remedies/nutritional supplements/alternative remedies. 2. A review to specifically ensure our patients have had annual screening for: elevated body mass index (BMI, see intake chart for exact total), tobacco use, screening for depression, and screening for unhealthy alcohol use. When screening is concerning, patients are provided with education and the specific recommendation to discuss the concerning health issue and treatment options with their primary care provider.[facility] [id number] Note CONSULTATION CONSULTATION DATE: 05/06/2022 HISTORY OF PRESENT ILLNESS: This is an 86-year-old female who returns to the clinic for a three month appointment. She was last seen on 02/10/2022 which, at that time, she was following up from a successful lumbar epidural steroid injection. Today, she is doing well. She has rated no pain today. Occasionally, she will get an ache in her buttock area. She is reporting increased leg tremors to her right leg, particularly when she gets up from sitting for a prolonged period of time. She currently is on Requip 0.5 mg q.h.s., baby aspirin and citalopram. She denies any recent falls or injury. Patient's REVIEW OF SYSTEMS / PAST MEDICAL HISTORY / ALLERGIES and IMAGES have been reviewed and noted on the chart. PHYSICAL EXAM: VITAL SIGNS: Blood pressure 124/75, heart rate is 78. Temperature is 97.3. She is 5'2 , weighs 68 kg. GENERAL IMPRESSION: Pleasant, appropriate, no acute distress. FOCUSED EXAM - BACK: Range of motion is functional in lateral rotation and flexion/extension. Paravertebral muscles are non-spasmodic. No reproduction of spinal axial pain upon deep compression along the lumbar facets. Josh's point negative bilaterally. MUSCULOSKELETAL: Diffuse muscle atrophy noted to bilateral lower extremities. Patient does ambulate, has a cane, but uses it sparingly. Patient does have an antalgic gait. NEUROLOGICAL: Bilateral lower extremity patellar and Achilles reflexes are blunted. No active tremors noted at this time. Negative polyneuropathy. DIAGNOSIS: Lower back pain, bilateral gluteal spasms. PLAN: We will increase her Requip to 1 mg at h.s. and continue with other supportive home measures such as a menthol heat rub and heat application. I did educate the patient that she is to use her cane for all physical activity, not just on a p.r.n. basis. Safety was discussed and her daughter is in agreement. We will see her in three months' time, unless otherwise indicated.[facility] [id number] NoteCONSULTATION CONSULTATION DATE: 02/10/2022 This is an 86-year-old female who returns to the clinic status post lumbar epidural steroid injection completed on 01/19/2022. The patient was afforded 100% of relief and is ongoing. She is reporting no radicular pain, foot pain, nerve pain or back pain whatsoever. She states she is sleeping good and changes in the weather are not affecting her pain pattern. She does walk with a four-pronged cane which is very beneficial to her. The patient was placed on Mirapex in the past, 0.25 mg q. p.m. for nighttime cramps; the patient discontinued that on her own as she states it was making the cramps worse. She has since been adding magnesium to her vitamin regimen. REVIEW OF SYSTEMS, PAST MEDICAL HISTORY, ALLERGIES AND IMAGES: Have been reviewed and noted in the chart. PHYSICAL EXAM: VITAL SIGNS: Blood pressure 124/71, heart rate is 96, temperature is 97.7. Height is 5'2 , weighs 67 kg. GENERAL APPEARANCE: Pleasant, appropriate and in no acute distress. FOCUSED EXAM: BACK: Range of motion is functional in lateral rotation and flexion/extension. Perivertebral muscles are non-spasmodic. Mild spinoaxial pain to compression along the L4-L5 facets bilaterally. That is non-radiating. Josh's point is minimally tender to the right. Negative Darian's and compression test. MUSCULOSKELETAL: Slight muscle atrophy noted bilateral lower extremities diffusely. The patient walks with a steady antalgic gait with her 4-pronged cane. NEUROLOGICAL: Radicular sensory is intact with +1 bilateral reflexes. DIAGNOSIS: Lumbar radiculitis; lumbar spondylosis; lumbar spinal canal stenosis. PLAN: We will have no further refills of the Mirapex. Education was given regarding the uses of tonic water as well as magnesium with her multivitamin. I did recommend daily Boost supplements as well. We will see the patient in three months' time unless otherwise indicated. The patient agrees with the plan of care.[facility] [id number] NoteCONSULTATION CONSULTATION DATE: 01/12/2022 CHIEF COMPLAINT: Posterior thigh pain, nocturnal claudication. HISTORY OF PRESENT ILLNESS: This is a very pleasant, 86-year-old female who is introduced to this practice. The patient has an MRI which shows severe spinal canal stenosis and a disc herniation, significant multiple level degenerative disc disease. The patient describes pain in her leg bilaterally. She rates it as a 4/10, an achy sensation. Activities such as sitting mitigate the pain, as does laying down. Standing and walking aggravate the patient's pain. The patient has an unstable gait. The pain is worse in the morning compared to the evening. The patient takes Tylenol on a p.r.n. basis. The patient is on Eliquis. The patient also takes citalopram 20 mg q.h.s. The patient's PAST MEDICAL HISTORY / SURGICAL HISTORY / REVIEW OF SYSTEMS are noted on the chart, along with the MEDICATION LIST / ALLERGIES and most importantly, the MRI which defines the patient's pathology. PHYSICAL EXAM: Upon physical examination, this is a very vital, young 86-year-old female, who does not appear to be in any acute distress. VITAL SIGNS: Stable at 141/65, with a heart rate of 61. At a height of 5'2 , the patient weighs 143 pounds. HEAD: Atraumatic, normocephalic. NECK: Crepitus is noted. Cervicothoracic axial height is lost. HEART: No orthopnea is present. LUNGS: Non-labored breathing. ABDOMEN: Soft. BACK: Loss of interspinous space is present in the thoracic and lumbar region. Extension, compression, direct palpation along the posterior elements aggravate a component of the patient's pain symptomatology, concordant with facet arthropathy. EXTREMITIES: Global atrophy of the lower extremities is present bilaterally. Sarcopenia is present. MUSCULOSKELETAL: 4+/5 bilaterally. The patient is unstable in her gait; however, does not use a cane, where we educated the patient with regards to the risks/benefits. NEUROLOGICALLY: Hypoesthesia is present along the L3-L4 distribution bilaterally. PSYCHIATRICALLY: Affect is appropriate. IMPRESSION: Large disc herniation, lumbar degenerative disc disease, lumbar arthrosis, spondylosis, lumbar spinal canal stenosis with restless leg syndrome. PLAN: Education was done with regards to the patient. The patient will: 1. Start with a cane. 2. Multivitamin regimen has been suggested for the patient. 3. Mirapex 0.25 mg will be given q.p.m. 4. The patient will be scheduled for a lumbar epidural steroid injection under fluoroscopy. Education was done. The patient understands and would like to proceed. CC: Rj Velasquez D.O.[facility] [id number] Evaluation note* Encounter Date Diagnosis Assessment Notes Treatment Notes Treatment Clinical Notes Jul, Spinal stenosis of l umbar region, unspecified whether neurogenic claudication present (ICD-10 - M48.061) I have independently reviewed the CT of the lumbar spine and an MRI of the lumbar spine and reports. This patient has numerous areas of back pathology to include foraminal narrowing L5-S1, stenosis at L3-4, severe degenerative disc changes at L4-5. She talks about quivering in her legs and I am notsure as to the pathophysiology of this. She gets some element of neurogenic claudication but it is infrequent and intermittent. My recommendation is for the patient to take a 9-day prednisone taper, I would recommend pain management for this patient to try to modify some of her symptomatology. At 86 years old this back problem would require rather complex surgical fusion. This patient is not a can didate. I think pain management would be her best option if the Prednisone fails. [employer] Other 05-15-2020 History general Narrative - Reported* Type Description Date Medical History hypertension Medical HistorystrokeMedical HistoryElevated blood-pressure reading, without diagnosis of hypertension (resolved 08/31/2019)Medical HistoryParesthesia of skin (resolved 08/31/2019)Medical HistoryHemiplga following cerebral infrc aff right dominant side (resolved 08/31/2019)Surgical Historycholecystectomy Hospitalization HistorySee Above [employer] Other Evaluation + Plan note Future Appointments Appointment Date:11/02/2023 10:00:00 AM Scheduled Provider: Location:[facility] Appointment Type:Trauma Initial [facility] ([facility]) [facility] noteNo InformationNort [employer] Other Evaluation note* Diagnosis Onset Date Resolution Status Allergic rhinitis acuteGERD (gastroesophageal reflux disease)acutePrimary hypertensionacute [facility] Work Phone: Evaluation note* Diagnosis Onset Date Resolution Status Allergic rhinitis acuteGERD (gastroesophageal reflux disease)acutePrimary hypertensionacute Cerebral atherosclerosisacuteParoxysmal atrial fibrillationacutePrimary hypertensionacute [facility] Work Phone: Evaluation note* Diagnosis Myasthenia gravis ([facility])- Primary Myasthenia gravis without exacerbation documented in this encounter [facility]* Diagnosis Onset Date Resolution Status Admit Date Cerebral atherosclerosis acuteApril 2024 2:53pmGERD (gastroesophageal reflux disease)acuteApril 2024 2:53pmHypercholesterolemiaacuteApril 2024 2:53pmLung nodule acuteApril 2024 2:53pmMyasthenia gravisacuteApril 2024 2:53pm Paroxysmal atrial fibrillationacuteApril 2024 2:53pmPrimary hypertension acuteApril 2024 2:53pm [facility] Work Phone: Evaluation note* Diagnosis Onset Date Resolution Status Admit Date Myasthenia gravis acuteOctober 2024 1:29pm [facility] Work Phone: History general Narrative - Reported* Type Description Date Medical History hypertension Medical HistorystrokeSurgical HistorycholecystectomyHospitalization HistorySee Above [facility] [employer] Other Hospital course Narrative No data available for this section [facility] Dis[facility] instructions No data available for this section [facility] CenterProgress note No data available for this section [facility] CenterReason for referral (narrative)No reason for referral information availableSt. Mary[facility] Work Phone: Summary Purpose Family History No Family History Records FoundNo Family History Records FoundNo Family History Records FoundNo Family History Records FoundNo Family History Records FoundNo Family History Records FoundNo Family History Records FoundNo Family History Records FoundNo Family History Records FoundNo Family History Records FoundNo Family History Records FoundNo Family History Records FoundNo Family History Records FoundNo Family History Records FoundNo Family History Records FoundNo Family History Records FoundNo Family History Records FoundNo Family History Records FoundNo Family History Records FoundNo Family History Records FoundNo Family History Records FoundNo Family History Records FoundNo Family History Records FoundNo Family History Records FoundNo Family History Records FoundNo Family History Records FoundNo Family History Records FoundNo Family History Records FoundNo Family History Records FoundNo Family History Records FoundNo Family History Records FoundNo Family History Records FoundNo Family History Records FoundNo Family History Records FoundNo Family History Records FoundNo Family History Records FoundNo Family History Records FoundNo Family History Records FoundNo Family History Records FoundNo Family History Records FoundNo Family History Records FoundNo Family History Records FoundNo Family History Records FoundNo Family History Records FoundNo Family History Records FoundNo Fa vinay History Records FoundNo Family History Records FoundNo Family History Records FoundNo Family History Records FoundNo Family History Records FoundNo Family History Records FoundNo Family History Records FoundNo Family History Records FoundNo Family History Records FoundNo Family History RecordsFoundNo Family History Records FoundNo Family History Records FoundNo Family History Records FoundNo Family History Records FoundNo Family History Records Found No data available for this section No Family History Records Found No data available for this section No data available for this section No Family History Records Found No data available for this section No Family History Records Found Advance Directives Advance Directive Response Recorded Date/ Time Advance Directives No May 11, 2023 4:05pm Advance Directive Response Recorded Date/ Time Advance Directives No August 15 4:04pm Reason for Referral Reason *Waiting for appt Evaluate and Treat Diagnosis 1 Spinal stenosis of l umbar region, unspecified whether neurogenic claudication present (M48.061) Referral Organization [facility] urosurgery Referring Provider First Name Gordy Referring Provider Last Name Jovan Referring Provider Specialty Neurologica l Surgery Referred Organization [facility] Kristopher Referred Provider Jose Cleveland Referred Address [address] [place], [place],[address] Referred Provider Specialty Pain Medicin e Referral Priority Routine General Notes Jackie Lucas M 022 03:14:13 PM >Received today and sent P2P Chief Complaint and Reason for Visit Chief Complaint Amb Documentation Sinus drainage, allergiesReason for VisitAllergic rhinitis GERD (gastroesophageal reflux disease) Primary hypertension Chief Complaint Sinus drainage, jonel rgies eye lids drooping g70.00 [id number] for VisitAllergic rhinitis GERD (gastroesophageal reflux disease) Primary hypertension Cerebral atherosclerosis Paroxysmal atrial fibrillation Primary hypertension Chief Complaint Admit Date follow up-HIGH RISK August 15, 2024 2:5 3pm Reason for Visit Admit Date Cerebral atherosclerosis August 15 2:53pm GERD (gastroesophageal reflux disease) A pril 2024 2:53pm Hypercholesterolemia August 15, 2024 2: 53pm Lung nodule August 15, 2024 2:5 3pm Myasthenia gravis August 15, 2024 2:5 3pm Paroxysmal atrial fibrillation July 2:53pm Primary hypertension August 15, 2024 2: 53pm Chief Complaint Admit Date follow up-HIGH RISK August 15, 2024 2:5 3pm HIGH RISK:left knee bruising following f all October 12, 2024 10:30am Chief Complaint Admit Date follow up-HIGH RISK August 15, 2024 2:5 3pm HIGH RISK:left knee bruising following f all October 12, 2024 10:30am 1 week f/u-HIGH RISK October 18, 2024 11:1 7am Reason for Visit Admit Date Cerebral atherosclerosis August 15 2:53pm GERD (gastroesophageal reflux disease) A pril 2024 2:53pm Hypercholesterolemia August 15, 2024 2: 53pm Lung nodule August 15, 2024 2:5 3pm Myasthenia gravis August 15, 2024 2:5 3pm Paroxysmal atrial fibrillation July 2:53pm Primary hypertension August 15, 2024 2: 53pm Contusion of right knee October 12, 2024 10:30am Swelling of right lower extremity September 172024 10:30am Traumatic hematoma of right knee October 122024 10:30am Contusion of right knee October 18, 2024 1 1:17am Swelling of right lower extremity October 182024 11:17am Traumatic hematoma of right knee October 11:17am Chief Complaint Admit Date follow up-HIGH RISK August 15, 2024 2:5 3pm HIGH RISK:left knee bruising following f all October 12, 2024 10:30am 1 week f/u-HIGH RISK October 18, 2024 11:1 7am 1 week f/u-HIGH RISK October 24, 2024 9:08 am Reason for Visit Admit Date Cerebral atherosclerosis August 15 2:53pm GERD (gastroesophageal reflux disease) A pril 2024 2:53pm Hypercholesterolemia August 15, 2024 2: 53pm Lung nodule August 15, 2024 2:5 3pm Myasthenia gravis August 15, 2024 2:5 3pm Paroxysmal atrial fibrillation July 2:53pm Primary hypertension August 15, 2024 2: 53pm Contusion of right knee October 12, 2024 10:30am Swelling of right lower extremity September 172024 10:30am Traumatic hematoma of right knee October 122024 10:30am Contusion of right knee October 18, 2024 1 1:17am Swelling of right lower extremity October 182024 11:17am Traumatic hematoma of right knee October 11:17am Contusion of right knee October 24, 2024 9 :08am Swelling of right lower extremity October 242024 9:08am Traumatic hematoma of right knee October 9:08am Chief Complaint Admit Date follow up-HIGH RISK August 15, 2024 2:5 3pm HIGH RISK:left knee bruising following f all October 12, 2024 10:30am 1 week f/u-HIGH RISK October 18, 2024 11:1 7am 1 week f/u-HIGH RISK October 24, 2024 9:08 am 1 week f/u-HIGH RISK November 05, 2024 2:1 7pm Reason for Visit Admit Date Cerebral atherosclerosis August 15 2:53pm GERD (gastroesophageal reflux disease) A pril 2024 2:53pm Hypercholesterolemia August 15, 2024 2: 53pm Lung nodule August 15, 2024 2:5 3pm Myasthenia gravis August 15, 2024 2:5 3pm Paroxysmal atrial fibrillation July 2:53pm Primary hypertension August 15, 2024 2: 53pm Contusion of right knee October 12, 2024 10:30am Swelling of right lower extremity September 172024 10:30am Traumatic hematoma of right knee October 122024 10:30am Contusion of right knee October 18, 2024 1 1:17am Swelling of right lower extremity October 182024 11:17am Traumatic hematoma of right knee October 11:17am Contusion of right knee October 24, 2024 9 :08am Prepatellar bursitis of right knee October 24, 2024 9:08am Traumatic hematoma of right knee October 9:08am Contusion of right knee November 05, 2024 2:17pm Prepatellar bursitis of right knee November 05, 2024 2:17pm Traumatic hematoma of right knee November 052024 2:17pm Chief Complaint Admit Date SB BASIM February 05, 2025 1 :29pm Reason for Visit Admit Date Myasthenia gravis February 05, 2025 1 :29pm Additional Source Comments INFORMATION SOURCE (unrecogn ized section and content) DATE CREATED AUTHOR 08/14/2018 [facility] DATE CREATED AUTHOR AUTHOR'S ORGANIZ ATION 08/10/2022 [facility] DATE CREATED AUTHOR AUTHOR'S ORGANIZ ATION 09/09/2023 [facility] DATE CREATED AUTHOR AUTHOR'S ORGANIZ ATION 09/10/2023 [facility] DATE CREATED AUTHOR AUTHOR'S ORGANIZ ATION 09/11/2023 [facility] DATE CREATED AUTHOR AUTHOR'S ORGANIZ ATION 09/12/2023 [facility] DATE CREATED AUTHOR AUTHOR'S ORGANIZ ATION 09/13/2023 [facility] DATE CREATED AUTHOR AUTHOR'S ORGANIZ ATION 09/14/2023 [facility] DATE CREATED AUTHOR AUTHOR'S ORGANIZ ATION 09/15/2023 [facility] DATE CREATED AUTHOR AUTHOR'S ORGANIZ ATION 09/16/2023 [facility] DATE CREATED AUTHOR AUTHOR'S ORGANIZ ATION 10/09/2023 [facility] DATE CREATED AUTHOR AUTHOR'S ORGANIZ ATION 12/31/2023 [facility] DATE CREATED AUTHOR AUTHOR'S ORGANIZ ATION 07/07/2024 [facility] EPIC REASON FOR VISIT (unrecogniz ed section and content) ReasonCommentsMyasthenia Gravis Care Teams (unrecognized sec tion and content) Team Status: Active Member Role Status Dates Rj Velasquez DO Primary Care Provider Active Team Status: Inactive Member Role Status Dates Rj Velasquez DO Primary Care Provide r, Attending Provider Active Start: August 26, 2023 End: August 26, 2023 Team Status: Inactive Member Role Status Dates Rj Velasquez DO Primary Care Provide r, Attending Provider Active Start: September 01, 2023 End: September 01, 2023 Team Status: Inactive Member Role Status Dates Rj Velasquez DO Primary Care Provide r, Attending Provider Active Start: September 29, 2023 End: September 29, 2023 Team Status: Active Member Role Status Dates Rj Velasquez DO Primary Care Provider Active Start: June 20, 2023 Meenu Abernathy RMAAttending ProviderActiveStart: June 20, 2023 Team MemberRelationshipSpecialtyStart DateEnd Date Rj Velasquez MD [address] [facility] [id number] PCP - GeneralInternal Medicine10/06/23Team MemberRelationshipSpecialtyStart Date End Date Rj Velasquez MD [address] [facility] [address] PCP - GeneralInternal Medicine10/06/23Team MemberRelationshipSpecialtyStart Date End Date Rj Velasquez MD [address] [facility] [address] PCP - GeneralInternal Medicine10/06/23 Misti Berger PA [address] [facility] [address] [place], [place] [id number] Physician AssistantNeurology07/05/24 Team Status: Inactive Member Role Status Dates Rj Velasquez DO Primary Care Provide r, Attending Provider Active Start: August 15, 2024 End: August 15, 2024 Team Status: Inactive Member Role Status Dates Rj Velasquez DO Primary Care Provider Active Start: August 15, 2024 End: August 15kay Velasquez DOAttending ProviderActiveStart: August 15, 2024 End: August 15, 2024 Team Status: Inactive Member Role Status Dates Rj Velasquez DO Primary Care Provider Active Start: October 12, 2024 End: October 12kay Velasquez DOAttending ProviderActiveStart: October 12, 2024 End: October 12, 2024 Team Status: Inactive Member Role Status Dates Rj Velasquez DO Primary Care Provider Active Start: October 18, 2024 End: October 18kay Velasquez DOAttending ProviderActiveStart: October 18, 2024 End: October 18, 2024 Team Status: Inactive Member Role Status Dates Rj Velasquez DO Primary Care Provider Active Start: October 24, 2024 End: October 24enjamin Ball , DOAttending ProviderActiveStart: October 24, 2024 End: October 24, 2024 Team Status: Inactive Member Role Status Dates Rj Velasquez DO Primary Care Provider Active Start: November 05, 2024 End: November 05enedeliaBrittney Wong ProviderActiveStart: November 05, 2024 End: November 05, 2024 Team Status: Active Member Role/Relationship Status Dates Rj Velasquez , Primary Care Provider Active Team Status: Inactive Member Role/Relationship Status Dates Rj Velasquez DO Primary Care Provider Active Start: February 05, 2025 End: February 05robert Mack JavierBrittney young ProviderActiveStart: February 05, 2025 End: February 05, 2025 Goals (unrecognized section and content) Goals may be documented in a n alternate section FOR RECORDS PERTAINING TO PATIENTS WHO ARE OR HAVE BEEN ENROLLED IN A CHEMICAL DEPENDENCY/SUBSTANCEABUSE PROGRAM, SOME INFORMATION MAY BE OMITTED. This clinical summary was aggregated from multiple sources. Caution should be exercised in using it in the provision of clinical care. This summary normalizes information from multiple sources, and as a consequence, information in this document may materially change the coding, format and clinical context of patient data. In addition, data may be omitted in some cases. CLINICAL DECISIONS SHOULD BE BASED ON THE PRIMARY CLINICAL RECORDS. [facility] [employer] provides no warranty or guarantee of the accuracy or completeness of information in this document.
[2025-02-27 09:55] LABS: Hematocrit 39.9 % (36.0-48.0); Hemoglobin 12.6 g/dL (12.0-16.0); Immature Granulocytes Abs Auto 0.03 10^3/uL (0.00-0.03); Immature Granulocytes Pct Auto 0.3 % (0.0-0.5); Lymphocytes Absolute Auto 3.2 10^3/uL (1.2-3.8); Mean Corpuscular HGB Conc 31.6 g/dL (29.9-35.2); Mean Corpuscular Hemoglobin 28.4 pg (26.7-34.0); Mean Corpuscular Volume 89.9 fL (81.0-99.0); Platelet Count 272 10^3/uL (150-450); Red Blood Count 4.44 10^6/uL (4.20-5.40); White Blood Count 10.2 10^3/uL (4.0-11.0)
[2025-02-27 10:56] LABS: Alanine Aminotransferase 30 U/L (14-59); Albumin Globulin Ratio 1.1; Albumin Level 3.5 g/dL (3.4-5.0); Alkaline Phosphatase 78 U/L (46-116); Anion Gap 7.3; Aspartate Amino Transferase 23 U/L (15-37); Blood Urea Nitrogen 21.0 mg/dL (7.0-18.0); Calcium 8.8 mg/dL (8.5-10.1); Carbon Dioxide 30.4 mmol/L (21.0-32.0); Chloride 106 mmol/L (98-107); Estimated GFR (African America >60 (>=60 mL/min/1.73m^2); Estimated GFR (Non-African Ame >60 (>=60 mL/min/1.73m^2); Globulin 3.3 g/dL; Glucose 84 mg/dL (74-106); Potassium 3.7 mmol/L (3.5-5.1); Sodium 140 mmol/L (136-145); Thyroid Stimulating Hormone 1.364 uIU/mL (0.358-3.740); Total Protein 6.8 g/dL (6.4-8.2)
== END 2025-02-27 09:26 | disposition home or self-care (01) ==
LOC: LAB 09:28
PROVIDERS: Family Provider Internal Medicine; PCP Internal Medicine; Visit Provider Internal Medicine
DX: I67.2 Cerebral atherosclerosis (principal); I10 Essential (primary) hypertension; I48.0 Paroxysmal atrial fibrillation; R53.83 Other fatigue; Z79.899 Other long term (current) drug therapy
CPT/HCPCS: 36415; 80053; 84443; 85025